=== PATIENT | female | born 1945 | race African-American/Black ===

== ENCOUNTER 2020-06-05 12:06 | Inpatient (IN) | payer MEDICARE, MEDICAID ==
[~2020-06-05] VITALS: Ht 167.6 cm; Wt 103.1 kg
--- NOTE | 2020-06-05 12:25 | NUR ---
ED Nurse Note: Pt brought by amb from SNF for low hemoglobin. Pt is alert and ox0, opens eyes to verbal stimuli. Pt arrived with vent AC setting, no respiratory distress. RT placed pt on AC levels PEEP 5, 40%, TV 400 upon arrival. Pt has g tube upper abdomen. Set on monitor. Pt has PICC IV upper R arm.
--- NOTE | 2020-06-05 12:26 | Emergency Room Report ---
History of Present Illness General Chief Complaint: Abnormal Labs Source: Medical Record, EMS Present Illness HPI Patient is a 74-year-old female past medical history of anemia vent dependent brought in by EMS from her extended care facility for anemia. Unable to obtain further history. Allergies: Coded Allergies: PROPOXYPHENE (Verified Allergy, Unknown, 06/05/20) COVID-19 Screening Contact w/high risk pt: No Experienced COVID-19 symptoms?: No COVID-19 Testing performed [employer]: Yes COVID-19 Screening: Negative COVID-19 COVID-19 Testing Source: unknown Patient History Reviewed Nursing Documentation: PMH: Agreed; PSxH: Agreed Review of Systems All Other Systems: limited Physical Exam Vital Signs Date Time Temp Pulse Resp B/P (MAP) Pulse Ox O2 Delivery O2 Flow Rate FiO2 06/05/20 12:01 97.2 59 18 139/52 (81) 99 Mechanical Ventilator 5.0 Sp02 EP Interpretation: reviewed, normal - On vent General Appearance: lethargic, Chronically Ill Head: normocephalic, atraumatic Neck: other - Trach in place Respiratory: rales Cardiovascular #1: regular rate, rhythm Gastrointestinal: non tender, soft, no guarding, no rebound Psychiatric: other - Unable to assess Skin: no rash Lymphatic: no adenopathy Procedures Critical Care Time Critical Care Time Total critical care time: Approximately 35 minutes. Due to a high probability of clinically significant, life threatening deterioration, the patient required my highest level of preparedness to intervene emergently and I personally spent this critical care time directly and personally managing the patient. This critical care time included obtaining a history; examining the patient; pulse oximetry; ordering and review of studies; arranging urgent treatment with development of a management plan; evaluation of patient's response to treatment ; frequent reassessment; and, discussions with other providers.This critical care time was performed to assess and manage the high probability of imminent, life-threatening deterioration that could result in multi-organ failure. It was exclusive of separately billable procedures and treating other patients and teaching time. Please see MDM section and the rest of the note for further information on patient assessment and treatment. Medical Decision Making Diagnostic Impression: Primary Impression: Anemia Additional Impressions: CHF (congestive heart failure) Hyponatremia Acute renal failure ER Course Patient presents for anemia. 1 unit of packed red blood cells have been ordered. Patient patient hyponatremic. Patient also presents with bilateral pulmonary vascular congestion. Patient given Lasix. Patient will be admitted for further treatment and evaluation. Chest X-Ray Diagnostic Results Chest X-Ray Diagnostic Results : Chest X-Ray Ordered: Yes # of Views/Limited/Complete: 1 View Indication: Other - sob EP Interpretation: Yes Interpretation: no consolidation, no pneumothorax, other - Bilateral increased pulmonary vasculature Impression: Other - DHF Electronically Signed by: Didi Crowell MD Last Vital Signs Date Time Temp Pulse Resp B/P (MAP) Pulse Ox O2 Delivery O2 Flow Rate FiO2 06/05/20 12:01 97.2 59 18 139/52 (81) 99 Mechanical Ventilator 5.0 Disposition: ADMITTED INPATIENT - Step-Down Condition: Critical Physician Consult: Dr. Killian Additional Instructions: Please note that this report is being documented using [employer] technology. This can lead to erroneous entry secondary to incorrect interpretation by the dictating instrument. Didi Crowell M.D. Jun 05, 2020 12:26
[2020-06-05 12:53] LABS: HEMATOCRIT 27.7 % (37.0-47.0); HEMOGLOBIN 7.9 G/DL (12.0-16.0); MEAN CORPUSCULAR VOLUME 86 FL (80-99); PLATELET COUNT 199 K/UL (150-450); RED CELL DISTRIBUTION WIDTH 22.1 % (11.6-14.8); WHITE BLOOD COUNT 6.7 K/UL (4.8-10.8)
[2020-06-05 13:00] LABS: INR 1.2 (0.9-1.1)
[2020-06-05 13:08] LABS: ANION GAP 7 mmol/L (5-15); BLOOD UREA NITROGEN 62 mg/dL (7-18); CALCIUM 8.3 MG/DL (8.5-10.1); CARBON DIOXIDE 25 MMOL/L (21-32); CHLORIDE 101 MMOL/L (98-107); CREATININE 1.5 MG/DL (0.55-1.30); POTASSIUM 4.7 MMOL/L (3.5-5.1); SODIUM 133 MMOL/L (136-145)
[2020-06-05 13:12] LABS: ALANINE AMINOTRANSFERASE 47 U/L (12-78); ALBUMIN 1.1 G/DL (3.4-5.0); ALBUMIN/GLOBULIN RATIO 0.2 (1.0-2.7); ALKALINE PHOSPHATASE 219 U/L (46-116); ASPARTATE AMINO TRANSFERASE 46 U/L (15-37); BILIRUBIN,TOTAL 0.7 MG/DL (0.2-1.0)
[2020-06-05 13:20] VITALS: BP 142/67
--- NOTE | 2020-06-05 15:10 | NUR ---
ED Nurse Note: Blood picked up from blood bank at 1500. Verified with RN Sallie. At 1510, blood started at 80 mL/hr. Pt VSS.
[2020-06-05 15:21] VITALS: BP 135/62
--- NOTE | 2020-06-05 17:05 | History & Physical ---
History and Physical History & Physicial 74-year-old female past medical history of anemia vent dependent brought in by EMS from her extended care facility for anemia. Unable to obtain further history. Allergies: PROPOXYPHENE (Verified Allergy, Unknown, 06/05/20) Physical WDWN NAD clear breath sounds bilaterally without rhonchi or wheeze [id number] without MRG NABS nontender no HSM no CC edema reduced LOC Labs Test 06/05/20 12:25 White Blood Count 6.7 K/UL (4.8-10.8) Red Blood Count 3.20 M/UL (4.20-5.40) Hemoglobin 7.9 G/DL (12.0-16.0) Hematocrit 27.7 % (37.0-47.0) Mean Corpuscular Volume 86 FL (80-99) Mean Corpuscular Hemoglobin 24.7 PG (27.0-31.0) Mean Corpuscular Hemoglobin Concent 28.6 G/DL (32.0-36.0) Red Cell Distribution Width 22.1 % (11.6-14.8) Platelet Count 199 K/UL (150-450) Mean Platelet Volume 8.1 FL (6.5-10.1) Neutrophils (%) (Auto) % (45.0-75.0) Lymphocytes (%) (Auto) % (20.0-45.0) Monocytes (%) (Auto) % (1.0-10.0) Eosinophils (%) (Auto) % (0.0-3.0) Basophils (%) (Auto) % (0.0-2.0) Differential Total Cells Counted 100 Neutrophils % (Manual) 74 % (45-75) Lymphocytes % (Manual) 6 % (20-45) Monocytes % (Manual) 12 % (1-10) Eosinophils % (Manual) 1 % (0-3) Basophils % (Manual) 3 % (0-2) Band Neutrophils 4 % (0-8) Platelet Estimate Adequate Platelet Morphology Normal Hypochromasia 1+ Anisocytosis 2+ Prothrombin Time 12.7 SEC (9.30-11.50) Prothromb Time International Ratio 1.2 (0.9-1.1) Activated Partial Thromboplast Time 32 SEC (23-33) Sodium Level 133 MMOL/L (136-145) Potassium Level 4.7 MMOL/L (3.5-5.1) Chloride Level 101 MMOL/L (98-107) Carbon Dioxide Level 25 MMOL/L (21-32) Anion Gap 7 mmol/L (5-15) Blood Urea Nitrogen 62 mg/dL (7-18) Creatinine 1.5 MG/DL (0.55-1.30) Estimat Glomerular Filtration Rate 34.1 mL/min (>60) Glucose Level 165 MG/DL (74-106) Calcium Level 8.3 MG/DL (8.5-10.1) Magnesium Level 2.4 MG/DL (1.8-2.4) Total Bilirubin 0.7 MG/DL (0.2-1.0) Aspartate Amino Transf (AST/SGOT) 46 U/L (15-37) Alanine Aminotransferase (ALT/SGPT) 47 U/L (12-78) Alkaline Phosphatase 219 U/L (46-116) Total Protein 7.3 G/DL (6.4-8.2) Albumin 1.1 G/DL (3.4-5.0) Globulin 6.2 g/dL Albumin/Globulin Ratio 0.2 (1.0-2.7) IMPRESSION respiratory failure CHF anemia possible GIB chronic encephalopathy CKD PLAN vent support diurese if able monitor HH transfuse echo follow up labs resume snf meds monitor as is impression, plan, and exam edited and reviewed in detail care discussed with Jonathon Henson MD Jun 05, 2020 17:05
--- NOTE | 2020-06-05 17:27 | Diagnostic Imaging Report ---
Indication: Dyspnea Technique: One view of the chest Comparison: none Findings: There is a tracheostomy. There is evidence of prior median sternotomy and valve repair. There are bilateral pleural effusions. There is extensive bilateral interstitial and airspace edema versus infiltrates. There is a right arm PICC. The heart is probably enlarged. Impression: Suspect cardiomegaly Bilateral pleural effusions Extensive bilateral interstitial and airspace disease, likely pulmonary edema, infiltrates possible
[2020-06-05] MEDS ORDERED: HUMALOG 75/255 UNIT1 SUBQ (17:38)
[2020-06-05] MEDS ORDERED: LEVEMIR100 UNIT/1 SUBQ (17:38)
[2020-06-05] MEDS ORDERED: CATAPRES0.1 MG GT (17:38)
[2020-06-05] MEDS ORDERED: POTASSIUM40 MEQ/11 GT (17:38)
[2020-06-05] MEDS ORDERED: NITRO0.4 SL (17:38)
[2020-06-05] MEDS ORDERED: LISINOPRIL10 MG GT (17:40)
[2020-06-05] MEDS ORDERED: ATORVASTATIN CA20 MG GT (17:40)
[2020-06-05] MEDS ORDERED: ASPIR 8181 MG GT (17:40)
[2020-06-05] MEDS ORDERED: NEXIUM40 MG GT (17:41)
[2020-06-05] MEDS ORDERED: METOPROLOL TART25 MG GT (17:41)
[2020-06-05] MEDS ORDERED: NORCO 5-325 TA1 EAC1 GT (17:44)
[2020-06-05] MEDS ORDERED: VITAMIN C500 M1 GT (17:44)
[2020-06-05] MEDS ORDERED: ZINC SULFATE220 M1 GT (17:44)
[2020-06-05] MEDS ORDERED: MULTI-DELYN237 ML GT (17:44)
[2020-06-05] MEDS ORDERED: COLACE100 MG GT (17:44)
[2020-06-05] MEDS ORDERED: IRON325 M1 GT (17:45)
[2020-06-05] MEDS ORDERED: VITAMIN A & D454 GM TOP (17:46)
[2020-06-05] MEDS ORDERED: santyl TOPIC (17:47)
[2020-06-05 18:15] VITALS: BP 124/83
--- NOTE | 2020-06-05 19:05 | NUR ---
ED Nurse Note: Report received for YUE VAZQUEZ
--- NOTE | 2020-06-05 19:45 | NUR ---
ED Nurse Note: Report given to ODALYS VAZQUEZ
--- NOTE | 2020-06-05 19:49 | NUR ---
ED Nurse Note: Patients own meds secured in ER med box. Bag #1 = [id number] Bag #2 = [id number]
--- NOTE | 2020-06-05 19:50 | NUR ---
TRANSFER TO FLOOR: Patient transferred SDU at rm 243-2 per indra with ambubagging, with assembler aircraft power plant, accompanied by RN, target aircraft technician and RT. Belongings and medications checked and stored in locker. Patient transferred to bed safely and endorsed to RN.
--- NOTE | 2020-06-05 20:05 | NUR ---
NURSE NOTES: Pt transferred to the unit via [facility]. Pt awake, obtunded, open eyes, non-verbal. SR on copy manager. Trach to vent, AC 24, TV 400, FIO2 40%, PEEP5, no sob noted. GT intact, patent. purewick in-placed. Sacral unstageable noted, wcp initiated, picture taken and uploaded. PICC on R UA noted, patent. Bed in the lowest position. Side rails up x3. will continue to monitor.
[2020-06-05 20:10] VITALS: BP 122/86
[2020-06-05] MEDS ORDERED: Nitroglycerin Subl 0.4mg tab SL PRN (21:30)
[2020-06-05] MEDS ORDERED: Lisinopril 2.5mg tab GT PRN ×2 (21:30→23:15)
[2020-06-05] MEDS ORDERED: HYDROcodone/Acetamin 5/325 tab GT PRN (21:30)
[2020-06-05] MEDS ORDERED: Acetaminophen 650mg/20.3ml GT PRN (21:30)
--- NOTE | 2020-06-05 22:00 | NUR ---
NURSE NOTES: was called and admitting orders received. Will follow the plan of care. Pt sleeping in the bed, no acute distress noted at this time.
[2020-06-06] VITALS: BP 101/82
--- NOTE | 2020-06-06 00:30 | NUR ---
NURSE NOTES: Transfusion initiated, no signs of adverse effect noted. pt sleeping in the bed. Will continue to monitor.
[2020-06-06] MEDS ORDERED: Acetaminophen 650mg/20.3ml GT PRN (01:30)
--- NOTE | 2020-06-06 03:00 | NUR ---
NURSE NOTES: Pt sleeping in the bed. Noted red, white sputum noted from suction. Bed bath given. Oral care given. Reposition done. Will continue to monitor.
[2020-06-06 04:00] VITALS: BP 104/50
[2020-06-06] MEDS: NovoLOG Insulin Flexpen SUBQ SCH ×5 (05:45→22:59)
--- NOTE | 2020-06-06 07:19 | NUR ---
NURSE HAND-OFF REPORT: Important Events on Shift:admission Patient Status: stable Diet: tube feeding, glucerna 1.2 at 20cc/hr (goal at 60cc/hr. Pending Orders: n/a Pending Results/Labs:n/a Pending MD notification:n/a Latest Vital Signs: Temperature 97.7 , Pulse 59 , B/P 104 /50 , Respiratory Rate 24 , O2 SAT 100 , Mechanical Ventilator, O2 Flow Rate 5.0 . Vital Sign Comment: [] EKG Rhythm: Sinus Bradycardia Rhythm change?: N MD Notified?: - MD Response: Latest Box Fall Score: 50 Fall Risk: High Risk Safety Measures: Call light Within Reach, Bed Alarm Zone 1, Side Rails Side Rails x3, Bed position Low and Locked. Fall Precautions: Yellow Socks Yellow Gown Door Sign Patient Fall Education Report given to GEORGE Magallon.
--- NOTE | 2020-06-06 07:20 | NUR ---
NURSE NOTES: Received report from GEORGE Castle. The patient is resting on the bed without acute distress or shortness of breath. The patient is obtunded, opening eyes but not tracking. SR with HR of 60s on the awake overnight monitor. The patient is trach'ed and on ventilator on following setting and oxygen saturation is 97%: Shiley 8, AC 24, TV 400, PEEP 5, and FiO2 40%. The patient's GT intact and patent and running Glucerna 1.2 @ 20mL/hr with goal of 60mL/hr. The patient has purewig for urinary incontinence. The patient has STEVE single lumen PICC line that is intact and patent and running NS @ 100mL/hr. Skin issue noted and dressing intact. The patient's bed in the lowest position, call light in reach, and fall and aspiration precaution reinforced. IV site intact and patent. Will follow up the lab and order. Will closely monitor the patient. Will continue plan of care.
[2020-06-06 08:00] VITALS: BP 105/50
--- NOTE | 2020-06-06 08:00 | NUR ---
NURSE NOTES: Initial nursing assessment done. Initial vital signs taken. The patient is stable at this time. Will continue plan of care.
--- NOTE | 2020-06-06 08:19 | NUR ---
RD ASSESSMENT & RECOMMENDATIONS SEE CARE ACTIVITY FOR COMPLETE ASSESSMENT DAILY ESTIMATED NEEDS: Needs based on Critical care, wound, 66kg abw 23-28 kcals/kg 6325-7670 total kcals 1.25-2 g protein/kg 83-132 g total protein 25-30 mL/kg 8797-1401 total fluid mLs NUTRITION DIAGNOSIS: Increased kcal and pro needs r/t wound healing as evidenced by sacral wound, unstageable, eval is pending, pt is bedbound/trach and peg dep. (CURRENT TF: Glucerna 1.2 @60ml/hr x20 hrs) ENTERAL NUTRITION RECOMMENDATIONS: Glucerna 1.2 @70ml/hr x20 hrs to provide 1400ml, 1680 kcal, 84g pro, 1127ml free H2o - Rec to increase TF goal to better meet est kcal and pro needs - Flush per MD. HOB over 30 degrees. ADDITIONAL RECOMMENDATIONS: 1) Maintain calibrated bed scale wts 2) Wound care: continue Vit C and Zinc. -> Add ARMANDO in 4oz H2O BID via Gtube 3) Monitor BG, need for increased insulin coverage 4) Monitor lytes closely on lasix
[2020-06-06] MEDS: Pantoprazole Inj IVP SCH (08:40)
[2020-06-06] MEDS: Ascorbic Acid 500mg tab GT SCH ×2 (08:40→17:52)
[2020-06-06] MEDS: Zinc Sulfate 220mg GT SCH (08:40)
[2020-06-06 09:20] LABS: BASOPHILS % (AUTO) 0.5 % (0.0-2.0); HEMATOCRIT 38.4 % (37.0-47.0); HEMOGLOBIN 11.8 G/DL (12.0-16.0); LYMPHOCYTES % (AUTO) 8.3 % (20.0-45.0); MEAN CORPUSCULAR VOLUME 87 FL (80-99); MONOCYTES % (AUTO) 8.8 % (1.0-10.0); NEUTROPHILS % (AUTO) 82.3 % (45.0-75.0); PLATELET COUNT 158 K/UL (150-450); RED BLOOD COUNT 4.43 M/UL (4.20-5.40); RED CELL DISTRIBUTION WIDTH 18.2 % (11.6-14.8); WHITE BLOOD COUNT 4.9 K/UL (4.8-10.8)
--- NOTE | 2020-06-06 09:21 | General Progress Note ---
Assessment/Plan Assessment/Plan: IMPRESSION respiratory failure CHF anemia possible GIB chronic encephalopathy CKD PLAN vent support diurese if able monitor HH transfusion and follow up results echo follow up labs resume snf meds monitor as is impression, plan, and exam edited and reviewed in detail care discussed with RN Subjective ROS Limited/Unobtainable: Yes Allergies: Coded Allergies: PROPOXYPHENE (Verified Allergy, Unknown, 06/05/20) Subjective care noted ordered transfusion Objective Last 24 Hour Vital Signs Date Time Temp Pulse Resp B/P (MAP) Pulse Ox O2 Delivery O2 Flow Rate FiO2 06/06/20 08:39 63 105/50 06/06/20 04:45 59 24 40 06/06/20 04:00 Mechanical Ventilator 06/06/20 04:00 97.7 58 24 104/50 (68) 100 06/06/20 04:00 40 06/06/20 04:00 58 06/06/20 02:45 65 24 40 06/06/20 00:53 62 26 40 06/06/20 00:00 97.5 65 24 101/82 (88) 100 06/06/20 00:00 40 06/06/20 00:00 60 06/06/20 00:00 Mechanical Ventilator 06/05/20 22:30 64 25 40 06/05/20 20:55 62 24 40 06/05/20 20:27 Mechanical Ventilator 5.0 06/05/20 20:18 75 06/05/20 20:10 97.5 80 16 122/86 (98) 95 06/05/20 20:05 98.0 88 20 113/67 99 Mechanical Ventilator 06/05/20 19:11 69 31 40 06/05/20 18:15 98.0 70 25 124/83 95 Mechanical Ventilator 5.0 40 06/05/20 17:08 69 28 40 06/05/20 16:45 98.0 76 18 06/05/20 15:35 98.7 61 18 06/05/20 15:21 97.2 54 26 135/62 98 Mechanical Ventilator 5.0 40 06/05/20 15:05 98.9 64 18 06/05/20 15:00 58 24 40 06/05/20 13:20 97.2 62 24 142/67 99 Mechanical Ventilator 5.0 40 06/05/20 12:15 68 25 40 06/05/20 12:01 97.2 59 18 139/52 (81) 99 Mechanical Ventilator 5.0 Intake and Output 06/05/20 06/06/20 19:00 07:00 Intake Total 250 ml 710 ml Output Total 250 ml Balance 250 ml 460 ml Intake Oral 0 ml Free Water 60 ml IV Total 300 ml Tube Feeding 100 ml Blood Product 250 ml 250 ml Output Urine Total 250 ml Laboratory Tests 06/05/20 12:25: White Blood Count 6.7, Red Blood Count 3.20L, Hemoglobin 7.9L, Hematocrit 27.7L , Mean Corpuscular Volume 86, Mean Corpuscular Hemoglobin 24.7L, Mean Corpuscular Hemoglobin Concent 28.6L, Red Cell Distribution Width 22.1H, Platelet Count 199, Mean Platelet Volume 8.1, Neutrophils (%) (Auto) , Lymphocytes (%) (Auto) , Monocytes (%) (Auto) , Eosinophils (%) (Auto) , Basophils (%) (Auto) , Differential Total Cells Counted 100, Neutrophils % ( Manual) 74, Lymphocytes % (Manual) 6L, Monocytes % (Manual) 12H, Eosinophils % ( Manual) 1, Basophils % (Manual) 3H, Band Neutrophils 4, Platelet Estimate Adequate, Platelet Morphology Normal, Hypochromasia 1+, Anisocytosis 2+, Prothrombin Time 12.7H, Prothromb Time International Ratio 1.2H, Activated Partial Thromboplast Time 32, Sodium Level 133L, Potassium Level 4.7, Chloride Level 101, Carbon Dioxide Level 25, Anion Gap 7, Blood Urea Nitrogen 62H, Creatinine 1.5H, Estimat Glomerular Filtration Rate 34.1, Glucose Level 165H, Calcium Level 8.3L, Magnesium Level 2.4, Total Bilirubin 0.7, Aspartate Amino Transf (AST/SGOT) 46H, Alanine Aminotransferase (ALT/SGPT) 47, Alkaline Phosphatase 219H, Total Protein 7.3, Albumin 1.1L, Globulin 6.2, Albumin/ Globulin Ratio 0.2L 06/06/20 00:05: POC Whole Blood Glucose 105 06/06/20 05:21: POC Whole Blood Glucose 94 06/06/20 08:05: White Blood Count [Pending], Red Blood Count [Pending], Hemoglobin [Pending], Hematocrit [Pending], Mean Corpuscular Volume [Pending], Mean Corpuscular Hemoglobin [Pending], Mean Corpuscular Hemoglobin Concent [Pending], Red Cell Distribution Width [Pending], Platelet Count [Pending], Mean Platelet Volume [ Pending], Neutrophils (%) (Auto) [Pending], Lymphocytes (%) (Auto) [Pending], Monocytes (%) (Auto) [Pending], Eosinophils (%) (Auto) [Pending], Basophils (%) (Auto) [Pending], Sodium Level [Pending], Potassium Level [Pending], Chloride Level [Pending], Carbon Dioxide Level [Pending], Blood Urea Nitrogen [Pending], Creatinine [Pending], Estimat Glomerular Filtration Rate [Pending], Glucose Level [Pending], Calcium Level [Pending] 06/06/20 08:37: POC Whole Blood Glucose [Pending] Height (Feet): 5 Height (Inches): 6.00 Weight (Pounds): 191 Objective WDWN NAD clear breath sounds bilaterally without rhonchi or wheeze [id number] without MRG NABS nontender GT no CCE reduced LOC GT Jonathon Payne MD Jun 06, 2020 09:21
[2020-06-06 09:33] LABS: ANION GAP 9 mmol/L (5-15); BLOOD UREA NITROGEN 54 mg/dL (7-18); CARBON DIOXIDE 25 MMOL/L (21-32); CHLORIDE 102 MMOL/L (98-107); CREATININE 1.2 MG/DL (0.55-1.30); POTASSIUM 4.2 MMOL/L (3.5-5.1); SODIUM 135 MMOL/L (136-145)
--- NOTE | 2020-06-06 10:00 | NUR ---
NURSE NOTES: Medications administered per order. Tolerated well. Held blood pressure medication due to hypotension. Will closely monitor the patient. Will continue plan of care.
--- NOTE | 2020-06-06 10:30 | NUR ---
NURSE NOTES: Dr. Payne at the bedside assessed the patient. Notified Dr. Payne that 3 unit pRBC transfusion completed during previous shifts and hemoglobin went upto 11.8. Clarification made with Dr. Payne regarding GT feeding since possible GI bleed. Per Dr. Payne, it is okay to resume feeding and discontinue IVF (NS @ 100mL/hr) for generalized edema and possible GI bleed. Dr. Payne ordered to repeat CBC tomorrow morning to see the trend of hemoglobin. Will closely monitor the patient. Will continue plan of care.
--- NOTE | 2020-06-06 11:00 | NUR ---
NURSE NOTES: Dr. Daniel at the bedside assessed the patient. Notified the patient's condition. Dr. Daniel ordered ob stool to be done. Will collect the same as soon as the patient makes bowel movement. Will continue plan of care.
[2020-06-06 12:00] VITALS: BP 111/46
--- NOTE | 2020-06-06 12:00 | NUR ---
NURSE NOTES: The patient is resting on the bed without acute distress or shortness of breath. Tolerating TF and vent setting well. Will closely monitor the patient. Will continue plan of care.
--- NOTE | 2020-06-06 13:00 | NUR ---
NURSE NOTES: BS of 130 noted. No coverage per protocol. Will closely monitor the patient. Will continue plan of care.
--- NOTE | 2020-06-06 13:16 | Consultation ---
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 Patient noted on admission to have a hemoglobin of 7 even lower in the facility. Upon admission noted to have abnormal labs and multiple skin concerns. Potential GI bleeding etiology of anemia. Surgery called to evaluate and assist with care. Patient seen, patient evaluated, chart reviewed. Currently no pain no nausea vomiting fever or chills. Allergies: Coded Allergies: PROPOXYPHENE (Verified Allergy, Unknown, 06/05/20) Medication History Scheduled Ascorbic Acid* (Vitamin C*), 500 MG GT TWICE A DAY, (Reported) Aspirin* (Aspir 81*), 81 MG GT DAILY, (Reported) Atorvastatin Calcium* (Atorvastatin Calcium*), 10 MG GT BEDTIME, (Reported) Esomeprazole Magnesium (Nexium), 40 MG GT DAILY, (Reported) Ferrous Sulfate (Iron), 325 MG GT DAILY, (Reported) Insulin Detemir (Levemir), 5 UNITS SUBQ BID, (Reported) Insulin Human Lispro (Humalog), 0 SUBQ TID, (Reported) Metoprolol Tartrate* (Metoprolol Tartrate*), 25 MG GT EVERY 12 HOURS, (Reported) Multivitamin Liquid* (Multi-Delyn*), 15 ML GT DAILY, (Reported) Potassium Chloride (Potassium Chloride), 50 MEQ PO DAILY, (Reported) Zinc Sulfate (Zinc Sulfate*), 220 MG GT DAILY, (Reported) [santyl ], 1 APPLIC TOPIC DAILY, (Reported) Scheduled PRN Clonidine Hcl* (Catapres*), 0.1 MG ORAL EVERY 4 HOURS PRN for For High Blood Pressure, (Reported) Docusate Sodium* (Colace*), 100 MG GT DAILY PRN for Constipation, (Reported) Hydrocodone Bit/Acetaminophen 5-325* ([place] 5-325 Tablet*), 1 TAB ORAL Q4H PRN for For Pain, (Reported) Lisinopril* (Lisinopril*), 5 MG GT DAILY PRN for For High Blood Pressure, ( Reported) Nitroglycerin 0.4MG table* (Nitroglycerin*), 0.4 MG SL .Q5MIN X 3 DOSES PRN for CHEST PAIN, (Reported) Miscellaneous Medications Vitamin A & D (Vitamin A & D Ointment), 454 GM TOP, (Reported) Patient History Limited by: medical condition History Provided By: Medical Record, PMD Healthcare decision maker Resuscitation status Advanced Directive on File No Past Medical/Surgical History Past Medical/Surgical History: (1) Acute renal failure (2) Hyponatremia (3) CHF (congestive heart failure) (4) Abnormal laboratory test result (5) Anemia Review of Systems Constitutional: Denies: no symptoms, see HPI, chills, sweats, fever, malaise, weakness, other Eye: Denies: no symptoms, see HPI, eye pain, blurred vision, tearing, double vision, nose pain, nose congestion, acuity changes, discharge, other ENT: Denies: no symptoms, see HPI, ear pain, ear discharge, nose pain, nose congestion, throat pain, throat swelling, mouth pain, hearing loss, nasal discharge, other Respiratory: Denies: no symptoms, see HPI, cough, orthopnea, shortness of breath, stridor, wheezing, MONIQUE, sputum, other Cardiovascular: Denies: no symptoms, see HPI, chest pain, edema, palpitations, syncope, PND, other Gastrointestinal: Denies: no symptoms, see HPI, abdominal pain, constipation, diarrhea, nausea, vomiting, melena, hematemesis, other Genitourinary: Denies: no symptoms, see HPI, discharge, dysuria, frequency, hematuria, pain, retention, incontinence, urgency, vag bleed/dc, other Musculoskeletal: Denies: no symptoms, see HPI, back pain, gout, joint pain, joint swelling, muscle pain, muscle stiffness, other Skin: Denies: no symptoms, see HPI, rash, change in color, change in hair/nails , dryness, lesions, other Psychiatric: Denies: no symptoms, see HPI, prior hx, anxiety, depressed feelings, emotional problems, SI, HI, hallucinations, other Neurological: Denies: no symptoms, see HPI, headache, numbness, paresthesia, seizure, tingling, tremors, focal weakness, syncope, dizziness, other Endocrine: Denies: no symptoms, see HPI, excessive sweating, flushing, intolerance to temperature, increased thirst, increased urine, unexplained weight loss, other Hematologic/Lymphatic: Denies: no symptoms, see HPI, anemia, blood clots, easy bleeding, easy bruising, swollen glands, diathesis, other All Other Systems: negative except mentioned in HPI Physical Exam General Appearance: no apparent distress, alert Lines, tubes and drains: peripheral HEENT: atraumatic, anicteric, mucous membranes moist, PERRL Neck: normal alignment, supple, normal inspection Respiratory/Chest: normal breath sounds, no respiratory distress, no accessory muscle use Cardiovascular/Chest: normal rate, regular rhythm Abdomen: soft, no organomegaly, no mass, other Genitourinary/Rectal: normal rectal exam Extremities: non-tender, normal inspection, no calf tenderness, slow capillary refill Skin Exam: warm/dry Neurologic: alert Last 24 Hour Vital Signs Date Time Temp Pulse Resp B/P (MAP) Pulse Ox O2 Delivery O2 Flow Rate FiO2 06/06/20 13:00 66 25 40 06/06/20 10:43 62 24 40 06/06/20 09:21 64 26 40 06/06/20 08:39 63 105/50 06/06/20 08:00 97.5 63 24 105/50 (68) 100 06/06/20 08:00 40 06/06/20 07:57 63 06/06/20 07:16 69 27 40 06/06/20 04:45 59 24 40 06/06/20 04:00 Mechanical Ventilator 06/06/20 04:00 97.7 58 24 104/50 (68) 100 06/06/20 04:00 40 06/06/20 04:00 58 06/06/20 02:45 65 24 40 06/06/20 00:53 62 26 40 06/06/20 00:00 97.5 65 24 101/82 (88) 100 06/06/20 00:00 40 06/06/20 00:00 60 06/06/20 00:00 Mechanical Ventilator 06/05/20 22:30 64 25 40 06/05/20 20:55 62 24 40 06/05/20 20:27 Mechanical Ventilator 5.0 06/05/20 20:18 75 06/05/20 20:10 97.5 80 16 122/86 (98) 95 06/05/20 20:05 98.0 88 20 113/67 99 Mechanical Ventilator 06/05/20 19:11 69 31 40 06/05/20 18:15 98.0 70 25 124/83 95 Mechanical Ventilator 5.0 40 06/05/20 17:08 69 28 40 06/05/20 16:45 98.0 76 18 06/05/20 15:35 98.7 61 18 06/05/20 15:21 97.2 54 26 135/62 98 Mechanical Ventilator 5.0 40 06/05/20 15:05 98.9 64 18 06/05/20 15:00 58 24 40 06/05/20 13:20 97.2 62 24 142/67 99 Mechanical Ventilator 5.0 40 Intake and Output 06/05/20 06/06/20 19:00 07:00 Intake Total 250 ml 710 ml Output Total 250 ml Balance 250 ml 460 ml Intake Oral 0 ml Free Water 60 ml IV Total 300 ml Tube Feeding 100 ml Blood Product 250 ml 250 ml Output Urine Total 250 ml Laboratory Tests Test 06/06/20 00:05 06/06/20 05:21 06/06/20 08:05 06/06/20 08:37 POC Whole Blood Glucose 105 MG/DL (74-106) 94 MG/DL (74-106) Pending White Blood Count 4.9 K/UL (4.8-10.8) Red Blood Count 4.43 M/UL (4.20-5.40) Hemoglobin 11.8 G/DL (12.0-16.0) #L Hematocrit 38.4 % (37.0-47.0) # Mean Corpuscular Volume 87 FL (80-99) Mean Corpuscular Hemoglobin 26.6 PG (27.0-31.0) L Mean Corpuscular Hemoglobin Concent 30.7 G/DL (32.0-36.0) L Red Cell Distribution Width 18.2 % (11.6-14.8) H Platelet Count 158 K/UL (150-450) Mean Platelet Volume 7.2 FL (6.5-10.1) Neutrophils (%) (Auto) 82.3 % (45.0-75.0) H Lymphocytes (%) (Auto) 8.3 % (20.0-45.0) L Monocytes (%) (Auto) 8.8 % (1.0-10.0) Eosinophils (%) (Auto) 0.0 % (0.0-3.0) Basophils (%) (Auto) 0.5 % (0.0-2.0) Sodium Level 135 MMOL/L (136-145) L Potassium Level 4.2 MMOL/L (3.5-5.1) Chloride Level 102 MMOL/L (98-107) Carbon Dioxide Level 25 MMOL/L (21-32) Anion Gap 9 mmol/L (5-15) Blood Urea Nitrogen 54 mg/dL (7-18) H Creatinine 1.2 MG/DL (0.55-1.30) Estimat Glomerular Filtration Rate 53.3 mL/min (>60) Glucose Level 99 MG/DL (74-106) Calcium Level 8.0 MG/DL (8.5-10.1) L Test 06/06/20 12:49 POC Whole Blood Glucose Pending Microbiology Date/Time Source Procedure Growth Status 06/05/20 15:51 Rectum Received Height (Feet): 5 Height (Inches): 6.00 Weight (Pounds): 191 Medications Current Medications Medications (Trade) Dose Ordered Sig/Mara Route PRN Reason Start Time Stop Time Status Last Admin Dose Admin Acetaminophen (Tylenol) 650 mg Q4H PRN GT Pain Scale (3-5) 06/06/20 01:30 07/05/20 21:29 Acetaminophen/ Hydrocodone Bitart ([place] 5/325) 1 tab Q4H PRN GT For Pain 06/05/20 21:30 06/12/20 21:29 Al Hydroxide/Mg Hydroxide (Mylanta) 30 ml Q4H PRN ORAL Abdominal cramps 06/05/20 21:30 07/05/20 21:29 Ascorbic Acid (Vitamin C) 500 mg TWICE A DAY GT 06/06/20 09:00 07/06/20 08:59 06/06/20 08:40 Atorvastatin Calcium (Lipitor) 10 mg BEDTIME GT 06/06/20 21:00 09/04/20 20:59 Clonidine HCl (Catapres Tab) 0.1 mg Q4H PRN GT SBP>160 06/06/20 01:30 09/03/20 21:29 Dextrose (Dextrose 50%) 25 ml Q30M PRN IV Hypoglycemia 06/05/20 21:30 09/03/20 21:29 Dextrose (Dextrose 50%) 50 ml Q30M PRN IV Hypoglycemia 06/05/20 21:30 09/03/20 21:29 Insulin Aspart (NovoLOG) Q6HR SUBQ 06/06/20 00:00 09/04/20 00:00 Lisinopril (ZestriL) 5 mg DAILY PRN GT SBP OVER 160 06/05/20 23:15 07/05/20 21:29 Metoprolol Tartrate (Lopressor) 25 mg EVERY 12 HOURS GT 06/06/20 09:00 09/04/20 08:59 Nitroglycerin (Ntg) 0.4 mg Q5M PRN SL CHEST PAIN 06/05/20 21:30 07/05/20 21:29 Pantoprazole (Protonix) 40 mg DAILY IVP 06/06/20 09:00 07/06/20 08:59 06/06/20 08:40 Zinc Sulfate (Zinc Sulfate) 220 mg DAILY GT 06/06/20 09:00 09/04/20 08:59 06/06/20 08:40 Assessment/Plan Problem List: (1) Acute renal failure ICD Codes: N17.9 - Acute kidney failure, unspecified SNOMED: 27743932 (2) Hyponatremia ICD Codes: E87.1 - Hypo-osmolality and hyponatremia SNOMED: 41066562 (3) CHF (congestive heart failure) ICD Codes: I50.9 - Heart failure, unspecified SNOMED: 14196538 (4) Abnormal laboratory test result ICD Codes: R89.9 - Unspecified abnormal finding in specimens from other organs , systems and tissues SNOMED: 849894219 (5) Anemia ICD Codes: D64.9 - Anemia, unspecified SNOMED: 153569977 (6) Decubitus ulcer of sacral region, unstageable Assessment & Plan: 74-year-old female multiple comorbidities BMI 30 albumin of 1 severe anemia presented with identifiable unstageable sacral decubitus ulcer on examination. Wound evaluated care plan initiated. Air mattress, nutritional optimization, turn every 2 hours, will follow with recommendations thank you ICD Codes: L89.150 - Pressure ulcer of sacral region, unstageable SNOMED: 504413549 (7) Malnutrition Assessment & Plan: DAILY ESTIMATED NEEDS: Needs based on Critical care, wound, 66kg abw 23-28 kcals/kg 8955-6245 total kcals 1.25-2 g protein/kg 83-132 g total protein 25-30 mL/kg 4455-9291 total fluid mLs NUTRITION DIAGNOSIS: Increased kcal and pro needs r/t wound healing as evidenced by sacral wound, unstageable, eval is pending, pt is bedbound/trach and peg dep. (CURRENT TF: Glucerna 1.2 @60ml/hr x20 hrs) ENTERAL NUTRITION RECOMMENDATIONS: Glucerna 1.2 @70ml/hr x20 hrs to provide 1400ml, 1680 kcal, 84g pro, 1127ml free H2o - Rec to increase TF goal to better meet est kcal and pro needs - Flush per MD. HOB over 30 degrees. ADDITIONAL RECOMMENDATIONS: 1) Maintain calibrated bed scale wts 2) Wound care: continue Vit C and Zinc. -> Add ARMANDO in 4oz H2O BID via Gtube 3) Monitor BG, need for increased insulin coverage 4) Monitor lytes closely on lasix ICD Codes: E46 - Unspecified protein-calorie malnutrition SNOMED: 01711487 Iraj Prado Jun 06, 2020 13:15
--- NOTE | 2020-06-06 15:00 | NUR ---
NURSE NOTES: Bed bath given to the patient. Tolerated well. Tolerating vent setting and TF well. Will closely monitor the patient. Will continue plan of care.
--- NOTE | 2020-06-06 15:21 | NUR ---
CASE MANAGEMENT: REVIEW 74 YEAR OLD FEMALE BIBA FROM [facility] CC: ABNORMAL LABS SI: ANEMIA . CHF . ACUTE RENAL FAILURE T 97.2 HR 59 RR 18 BP 139/52 SAT 99% MECH VENT FIO2 40 H/H 7.9/27.7 NA 135 BUN 54 CALCIUM 8.0 IS: LASIX IV X1 NS IVF BOLUS X1 TRANSFUSE PRBC PATIENT ADMITTED TO STEP DOWN UNIT 06/05/2020 DCP: PATIENT IS FROM [facility]
--- NOTE | 2020-06-06 15:44 | NUR ---
INSURANCE REVIEWS/CLINICALS FAXED TO [facility]: NIKKO FLORES # [phone] FAX# [phone]
[2020-06-06 16:00] VITALS: BP 117/51
--- NOTE | 2020-06-06 17:00 | NUR ---
NURSE NOTES: Small amount of light brown BM noted. Collected OB stool sample and sent down to the lab. Will follow up the result. Will continue plan of care.
--- NOTE | 2020-06-06 18:00 | NUR ---
NURSE NOTES: Medications administered per order. BS of 118 noted. No coverage at this time. Will closely monitor the patient. Will continue plan of care.
--- NOTE | 2020-06-06 18:13 | General Progress Note ---
Assessment/Plan Assessment/Plan: GI CONSULT Dictated d/w DTR Miya Mary DTR states patient was walking/taking up to recently Had a massive stroke, admitted to [facility] and PEG placed about a week ago No reports of melena per RN Will first check CT of abd / pelvis to r/o PEG related intra-abd bleed Stool OB ordered, but may be (+) due to recent PEG Thank you Andi Daniel MD Subjective Allergies: Coded Allergies: PROPOXYPHENE (Verified Allergy, Unknown, 06/05/20) Objective Last 24 Hour Vital Signs Date Time Temp Pulse Resp B/P (MAP) Pulse Ox O2 Delivery O2 Flow Rate FiO2 06/06/20 17:08 72 28 40 06/06/20 16:00 Mechanical Ventilator 06/06/20 16:00 67 06/06/20 16:00 40 06/06/20 16:00 98.2 69 24 117/51 (73) 96 06/06/20 14:30 71 36 40 06/06/20 13:00 66 25 40 06/06/20 12:00 97.9 66 24 111/46 (67) 100 06/06/20 12:00 Mechanical Ventilator 06/06/20 12:00 40 06/06/20 11:42 63 06/06/20 10:43 62 24 40 06/06/20 09:21 64 26 40 06/06/20 08:39 63 105/50 06/06/20 08:00 97.5 63 24 105/50 (68) 100 06/06/20 08:00 Mechanical Ventilator 06/06/20 08:00 40 06/06/20 07:57 63 06/06/20 07:16 69 27 40 06/06/20 04:45 59 24 40 06/06/20 04:00 Mechanical Ventilator 06/06/20 04:00 97.7 58 24 104/50 (68) 100 06/06/20 04:00 40 06/06/20 04:00 58 06/06/20 02:45 65 24 40 06/06/20 00:53 62 26 40 06/06/20 00:00 97.5 65 24 101/82 (88) 100 06/06/20 00:00 40 06/06/20 00:00 60 06/06/20 00:00 Mechanical Ventilator 06/05/20 22:30 64 25 40 06/05/20 20:55 62 24 40 06/05/20 20:27 Mechanical Ventilator 5.0 06/05/20 20:18 75 06/05/20 20:10 97.5 80 16 122/86 (98) 95 06/05/20 20:05 98.0 88 20 113/67 99 Mechanical Ventilator 06/05/20 19:11 69 31 40 06/05/20 18:15 98.0 70 25 124/83 95 Mechanical Ventilator 5.0 40 Intake and Output 06/05/20 06/06/20 19:00 07:00 Intake Total 250 ml 710 ml Output Total 250 ml Balance 250 ml 460 ml Intake Oral 0 ml Free Water 60 ml IV Total 300 ml Tube Feeding 100 ml Blood Product 250 ml 250 ml Output Urine Total 250 ml Laboratory Tests 06/06/20 00:05: POC Whole Blood Glucose 105 06/06/20 05:21: POC Whole Blood Glucose 94 06/06/20 08:05: White Blood Count 4.9, Red Blood Count 4.43, Hemoglobin 11.8#L, Hematocrit 38.4# , Mean Corpuscular Volume 87, Mean Corpuscular Hemoglobin 26.6L, Mean Corpuscular Hemoglobin Concent 30.7L, Red Cell Distribution Width 18.2H, Platelet Count 158, Mean Platelet Volume 7.2, Neutrophils (%) (Auto) 82.3H, Lymphocytes (%) (Auto) 8.3L, Monocytes (%) (Auto) 8.8, Eosinophils (%) (Auto) 0.0, Basophils (%) (Auto) 0.5, Sodium Level 135L, Potassium Level 4.2, Chloride Level 102, Carbon Dioxide Level 25, Anion Gap 9, Blood Urea Nitrogen 54H, Creatinine 1.2, Estimat Glomerular Filtration Rate 53.3, Glucose Level 99, Calcium Level 8.0L 06/06/20 08:37: POC Whole Blood Glucose [Pending] 06/06/20 12:49: POC Whole Blood Glucose [Pending] 06/06/20 17:50: POC Whole Blood Glucose [Pending] Height (Feet): 5 Height (Inches): 6.00 Weight (Pounds): 191 Andi Daniel MD Jun 06, 2020 18:12
[2020-06-06] MEDS ORDERED: Omnipaque-300 100ml vial INJ PRN (18:15)
--- NOTE | 2020-06-06 18:20 | NUR ---
NURSE NOTES: Dr. Daniel ordered CT abdomen and pelvis with contrast to rule out intra-abdominal bleeding. TF on hold from now prior to CT scan. Will closely monitor the patient. Will continue plan of care.
--- NOTE | 2020-06-06 19:20 | NUR ---
NURSE NOTES: Received patient and report from GEORGE Magallon. Patient is observed resting in bed and remains obtunded. No pain noted upon assessment. Pt is currently trach to vent and appears to be tolerating settings well. Vent settings as follows: AC 24 TV 400 FiO2 40% PEEP 5 with an O2 saturation of 100% noted at this time. Bilateral lower lobe breath sounds noted to be diminished upon auscultation, rhonchi noted in bilateral upper lobes. Pt noted to be SR on tele monitor with a HR of 67 and no s/sx of acute distress noted. R upper arm PICC lines noted which remains asymptomatic, intact and patent. Central line dressing remains clean, dry and intact. GTube noted which remains intact and patent. Bowel sounds noted in all four quadrants, abdomen remains large, round, soft and nontender. Feeding remains off for pending CT scan. Diagnostics reviewed at bedside. Skin alterations noted. Pt repositioned for comfort and safety. Fall, Aspiration and Skin precautions observed. Pt remains resting in bed; Bed remains in the lowest position with the safety wheels engaged, call light within reach, side rails up x3 and bed alarm activated. Will continue plan of care. Will continue to monitor.
--- NOTE | 2020-06-06 19:30 | NUR ---
NURSE HAND-OFF REPORT: Important Events on Shift: OB stool collection, uptrend of Hgb from 7.9 to 11.8 after 3 unit pRBC transfusion. Patient Status: Stable, Full code Diet: GTF Glucerna 1.2 Goal 60mL/hr, was on 40mL/hr, now on hold prior to CT. Pending Orders: CT of abdomen and pelvis with contrast Pending Results/Labs: OB stool result Pending MD notification: N Latest Vital Signs: Temperature 98.1 , Pulse 70 , B/P 120 /50 , Respiratory Rate 24 , O2 SAT 97 , Mechanical Ventilator, O2 Flow Rate 5.0 . Vital Sign Comment: Stable EKG Rhythm: Sinus Rhythm Rhythm change?: N MD Notified?: - MD Response: Latest Box Fall Score: 50 Fall Risk: High Risk Safety Measures: Call light Within Reach, Bed Alarm Zone 1, Side Rails Side Rails x3, Bed position Low and Locked. Fall Precautions: Yellow Socks Yellow Gown Door Sign Patient Fall Education Report given to GEORGE Lugo. The patient is stable at this time. Endorsed that the patient is kept in NPO prior to CT scan. Endorsed plan of care.
--- NOTE | 2020-06-06 19:42 | NUR ---
NURSE NOTES: Confirmed informed consent obtained and called radiology as order noted to be STAT. Will await a call back. Will continue to monitor.
[2020-06-06 20:00] VITALS: BP 120/50
--- NOTE | 2020-06-06 20:48 | NUR ---
NURSE NOTES: Bedside assessment performed. Pt noted to be sleeping at this time. Assessed pt for pain with a FLACC score of 0 noted. Pt noted to be SB with a HR of 48 on tele monitor. 12 lead EKG performed at bedside, results noted to be SB. PT HR now noted to be 55-71 Fall, Aspiration and Skin precautions observed. Pt remains resting in bed; Bed remains in the lowest position with the safety wheels engaged, call light within reach, side rails up x3 and bed alarm activated. Will continue plan of care. Will continue to monitor.
--- NOTE | 2020-06-06 21:15 | NUR ---
NURSE NOTES: Called pharmacy to confirm that radiology will be bringing contrast. Will await a call back. Will continue to monitor.
--- NOTE | 2020-06-06 21:37 | NUR ---
NURSE NOTES: Called radiology as order noted to be STAT. Will await a call back. Will continue to monitor.
--- NOTE | 2020-06-06 21:58 | NUR ---
NURSE NOTES: Confirmed informed consent obtained and called radiology as order noted to be STAT. Will await a call back. Will continue to monitor.
--- NOTE | 2020-06-06 22:05 | NUR ---
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 CT scan scheduled for 23:45 and contrast administered now. Will monitor pt for adverse effects. Will continue to monitor.
--- NOTE | 2020-06-06 22:44 | Consultation ---
DATE OF CONSULTATION: 06/06/2020 NEPHROLOGY CONSULTATION CONSULTING PHYSICIAN: Josh Pederson MD REFERRING PHYSICIAN: Jonathon Payne MD REASON FOR CONSULTATION: Elevated BUN and creatinine. HISTORY OF PRESENT ILLNESS: This is a 74-year-old female admitted to the hospital by the attending physician due to altered level of consciousness. I am asked to see the patient for elevation of BUN and creatinine. PAST MEDICAL HISTORY: 1. Ventilator-dependent respiratory failure. 2. Chronic kidney disease, etiology unclear. 3. Congestive heart failure. 4. Hyponatremia. 5. Anemia of chronic kidney disease. 6. Multiple decubitus ulcers. 7. Chronic encephalopathy. MEDICATIONS: IV fluids of normal saline, Tylenol p.r.n., ascorbic acid, atorvastatin, clonidine p.r.n., [place] 5/325 p.r.n., insulin sliding scale, lisinopril, metoprolol, Mylanta, nitroglycerin, and Protonix. ALLERGIES: Propoxyphene. FAMILY HISTORY: Unable to obtain due to mental status. SOCIAL HISTORY: Unable to obtain due to mental status. REVIEW OF SYSTEMS: Unable to obtain due to mental status. PHYSICAL EXAMINATION: GENERAL: This is an elderly female who is on a ventilator. VITAL SIGNS: Blood pressure 117/51, pulse 67 and regular, respirations 28, O2 saturation is 96% on current ventilator setting, temperature 98.2 axillary. HEENT: The head is normocephalic and atraumatic. Pupils are equal, round, and reactive to light. NECK: She has a midline tracheostomy. There was no jugular venous distention. There were no carotid bruits. LUNGS: Clear to auscultation and percussion. HEART: Regular rate and rhythm without rubs, murmurs, or gallops. ABDOMEN: Soft, nontender. She has a gastrostomy tube. There was no hepatosplenomegaly. EXTREMITIES: Notable for 3+ bilateral ankle edema. NEUROLOGIC: She is obtunded. There were no gross focal findings. LABORATORY AND ANCILLARY DATA: On admission, hematocrit 27.7 today, hematocrit 38.4 after transfusion, WBC is 4.9, and platelet count 158,000. Chemistry on admission, sodium 135, potassium 4.2, BUN 54, and creatinine 1.2. ASSESSMENT: 1. Volume depletion. 2. Chronic kidney disease, stage 3. 3. Ventilator-dependent respiratory failure. 4. Chronic kidney disease, etiology unclear. 5. Congestive heart failure. 6. Hyponatremia. 7. Anemia of chronic kidney disease. 8. Multiple decubitus ulcers. 9. Chronic encephalopathy. PLAN: 1. Continue IV fluid rehydration. 2. Follow serial chemistry. Thank you, Dr. Payne, for letting me to participate in the care of this patient. Josh Pederson M.D. DR: Primitivo JOB#: [id number] CC:
--- NOTE | 2020-06-06 23:44 | NUR ---
NURSE NOTES: Attempted to reach radiology. No answer on any available line. Will reattempt. Will continue to monitor.
--- NOTE | 2020-06-06 23:45 | Consultation ---
DATE OF CONSULTATION: 06/06/2020 GASTROENTEROLOGY CONSULTATION REFERRING PHYSICIAN: Jonathon Payne M.D. CHIEF COMPLAINT: I was asked to see this patient by Dr. Jonathon Payne for evaluation of anemia. HISTORY OF PRESENT ILLNESS: The patient is a debilitated unfortunate 74-year-old woman who was brought in due to severe anemia. The patient was recently admitted to a shelter and was brought to the hospital when her laboratory tests showed severe anemia. I called one of the daughters by the name of Miya Mary, who told me on the phone that the patient was living a regular health, walking and talking until March and then subsequently had a massive stroke and was admitted to [facility]. She told me that the patient had a tracheostomy and gastrostomy placed about a week ago; therefore, I advised her that a CT scan should be done to see if there is any internal bleeding since there are no reports of melena. Those tests were ordered, but subsequently I called the shelter, [facility], who stated that according to their records the patient was admitted there on May 25 and had her tracheostomy placed on May 11. The patient was unable to provide any history and most of the information is only available from the chart. PAST MEDICAL HISTORY: Remarkable for history of respiratory failure, stroke, anemia, congestive heart failure. FAMILY HISTORY: Noncontributory. SOCIAL HISTORY: The patient resides in a shelter at this time and had a recent stroke, which made her debilitated. REVIEW OF SYSTEMS: Unobtainable. PHYSICAL EXAMINATION: GENERAL: Debilitated woman, seen in her room. HEENT: Normocephalic and atraumatic. Sclerae are anicteric. NECK: Showed tracheostomy catheter. CHEST: Coarse breath sounds. CARDIAC: Revealed a regular rate. ABDOMEN: Soft. Gastrostomy tube. EXTREMITIES: Revealed no edema. SKIN: Reveals a transverse, long abdominal scar resembling a possible past abdominoplasty. LABORATORY DATA: Noted. ASSESSMENT: This patient has profound anemia, but without any reports of melena or hematochezia or hypotension. I will check the stools for occult blood to see if there is definite bleeding. I will also order a CT scan of the abdomen and pelvis to see if there is any intra-abdominal bleeding. The patient will then be worked up further based on the above findings. In the meantime, the patient has already received blood transfusions and blood test evaluation, which shows recovery of her blood count. I will give her a proton pump inhibitor in the meantime while workup is underway. RECOMMENDATIONS: Per above discussion and orders in the chart. Thank you for asking me to participate in the care of this patient. Andi Daniel M.D. DR: SHADY JOB#: [id number] CC:
--- NOTE | 2020-06-06 23:51 | NUR ---
NURSE NOTES: Attempted to reach radiology. No answer on any available line. Will reattempt. Will continue to monitor.
[2020-06-07] VITALS (43 sets, daily range): BP systolic 67–162; BP diastolic 39–68
--- NOTE | 2020-06-07 00:16 | NUR ---
NURSE NOTES: Pt transferred from SDU to CT for ordered CT scan via portable bed. 2 RNs and RT present with diesel automotive technician for diagnostics. Pt placed on portable tele monitor and VS monitored.
--- NOTE | 2020-06-07 00:42 | NUR ---
NURSE NOTES: Pt arrived back on unit from CT scan and transported via portable bed without incident. Pt placed back on tele monitor, ventilator and VS obtained. VS noted to be stable at this time. Unable to successfully complete diagnostic scan due to CT machine error. Reattempted to scan patient 6 times, error codes present for duration. Will reattempt when CT scanner is working. Informed special agent in charge of complications. Will continue to monitor.
--- NOTE | 2020-06-07 01:00 | NUR ---
NURSE NOTES: Pt provided with a bed bath, oral care and linen change. Pt tolerated care well. Bedside assessment performed, assessed pt with a FLACC scale of 0 noted. Pt repositioned for comfort and safety. VS obtained and noted to be stable at this time. Fall, Aspiration and Skin precautions observed. Pt remains resting in bed; Bed remains in the lowest position with the safety wheels engaged, call light within reach, side rails up x3 and bed alarm activated. Will continue plan of care. Will continue to monitor.
--- NOTE | 2020-06-07 04:00 | NUR ---
NURSE NOTES: Bedside assessment performed. Pt noted to be sleeping at this time. Assessed pt for pain with a FLACC score of 0 noted. Pt assisted with repositioning for comfort and safety. VS obtained and noted to be stable at this time. Fall, Aspiration and Skin precautions observed. Pt remains resting in bed; Bed remains in the lowest position with the safety wheels engaged, call light within reach, side rails up x3 and bed alarm activated. Will continue plan of care. Will continue to monitor.
[2020-06-07] MEDS: NovoLOG Insulin Flexpen SUBQ SCH ×4 (05:17→23:15)
[2020-06-07 05:21] LABS: BASOPHILS % (AUTO) 0.5 % (0.0-2.0); EOSINOPHILS % (AUTO) 0.1 % (0.0-3.0); HEMATOCRIT 36.5 % (37.0-47.0); HEMOGLOBIN 11.2 G/DL (12.0-16.0); LYMPHOCYTES % (AUTO) 7.9 % (20.0-45.0); MEAN CORPUSCULAR VOLUME 87 FL (80-99); MONOCYTES % (AUTO) 9.4 % (1.0-10.0); NEUTROPHILS % (AUTO) 82.1 % (45.0-75.0); PLATELET COUNT 160 K/UL (150-450); RED CELL DISTRIBUTION WIDTH 18.6 % (11.6-14.8); WHITE BLOOD COUNT 5.3 K/UL (4.8-10.8)
--- NOTE | 2020-06-07 06:57 | NUR ---
NURSE HAND-OFF REPORT: Important Events on Shift: Pt momentarily SB to 48, no other EKG changes noted and pt remains asymptomatic, CT scanner broken unable to complete order Patient Status: Fair Diet: Glucerna 1.2 Goal: 60mL/hr; held for CT Scan Pending Orders: CT Scan w/Contrast Pending Results/Labs: Pending MD notification: Latest Vital Signs: Temperature 97.9 , Pulse 55 , B/P 100 /51 , Respiratory Rate 24 , O2 SAT 99 , Mechanical Ventilator, O2 Flow Rate 5.0 . Vital Sign Comment: EKG Rhythm: Sinus Rhythm Rhythm change?: Y pt momentarily SB MD Notified?: to be notified during rounds as pt asymptomatic MD Response: Pending Latest Box Fall Score: 50 Fall Risk: High Risk Safety Measures: Call light Within Reach, Bed Alarm Zone 1, Side Rails Side Rails x3, Bed position Low and Locked. Fall Precautions: Yellow Socks Yellow Gown Door Sign Patient Fall Education Report given to GEORGE Weathers. Addendum: 06/07/20 at 0702 by AYSE ACOSTA RN EGORGE Green
--- NOTE | 2020-06-07 07:20 | NUR ---
NURSE NOTES: RECEIVED BED SIDE REPORT FROM [facility] [employer] EDUCATION DEPARTMENT CHAIR OF VIDEO GAME MAKER. REC,S PT WITH HOB ELEVATED 45 DEGREE OBTUNDED TRACH TO VENT . RENDERED TRACH CARE AND ORAL HYGIENE ,MOD AMT OF WHITE TICK SECRETIONS NOTED. PT TOLERATING WELL CURRENTS VENT SETTINGS.PT RECEIVING GLUCERNA 1.2 @ 40CC/HRS ,NO RESIDUALS TOLERATING WELL. FULL BODY ASSESSMENT DONE.PT REPOSITIONED Q 2HRS TO PROVIDE COMFORT AND TO PREVENT FURTHER SKIN BREAK DOWN. NO ACUTE DISTRESS NOTED AT THIS TIME . WILL CONT TO MONITOR.
--- NOTE | 2020-06-07 08:05 | General Progress Note ---
Assessment/Plan Assessment/Plan: IMPRESSION respiratory failure CHF anemia possible GIB chronic encephalopathy CKD massive CVA PLAN vent support diurese as needed CT abdomen monitor HH follow up labs snf meds monitor as is and dc once cleared impression, plan, and exam edited and reviewed in detail care discussed with RN Subjective ROS Limited/Unobtainable: Yes Allergies: Coded Allergies: PROPOXYPHENE (Verified Allergy, Unknown, 06/05/20) Subjective care noted improved HH CT ordered Objective Last 24 Hour Vital Signs Date Time Temp Pulse Resp B/P (MAP) Pulse Ox O2 Delivery O2 Flow Rate FiO2 06/07/20 06:50 60 24 40 06/07/20 05:30 58 24 40 06/07/20 04:00 Mechanical Ventilator Mechanical Ventilator 06/07/20 04:00 97.9 55 24 100/51 (67) 99 06/07/20 04:00 56 06/07/20 04:00 40 06/07/20 03:20 56 24 40 06/07/20 01:25 74 24 40 06/07/20 00:00 98.2 64 24 118/45 (69) 100 06/07/20 00:00 60 06/07/20 00:00 Mechanical Ventilator Mechanical Ventilator 06/07/20 00:00 40 06/06/20 23:27 62 29 40 06/06/20 21:02 78 124/54 06/06/20 20:44 65 24 40 06/06/20 20:00 Mechanical Ventilator Mechanical Ventilator 06/06/20 20:00 70 06/06/20 20:00 98.1 63 24 120/50 (73) 97 06/06/20 20:00 40 06/06/20 19:11 72 25 40 06/06/20 17:08 72 28 40 06/06/20 16:00 Mechanical Ventilator 06/06/20 16:00 67 06/06/20 16:00 40 06/06/20 16:00 98.2 69 24 117/51 (73) 96 06/06/20 14:30 71 36 40 06/06/20 13:00 66 25 40 06/06/20 12:00 97.9 66 24 111/46 (67) 100 06/06/20 12:00 Mechanical Ventilator 06/06/20 12:00 40 06/06/20 11:42 63 06/06/20 10:43 62 24 40 06/06/20 09:21 64 26 40 06/06/20 08:39 63 105/50 Intake and Output 06/06/20 06/07/20 19:00 07:00 Intake Total 320 ml 180 ml Output Total 500 ml 250 ml Balance -180 ml -70 ml Free Water 100 ml 30 ml Tube Feeding 220 ml Other 150 ml Output Urine Total 500 ml 250 ml # Voids 2 # Bowel Movements 2 1 Laboratory Tests 06/06/20 08:37: POC Whole Blood Glucose [Pending] 06/06/20 12:49: POC Whole Blood Glucose [Pending] 06/06/20 17:50: POC Whole Blood Glucose [Pending] 06/06/20 17:55: Stool Occult Blood [Pending] 06/06/20 22:51: POC Whole Blood Glucose 97 06/07/20 03:15: White Blood Count 5.3, Red Blood Count 4.20, Hemoglobin 11.2L, Hematocrit 36.5L , Mean Corpuscular Volume 87, Mean Corpuscular Hemoglobin 26.8L, Mean Corpuscular Hemoglobin Concent 30.8L, Red Cell Distribution Width 18.6H, Platelet Count 160, Mean Platelet Volume 7.1, Neutrophils (%) (Auto) 82.1H, Lymphocytes (%) (Auto) 7.9L, Monocytes (%) (Auto) 9.4, Eosinophils (%) (Auto) 0.1, Basophils (%) (Auto) 0.5 06/07/20 05:06: POC Whole Blood Glucose [Pending] Height (Feet): 5 Height (Inches): 6.00 Weight (Pounds): 192 Objective WDWN NAD clear breath sounds bilaterally without rhonchi or wheeze [id number] without MRG NABS nontender GT no CCE reduced LOC GT Jonathon Payne MD Jun 07, 2020 08:05
--- NOTE | 2020-06-07 09:37 | NUR ---
RESPIRATORY NOTE: Received pt on AC 24, 400, 40% +5. SpO2 99%, HR 60. Suctioned moderate amount of thick, pale yellow secretions. B/S bilateral rhonchi with equal chest rise. Spare trach and ambu bag at bedside. Vent alarms are on and audible. No respiratory distress noted at this time. Will continue to monitor
[2020-06-07] MEDS: Pantoprazole Inj IVP SCH (09:38)
[2020-06-07] MEDS: Ascorbic Acid 500mg tab GT SCH ×3 (09:38→18:11)
--- NOTE | 2020-06-07 09:44 | NUR ---
CASE MANAGEMENT: REVIEW 06/07/20 SI: ANEMIA . CHF . ACUTE RENAL FAILURE 98.2 65 24 122/53 96 % MECH VENT FIO2 40 IS:LOPRESSOR GT BID IV PROTONIX QD LIPITOR GT QHS CT ABD~PENDING RESULTS \: 2W STEP DOWN UNIT DCP: [facility] WHEN STABLE
[2020-06-07] MEDS: Zinc Sulfate 220mg GT SCH (09:45)
--- NOTE | 2020-06-07 10:16 | General Progress Note ---
Assessment/Plan Assessment/Plan: Assessment - s/p recent PEG / Trach on 05/11 - Anemia but w/u BM or melena - Resp failure, s/p Trach - dysphagia, s/p PEG - recent large stroke Recommendations - CT abd / pelvis - await stool OB - monitor CBC Subjective Allergies: Coded Allergies: PROPOXYPHENE (Verified Allergy, Unknown, 06/05/20) Subjective above noted no events overnight d/w RN stool OB still pending - no BM for CT today Objective Last 24 Hour Vital Signs Date Time Temp Pulse Resp B/P (MAP) Pulse Ox O2 Delivery O2 Flow Rate FiO2 06/07/20 09:44 67 122/53 06/07/20 09:08 67 24 40 06/07/20 09:00 40 06/07/20 08:00 Mechanical Ventilator Mechanical Ventilator 06/07/20 08:00 98.2 65 24 122/53 (76) 96 06/07/20 06:50 60 24 40 06/07/20 05:30 58 24 40 06/07/20 04:00 Mechanical Ventilator Mechanical Ventilator 06/07/20 04:00 97.9 55 24 100/51 (67) 99 06/07/20 04:00 56 06/07/20 04:00 40 06/07/20 03:20 56 24 40 06/07/20 01:25 74 24 40 06/07/20 00:00 98.2 64 24 118/45 (69) 100 06/07/20 00:00 60 06/07/20 00:00 Mechanical Ventilator Mechanical Ventilator 06/07/20 00:00 40 06/06/20 23:27 62 29 40 06/06/20 21:02 78 124/54 06/06/20 20:44 65 24 40 06/06/20 20:00 Mechanical Ventilator Mechanical Ventilator 06/06/20 20:00 70 06/06/20 20:00 98.1 63 24 120/50 (73) 97 06/06/20 20:00 40 06/06/20 19:11 72 25 40 06/06/20 17:08 72 28 40 06/06/20 16:00 Mechanical Ventilator 06/06/20 16:00 67 06/06/20 16:00 40 06/06/20 16:00 98.2 69 24 117/51 (73) 96 06/06/20 14:30 71 36 40 06/06/20 13:00 66 25 40 06/06/20 12:00 97.9 66 24 111/46 (67) 100 06/06/20 12:00 Mechanical Ventilator 06/06/20 12:00 40 06/06/20 11:42 63 06/06/20 10:43 62 24 40 Intake and Output 06/06/20 06/07/20 19:00 07:00 Intake Total 320 ml 180 ml Output Total 500 ml 250 ml Balance -180 ml -70 ml Free Water 100 ml 30 ml Tube Feeding 220 ml Other 150 ml Output Urine Total 500 ml 250 ml # Voids 2 # Bowel Movements 2 1 Laboratory Tests 06/06/20 12:49: POC Whole Blood Glucose [Pending] 06/06/20 17:50: POC Whole Blood Glucose [Pending] 06/06/20 17:55: Stool Occult Blood [Pending] 06/06/20 22:51: POC Whole Blood Glucose 97 06/07/20 03:15: White Blood Count 5.3, Red Blood Count 4.20, Hemoglobin 11.2L, Hematocrit 36.5L , Mean Corpuscular Volume 87, Mean Corpuscular Hemoglobin 26.8L, Mean Corpuscular Hemoglobin Concent 30.8L, Red Cell Distribution Width 18.6H, Platelet Count 160, Mean Platelet Volume 7.1, Neutrophils (%) (Auto) 82.1H, Lymphocytes (%) (Auto) 7.9L, Monocytes (%) (Auto) 9.4, Eosinophils (%) (Auto) 0.1, Basophils (%) (Auto) 0.5 06/07/20 05:06: POC Whole Blood Glucose [Pending] Height (Feet): 5 Height (Inches): 6.00 Weight (Pounds): 192 Objective Debilitated AA woman NCAT neck (+) trach coarse BS RR abd soft (+) contractures Andi Daniel MD Jun 07, 2020 10:16
--- NOTE | 2020-06-07 11:35 | NUR ---
NURSE NOTES: BROUGHT PT BACK FROM CT-DPT ESCORTED WITH RT AND TRANSPORTER STAFF. DEFECTED CARDIAC BOX NOTED, CHANGE SIZING SPONGER. PT LETHARGIC UNABLE TO FEEL PULSE AND B/P 80,S, .WE CALLED ERIK COURTNEY AND CORNELIUS VAZQUEZ IN CHARGE PLACED A TELEPHONE CALL TO DR GALO & MADE AWARE AND NOTIFIED REGARDING WE CALLED ERIK COURTNEY. Chelsea FINCH GIVE TELEPHONE ORDERS TO CORNELIUS VAZQUEZ TO TRANSFER THE PT TO ICU STAT. NEW ORDERS NOTED AND CARRIED OUT.
--- NOTE | 2020-06-07 11:44 | NUR ---
NURSE NOTES: Dr. Payne notified we called ERIK COURTNEY on this patient,came back from CT abdomen and pelvis,when attached to dynamometer repairer,no cardiac rhythm appreciated,patient on ventilator,transferred to ICU
--- NOTE | 2020-06-07 11:55 | NUR ---
NURSE NOTES:TRANSFER PT TO ICU BE " I " AND REPORT GIVEN TO GUCCI VAZQUEZ. GUCCI PLACED A TELEPHONE CALL TO DR FINCH AND REQUESTED ICU ORDERS.WILL CONT TO MONITOR.
--- NOTE | 2020-06-07 11:59 | NUR ---
*-* INSURANCE *-* UPDATED CLINICALS AND REVIEWS HAVE BEEN FAXED TO: [facility]: [place]KKO FLORES # [phone] FAX# [phone]
--- NOTE | 2020-06-07 12:00 | NUR ---
NURSE NOTES: Dr Payne contact for orders- aware of change in condition - states he will update family Pt received from GEORGE Green transferred from [facility] s/p code blue. VS: BP 67/57 Temp 96 F ax HR 94 RR 24 Spo2 100% - michelle hugger applied for warming measures Cardiac: 12 lead EKG results being relayed to Dr Payne (Afib w/ slow ventricular response) - pt has STEVE PICC line with dry and intact dressing running 1L NS bolus - labs currently being drawn and sent down to lab CBC- CMP- troponin) - radial and dorsalis pedis pulses 1+ cap refill 4 sec pt is cool to touch - order receied for cardio consult with Dr Vera Neuro: pt is comatose - bilat pupils 3 mm with no response to light - pt is unresponsive - gag reflex is absent Resp: Pt is trache to vent with the following settings: AC 24 TV 400 FiO2 40% Peep 5 - bilat upper lung lobes noted with rhonchi and lower lobes diminished upon auscultation - ABGs currently being drawn per Dr Payne GI: abd is round, soft, with active bowel sounds to all quadrants - no hematoma noted. GT noted clamped. : Pt voids in alexy-pad at this time Skin: unstageable wound noted to sacrum - pending OMAIRA mattress Pt has no belongings - meds brought from [facility] Bed in lowest position, alarm on, side rails up x 2, call light within reach. Will continue to monitor.
--- NOTE | 2020-06-07 12:09 | NUR ---
CODE BLUE: See Code sheet which remains on paper.
[2020-06-07] MEDS ORDERED: Norepinephrine 4mg/NS Premix 250 ML IV SCH ×2 (12:15→12:55)
--- NOTE | 2020-06-07 12:15 | NUR ---
NURSE NOTES: Pt received from GEORGE Green transferred from [facility] s/p code blue. VS: BP 67/57 Temp 96 F ax HR 94 RR 24 Spo2 100% - michelle pottser applied for warming measures Cardiac: 12 lead EKG results being relayed to Dr Payne (Afib w/ slow ventricular response) - pt has STEVE PICC line with dry and intact dressing running 1L NS bolus - labs currently being drawn and sent down to lab CBC- CMP- troponin) - radial and dorsalis pedis pulses 1+ cap refill 4 sec pt is cool to touch - order receied for cardio consult with Dr Vera Neuro: pt is comatose - bilat pupils 3 mm with no response to light - pt is unresponsive - gag reflex is absent Resp: Pt is trache to vent with the following settings: AC 24 TV 400 FiO2 40% Peep 5 - bilat upper lung lobes noted with rhonchi and lower lobes diminished upon auscultation - ABGs currently being drawn per Dr Payne GI: abd is round, soft, with active bowel sounds to all quadrants - no hematoma noted. GT noted clamped. : Pt voids in alexy-pad at this time Skin: unstageable wound noted to sacrum - pending OMAIRA mattress Pt has no belongings - meds brought from [facility] Bed in lowest position, alarm on, side rails up x 2, call light within reach. Will continue to monitor. Addendum: 06/07/20 at 1999 by Cecy Patel RN Late entry: Dr Payne also states he will call family to inform them of condition change. Addendum: 06/07/20 at 2000 by Cecy Patel RN Amendment: wrong time
--- NOTE | 2020-06-07 12:15 | NUR ---
NURSE NOTES: Dr Payne and Dr Vera contacted - made aware pt coded for second time and ROSC achieved. Pt placed on 2nd NS bolus per Dr Vera. Received order from Dr Payne to start pt on dopamine gtt if BP and HR remain below 90 mmHg and 60 bpm respectively. 12 lead EKG results relayed to both Dr Vera and Dr Payne (Afib w/ slow ventricular response) - Dr Vera states he will see pt today.
--- NOTE | 2020-06-07 12:30 | NUR ---
NURSE NOTES: troponin result relayed to Dr Payne and Jody - received order for repeat troponin Q8HR x 3. Addendum: 06/07/20 at 2013 by Cecy Patel RN Late entry: Dr Payne made aware of ABG results - order received to increase RR to 28 and TV to 550. RT made aware.
[2020-06-07] MEDS ORDERED: DOPamine 400mg/250ml 250 ML IV SCH ×3 (12:45)
--- NOTE | 2020-06-07 12:45 | NUR ---
NURSE NOTES: Pt started on dopamine gtt at 4 mcg/kg/min for HR fluctuating between 50-60 bpm. BP stable (see VS).
[2020-06-07] MEDS ORDERED: Nitroglycerin Subl 0.4mg tab SL PRN (12:50)
[2020-06-07] MEDS ORDERED: Lisinopril 2.5mg tab GT PRN (13:00)
--- NOTE | 2020-06-07 13:00 | NUR ---
NURSE NOTES: Received order for F/C insertion and consult with Dr Alston. Blood culture, UA, and urine culture order received - specimens collected and sent down to lab.
[2020-06-07 13:04] LABS: BASOPHILS % (AUTO) 1.4 % (0.0-2.0); EOSINOPHILS % (AUTO) 0.1 % (0.0-3.0); HEMOGLOBIN 11.2 G/DL (12.0-16.0); LYMPHOCYTES % (AUTO) 35.8 % (20.0-45.0); MEAN CORPUSCULAR VOLUME 90 FL (80-99); MONOCYTES % (AUTO) 4.7 % (1.0-10.0); PLATELET COUNT 122 K/UL (150-450); RED BLOOD COUNT 4.12 M/UL (4.20-5.40); RED CELL DISTRIBUTION WIDTH 19.1 % (11.6-14.8); WHITE BLOOD COUNT 5.8 K/UL (4.8-10.8)
--- NOTE | 2020-06-07 13:04 | Diagnostic Imaging Report ---
EXAM: CT CT Abdomen Pelvis w/Contrast INDICATION: Shortness of breath. Severe anemia. Abdominal pain. COMPARISON: None TECHNIQUE: Axial images were obtained through the abdomen pelvis with intravenous contrast. Sagittal and coronal reformats are generated. All CT scans at this facility are performed using dose modulation techniques as appropriate to a performed exam including the following: automated exposure control with adjustment of the mA and/or kV according to patient size. RADIATION DOSE: CTDIvol: 11.1 mGy DLP: 631.2 mGy-cm Dose information generated by the CT scanner is available in PACS. FINDINGS: There are bilateral large pleural effusions. Compressive atelectasis versus consolidation noted in both lung bases. There is also generalized groundglass edema in both lungs There is intense contrast opacification of the pulmonary arteries with some early contrast into the thoracic aorta. There is severe reflux of intravenous contrast into the hepatic veins opacifying the sinusoids of the posterior right lobe. The refluxed contrast also extends down the IVC opacifying the renal veins, down to the iliac veins as well. In speaking with the senior nuclear medicine technologist, normal injection protocol was utilized with 100 cc of contrast delivered at 2.5 cc/s and a 75 second delay via the indwelling PICC catheter. Except for the reflux contrast into the hepatic veins and right lobe sinusoids, the liver is essentially unenhanced as well as the rest of the abdominal visceral organs. Gallbladder is contracted or absent The pancreas is unremarkable. There is fusiform thickening of the left adrenal gland perhaps hyperplasia. Reflux of contrast noted into the renal veins bilaterally with no hydronephrosis noted. There is a G-tube in the stomach. Small bowel loops are nondistended. Scattered stool lucencies noted throughout the colon which is nondistended. The appendix is not visualized. Multiple calcified uterine fibroids noted. There is a small amount of free fluid in the pelvis. Also small amount of free fluid noted anterior to the hepatic edge. No free air identified. No pathologic adenopathy demonstrated. Urinary bladder is empty. There is extensive subcutaneous edema noted throughout the abdominal and pelvic rueda suggestive of severe anasarca. There also appears to be a fluid collection identified along the anterior abdominal wall at the mid abdomen with possible slight rim enhancement measuring approximately 7.2 x 2.2 x 4.1 cm. Etiology is undetermined. Per history, the gastrostomy tube is fairly recent. The collection is near by. Question possible postoperative hematoma or abscess. IMPRESSION: BILATERAL PLEURAL EFFUSIONS WITH DEPENDENT COMPRESSIVE ATELECTASIS OR CONSOLIDATIONS. ALSO GENERALIZED PULMONARY EDEMA. EXTENSIVE SEVERE ANASARCA. G-TUBE IN STOMACH. NO SIGN OF BOWEL OBSTRUCTION. CALCIFIED UTERINE FIBROIDS. SMALL FLUID COLLECTION NOTED ALONG THE ANTERIOR ABDOMINAL WALL AT THE MID ABDOMEN IN CLOSE PROXIMITY TO THE GASTROSTOMY SITE. WITH HISTORY OF RECENT G-TUBE PLACEMENT, THIS MAY REPRESENT A POSTOPERATIVE HEMATOMA OR ABSCESS. VERY UNUSUAL PATTERN OF SEVERE VENOUS REFLUX. CONTRAST WAS INJECTED VIA A RIGHT ARM PICC LINE, DELIVERED AT CONVENTIONAL PARAMETERS. HOWEVER THERE IS SEVERE REFLUX OF CONTRAST DOWN INTO THE ABDOMEN, OPACIFYING THE IVC, HEPATIC VEINS, RENAL VEINS AND PELVIC VEINS. ETIOLOGY IS UNCLEAR. QUESTION WHETHER THIS MAY BE RELATED TO SEVERE CARDIAC CONGESTION AND DYSFUNCTION.
[2020-06-07 13:14] LABS: ANION GAP 15 mmol/L (5-15); BLOOD UREA NITROGEN 48 mg/dL (7-18); CARBON DIOXIDE 17 MMOL/L (21-32); CHLORIDE 105 MMOL/L (98-107); CREATININE 1.7 MG/DL (0.55-1.30); POTASSIUM 4.5 MMOL/L (3.5-5.1); SODIUM 137 MMOL/L (136-145)
[2020-06-07] MEDS ORDERED: HYDROcodone/Acetamin 5/325 tab GT PRN (13:30)
[2020-06-07] MEDS ORDERED: Acetaminophen 650mg/20.3ml GT PRN (13:30)
[2020-06-07 13:48] LABS: BILIRUBIN, URINE NEGATIVE (NEGATIVE); GLUCOSE, URINE (UA) NEGATIVE (NEGATIVE); KETONES,URINE NEGATIVE (NEGATIVE); LEUKOCYTE ESTERASE ,URINE 1+ (NEGATIVE); NITRITE,URINE NEGATIVE (NEGATIVE); PH,URINE 6 (4.5-8.0); PROTEIN,URINE 3+ (NEGATIVE); UROBILINOGEN,URINE NORMAL MG/DL (0.0-1.0)
[2020-06-07 13:50] LABS: APPEARANCE,URINE CLOUDY; COLOR,URINE PALE YELLOW
--- NOTE | 2020-06-07 13:52 | Nephrology Progress Note ---
Assessment/Plan Plan Sepsis - IV Abx, IVF. KAREN - check Labs Subjective Subjective Confused Objective Objective Last 24 Hour Vital Signs Date Time Temp Pulse Resp B/P (MAP) Pulse Ox O2 Delivery O2 Flow Rate FiO2 06/07/20 13:47 87 28 100 06/07/20 12:57 124/49 06/07/20 12:00 94 24 67/57 (60) 100 06/07/20 11:17 64 24 40 06/07/20 09:44 67 122/53 06/07/20 09:08 67 24 40 06/07/20 09:00 40 06/07/20 08:00 65 06/07/20 08:00 Mechanical Ventilator Mechanical Ventilator 06/07/20 08:00 98.2 65 24 122/53 (76) 96 06/07/20 06:50 60 24 40 06/07/20 05:30 58 24 40 06/07/20 04:00 Mechanical Ventilator Mechanical Ventilator 06/07/20 04:00 97.9 55 24 100/51 (67) 99 06/07/20 04:00 56 06/07/20 04:00 40 06/07/20 03:20 56 24 40 06/07/20 01:25 74 24 40 06/07/20 00:00 98.2 64 24 118/45 (69) 100 06/07/20 00:00 60 06/07/20 00:00 Mechanical Ventilator Mechanical Ventilator 06/07/20 00:00 40 06/06/20 23:27 62 29 40 06/06/20 21:02 78 124/54 06/06/20 20:44 65 24 40 06/06/20 20:00 Mechanical Ventilator Mechanical Ventilator 06/06/20 20:00 70 06/06/20 20:00 98.1 63 24 120/50 (73) 97 06/06/20 20:00 40 06/06/20 19:11 72 25 40 06/06/20 17:08 72 28 40 06/06/20 16:00 Mechanical Ventilator 06/06/20 16:00 67 06/06/20 16:00 40 06/06/20 16:00 98.2 69 24 117/51 (73) 96 06/06/20 14:30 71 36 40 Intake and Output 06/06/20 06/07/20 19:00 07:00 Intake Total 320 ml 180 ml Output Total 500 ml 250 ml Balance -180 ml -70 ml Free Water 100 ml 30 ml Tube Feeding 220 ml Other 150 ml Output Urine Total 500 ml 250 ml # Voids 2 # Bowel Movements 2 1 Laboratory Tests 06/06/20 17:50: POC Whole Blood Glucose [Pending] 06/06/20 17:55: Stool Occult Blood Negative 06/06/20 22:51: POC Whole Blood Glucose 97 06/07/20 03:15: White Blood Count 5.3, Red Blood Count 4.20, Hemoglobin 11.2L, Hematocrit 36.5L , Mean Corpuscular Volume 87, Mean Corpuscular Hemoglobin 26.8L, Mean Corpuscular Hemoglobin Concent 30.8L, Red Cell Distribution Width 18.6H, Platelet Count 160, Mean Platelet Volume 7.1, Neutrophils (%) (Auto) 82.1H, Lymphocytes (%) (Auto) 7.9L, Monocytes (%) (Auto) 9.4, Eosinophils (%) (Auto) 0.1, Basophils (%) (Auto) 0.5 06/07/20 05:06: POC Whole Blood Glucose [Pending] 06/07/20 11:37: POC Whole Blood Glucose [Pending] 06/07/20 12:11: Arterial Blood pH 6.984*L, Arterial Blood Partial Pressure CO2 83.2*H, Arterial Blood Partial Pressure O2 32.1*L, Arterial Blood HCO3 19.3L, Arterial Blood Oxygen Saturation 38.2*L, Arterial Blood Base Excess -13.2*L, Rito Test Positive 06/07/20 12:30: White Blood Count 5.8, Red Blood Count 4.12L, Hemoglobin 11.2L, Hematocrit 37.0 , Mean Corpuscular Volume 90, Mean Corpuscular Hemoglobin 27.2, Mean Corpuscular Hemoglobin Concent 30.2L, Red Cell Distribution Width 19.1H, Platelet Count 122L, Mean Platelet Volume 7.0, Neutrophils (%) (Auto) 58.0, Lymphocytes (%) (Auto) 35.8, Monocytes (%) (Auto) 4.7, Eosinophils (%) (Auto) 0.1, Basophils (%) (Auto) 1.4, Sodium Level 137, Potassium Level 4.5, Chloride Level 105, Carbon Dioxide Level 17L, Anion Gap 15, Blood Urea Nitrogen 48H, Creatinine 1.7H, Estimat Glomerular Filtration Rate 35.8, Glucose Level 142H, Calcium Level 9.0, Troponin I 0.159H 06/07/20 13:20: Urine Color Pale yellow, Urine Appearance Cloudy, Urine pH 6, Urine Specific [place] 1.015, Urine Protein 3+H, Urine Glucose (UA) Negative, Urine Ketones Negative, Urine Blood 3+H, Urine Nitrite Negative, Urine Bilirubin Negative, Urine Urobilinogen Normal, Urine Leukocyte Esterase 1+H, Urine RBC [Pending], Urine WBC [Pending], Urine Squamous Epithelial Cells [Pending], Urine Bacteria [ Pending] Height (Feet): 5 Height (Inches): 6.00 Weight (Pounds): 192 Objective CV Negin alejandro Abd SNT. BS + E No CCE Josh Pederson MD Jun 07, 2020 13:52
--- NOTE | 2020-06-07 13:59 | Emergency Room Report ---
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 COVID-19 Screening: Negative COVID-19 COVID-19 Testing Source: unknown Patient History Limited by: medical condition - Obtunded Past Medical History: see triage record, old chart reviewed Reviewed Nursing Documentation: PMH: Agreed; PSxH: Agreed Nursing Documentation-PMH Past Medical History: No History, Except For Hx Cardiac Problems: Yes - AFIB, CABG, ANEMIA, Hx Hypertension: Yes Hx COPD: Yes Hx Diabetes: Yes Hx Cancer: Yes - R breast mastectomy Hx Gastrointestinal Problems: No Hx Dialysis: No Hx Neurological Problems: Yes Hx Cerebrovascular Accident: Yes Review of Systems All Other Systems: limited - Obtunded Physical Exam Vital Signs Date Time Temp Pulse Resp B/P (MAP) Pulse Ox O2 Delivery O2 Flow Rate FiO2 06/05/20 12:01 97.2 59 18 139/52 (81) 99 Mechanical Ventilator 5.0 06/05/20 12:15 40 Sp02 EP Interpretation: reviewed General Appearance: severe distress, other - Unresponsive Head: atraumatic Eyes: bilateral eye other Neck: tracheotomy Respiratory: chest symmetrical - To bagging Cardiovascular #1: other - No pulse Gastrointestinal: other - PEG tube noted Neuologic: Unresponsive Procedures Critical Care Time Critical Care Time Given the critical condition in which the patient arrived, the patient was immediately assessed by myself and the nurse, and cardiac monitoring initiated due to the potential for rapid decompensation of the patient's clinical condition. During the course of the patient's stay, I spent a considerable amount of time at the bedside performing serial re-evaluations of the patient's hemodynamic and clinical status because of the recognized potential threat to life or limb in this condition. I then had a chance to review not only all of the available current laboratory and radiographic studies obtained today, but I also reviewed old records available to me at the time. Additionally, any ancillary information available including associate medical director records were reviewed. Sequential vital signs were obtained. Critical Care time of 30 minutes was performed exclusive of billable procedures. CPR/Code Blue CPR/Code Blue Narrative 74-year-old female was coded per ACLS algorithm please refer to nursing sheet patient received multiple rounds of epinephrine as well as bicarb with Rosc achieved Additionally patient coded at 1209 1 round ROSC was achieved Medical Decision Making Diagnostic Impression: Primary Impression: Anemia Additional Impressions: Acute renal failure CHF (congestive heart failure) Hyponatremia Abnormal laboratory test result PEA (Pulseless electrical activity) Asystole ER Course 74-year-old female presented in asystole. Rosc was achieved initially then patient transferred to ICU where a subsequent code took place. ACLS performed with achievement in ROSC. Patient remains critical. Laboratory Tests Test 06/06/20 00:05 06/06/20 05:21 06/06/20 08:05 06/06/20 08:37 POC Whole Blood Glucose 105 MG/DL (74-106) 94 MG/DL (74-106) Pending White Blood Count 4.9 K/UL (4.8-10.8) Red Blood Count 4.43 M/UL (4.20-5.40) Hemoglobin 11.8 G/DL (12.0-16.0) #L Hematocrit 38.4 % (37.0-47.0) # Mean Corpuscular Volume 87 FL (80-99) Mean Corpuscular Hemoglobin 26.6 PG (27.0-31.0) L Mean Corpuscular Hemoglobin Concent 30.7 G/DL (32.0-36.0) L Red Cell Distribution Width 18.2 % (11.6-14.8) H Platelet Count 158 K/UL (150-450) Mean Platelet Volume 7.2 FL (6.5-10.1) Neutrophils (%) (Auto) 82.3 % (45.0-75.0) H Lymphocytes (%) (Auto) 8.3 % (20.0-45.0) L Monocytes (%) (Auto) 8.8 % (1.0-10.0) Eosinophils (%) (Auto) 0.0 % (0.0-3.0) Basophils (%) (Auto) 0.5 % (0.0-2.0) Sodium Level 135 MMOL/L (136-145) L Potassium Level 4.2 MMOL/L (3.5-5.1) Chloride Level 102 MMOL/L (98-107) Carbon Dioxide Level 25 MMOL/L (21-32) Anion Gap 9 mmol/L (5-15) Blood Urea Nitrogen 54 mg/dL (7-18) H Creatinine 1.2 MG/DL (0.55-1.30) Estimated Glomerular Filtration Rate 53.3 mL/min (>60) Glucose Level 99 MG/DL (74-106) Calcium Level 8.0 MG/DL (8.5-10.1) L Test 06/06/20 12:49 06/06/20 17:50 06/06/20 17:55 06/06/20 22:51 POC Whole Blood Glucose Pending Pending 97 MG/DL (74-106) Stool Occult Blood Negative (NEGATIVE) Test 06/07/20 03:15 06/07/20 05:06 06/07/20 11:37 06/07/20 12:11 White Blood Count 5.3 K/UL (4.8-10.8) Red Blood Count 4.20 M/UL (4.20-5.40) Hemoglobin 11.2 G/DL (12.0-16.0) L Hematocrit 36.5 % (37.0-47.0) L Mean Corpuscular Volume 87 FL (80-99) Mean Corpuscular Hemoglobin 26.8 PG (27.0-31.0) L Mean Corpuscular Hemoglobin Concent 30.8 G/DL (32.0-36.0) L Red Cell Distribution Width 18.6 % (11.6-14.8) H Platelet Count 160 K/UL (150-450) Mean Platelet Volume 7.1 FL (6.5-10.1) Neutrophils (%) (Auto) 82.1 % (45.0-75.0) H Lymphocytes (%) (Auto) 7.9 % (20.0-45.0) L Monocytes (%) (Auto) 9.4 % (1.0-10.0) Eosinophils (%) (Auto) 0.1 % (0.0-3.0) Basophils (%) (Auto) 0.5 % (0.0-2.0) POC Whole Blood Glucose Pending Pending Arterial Blood pH 6.984 (7.350-7.450) Arterial Blood Partial Pressure CO2 83.2 mmHg (35.0-45.0) *H Arterial Blood Partial Pressure O2 32.1 mmHg (75.0-100.0) Arterial Blood HCO3 19.3 mmol/L (22.0-26.0) L Arterial Blood Oxygen Saturation 38.2 % (95-100) *L Arterial Blood Base Excess -13.2 (-2-2) *L Rito Test Positive Test 06/07/20 12:30 06/07/20 13:20 White Blood Count 5.8 K/UL (4.8-10.8) Red Blood Count 4.12 M/UL (4.20-5.40) L Hemoglobin 11.2 G/DL (12.0-16.0) L Hematocrit 37.0 % (37.0-47.0) Mean Corpuscular Volume 90 FL (80-99) Mean Corpuscular Hemoglobin 27.2 PG (27.0-31.0) Mean Corpuscular Hemoglobin Concent 30.2 G/DL (32.0-36.0) L Red Cell Distribution Width 19.1 % (11.6-14.8) H Platelet Count 122 K/UL (150-450) L Mean Platelet Volume 7.0 FL (6.5-10.1) Neutrophils (%) (Auto) 58.0 % (45.0-75.0) Lymphocytes (%) (Auto) 35.8 % (20.0-45.0) Monocytes (%) (Auto) 4.7 % (1.0-10.0) Eosinophils (%) (Auto) 0.1 % (0.0-3.0) Basophils (%) (Auto) 1.4 % (0.0-2.0) Sodium Level 137 MMOL/L (136-145) Potassium Level 4.5 MMOL/L (3.5-5.1) Chloride Level 105 MMOL/L (98-107) Carbon Dioxide Level 17 MMOL/L (21-32) L Anion Gap 15 mmol/L (5-15) Blood Urea Nitrogen 48 mg/dL (7-18) H Creatinine 1.7 MG/DL (0.55-1.30) H Estimated Glomerular Filtration Rate 35.8 mL/min (>60) Glucose Level 142 MG/DL (74-106) H Calcium Level 9.0 MG/DL (8.5-10.1) Troponin I 0.159 ng/mL (0.000-0.056) Urine Color Pale yellow Urine Appearance Cloudy Urine pH 6 (4.5-8.0) Urine Specific [place] 1.015 (1.005-1.035) Urine Protein 3+ (NEGATIVE) H Urine Glucose (UA) Negative (NEGATIVE) Urine Ketones Negative (NEGATIVE) Urine Blood 3+ (NEGATIVE) H Urine Nitrite Negative (NEGATIVE) Urine Bilirubin Negative (NEGATIVE) Urine Urobilinogen Normal MG/DL (0.0-1.0) Urine Leukocyte Esterase 1+ (NEGATIVE) H Urine RBC Pending Urine WBC Pending Urine Squamous Epithelial Cells Pending Urine Bacteria Pending Microbiology Date/Time Source Procedure Growth Status 06/05/20 15:51 Nasal Nares MRSA Culture - Final NO METHICILLIN RESISTANT STAPH AUREUS... 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 Complete Last Vital Signs Date Time Temp Pulse Resp B/P (MAP) Pulse Ox O2 Delivery O2 Flow Rate FiO2 06/07/20 12:57 124/49 06/07/20 11:17 64 24 40 06/07/20 08:00 Mechanical Ventilator Mechanical Ventilator 06/07/20 08:00 98.2 96 06/05/20 20:27 5.0 Disposition: ADMITTED INPATIENT Condition: Critical Referrals: Jonathon Payne MD (PCP) Jorge Esposito MD Jun 07, 2020 13:59
--- NOTE | 2020-06-07 14:00 | NUR ---
NURSE NOTES: Salvador catheter inserted per Dr Payne's order.
--- NOTE | 2020-06-07 14:06 | NUR ---
NURSE NOTES: 2nd ABG draw results relayed to Dr Payne - FiO2 titrated down to 80% per Dr Payne.
[2020-06-07] MEDS ORDERED: Vancomycin 1.5gm/NS Premix IVPB ONE (15:30)
--- NOTE | 2020-06-07 16:00 | NUR ---
NURSE NOTES: Temp now noted 98.5 F roshni ragsdale turned off. pt placed on OMAIRA mattress at this time. Family present at bedside. Pt in no acute distress. Dopa gtt titrated down to 2 mcg/kg/min
--- NOTE | 2020-06-07 16:46 | Surgery Progress Note ---
Surgery Progress Note Subjective Additional Comments Patient went down for a CT scan today and had cardiovascular compromise requiring ACLS currently in intensive care unit on support. Family notified. CT reviewed. Labs noted. Objective Last 24 Hour Vital Signs Date Time Temp Pulse Resp B/P (MAP) Pulse Ox O2 Delivery O2 Flow Rate FiO2 06/07/20 16:30 73 28 123/51 (75) 100 06/07/20 16:15 72 28 128/50 (76) 100 06/07/20 16:00 98.5 74 28 130/47 (74) 100 06/07/20 16:00 78 06/07/20 15:45 73 28 139/56 (83) 100 06/07/20 15:39 74 28 80 06/07/20 15:30 74 28 119/51 (73) 100 06/07/20 15:15 78 28 140/44 (76) 100 06/07/20 15:00 79 28 156/67 (96) 100 06/07/20 14:47 80 06/07/20 14:45 78 28 155/63 (93) 100 06/07/20 14:30 77 28 141/60 (87) 100 06/07/20 14:15 78 28 133/56 (81) 100 06/07/20 14:00 77 28 133/59 (83) 100 06/07/20 13:47 87 28 100 06/07/20 13:45 82 28 132/52 (78) 100 06/07/20 13:30 64 24 134/49 (77) 100 06/07/20 13:30 100 06/07/20 13:15 63 28 115/48 (70) 100 06/07/20 13:00 62 24 102/51 (68) 100 06/07/20 12:57 124/49 06/07/20 12:55 98.0 06/07/20 12:45 60 24 124/49 (74) 100 06/07/20 12:30 56 24 96/48 (64) 100 06/07/20 12:15 63 24 162/68 (99) 100 06/07/20 12:00 59 06/07/20 12:00 100 06/07/20 12:00 94 24 67/57 (60) 100 06/07/20 11:55 96.0 06/07/20 11:17 64 24 40 06/07/20 09:44 67 122/53 06/07/20 09:08 67 24 40 06/07/20 09:00 40 06/07/20 08:00 65 06/07/20 08:00 Mechanical Ventilator Mechanical Ventilator 06/07/20 08:00 98.2 65 24 122/53 (76) 96 06/07/20 06:50 60 24 40 06/07/20 05:30 58 24 40 06/07/20 04:00 Mechanical Ventilator Mechanical Ventilator 06/07/20 04:00 97.9 55 24 100/51 (67) 99 06/07/20 04:00 56 06/07/20 04:00 40 06/07/20 03:20 56 24 40 06/07/20 01:25 74 24 40 06/07/20 00:00 98.2 64 24 118/45 (69) 100 06/07/20 00:00 60 06/07/20 00:00 Mechanical Ventilator Mechanical Ventilator 06/07/20 00:00 40 06/06/20 23:27 62 29 40 06/06/20 21:02 78 124/54 06/06/20 20:44 65 24 40 06/06/20 20:00 Mechanical Ventilator Mechanical Ventilator 06/06/20 20:00 70 06/06/20 20:00 98.1 63 24 120/50 (73) 97 06/06/20 20:00 40 06/06/20 19:11 72 25 40 06/06/20 17:08 72 28 40 I&O Intake and Output 06/06/20 06/07/20 19:00 07:00 Intake Total 320 ml 180 ml Output Total 500 ml 250 ml Balance -180 ml -70 ml Free Water 100 ml 30 ml Tube Feeding 220 ml Other 150 ml Output Urine Total 500 ml 250 ml # Voids 2 # Bowel Movements 2 1 Dressing: other Wound: other Cardiovascular: RSR Respiratory: decreased breath sounds Abdomen: soft, non-tender, present bowel sounds Extremities: no tenderness, no cyanosis Laboratory Tests Test 06/06/20 17:50 06/06/20 17:55 06/06/20 22:51 06/07/20 03:15 POC Whole Blood Glucose Pending 97 MG/DL (74-106) Stool Occult Blood Negative (NEGATIVE) White Blood Count 5.3 K/UL (4.8-10.8) Red Blood Count 4.20 M/UL (4.20-5.40) Hemoglobin 11.2 G/DL (12.0-16.0) L Hematocrit 36.5 % (37.0-47.0) L Mean Corpuscular Volume 87 FL (80-99) Mean Corpuscular Hemoglobin 26.8 PG (27.0-31.0) L Mean Corpuscular Hemoglobin Concent 30.8 G/DL (32.0-36.0) L Red Cell Distribution Width 18.6 % (11.6-14.8) H Platelet Count 160 K/UL (150-450) Mean Platelet Volume 7.1 FL (6.5-10.1) Neutrophils (%) (Auto) 82.1 % (45.0-75.0) H Lymphocytes (%) (Auto) 7.9 % (20.0-45.0) L Monocytes (%) (Auto) 9.4 % (1.0-10.0) Eosinophils (%) (Auto) 0.1 % (0.0-3.0) Basophils (%) (Auto) 0.5 % (0.0-2.0) Test 06/07/20 05:06 06/07/20 11:37 06/07/20 12:11 06/07/20 12:30 POC Whole Blood Glucose Pending Pending Arterial Blood pH 6.984 (7.350-7.450) Arterial Blood Partial Pressure CO2 83.2 mmHg (35.0-45.0) *H Arterial Blood Partial Pressure O2 32.1 mmHg (75.0-100.0) Arterial Blood HCO3 19.3 mmol/L (22.0-26.0) L Arterial Blood Oxygen Saturation 38.2 % (95-100) *L Arterial Blood Base Excess -13.2 (-2-2) *L Rito Test Positive White Blood Count 5.8 K/UL (4.8-10.8) Red Blood Count 4.12 M/UL (4.20-5.40) L Hemoglobin 11.2 G/DL (12.0-16.0) L Hematocrit 37.0 % (37.0-47.0) Mean Corpuscular Volume 90 FL (80-99) Mean Corpuscular Hemoglobin 27.2 PG (27.0-31.0) Mean Corpuscular Hemoglobin Concent 30.2 G/DL (32.0-36.0) L Red Cell Distribution Width 19.1 % (11.6-14.8) H Platelet Count 122 K/UL (150-450) L Mean Platelet Volume 7.0 FL (6.5-10.1) Neutrophils (%) (Auto) 58.0 % (45.0-75.0) Lymphocytes (%) (Auto) 35.8 % (20.0-45.0) Monocytes (%) (Auto) 4.7 % (1.0-10.0) Eosinophils (%) (Auto) 0.1 % (0.0-3.0) Basophils (%) (Auto) 1.4 % (0.0-2.0) Sodium Level 137 MMOL/L (136-145) Potassium Level 4.5 MMOL/L (3.5-5.1) Chloride Level 105 MMOL/L (98-107) Carbon Dioxide Level 17 MMOL/L (21-32) L Anion Gap 15 mmol/L (5-15) Blood Urea Nitrogen 48 mg/dL (7-18) H Creatinine 1.7 MG/DL (0.55-1.30) H Estimat Glomerular Filtration Rate 35.8 mL/min (>60) Glucose Level 142 MG/DL (74-106) H Calcium Level 9.0 MG/DL (8.5-10.1) Troponin I 0.159 ng/mL (0.000-0.056) Test 06/07/20 13:20 06/07/20 14:06 Urine Color Pale yellow Urine Appearance Cloudy Urine pH 6 (4.5-8.0) Urine Specific [place] 1.015 (1.005-1.035) Urine Protein 3+ (NEGATIVE) H Urine Glucose (UA) Negative (NEGATIVE) Urine Ketones Negative (NEGATIVE) Urine Blood 3+ (NEGATIVE) H Urine Nitrite Negative (NEGATIVE) Urine Bilirubin Negative (NEGATIVE) Urine Urobilinogen Normal MG/DL (0.0-1.0) Urine Leukocyte Esterase 1+ (NEGATIVE) H Urine RBC 0-2 /HPF (0 - 2) Urine WBC 0-2 /HPF (0 - 2) Urine Squamous Epithelial Cells Moderate /LPF (NONE/OCC) H Urine Amorphous Sediment Moderate /LPF (NONE) H Urine Bacteria Occasional /HPF (NONE) Arterial Blood pH 7.391 (7.350-7.450) Arterial Blood Partial Pressure CO2 29.9 mmHg (35.0-45.0) L Arterial Blood Partial Pressure O2 138.9 mmHg (75.0-100.0) H Arterial Blood HCO3 17.7 mmol/L (22.0-26.0) *L Arterial Blood Oxygen Saturation 98.7 % (95-100) Arterial Blood Base Excess -6.0 (-2-2) L Rito Test Positive Plan Problems: (1) Acute renal failure (2) Hyponatremia (3) CHF (congestive heart failure) (4) Abnormal laboratory test result (5) Anemia (6) Decubitus ulcer of sacral region, unstageable Assessment & Plan: 74-year-old female multiple comorbidities BMI 30 albumin of 1 severe anemia presented with identifiable unstageable sacral decubitus ulcer on examination. Wound evaluated care plan initiated. Air mattress, nutritional optimization, turn every 2 hours, will follow with recommendations thank you (7) Malnutrition Assessment & Plan: DAILY ESTIMATED NEEDS: Needs based on Critical care, wound, 66kg abw 23-28 kcals/kg [id number] total kcals 1.25-2 g protein/kg 83-132 g total protein 25-30 mL/kg [id number] total fluid mLs NUTRITION DIAGNOSIS: Increased kcal and pro needs r/t wound healing as evidenced by sacral wound, unstageable, eval is pending, pt is bedbound/trach and peg dep. (CURRENT TF: Glucerna 1.2 @60ml/hr x20 hrs) ENTERAL NUTRITION RECOMMENDATIONS: Glucerna 1.2 @70ml/hr x20 hrs to provide 1400ml, 1680 kcal, 84g pro, 1127ml free H2o - Rec to increase TF goal to better meet est kcal and pro needs - Flush per . HOB over 30 degrees. ADDITIONAL RECOMMENDATIONS: 1) Maintain calibrated bed scale wts 2) Wound care: continue Vit C and Zinc. -> Add ARMANDO in 4oz H2O BID via Gtube 3) Monitor BG, need for increased insulin coverage 4) Monitor lytes closely on lasix (8) Asystole (9) PEA (Pulseless electrical activity) Assessment & Plan: Patient went down for CT scan identified and reviewed unfortunately upon returning had cardiovascular compromise requiring ACLS pulses electrical activity was able to be resuscitated currently intensive care unit. Work-up underway. There are bilateral large pleural effusions. Compressive atelectasis versus consolidation noted in both lung bases. There is also generalized groundglass edema in both lungs There is intense contrast opacification of the pulmonary arteries with some early contrast into the thoracic aorta. There is severe reflux of intravenous contrast into the hepatic veins opacifying the sinusoids of the posterior right lobe. The refluxed contrast also extends down the IVC opacifying the renal veins, down to the iliac veins as well. In speaking with the nuclear medicine technologist, normal injection protocol was utilized with 100 cc of contrast delivered at 2.5 cc/s and a 75 second delay via the indwelling PICC catheter. Except for the reflux contrast into the hepatic veins and right lobe sinusoids, the liver is essentially unenhanced as well as the rest of the abdominal visceral organs. Gallbladder is contracted or absent The pancreas is unremarkable. There is fusiform thickening of the left adrenal gland perhaps hyperplasia. Reflux of contrast noted into the renal veins bilaterally with no hydronephrosis noted. There is a G-tube in the stomach. Small bowel loops are nondistended. Scattered stool lucencies noted throughout the colon which is nondistended. The appendix is not visualized. Multiple calcified uterine fibroids noted. There is a small amount of free fluid in the pelvis. Also small amount of free fluid noted anterior to the hepatic edge. No free air identified. No pathologic adenopathy demonstrated. Urinary bladder is empty. There is extensive subcutaneous edema noted throughout the abdominal and pelvic rueda suggestive of severe anasarca. There also appears to be a fluid collection identified along the anterior abdominal wall at the mid abdomen with possible slight rim enhancement measuring approximately 7.2 x 2.2 x 4.1 cm. Etiology is undetermined. Per history, the gastrostomy tube is fairly recent. The collection is near by. Question possible postoperative hematoma or abscess. IMPRESSION: BILATERAL PLEURAL EFFUSIONS WITH DEPENDENT COMPRESSIVE ATELECTASIS OR CONSOLIDATIONS. ALSO GENERALIZED PULMONARY EDEMA. EXTENSIVE SEVERE ANASARCA. G-TUBE IN STOMACH. NO SIGN OF BOWEL OBSTRUCTION. CALCIFIED UTERINE FIBROIDS. SMALL FLUID COLLECTION NOTED ALONG THE ANTERIOR ABDOMINAL WALL AT THE MID ABDOMEN IN CLOSE PROXIMITY TO THE GASTROSTOMY SITE. WITH HISTORY OF RECENT G-TUBE PLACEMENT , THIS MAY REPRESENT A POSTOPERATIVE HEMATOMA OR ABSCESS. VERY UNUSUAL PATTERN OF SEVERE VENOUS REFLUX. CONTRAST WAS INJECTED VIA A RIGHT ARM PICC LINE, DELIVERED AT CONVENTIONAL PARAMETERS. HOWEVER THERE IS SEVERE REFLUX OF CONTRAST DOWN INTO THE ABDOMEN, OPACIFYING THE IVC, HEPATIC VEINS, RENAL VEINS AND PELVIC VEINS. ETIOLOGY IS UNCLEAR. QUESTION WHETHER THIS MAY BE RELATED TO SEVERE CARDIAC CONGESTION AND DYSFUNCTION. Iraj Prado Jun 07, 2020 16:46
--- NOTE | 2020-06-07 17:00 | NUR ---
NURSE NOTES: Dr Payne made aware pt is oliguric (approx 10 cc/hr of urine output) - no new orders received.
--- NOTE | 2020-06-07 18:00 | NUR ---
NURSE NOTES: Pt had large loose stools - Dr Daniel made aware - Cdiff collected and sent down to lab - rectal tube inserted.
[2020-06-07] MEDS: Piperacillin/Tazobactam 3.375 GM in NS 110 ML IVPB SCH (18:11)
[2020-06-07] MEDS ORDERED: Omnipaque-300 100ml vial INJ PRN (18:15)
--- NOTE | 2020-06-07 18:30 | NUR ---
NURSE NOTES: Dr Vera assessing pt at bedside - tracie morrow pt currently in SR with BBB to tube room supervisor. He states he will place orders as needed. labs and EKG for today reviewed.
--- NOTE | 2020-06-07 19:20 | NUR ---
NURSE NOTES: Received patient and report from GEORGE Sam. Patient is observed resting in bed and remains obtunded. Pupils remsin round, equal and 3mm but nonresponsive to light at this time. No response to pain noted. FLACC scale used to assess pt no pain noted upon assessment. Pt is currently trach to vent and appears to be tolerating settings well. Vent settings as follows: AC 28 TV 550 [id number]% PEEP 5 with an O2 saturation of 98% noted at this time. Bilateral lower lobe breath sounds noted to be diminished upon auscultation, rhonchi noted in bilateral upper lobes. Pt noted to be SR w/BBB on tele monitor with a HR of 78 and no s/sx of acute distress noted. R upper arm single lumen PICC lines noted which remains asymptomatic, intact and patent. Central line dressing remains clean, dry and intact. GTube noted which remains intact and patent. Bowel sounds noted in all four quadrants, abdomen remains large, round, soft and nontender. Pt remains NPO per order and rectal tube noted which remains intact, patent and draining a moderate amount of brown, liquid stool to gravity. Salvador catheter noted which remains intact, patent and draining yellow urine to gravity. Diagnostics reviewed at bedside. Skin alterations noted. Pt repositioned for comfort and safety. Fall, Aspiration and Skin precautions observed. Pt remains resting in bed; Bed remains in the lowest position with the safety wheels engaged, call light within reach, side rails up x3 and bed alarm activated. Will continue plan of care. Will continue to monitor. Addendum: 06/07/20 at 2322 by AYSE ACOSTA RN Dopamine infusing at 2mcg/kg/min
--- NOTE | 2020-06-07 19:30 | NUR ---
HAND-OFF: NURSE HAND-OFF REPORT: Latest Vital Signs: Temperature 97.6 , Pulse 80 , B/P 94 /42 , Respiratory Rate 28 , O2 SAT 100 , Mechanical Ventilator, O2 Flow Rate 5.0 . Vital Sign Comment: Current VS on 2 mcg/kg/min of dopamine gtt Pt in no acute distress - no changes in mental status since transfer - pt remains unresponsive EKG Rhythm: SR w/BBB Rhythm change?: Y Notified?: Y -Dr Jody SCALES Response: MD to See Patient Latest Box Fall Score: 50 Fall Risk: High Risk Safety Measures: Call light Within Reach, Bed Alarm Zone 1, Side Rails Side Rails x3, Bed position Low and Locked. Fall Precautions: Yellow Socks Yellow Gown Door Sign Patient Fall Education Report given to GEORGE Lugo.
--- NOTE | 2020-06-07 21:00 | NUR ---
NURSE NOTES: Bedside assessment performed. Neuro assessment remains consistent with previous physical assessment findings. Assessed pt for pain with a FLACC score of 0 noted. Scheduled Lopressor held for pt safety due to decreased BP. Mylene-hex ordered per hospital policy r/t central line in place. R hand 22g IV catheter placed on first attempt without incident. IV catheter remains intact, patent and asymptomatic. Fall, Aspiration and Skin precautions observed. Pt remains resting in bed; Bed remains in the lowest position with the safety wheels engaged, call light within reach, side rails up x3 and bed alarm activated. Will continue plan of care. Will continue to monitor.
[2020-06-07] MEDS: Dyna-Hex 2% Top Sol 2oz TOPIC SCH (22:01)
--- NOTE | 2020-06-07 23:00 | NUR ---
NURSE NOTES: Pt provided with a CHG bed bath, oral care and linen change. ROM exercises performed per pt tolerance. Pt tolerated care well. Bedside assessment performed, assessed pt with a FLACC scale of 0 noted. Scheduled Novolog held for pt safety as bedside blood glucose result of 94 noted. Neuro assessment remains consistent with previous physical assessment findings. Dopamine continues to infuse at 2mcg/kg/min, no adverse effects noted. Pt repositioned for comfort and safety. VS obtained and noted to be stable at this time. Fall, Aspiration and Skin precautions observed. Pt remains resting in bed; Bed remains in the lowest position with the safety wheels engaged, call light within reach, side rails up x3 and bed alarm activated. Will continue plan of care. Will continue to monitor.
[2020-06-08] VITALS (58 sets, daily range): BP systolic 77–120; BP diastolic 32–61
--- NOTE | 2020-06-08 01:00 | NUR ---
NURSE NOTES: Bedside assessment performed. Neuro assessment remains consistent with previous physical assessment findings. Assessed pt for pain with a FLACC score of 0 noted. Troponin noted to be >9, 12 lead EKG performed, change in pt rhythm noted, Accelerated Junctional, Will notify MD and continue to monitor. Fall, Aspiration and Skin precautions observed. Pt remains resting in bed; Bed remains in the lowest position with the safety wheels engaged, call light within reach, side rails up x3 and bed alarm activated. Will continue plan of care. Will continue to monitor.
--- NOTE | 2020-06-08 01:10 | NUR ---
NURSE NOTES: Left message for Dr Vera regarding critical lab value and change in rhythm Will await a call back and continue to monitor.
--- NOTE | 2020-06-08 01:41 | NUR ---
NURSE NOTES: Left message for Dr Vera regarding critical lab value and change in rhythm Will await a call back and continue to monitor.
--- NOTE | 2020-06-08 02:10 | NUR ---
NURSE NOTES: Called and spoke with bunk house worker regarding current Troponin value and unsuccessful attempts to reach med care manager. sales department supervisor to escalate as appropriate.
--- NOTE | 2020-06-08 02:20 | NUR ---
NURSE NOTES: supervisor malt house successful in attempt to reach Dr Jody Vera to enter additional orders. Will await orders and carry them out Will continue to monitor.
--- NOTE | 2020-06-08 02:30 | NUR ---
NURSE NOTES: Dr Vera called and spoke with charge nurse. Dr Vera to enter order to wean pt off Dopamine gtt, 2D Echo and repeat 12 lead EKG Will carry out orders.
[2020-06-08] MEDS: DOPamine 400mg/250ml 250 ML IV SCH (03:00)
--- NOTE | 2020-06-08 03:00 | NUR ---
NURSE NOTES: Bedside assessment performed. Pt noted to be resting comfortably and remains clean and dry. Assessed pt for pain with a FLACC score of 0 noted. Reapeat 12 lead EKG performed, results noted to be both SR and Junctional. VS obtained and SBP >100 noted, attempting to hold Dopamine gtt as ordered (initiated at 03:20). Pt provided with oral care, partial bed bath and ROM exercises. Neuro assessment remains consistent with previous physical assessment findings. Fall, Aspiration and Skin precautions observed. Pt remains resting in bed; Bed remains in the lowest position with the safety wheels engaged, call light within reach, side rails up x3 and bed alarm activated. Will continue plan of care. Will continue to monitor.
--- NOTE | 2020-06-08 03:45 | Consultation ---
DATE OF CONSULTATION: 06/07/2020 CARDIOLOGY CONSULT REQUESTING PHYSICIAN: Jonathon Payne MD REASON FOR CONSULTATION: Cardiopulmonary arrest. HISTORY OF PRESENT ILLNESS: This is a 74-year-old female who was brought into the hospital 2 days ago for management of anemia. The patient was in good health up until about a month ago when she had a stroke. She was hospitalized at [facility]. Her condition was severe and she required gastrostomy tube and tracheostomy. She has been on ventilator therapy since. She was noted to have a low hemoglobin level and was transferred here for management 2 days ago. Today, the patient developed sudden bradycardia asystole and a Code Blue arrest. The patient was resuscitated and transferred to the intensive care unit. She is hypotensive. I have suggested initiation of pressors. PAST MEDICAL HISTORY: 1. History of cerebrovascular accident. 2. Ventilator-dependent respiratory failure. 3. Dysphagia with G-tube. 4. Anemia, etiology unclear. 5. History of congestive heart failure. SOCIAL HISTORY: No record of smoking, alcohol, or substance abuse. FAMILY HISTORY: Not remarkable. MEDICATIONS: Prior to admission, reviewed and reconciled. PHYSICAL EXAMINATION: GENERAL: Unresponsive, ill-appearing, ventilated via tracheostomy. Left-sided weakness. LUNGS: Coarse breath sounds. No wheezing. CARDIAC: Regular rhythm. Rapid rate. Normal S1, S2. ABDOMEN: Soft. No edema. Abdominal scar noted. Monitored rhythm, atrial fibrillation with slow ventricular response. Earlier now converted to sinus rhythm. EKG on admission, sinus rhythm with nonspecific ST changes. Presently atrial fibrillation with controlled ventricular response and no acute ST abnormalities. LABORATORY DATA: White count this morning 5.3, hemoglobin 11.2 and on admission hemoglobin was 7.9. Sodium 137, potassium 4.5, bicarb 17, BUN 48 creatinine 1.7. Troponin 0.159. Chest x-ray on admission revealed bilateral interstitial airspace disease, suggesting infiltrates versus edema. IMPRESSION: 1. Status post full arrest. 2. Acute myocardial infarction. 3. Paroxysmal atrial fibrillation. 4. Bradyarrhythmia and heart block, etiology unclear. 5. Anemia, etiology unclear. 6. Status post CVA. 7. Ventilator-dependent respiratory failure. 8. Shock, likely multifactorial. PLAN: 1. ICU monitoring. Ventilator support. Broad-spectrum antimicrobials. 2. Volume support. 3. Hold beta-yaritza until blood pressure stabilizes. 4. Avoid anti-platelet drugs in view of severe anemia, requiring transfusions. 5. Echocardiogram, serial troponin levels. 6. Condition critical. 7. Prognosis guarded. Cisco Vera M.D. DR: KARLA JOB#: [id number] CC:
--- NOTE | 2020-06-08 03:45 | NUR ---
NURSE NOTES: BP noted to be consistently decreasing without Dopamine infusing. SBP of 77 noted and Dopamine infusion reinitiated. Will continue to monitor and assess pt for readiness to wean from infusion.
--- NOTE | 2020-06-08 05:00 | NUR ---
NURSE NOTES: Bedside assessment performed. Pt noted to be resting comfortably and remains clean and dry. Assessed pt for pain with a FLACC score of 0 noted. Reapeat 12 lead EKG performed, results noted to be both SR and Junctional. VS obtained BP of 107/38 noted. Pt provided with oral care, partial bed bath and ROM exercises. Neuro assessment remains consistent with previous physical assessment findings. Dopamine continues infusing at 2mcg/kg/min Fall, Aspiration and Skin precautions observed. Pt remains resting in bed; Bed remains in the lowest position with the safety wheels engaged, call light within reach, side rails up x3 and bed alarm activated. Will continue plan of care. Will continue to monitor.
[2020-06-08] MEDS: NovoLOG Insulin Flexpen SUBQ SCH ×3 (05:22→17:14)
[2020-06-08] MEDS: Piperacillin/Tazobactam 3.375 GM in NS 110 ML IVPB SCH ×3 (05:22→21:08)
--- NOTE | 2020-06-08 07:00 | NUR ---
NURSE NOTES: Pt noted to be in A Fib, attempted to contact cardiology. Will await a call back. Will continue to monitor.
[2020-06-08 07:13] LABS: ANION GAP 12 mmol/L (5-15); BLOOD UREA NITROGEN 53 mg/dL (7-18); CARBON DIOXIDE 22 MMOL/L (21-32); CHLORIDE 102 MMOL/L (98-107); CREATININE 1.8 MG/DL (0.55-1.30); POTASSIUM 4.6 MMOL/L (3.5-5.1); SODIUM 136 MMOL/L (136-145)
--- NOTE | 2020-06-08 07:13 | NUR ---
NURSE HAND-OFF REPORT: Latest Vital Signs: Temperature 97.1 , Pulse 100 , B/P 112 /48 , Respiratory Rate 28 , O2 SAT 100 , Mechanical Ventilator, O2 Flow Rate 5.0 . Vital Sign Comment: Attempt to wean off of Dopamine infusion; SBP decreased to 77 during first attempt EKG Rhythm: Sinus Rhythm, SR w/BBB, Junctional, AFib Rhythm change?: Marcia SCALES Notified?: Y Emma Vera MD Response: Repeat 12 lead EKG, 2D Echo ordered; pending call back regarding AFib Latest Box Fall Score: 50 Fall Risk: High Risk Safety Measures: Call light Within Reach, Bed Alarm Zone 1, Side Rails Side Rails x3, Bed position Low and Locked. Fall Precautions: Yellow Socks Yellow Gown Door Sign Patient Fall Education Report given to GEORGE Sam.
--- NOTE | 2020-06-08 07:14 | NUR ---
NURSE NOTES: Pt received from GEORGE Lugo. pt is comatose - bilat pupils 3 mm with no response to light - pt is unresponsive - gag reflex is absent. Pt in Afib with BBB to radiographer cardiac catheterization with 1+ radial and dorsalis pedis pulses. Pt is trache to vent with the following settings: AC 28 TV 550 FiO2 40% Peep 5 - bilat upper lung lobes noted with rhonchi and lower lobes diminished upon auscultation. abd is round, soft, with hyperactive bowel sounds to all quadrants- rectal tube noted draining semi-liquid stool. Salvador noted draining yellow urine. Skin alterations noted. Pt has a STEVE PICC line with dry and intact dressing running dopamine gtt at 2 mcg/kg/min and a RH 22g IV saline locked. Per Brittney, pt failed attempt to wean off dopamine this evening- dopamine was restarted - rhythm changed to Aib with BBB and message was also left with Dr Vera. Will reattempt to wean pt off dopa today and f/u w/ Dr Vera. Bed in lowest position, alarm on, side rails up x 2, call light within reach. Will continue to monitor.
[2020-06-08 07:24] LABS: HEMATOCRIT 37.7 % (37.0-47.0); HEMOGLOBIN 11.8 G/DL (12.0-16.0); MEAN CORPUSCULAR VOLUME 86 FL (80-99); PLATELET COUNT 167 K/UL (150-450); RED BLOOD COUNT 4.41 M/UL (4.20-5.40); RED CELL DISTRIBUTION WIDTH 18.4 % (11.6-14.8); WHITE BLOOD COUNT 10.8 K/UL (4.8-10.8)
--- NOTE | 2020-06-08 07:59 | NUR ---
06/08 Per GEORGE Walker, pt is still unstable. Because the CT order was requested on 06/01 and the pt has been unstable the entire time, Radiology is cancelling the order and asking the MD to reorder the exam when the pt is actually stable enough to come down. GEORGE Walker stated she will inform the MD of the change. Any questions, please call Christophe or Carlos at [phone]. [email or web address] 7:54 Addendum: 06/08/20 at 0803 by RUBY BAUMANN 06/08 Sorry, please disregard above message, wrong patient.
--- NOTE | 2020-06-08 08:00 | NUR ---
NURSE NOTES: Dr Kerry carrasquillo pt at bedside - made aware of cardiac rhythm at this time (Afib with BBB) and troponin results 10.386. Pt repositioned, oral care provided, no distress noted at this time.
[2020-06-08] MEDS: Pantoprazole Inj IVP SCH (08:12)
[2020-06-08] MEDS: Ascorbic Acid 500mg tab GT SCH ×2 (08:13→17:14)
[2020-06-08] MEDS: Zinc Sulfate 220mg GT SCH (08:13)
--- NOTE | 2020-06-08 08:32 | General Progress Note ---
Assessment/Plan Assessment/Plan: IMPRESSION respiratory failure CHF anemia possible GIB chronic encephalopathy CKD massive CVA s/p CPA acidemia, improved hypoxemia diarrhea anasarca pleural effusion acute MT PAF hypotension PLAN vent support and monitor acid base taper dopa as able diurese if able ? albumin CT abdomen noted monitor HH follow up labs snf meds d/w family as to CPA and status medications/laboratory data/nursing notes/ICU care reviewed in detail note reviewed and edited care discussed with RN and RT ICU time spent >40 minutes Subjective ROS Limited/Unobtainable: Yes Allergies: Coded Allergies: PROPOXYPHENE (Verified Allergy, Unknown, 06/05/20) Subjective care noted s/p CPA on vent poor LOC on dopa Objective Last 24 Hour Vital Signs Date Time Temp Pulse Resp B/P (MAP) Pulse Ox O2 Delivery O2 Flow Rate FiO2 06/08/20 07:00 90 28 106/48 (67) 100 06/08/20 07:00 105/53 06/08/20 06:53 86 28 40 06/08/20 06:30 86 28 120/39 (66) 100 06/08/20 06:22 107/47 06/08/20 06:00 92 28 109/49 (69) 100 06/08/20 06:00 109/49 06/08/20 05:45 95 28 105/47 (66) 100 06/08/20 05:30 100 28 112/48 (69) 100 06/08/20 05:15 90 28 109/54 (72) 100 06/08/20 05:00 107/38 06/08/20 05:00 87 28 107/38 (61) 100 06/08/20 04:54 94 28 40 06/08/20 04:45 88 28 101/48 (65) 100 06/08/20 04:30 86 28 105/61 (76) 100 06/08/20 04:15 85 28 99/55 (70) 100 06/08/20 04:00 Mechanical Ventilator Mechanical Ventilator 06/08/20 04:00 40 06/08/20 04:00 91/38 06/08/20 04:00 97.1 67 28 91/35 (53) 100 06/08/20 03:47 71 28 77/42 (54) 100 06/08/20 03:45 77/42 06/08/20 03:30 77 28 94/47 (63) 100 06/08/20 03:15 88 28 107/44 (65) 100 06/08/20 03:05 85 06/08/20 03:00 89 28 109/52 (71) 100 06/08/20 03:00 107/44 06/08/20 03:00 107/44 06/08/20 03:00 109/52 06/08/20 03:00 40 06/08/20 02:57 88 28 40 06/08/20 02:30 90 28 101/45 (63) 100 06/08/20 02:00 107/47 06/08/20 02:00 89 28 107/47 (67) 100 06/08/20 01:30 88 28 106/43 (64) 100 06/08/20 01:07 91 06/08/20 01:00 100/52 06/08/20 01:00 85 28 100/42 (61) 100 06/08/20 00:33 84 28 40 06/08/20 00:30 85 28 104/46 (65) 100 06/08/20 00:00 Mechanical Ventilator Mechanical Ventilator 06/08/20 00:00 97.4 83 28 99/44 (62) 100 06/08/20 00:00 99/44 06/08/20 00:00 60 06/07/20 23:30 85 28 94/39 (57) 100 06/07/20 23:06 91 06/07/20 23:02 79 28 40 06/07/20 23:00 93 28 106/52 (70) 100 06/07/20 23:00 106/52 06/07/20 22:30 79 28 101/43 (62) 99 06/07/20 22:00 84 28 100/47 (64) 98 06/07/20 22:00 100/47 20 21:30 83 28 108/44 (65) 98 06/07/20 21:15 82 28 40 06/07/20 21:00 103/43 20 21:00 83 24 103/43 (63) 100 06/07/20 20:30 83 25 104/47 (66) 100 06/07/20 20:00 Mechanical Ventilator Mechanical Ventilator 06/07/20 20:00 60 06/07/20 20:00 97.1 82 28 99/45 (63) 100 8/20/20 20:00 99/45 8/20/20 19:45 83 28 102/46 (64) 99 8/20/20 19:30 82 28 105/46 (65) 99 8/20/20 19:27 80 28 50 8/20/20 19:22 80 8/20/20 19:15 80 5 94/42 (59) 100 8/20/20 19:00 102/42 8/20/20 19:00 80 28 102/42 (62) 100 8/20/20 18:45 80 28 98/47 (64) 100 8/20/20 18:30 79 27 98/46 (63) 100 8/20/20 18:15 78 28 103/50 (67) 100 8/20/20 18:00 60 8/20/20 18:00 106/46 8/20/20 18:00 97.6 76 28 106/46 (66) 100 820/20 18:00 Mechanical Ventilator Mechanical Ventilator 06/07/20 17:45 75 27 119/56 (77) 99 820 17:35 77 28 60 8/20/20 17:30 75 23 115/48 (70) 100 8/20/20 17:15 73 2 122/47 (72) 100 820 17:00 73 3 122/49 (73) 100 820 17:00 122/49 820 16:45 72 27 123/51 (75) 100 820/20 16:30 73 28 123/51 (75) 100 820 16:15 72 28 128/50 (76) 100 820 16:00 Mechanical Ventilator Mechanical Ventilator 06/07/20 16:00 98.5 74 28 130/47 (74) 100 8/20/20 16:00 80 8/20/20 16:00 139/56 820/20 16:00 78 820/20 15:45 73 28 139/56 (83) 100 820/20 15:39 74 28 80 8/20/20 15:30 74 28 119/51 (73) 100 820 15:15 78 28 140/44 (76) 100 82020 15:00 156/67 820/20 15:00 79 28 156/67 (96) 100 06/07/20 14:47 80 06/07/20 14:45 78 28 155/63 (93) 100 06/07/20 14:30 77 28 141/60 (87) 100 06/07/20 14:15 78 28 133/56 (81) 100 06/07/20 14:00 77 28 133/59 (83) 100 06/07/20 14:00 133/59 06/07/20 13:47 87 28 100 06/07/20 13:45 82 28 132/52 (78) 100 06/07/20 13:30 64 24 134/49 (77) 100 06/07/20 13:15 63 28 115/48 (70) 100 06/07/20 13:00 62 24 102/51 (68) 100 06/07/20 12:57 124/49 06/07/20 12:55 98.0 06/07/20 12:45 60 24 124/49 (74) 100 06/07/20 12:30 100 06/07/20 12:30 56 24 96/48 (64) 100 06/07/20 12:15 63 24 162/68 (99) 100 06/07/20 12:00 Mechanical Ventilator Mechanical Ventilator 06/07/20 12:00 59 06/07/20 12:00 100 06/07/20 12:00 94 24 67/57 (60) 100 06/07/20 11:55 96.0 06/07/20 11:17 64 24 40 06/07/20 09:44 67 122/53 06/07/20 09:08 67 24 40 06/07/20 09:00 40 Intake and Output 06/07/20 06/08/20 19:00 07:00 Intake Total 807.408 ml 243.379 ml Output Total 100 ml 425 ml Balance 707.408 ml -181.621 ml Intake Oral 450 ml Free Water 30 ml 30 ml IV Total 327.408 ml 213.379 ml Output Urine Total 60 ml 325 ml Stool Total 40 ml 100 ml # Voids 2 # Bowel Movements 4 Laboratory Tests 06/07/20 11:37: POC Whole Blood Glucose [Pending] 06/07/20 12:11: Arterial Blood pH 6.984*L, Arterial Blood Partial Pressure CO2 83.2*H, Arterial Blood Partial Pressure O2 32.1*L, Arterial Blood HCO3 19.3L, Arterial Blood Oxygen Saturation 38.2*L, Arterial Blood Base Excess -13.2*L, Rito Test Positive 06/07/20 12:30: White Blood Count 5.8, Red Blood Count 4.12L, Hemoglobin 11.2L, Hematocrit 37.0 , Mean Corpuscular Volume 90, Mean Corpuscular Hemoglobin 27.2, Mean Corpuscular Hemoglobin Concent 30.2L, Red Cell Distribution Width 19.1H, Platelet Count 122L, Mean Platelet Volume 7.0, Neutrophils (%) (Auto) 58.0, Lymphocytes (%) (Auto) 35.8, Monocytes (%) (Auto) 4.7, Eosinophils (%) (Auto) 0.1, Basophils (%) (Auto) 1.4, Sodium Level 137, Potassium Level 4.5, Chloride Level 105, Carbon Dioxide Level 17L, Anion Gap 15, Blood Urea Nitrogen 48H, Creatinine 1.7H, Estimat Glomerular Filtration Rate 35.8, Glucose Level 142H, Calcium Level 9.0, Troponin I 0.159H 06/07/20 13:20: Urine Color Pale yellow, Urine Appearance Cloudy, Urine pH 6, Urine Specific [place] 1.015, Urine Protein 3+H, Urine Glucose (UA) Negative, Urine Ketones Negative, Urine Blood 3+H, Urine Nitrite Negative, Urine Bilirubin Negative, Urine Urobilinogen Normal, Urine Leukocyte Esterase 1+H, Urine RBC 0-2, Urine WBC 0-2, Urine Squamous Epithelial Cells ModerateH, Urine Amorphous Sediment ModerateH, Urine Bacteria Occasional 06/07/20 14:06: Arterial Blood pH 7.391, Arterial Blood Partial Pressure CO2 29.9L, Arterial Blood Partial Pressure O2 138.9H, Arterial Blood HCO3 17.7*L, Arterial Blood Oxygen Saturation 98.7, Arterial Blood Base Excess -6.0L, Rito Test Positive 06/08/20 00:25: Troponin I 10.937H 06/08/20 06:36: White Blood Count 10.8#, Red Blood Count 4.41, Hemoglobin 11.8L, Hematocrit 37.7 , Mean Corpuscular Volume 86, Mean Corpuscular Hemoglobin 26.8L, Mean Corpuscular Hemoglobin Concent 31.3L, Red Cell Distribution Width 18.4H, Platelet Count 167, Mean Platelet Volume 6.6, Neutrophils (%) (Auto) , Lymphocytes (%) (Auto) , Monocytes (%) (Auto) , Eosinophils (%) (Auto) , Basophils (%) (Auto) , Neutrophils % (Manual) [Pending], Lymphocytes % (Manual) [Pending], Platelet Estimate [Pending], Platelet Morphology [Pending], Sodium Level 136, Potassium Level 4.6, Chloride Level 102, Carbon Dioxide Level 22, Anion Gap 12, Blood Urea Nitrogen 53H, Creatinine 1.8H, Estimat Glomerular Filtration Rate 33.5, Glucose Level 90, Calcium Level 8.0L, Magnesium Level 2.3 06/08/20 07:55: Troponin I [Pending] Height (Feet): 5 Height (Inches): 6.00 Weight (Pounds): 192 Objective WDWN NAD clear breath sounds bilaterally without rhonchi or wheeze [id number] without MRG NABS nontender GT no CCE reduced LOC GT on vent comatose Jonathon Payne MD Jun 08, 2020 08:32
--- NOTE | 2020-06-08 09:30 | NUR ---
NURSE NOTES: Daughter called ( Miya) wanted her mother to be DNR status- advised her to talk to Dr. Payne to let him know
--- NOTE | 2020-06-08 10:00 | NUR ---
NURSE NOTES: Left message for Dr Payne - relayed message from cheko Banerjee RN that family spoke with her over the phone at 0930 requesting pt's code be changed to DNR. Awaiting call back. Pt repositioned at this time. No distress noted. Dopa drip off. Will monitor BP.
[2020-06-08] MEDS ORDERED: NS 275ml ONE ×2 (10:08→11:36)
--- NOTE | 2020-06-08 10:42 | NUR ---
NURSE NOTES: Received call back from Dr Payne- [facility] to change code status to DNR per family's wishes.
--- NOTE | 2020-06-08 10:45 | NUR ---
NURSE NOTES: SBP noted in 80s - dopa gtt back on.
--- NOTE | 2020-06-08 11:00 | NUR ---
NURSE NOTES: Sputum culture collected and sent down.
[2020-06-08] MEDS ORDERED: Tubing Blood Filter IV ONE (11:36)
[2020-06-08] MEDS ORDERED: Tubing IV Blood Pump IV ONE (11:36)
[2020-06-08] MEDS ORDERED: Tubing IV Secondary IV ONE (11:36)
[2020-06-08] MEDS ORDERED: Sterile Water Irrig 1000ml IRRIG ONE (11:36)
--- NOTE | 2020-06-08 11:43 | NUR ---
NURSE NOTES: Left message for Dr Chema Kenyon with positive blood culture results for negative rods (first bottle). Shelly Gibson from [employer] also contacted Dr Kenyon.
--- NOTE | 2020-06-08 12:00 | NUR ---
NURSE NOTES: Pt remains in Afib with BBB since this morning- rate noted 130-140s at this time however. Spoke with Dr Vera with update on condition: -Afib with BBB (rate 130-140s) -2D Echo results 45% -Troponin trending down - most recent 10. Dr Vera states he will place orders. Pt repositioned, oral care provided. Axillary temp noted 99.5 - blankets removed. No acute distress noted. Will continue to monitor.
--- NOTE | 2020-06-08 12:56 | NUR ---
GERIATRIC NURSE PRACTITIONER NOTE Pt is vent dependent. Per chart review, pt is A&O 0x. Pt is from [facility]. SW spoke w/ pt's daughter, Miya Mary [phone] and confirmed she is the primary contact center representative and two daughters, Amalia and she will be the decision makers for pt. SW also confirmed that the family expresses DNR. No other concern/needs shared by the daughter. Other emergency contact: Amalia Hogan (daughter) [phone]
--- NOTE | 2020-06-08 12:57 | NUR ---
NURSE NOTES: Received call from Dr Vera with order to continue attempts to taper pt off dopamine - if SBP drops below 90 mmHG - OK to give 5% albumin IV x 1 and monitor response. Dopamine stopped at this time.
--- NOTE | 2020-06-08 13:04 | Surgery Progress Note ---
Surgery Progress Note Subjective Additional Comments worsening code status changed family seen patient Objective Last 24 Hour Vital Signs Date Time Temp Pulse Resp B/P (MAP) Pulse Ox O2 Delivery O2 Flow Rate FiO2 06/08/20 13:00 96/45 06/08/20 12:15 140 28 111/59 (76) 100 06/08/20 12:00 144 06/08/20 12:00 Mechanical Ventilator Mechanical Ventilator 06/08/20 12:00 40 06/08/20 12:00 109/47 06/08/20 12:00 99.5 139 28 109/47 (67) 100 06/08/20 11:45 139 28 112/59 (76) 100 06/08/20 11:30 136 28 106/54 (71) 100 06/08/20 11:15 129 28 103/48 (66) 100 06/08/20 11:01 118 28 40 06/08/20 11:00 116 28 91/46 (61) 06/08/20 11:00 91/46 06/08/20 10:45 88/47 06/08/20 10:45 120 28 88/47 (61) 100 06/08/20 10:30 110 28 99/51 (67) 100 06/08/20 10:00 102/32 06/08/20 10:00 77 28 102/32 (55) 100 06/08/20 09:30 93 28 108/45 (66) 100 06/08/20 09:00 108/49 06/08/20 09:00 86 28 108/49 (68) 100 06/08/20 08:30 69 27 87/36 (53) 100 06/08/20 08:00 Mechanical Ventilator Mechanical Ventilator 06/08/20 08:00 99.0 72 28 103/39 (60) 100 06/08/20 08:00 103/39 06/08/20 08:00 40 06/08/20 08:00 101 06/08/20 07:30 85 28 105/43 (63) 100 06/08/20 07:00 90 28 106/48 (67) 100 06/08/20 07:00 105/53 06/08/20 06:53 86 28 40 06/08/20 06:30 86 28 120/39 (66) 100 06/08/20 06:22 107/47 06/08/20 06:00 92 28 109/49 (69) 100 06/08/20 06:00 109/49 06/08/20 05:45 95 28 105/47 (66) 100 06/08/20 05:30 100 28 112/48 (69) 100 06/08/20 05:15 90 28 109/54 (72) 100 06/08/20 05:00 107/38 06/08/20 05:00 87 28 107/38 (61) 100 06/08/20 04:54 94 28 40 06/08/20 04:45 88 28 101/48 (65) 100 06/08/20 04:30 86 28 105/61 (76) 100 06/08/20 04:15 85 28 99/55 (70) 100 06/08/20 04:00 Mechanical Ventilator Mechanical Ventilator 06/08/20 04:00 40 06/08/20 04:00 91/38 06/08/20 04:00 97.1 67 28 91/35 (53) 100 06/08/20 03:47 71 28 77/42 (54) 100 06/08/20 03:45 77/42 06/08/20 03:30 77 28 94/47 (63) 100 06/08/20 03:15 88 28 107/44 (65) 100 06/08/20 03:05 85 06/08/20 03:00 89 28 109/52 (71) 100 06/08/20 03:00 107/44 06/08/20 03:00 107/44 06/08/20 03:00 109/52 06/08/20 03:00 40 06/08/20 02:57 88 28 40 06/08/20 02:30 90 28 101/45 (63) 100 06/08/20 02:00 107/47 06/08/20 02:00 89 28 107/47 (67) 100 06/08/20 01:30 88 28 106/43 (64) 100 06/08/20 01:07 91 06/08/20 01:00 100/52 06/08/20 01:00 85 28 100/42 (61) 100 06/08/20 00:33 84 28 40 06/08/20 00:30 85 28 104/46 (65) 100 06/08/20 00:00 Mechanical Ventilator Mechanical Ventilator 8/21/20 00:00 97.4 83 28 99/44 (62) 100 8/21/20 00:00 99/44 8/21/20 00:00 60 8/20/20 23:30 85 28 94/39 (57) 100 8/20/20 23:06 91 8/20/20 23:02 79 28 40 8/20/20 23:00 93 28 106/52 (70) 100 8/20/20 23:00 106/52 8/20/20 22:30 79 28 101/43 (62) 99 8/20/20 22:00 84 28 100/47 (64) 98 8/20/20 22:00 100/47 8/20/20 21:30 83 28 108/44 (65) 98 8/20/20 21:15 82 28 40 8/20/20 21:00 103/43 8/20/20 21:00 83 24 103/43 (63) 100 8/20/20 20:30 83 25 104/47 (66) 100 8/20/20 20:00 Mechanical Ventilator Mechanical Ventilator [id number] 20:00 60 8/20/20 20:00 97.1 82 28 99/45 (63) 100 8/20/20 20:00 99/45 8/20/20 19:45 83 28 102/46 (64) 99 8/20/20 19:30 82 28 105/46 (65) 99 8/20/20 19:27 80 28 50 8/20/20 19:22 80 8/20/20 19:15 80 5 94/42 (59) 100 8/20/20 19:00 102/42 8/20/20 19:00 80 28 102/42 (62) 100 8/20/20 18:45 80 28 98/47 (64) 100 8/20/20 18:30 79 27 98/46 (63) 100 8/20/20 18:15 78 28 103/50 (67) 100 8/20/20 18:00 60 8/20/20 18:00 106/46 8/20/20 18:00 97.6 76 28 106/46 (66) 100 8/20/20 18:00 Mechanical Ventilator Mechanical Ventilator 2020 17:45 75 27 119/56 (77) 99 8/20/20 17:35 77 28 60 8/20/20 17:30 75 23 115/48 (70) 100 06/07/20 17:15 73 2 122/47 (72) 100 06/07/20 17:00 73 3 122/49 (73) 100 06/07/20 17:00 122/49 06/07/20 16:45 72 27 123/51 (75) 100 06/07/20 16:30 73 28 123/51 (75) 100 06/07/20 16:15 72 28 128/50 (76) 100 06/07/20 16:00 Mechanical Ventilator Mechanical Ventilator 06/07/20 16:00 98.5 74 28 130/47 (74) 100 06/07/20 16:00 80 06/07/20 16:00 139/56 06/07/20 16:00 78 06/07/20 15:45 73 28 139/56 (83) 100 06/07/20 15:39 74 28 80 06/07/20 15:30 74 28 119/51 (73) 100 06/07/20 15:15 78 28 140/44 (76) 100 06/07/20 15:00 156/67 06/07/20 15:00 79 28 156/67 (96) 100 06/07/20 14:47 80 06/07/20 14:45 78 28 155/63 (93) 100 06/07/20 14:30 77 28 141/60 (87) 100 06/07/20 14:15 78 28 133/56 (81) 100 06/07/20 14:00 77 28 133/59 (83) 100 06/07/20 14:00 133/59 06/07/20 13:47 87 28 100 06/07/20 13:45 82 28 132/52 (78) 100 06/07/20 13:30 64 24 134/49 (77) 100 06/07/20 13:15 63 28 115/48 (70) 100 I&O Intake and Output 06/07/20 06/08/20 19:00 07:00 Intake Total 807.408 ml 243.379 ml Output Total 100 ml 425 ml Balance 707.408 ml -181.621 ml Intake Oral 450 ml Free Water 30 ml 30 ml IV Total 327.408 ml 213.379 ml Output Urine Total 60 ml 325 ml Stool Total 40 ml 100 ml # Voids 2 # Bowel Movements 4 Dressing: saturated Cardiovascular: RSR Respiratory: decreased breath sounds Abdomen: soft, non-tender, present bowel sounds Extremities: edema, no cyanosis Laboratory Tests Test 06/07/20 13:20 06/07/20 14:06 06/08/20 00:25 06/08/20 06:36 Urine Color Pale yellow Urine Appearance Cloudy Urine pH 6 (4.5-8.0) Urine Specific [place] 1.015 (1.005-1.035) Urine Protein 3+ (NEGATIVE) H Urine Glucose (UA) Negative (NEGATIVE) Urine Ketones Negative (NEGATIVE) Urine Blood 3+ (NEGATIVE) H Urine Nitrite Negative (NEGATIVE) Urine Bilirubin Negative (NEGATIVE) Urine Urobilinogen Normal MG/DL (0.0-1.0) Urine Leukocyte Esterase 1+ (NEGATIVE) H Urine RBC 0-2 /HPF (0 - 2) Urine WBC 0-2 /HPF (0 - 2) Urine Squamous Epithelial Cells Moderate /LPF (NONE/OCC) H Urine Amorphous Sediment Moderate /LPF (NONE) H Urine Bacteria Occasional /HPF (NONE) Arterial Blood pH 7.391 (7.350-7.450) Arterial Blood Partial Pressure CO2 29.9 mmHg (35.0-45.0) L Arterial Blood Partial Pressure O2 138.9 mmHg (75.0-100.0) H Arterial Blood HCO3 17.7 mmol/L (22.0-26.0) *L Arterial Blood Oxygen Saturation 98.7 % (95-100) Arterial Blood Base Excess -6.0 (-2-2) L Rito Test Positive Troponin I 10.937 ng/mL (0.000-0.056) White Blood Count 10.8 K/UL (4.8-10.8) # Red Blood Count 4.41 M/UL (4.20-5.40) Hemoglobin 11.8 G/DL (12.0-16.0) L Hematocrit 37.7 % (37.0-47.0) Mean Corpuscular Volume 86 FL (80-99) Mean Corpuscular Hemoglobin 26.8 PG (27.0-31.0) L Mean Corpuscular Hemoglobin Concent 31.3 G/DL (32.0-36.0) L Red Cell Distribution Width 18.4 % (11.6-14.8) H Platelet Count 167 K/UL (150-450) Mean Platelet Volume 6.6 FL (6.5-10.1) Neutrophils (%) (Auto) % (45.0-75.0) Lymphocytes (%) (Auto) % (20.0-45.0) Monocytes (%) (Auto) % (1.0-10.0) Eosinophils (%) (Auto) % (0.0-3.0) Basophils (%) (Auto) % (0.0-2.0) Differential Total Cells Counted 100 Neutrophils % (Manual) 60 % (45-75) Lymphocytes % (Manual) 6 % (20-45) L Monocytes % (Manual) 5 % (1-10) Eosinophils % (Manual) 0 % (0-3) Basophils % (Manual) 0 % (0-2) Band Neutrophils 29 % (0-8) H Platelet Estimate Adequate Platelet Morphology Normal Anisocytosis Occasional Sodium Level 136 MMOL/L (136-145) Potassium Level 4.6 MMOL/L (3.5-5.1) Chloride Level 102 MMOL/L (98-107) Carbon Dioxide Level 22 MMOL/L (21-32) Anion Gap 12 mmol/L (5-15) Blood Urea Nitrogen 53 mg/dL (7-18) H Creatinine 1.8 MG/DL (0.55-1.30) H Estimat Glomerular Filtration Rate 33.5 mL/min (>60) Glucose Level 90 MG/DL (74-106) Calcium Level 8.0 MG/DL (8.5-10.1) L Magnesium Level 2.3 MG/DL (1.8-2.4) Test 06/08/20 07:55 Troponin I 10.386 ng/mL (0.000-0.056) Plan Problems: (1) Acute renal failure (2) Hyponatremia (3) CHF (congestive heart failure) (4) Abnormal laboratory test result (5) Anemia (6) Decubitus ulcer of sacral region, unstageable Assessment & Plan: 74-year-old female multiple comorbidities BMI 30 albumin of 1 severe anemia presented with identifiable unstageable sacral decubitus ulcer on examination. Wound evaluated care plan initiated. Air mattress, nutritional optimization, turn every 2 hours, will follow with recommendations thank you (7) Malnutrition Assessment & Plan: DAILY ESTIMATED NEEDS: Needs based on Critical care, wound, 66kg abw 23-28 kcals/kg 8872-1584 total kcals 1.25-2 g protein/kg 83-132 g total protein 25-30 mL/kg 4432-3539 total fluid mLs NUTRITION DIAGNOSIS: Increased kcal and pro needs r/t wound healing as evidenced by sacral wound, unstageable, eval is pending, pt is bedbound/trach and peg dep. (CURRENT TF: Glucerna 1.2 @60ml/hr x20 hrs) ENTERAL NUTRITION RECOMMENDATIONS: Glucerna 1.2 @70ml/hr x20 hrs to provide 1400ml, 1680 kcal, 84g pro, 1127ml free H2o - Rec to increase TF goal to better meet est kcal and pro needs - Flush per MD. HOB over 30 degrees. ADDITIONAL RECOMMENDATIONS: 1) Maintain calibrated bed scale wts 2) Wound care: continue Vit C and Zinc. -> Add ARMANDO in 4oz H2O BID via Gtube 3) Monitor BG, need for increased insulin coverage 4) Monitor lytes closely on lasix (8) Asystole (9) PEA (Pulseless electrical activity) Assessment & Plan: Patient went down for CT scan identified and reviewed unfortunately upon returning had cardiovascular compromise requiring ACLS pulses electrical activity was able to be resuscitated currently intensive care unit. Work-up underway. There are bilateral large pleural effusions. Compressive atelectasis versus consolidation noted in both lung bases. There is also generalized groundglass edema in both lungs There is intense contrast opacification of the pulmonary arteries with some early contrast into the thoracic aorta. There is severe reflux of intravenous contrast into the hepatic veins opacifying the sinusoids of the posterior right lobe. The refluxed contrast also extends down the IVC opacifying the renal veins, down to the iliac veins as well. In speaking with the certified hyperbaric technologist, normal injection protocol was utilized with 100 cc of contrast delivered at 2.5 cc/s and a 75 second delay via the indwelling PICC catheter. Except for the reflux contrast into the hepatic veins and right lobe sinusoids, the liver is essentially unenhanced as well as the rest of the abdominal visceral organs. Gallbladder is contracted or absent The pancreas is unremarkable. There is fusiform thickening of the left adrenal gland perhaps hyperplasia. Reflux of contrast noted into the renal veins bilaterally with no hydronephrosis noted. There is a G-tube in the stomach. Small bowel loops are nondistended. Scattered stool lucencies noted throughout the colon which is nondistended. The appendix is not visualized. Multiple calcified uterine fibroids noted. There is a small amount of free fluid in the pelvis. Also small amount of free fluid noted anterior to the hepatic edge. No free air identified. No pathologic adenopathy demonstrated. Urinary bladder is empty. There is extensive subcutaneous edema noted throughout the abdominal and pelvic rueda suggestive of severe anasarca. There also appears to be a fluid collection identified along the anterior abdominal wall at the mid abdomen with possible slight rim enhancement measuring approximately 7.2 x 2.2 x 4.1 cm. Etiology is undetermined. Per history, the gastrostomy tube is fairly recent. The collection is near by. Question possible postoperative hematoma or abscess. IMPRESSION: BILATERAL PLEURAL EFFUSIONS WITH DEPENDENT COMPRESSIVE ATELECTASIS OR CONSOLIDATIONS. ALSO GENERALIZED PULMONARY EDEMA. EXTENSIVE SEVERE ANASARCA. G-TUBE IN STOMACH. NO SIGN OF BOWEL OBSTRUCTION. CALCIFIED UTERINE FIBROIDS. SMALL FLUID COLLECTION NOTED ALONG THE ANTERIOR ABDOMINAL WALL AT THE MID ABDOMEN IN CLOSE PROXIMITY TO THE GASTROSTOMY SITE. WITH HISTORY OF RECENT G-TUBE PLACEMENT , THIS MAY REPRESENT A POSTOPERATIVE HEMATOMA OR ABSCESS. VERY UNUSUAL PATTERN OF SEVERE VENOUS REFLUX. CONTRAST WAS INJECTED VIA A RIGHT ARM PICC LINE, DELIVERED AT CONVENTIONAL PARAMETERS. HOWEVER THERE IS SEVERE REFLUX OF CONTRAST DOWN INTO THE ABDOMEN, OPACIFYING THE IVC, HEPATIC VEINS, RENAL VEINS AND PELVIC VEINS. ETIOLOGY IS UNCLEAR. QUESTION WHETHER THIS MAY BE RELATED TO SEVERE CARDIAC CONGESTION AND DYSFUNCTION. Iraj Prado Jun 08, 2020 13:04
--- NOTE | 2020-06-08 13:14 | Consultation ---
DATE OF CONSULTATION: 06/08/2020 INFECTIOUS DISEASE CONSULTATION CONSULTING PHYSICIAN: Abilio Kenyon MD. REFERRING PHYSICIAN: Jonathon Payne MD. This consult is for coverage of Dr. Alston. REASON FOR CONSULT: Sepsis, abdominal wall abscess hematoma, shock. HISTORY OF PRESENT ILLNESS: This is a 74-year-old female who is a assisted resident admitted on 06/05/2020 because of anemia. Yesterday, the patient developed cardiopulmonary arrest and transferred to ICU. CT scan of the abdomen and pelvis showed collection of fluid or hematoma in abdominal wall near G-tube. The patient was hypotensive and in shock, started on dopamine. The dose of dopamine coming down. PAST MEDICAL HISTORY: The patient has ventilatory dependent respiratory failure, chronic encephalopathy, chronic kidney disease, sacral pressure ulcer, history of breast cancer status post right mastectomy, CABG in 2014, history of CVA, history of cardiopulmonary arrest. ALLERGIES: Allergic to propoxyphene. MEDICATIONS: Getting dopamine, Protonix, atorvastatin, metoprolol, vitamin C, vancomycin and Zosyn. Also started last night Tylenol, clonidine, [place], magnesium hydroxide. SOCIAL HISTORY: jail resident. Single. No other history obtainable by the patient. PHYSICAL EXAMINATION: VITAL SIGNS: Blood pressure 106/48, temperature 97.1, respirations 19, pulse 90. HEAD AND NECK: Status post tracheostomy. HEART: Normal rate. Has right arm PICC line that was present at the time of admission. LUNGS: On mechanical ventilator. Has bilateral rhonchi. ABDOMEN: Soft. There is G-tube in place. There is no obvious leaking from G-tube. EXTREMITIES: She has generalized edema. LABORATORY AND DIAGNOSTIC DATA: WBC 10.8, hemoglobin 11.8, hematocrit 37.7, platelets 167,000. Sodium 136, potassium 4.6, chloride 102, bicarb 22, BUN 53, creatinine 1.8. Troponin elevated, peak level is 10.937. COVID-19 test was negative. VRE screen was positive. MRSA screen negative. C. diff test was negative. Chest x-ray showed bilateral pleural effusion, cardiomegaly, extensive interstitial and airspace disease pulmonary edema or infiltrates. Abdomen CT scan showed bilateral pleural effusion with compressive atelectasis or consolidation extends in anasarca. No bowel obstruction. Small fluid collection in the anterior abdominal wall at the mid abdomen is close proximity of G-tube site. This may represent postoperative hematoma or abscess. IMPRESSION: Cardiopulmonary arrest, shock, abdominal wall abscess/hematoma, pleural effusion, cannot rule out pneumonia, acute OH, sacral pressure ulcer, chronic kidney disease. RECOMMENDATION: Continue with vancomycin and Zosyn. We will send for sputum culture. We will discuss case with GI specialist. At the end of my exam, I thank Dr. Payne for involving me in the care of this patient. Abilio Kenyon M.D. DR: CR JOB#: [id number] CC: ALVARO
--- NOTE | 2020-06-08 13:46 | NUR ---
Received pt on AC 24, 400, 40% +5. SpO2 99%, HR 60. Suctioned moderate amount of red secretions. B/S bilateral rhonchi with equal chest rise. Spare trach and ambu bag at bedside. Vent alarms are on and audible. No respiratory distress noted at this time. Will continue to monitor Addendum: 06/08/20 at 1349 by RT Shravan Pt Vent settings AC 28, 550, 40% +5.
--- NOTE | 2020-06-08 14:00 | NUR ---
NURSE NOTES: Pt repositioned, no acute distress noted. SBP remains above 90 off dopa gtt at this time. Will continue to monitor.
--- NOTE | 2020-06-08 14:08 | Nephrology Progress Note ---
Assessment/Plan Plan Sepsis - IV Abx, IVF. KAREN - labs stable. Subjective Subjective Confused Objective Objective Last 24 Hour Vital Signs Date Time Temp Pulse Resp B/P (MAP) Pulse Ox O2 Delivery O2 Flow Rate FiO2 06/08/20 13:00 102/48 06/08/20 13:00 139 28 102/48 (66) 100 06/08/20 12:45 136 28 96/45 (62) 100 06/08/20 12:30 138 28 100/56 (71) 100 06/08/20 12:15 140 28 111/59 (76) 100 06/08/20 12:00 144 06/08/20 12:00 Mechanical Ventilator Mechanical Ventilator 06/08/20 12:00 40 06/08/20 12:00 109/47 06/08/20 12:00 99.5 139 28 109/47 (67) 100 06/08/20 11:45 139 28 112/59 (76) 100 06/08/20 11:30 136 28 106/54 (71) 100 06/08/20 11:15 129 28 103/48 (66) 100 06/08/20 11:01 118 28 40 06/08/20 11:00 116 28 91/46 (61) 06/08/20 11:00 91/46 06/08/20 10:45 88/47 06/08/20 10:45 120 28 88/47 (61) 100 06/08/20 10:30 110 28 99/51 (67) 100 06/08/20 10:00 102/32 06/08/20 10:00 77 28 102/32 (55) 100 06/08/20 09:30 93 28 108/45 (66) 100 06/08/20 09:00 108/49 06/08/20 09:00 86 28 108/49 (68) 100 06/08/20 08:30 69 27 87/36 (53) 100 06/08/20 08:00 Mechanical Ventilator Mechanical Ventilator 06/08/20 08:00 99.0 72 28 103/39 (60) 100 06/08/20 08:00 103/39 06/08/20 08:00 40 06/08/20 08:00 101 06/08/20 07:30 85 28 105/43 (63) 100 06/08/20 07:00 90 28 106/48 (67) 100 06/08/20 07:00 105/53 06/08/20 06:53 86 28 40 06/08/20 06:30 86 28 120/39 (66) 100 06/08/20 06:22 107/47 06/08/20 06:00 92 28 109/49 (69) 100 06/08/20 06:00 109/49 06/08/20 05:45 95 28 105/47 (66) 100 06/08/20 05:30 100 28 112/48 (69) 100 06/08/20 05:15 90 28 109/54 (72) 100 06/08/20 05:00 107/38 06/08/20 05:00 87 28 107/38 (61) 100 06/08/20 04:54 94 28 40 06/08/20 04:45 88 28 101/48 (65) 100 06/08/20 04:30 86 28 105/61 (76) 100 06/08/20 04:15 85 28 99/55 (70) 100 06/08/20 04:00 Mechanical Ventilator Mechanical Ventilator 06/08/20 04:00 40 06/08/20 04:00 91/38 06/08/20 04:00 97.1 67 28 91/35 (53) 100 06/08/20 03:47 71 28 77/42 (54) 100 06/08/20 03:45 77/42 06/08/20 03:30 77 28 94/47 (63) 100 06/08/20 03:15 88 28 107/44 (65) 100 06/08/20 03:05 85 06/08/20 03:00 89 28 109/52 (71) 100 06/08/20 03:00 107/44 06/08/20 03:00 107/44 06/08/20 03:00 109/52 06/08/20 03:00 40 06/08/20 02:57 88 28 40 06/08/20 02:30 90 28 101/45 (63) 100 06/08/20 02:00 107/47 06/08/20 02:00 89 28 107/47 (67) 100 06/08/20 01:30 88 28 106/43 (64) 100 06/08/20 01:07 91 06/08/20 01:00 100/52 8/21/20 01:00 85 28 100/42 (61) 100 820 00:33 84 28 40 820 00:30 85 28 104/46 (65) 100 820 00:00 Mechanical Ventilator Mechanical Ventilator 06/08/20 00:00 97.4 83 28 99/44 (62) 100 82120 00:00 99/44 820 00:00 60 8/20/20 23:30 85 28 94/39 (57) 100 82020 23:06 91 82020 23:02 79 28 40 820/20 23:00 93 28 106/52 (70) 100 82020 23:00 106/52 820/20 22:30 79 28 101/43 (62) 99 8/20/20 22:00 84 28 100/47 (64) 98 8/20/20 22:00 100/47 820/20 21:30 83 28 108/44 (65) 98 820/20 21:15 82 28 40 820 21:00 103/43 82020 21:00 83 24 103/43 (63) 100 8/20/20 20:30 83 25 104/47 (66) 100 820/20 20:00 Mechanical Ventilator Mechanical Ventilator 06/07/20 20:00 60 8/20/20 20:00 97.1 82 28 99/45 (63) 100 8/20/20 20:00 99/45 8/20/20 19:45 83 28 102/46 (64) 99 8/20/20 19:30 82 28 105/46 (65) 99 8/20/20 19:27 80 28 50 8/20/20 19:22 80 8/20/20 19:15 80 5 94/42 (59) 100 8/20/20 19:00 102/42 8/20/20 19:00 80 28 102/42 (62) 100 8/20/20 18:45 80 28 98/47 (64) 100 8/20/20 18:30 79 27 98/46 (63) 100 8/20/20 18:15 78 28 103/50 (67) 100 8/20/20 18:00 60 8/20/20 18:00 106/46 8/20/20 18:00 97.6 76 28 106/46 (66) 100 06/07/20 18:00 Mechanical Ventilator Mechanical Ventilator 06/07/20 17:45 75 27 119/56 (77) 99 06/07/20 17:35 77 28 60 06/07/20 17:30 75 23 115/48 (70) 100 06/07/20 17:15 73 2 122/47 (72) 100 06/07/20 17:00 73 3 122/49 (73) 100 06/07/20 17:00 122/49 06/07/20 16:45 72 27 123/51 (75) 100 06/07/20 16:30 73 28 123/51 (75) 100 06/07/20 16:15 72 28 128/50 (76) 100 06/07/20 16:00 Mechanical Ventilator Mechanical Ventilator 06/07/20 16:00 98.5 74 28 130/47 (74) 100 06/07/20 16:00 80 06/07/20 16:00 139/56 06/07/20 16:00 78 06/07/20 15:45 73 28 139/56 (83) 100 06/07/20 15:39 74 28 80 06/07/20 15:30 74 28 119/51 (73) 100 06/07/20 15:15 78 28 140/44 (76) 100 06/07/20 15:00 156/67 06/07/20 15:00 79 28 156/67 (96) 100 06/07/20 14:47 80 06/07/20 14:45 78 28 155/63 (93) 100 06/07/20 14:30 77 28 141/60 (87) 100 06/07/20 14:15 78 28 133/56 (81) 100 Intake and Output 06/07/20 06/08/20 19:00 07:00 Intake Total 807.408 ml 243.379 ml Output Total 100 ml 425 ml Balance 707.408 ml -181.621 ml Intake Oral 450 ml Free Water 30 ml 30 ml IV Total 327.408 ml 213.379 ml Output Urine Total 60 ml 325 ml Stool Total 40 ml 100 ml # Voids 2 # Bowel Movements 4 Laboratory Tests 06/08/20 00:25: Troponin I 10.937H 06/08/20 06:36: White Blood Count 10.8#, Red Blood Count 4.41, Hemoglobin 11.8L, Hematocrit 37.7 , Mean Corpuscular Volume 86, Mean Corpuscular Hemoglobin 26.8L, Mean Corpuscular Hemoglobin Concent 31.3L, Red Cell Distribution Width 18.4H, Platelet Count 167, Mean Platelet Volume 6.6, Neutrophils (%) (Auto) , Lymphocytes (%) (Auto) , Monocytes (%) (Auto) , Eosinophils (%) (Auto) , Basophils (%) (Auto) , Differential Total Cells Counted 100, Neutrophils % ( Manual) 60, Lymphocytes % (Manual) 6L, Monocytes % (Manual) 5, Eosinophils % ( Manual) 0, Basophils % (Manual) 0, Band Neutrophils 29H, Platelet Estimate Adequate, Platelet Morphology Normal, Anisocytosis Occasional, Sodium Level 136 , Potassium Level 4.6, Chloride Level 102, Carbon Dioxide Level 22, Anion Gap 12 , Blood Urea Nitrogen 53H, Creatinine 1.8H, Estimat Glomerular Filtration Rate 33.5, Glucose Level 90, Calcium Level 8.0L, Magnesium Level 2.3 06/08/20 07:55: Troponin I 10.386H Height (Feet): 5 Height (Inches): 6.00 Weight (Pounds): 210 Objective CV RRLulina alejandro Abd SNT. BS + E No CCE Josh Pederson MD Jun 08, 2020 14:08
[2020-06-08] MEDS ORDERED: Magnesium Sulfate 2ml Inj ONE (14:27)
[2020-06-08] MEDS ORDERED: Atropine Sulfate 1mg Inj *FOR SURGERY CHARGING ONLY ONE (14:27)
[2020-06-08] MEDS ORDERED: Calcium Chloride 100mg/ml Vial ONE (14:28)
[2020-06-08] MEDS ORDERED: Sodium Bicarbonate 8.4% 50ml Inj ONE (14:28)
--- NOTE | 2020-06-08 15:08 | NUR ---
CASE MANAGEMENT:REVIEW 06/08/20 SI: CODE BLUE X2 99.5 144 28 109/47 100% ON VENT SUPPORT W/40% FIO2 BUN+53 CR+1.8 TROPONIN(+) 10.386 IS: DOPAMINE GTT IV ZOSYN Q8HRS IV PROTONIX QD ZINC GT QD LOPRESSOR GT Q12 : ICU STATUS
--- NOTE | 2020-06-08 15:17 | NUR ---
[facility] MARK PH# [phone] OPT#5 FAX# [phone] REF#[id number]
--- NOTE | 2020-06-08 15:42 | NUR ---
NURSE NOTES: Dr Vera at bedside assessing pt and reviewing labs and EKG for today - made aware pt has no DVT prophylaxis at this time. SBP 88 noted - hold off albumin at this time and continue to monitor BP per Dr Vera
--- NOTE | 2020-06-08 15:48 | NUR ---
NURSE NOTES: Alexa random drawn and sent down to lab.
--- NOTE | 2020-06-08 16:00 | NUR ---
NURSE NOTES: Pt assessed by Kulwinder wound care nurse - pt cleaned and dressings changed again. Pt repositioned. No acute distress noted.
--- NOTE | 2020-06-08 17:21 | NUR ---
NURSE NOTES: Venous duplex currently being performed at bedside.
[2020-06-08] MEDS ORDERED: Vancomycin 1gm/D5W 275ml IVPB ONE ×2 (18:00)
--- NOTE | 2020-06-08 18:00 | NUR ---
NURSE NOTES: Pt repositioned in bed, no acute distress noted. SBP remains above 90 with dopa gtt off.
--- NOTE | 2020-06-08 18:15 | Diagnostic Imaging Report ---
History: DVT Exam: US VENOUS BILATERAL LOWER EXTREMITIES Comparison: FINDINGS: Deep venous system of the right and left lower extremity appears patent and compressible with spontaneous and augmented flow without intraluminal echoes. Soft tissue edema noted. IMPRESSION: No evidence of DVT within the right or left lower extremity. Soft tissue edema noted.
--- NOTE | 2020-06-08 18:18 | NUR ---
NURSE NOTES:WOUND CARE NOTES:Pt deconditioned and presented on admission with an Unstageable Sacral Pressure Injury(L)7cm x (W06.2cm. Base of wound is 90% [place]char ,10% [place]. Borders are macerated with surrounding black skin without fluctuance or induration. NO odor or exudate noted. Both heels are soft but blanchable. Tx.Plan: Cleanse Sacral wound with Saline. Apply TheraHoney. Apply Moisture Barrier Paste periwound. Cover with Optifoam Drsg Daily and prn. Apply Cavilon Skin Barrier to both heels and Malleoli. Cover each heel and Malleoli with Optifoam drsg.Change every 7 days and prn. Reposition at least every 2 hours or as tolerated. Off-load heels with Pillow.
--- NOTE | 2020-06-08 19:10 | NUR ---
NURSE HAND-OFF REPORT: Latest Vital Signs: Temperature 99.4 , Pulse 70 , B/P 107 /46 , Respiratory Rate 27 , O2 SAT 100 , Mechanical Ventilator, O2 Flow Rate 5.0 . Vital Sign Comment: Pt off dopa gtt since 1300 - SBP remained aboev 90 mmHg. EKG Rhythm: Atrial Fibrillation w/BBB Rhythm change?: N MD Notified?: Dr Jody hill MD Response: n/a Latest Box Fall Score: 50 Fall Risk: High Risk Safety Measures: Call light Within Reach, Bed Alarm Zone 1, Side Rails Side Rails x3, Bed position Low and Locked. Fall Precautions: Yellow Socks Yellow Gown Door Sign Patient Fall Education Report given to GEORGE Lugo.
--- NOTE | 2020-06-08 19:10 | NUR ---
NURSE NOTES: Received patient and report from GEORGE Sam. Patient is observed resting in bed and remains obtunded. Pupils remain bilaterally round, equal and 3mm but nonresponsive to light at this time. No response elicited to deep pain. FLACC scale used to assess pt no pain noted upon assessment. Pt is currently trach to vent and appears to be tolerating settings well. Vent settings as follows: AC 28 TV 550 FiO2 40% PEEP 5 with an O2 saturation of 100% noted at this time. Bilateral lower lobe breath sounds noted to be diminished upon auscultation, rhonchi noted in bilateral upper lobes. Pt noted to be AFib w/BBB on tele monitor with a HR of 71 and no s/sx of acute distress noted. R upper arm single lumen PICC lines noted which remains asymptomatic, intact and patent. Central line dressing remains clean, dry and intact. R Hand 22g IV catheter noted which remains asymptomatic, intact and patent. Zosyn infusing as prescribed. GTube noted which remains intact and patent. Bowel sounds noted in all four quadrants, abdomen remains large, round, soft and nontender. Pt remains NPO per order and rectal tube noted which remains intact, patent and draining a small to moderate amount of brown, liquid stool to gravity. Salvador catheter noted which remains intact, patent and draining yellow urine to gravity. Diagnostics reviewed at bedside. Skin alterations noted, generalized pitting edema noted, left arm weeping noted. Pt repositioned for comfort and safety. Fall, Aspiration and Skin precautions observed. Pt remains resting in bed; Bed remains in the lowest position with the safety wheels engaged, call light within reach, side rails up x3 and bed alarm activated. Will continue plan of care. Will continue to monitor.
[2020-06-08] MEDS: Dyna-Hex 2% Top Sol 2oz TOPIC SCH (19:55)
[2020-06-08] MEDS ORDERED: ATORVASTATIN CA40 MG GT (20:26)
[2020-06-08] MEDS ORDERED: LISINOPRIL5 MG GT (20:26)
[2020-06-08] MEDS ORDERED: [UNRECOGNIZED DRUG - OTHER] GT (20:26)
[2020-06-08] MEDS ORDERED: ACETAMINOP160 MG/5 M GT (20:26)
--- NOTE | 2020-06-08 21:00 | NUR ---
NURSE NOTES: Pt provided with a CHG bed bath, oral care and linen change. ROM exercises performed per pt tolerance. Pt tolerated care well. Bedside assessment performed, assessed pt with a FLACC scale of 0 noted. Scheduled Lopressor held for pt safety r/t decreased BP. Neuro assessment remains consistent with previous physical assessment findings. Pt repositioned for comfort and safety. VS obtained and noted to be stable at this time. Fall, Aspiration and Skin precautions observed. Pt remains resting in bed; Bed remains in the lowest position with the safety wheels engaged, call light within reach, side rails up x3 and bed alarm activated. Will continue plan of care. Will continue to monitor.
--- NOTE | 2020-06-08 21:28 | General Progress Note ---
Assessment/Plan Assessment/Plan: Assessment - s/p cardiac arrest yesterday - s/p recent PEG / Trach on 05/11 - Anemia but w/u BM or melena - Resp failure, s/p Trach - dysphagia, s/p PEG - recent large stroke Recommendations - CT abd / pelvis --> noted, negative - await stool OB --> noted negative - monitor CBC --> stable - cardiology f/u and plans Subjective Allergies: Coded Allergies: PROPOXYPHENE (Verified Allergy, Unknown, 06/05/20) Subjective s/p cardiac arrest now in ICU (+) troponin, cardiology noted off of feeds non communicative Objective Last 24 Hour Vital Signs Date Time Temp Pulse Resp B/P (MAP) Pulse Ox O2 Delivery O2 Flow Rate FiO2 06/08/20 20:30 71 28 110/38 (62) 100 06/08/20 20:00 Mechanical Ventilator Mechanical Ventilator 06/08/20 20:00 40 06/08/20 20:00 98.2 72 28 110/40 (63) 100 06/08/20 19:49 72 06/08/20 19:30 73 28 107/43 (64) 100 06/08/20 19:13 68 28 40 06/08/20 19:00 70 27 107/46 (66) 100 06/08/20 18:00 107 28 108/46 (66) 100 06/08/20 17:30 107 28 102/48 (66) 100 06/08/20 17:00 110 28 101/45 (63) 100 06/08/20 16:57 110 28 40 06/08/20 16:30 113 27 100/47 (64) 100 06/08/20 16:00 99.4 114 28 88/49 (62) 100 06/08/20 16:00 40 06/08/20 16:00 121 06/08/20 16:00 Mechanical Ventilator Mechanical Ventilator 06/08/20 15:30 112 28 88/48 (61) 100 06/08/20 15:00 112 28 95/43 (60) 100 06/08/20 14:56 112 28 40 06/08/20 14:30 114 28 96/50 (65) 100 06/08/20 14:00 116 28 95/36 (55) 100 06/08/20 13:30 117 28 95/51 (66) 100 06/08/20 13:00 102/48 06/08/20 13:00 139 28 102/48 (66) 100 06/08/20 12:45 136 28 96/45 (62) 100 06/08/20 12:30 138 28 100/56 (71) 100 06/08/20 12:15 140 28 111/59 (76) 100 06/08/20 12:00 144 06/08/20 12:00 Mechanical Ventilator Mechanical Ventilator 06/08/20 12:00 40 06/08/20 12:00 109/47 06/08/20 12:00 99.5 139 28 109/47 (67) 100 06/08/20 11:45 139 28 112/59 (76) 100 06/08/20 11:30 136 28 106/54 (71) 100 06/08/20 11:15 129 28 103/48 (66) 100 06/08/20 11:01 118 28 40 06/08/20 11:00 116 28 91/46 (61) 06/08/20 11:00 91/46 06/08/20 10:45 88/47 06/08/20 10:45 120 28 88/47 (61) 100 06/08/20 10:30 110 28 99/51 (67) 100 06/08/20 10:00 102/32 06/08/20 10:00 77 28 102/32 (55) 100 06/08/20 09:30 93 28 108/45 (66) 100 06/08/20 09:00 108/49 06/08/20 09:00 86 28 108/49 (68) 100 06/08/20 08:30 69 27 87/36 (53) 100 06/08/20 08:00 Mechanical Ventilator Mechanical Ventilator 06/08/20 08:00 99.0 72 28 103/39 (60) 100 06/08/20 08:00 103/39 06/08/20 08:00 40 06/08/20 08:00 101 06/08/20 07:30 85 28 105/43 (63) 100 06/08/20 07:00 90 28 106/48 (67) 100 06/08/20 07:00 105/53 06/08/20 06:53 86 28 40 06/08/20 06:30 86 28 120/39 (66) 100 06/08/20 06:22 107/47 06/08/20 06:00 92 28 109/49 (69) 100 06/08/20 06:00 109/49 06/08/20 05:45 95 28 105/47 (66) 100 06/08/20 05:30 100 28 112/48 (69) 100 06/08/20 05:15 90 28 109/54 (72) 100 06/08/20 05:00 107/38 06/08/20 05:00 87 28 107/38 (61) 100 06/08/20 04:54 94 28 40 06/08/20 04:45 88 28 101/48 (65) 100 06/08/20 04:30 86 28 105/61 (76) 100 06/08/20 04:15 85 28 99/55 (70) 100 06/08/20 04:00 Mechanical Ventilator Mechanical Ventilator 06/08/20 04:00 40 06/08/20 04:00 91/38 06/08/20 04:00 97.1 67 28 91/35 (53) 100 06/08/20 03:47 71 28 77/42 (54) 100 06/08/20 03:45 77/42 06/08/20 03:30 77 28 94/47 (63) 100 06/08/20 03:15 88 28 107/44 (65) 100 06/08/20 03:05 85 06/08/20 03:00 89 28 109/52 (71) 100 06/08/20 03:00 107/44 06/08/20 03:00 107/44 06/08/20 03:00 109/52 06/08/20 03:00 40 06/08/20 02:57 88 28 40 06/08/20 02:30 90 28 101/45 (63) 100 06/08/20 02:00 107/47 06/08/20 02:00 89 28 107/47 (67) 100 06/08/20 01:30 88 28 106/43 (64) 100 06/08/20 01:07 91 06/08/20 01:00 100/52 06/08/20 01:00 85 28 100/42 (61) 100 06/08/20 00:33 84 28 40 06/08/20 00:30 85 28 104/46 (65) 100 06/08/20 00:00 Mechanical Ventilator Mechanical Ventilator 06/08/20 00:00 97.4 83 28 99/44 (62) 100 06/08/20 00:00 99/44 06/08/20 00:00 60 06/07/20 23:30 85 28 94/39 (57) 100 06/07/20 23:06 91 06/07/20 23:02 79 28 40 06/07/20 23:00 93 28 106/52 (70) 100 06/07/20 23:00 106/52 06/07/20 22:30 79 28 101/43 (62) 99 06/07/20 22:00 84 28 100/47 (64) 98 06/07/20 22:00 100/47 06/07/20 21:30 83 28 108/44 (65) 98 Intake and Output 06/07/20 06/08/20 19:00 07:00 Intake Total 807.408 ml 243.379 ml Output Total 100 ml 425 ml Balance 707.408 ml -181.621 ml Intake Oral 450 ml Free Water 30 ml 30 ml IV Total 327.408 ml 213.379 ml Output Urine Total 60 ml 325 ml Stool Total 40 ml 100 ml # Voids 2 # Bowel Movements 4 Laboratory Tests 06/08/20 00:25: Troponin I 10.937H 06/08/20 06:36: White Blood Count 10.8#, Red Blood Count 4.41, Hemoglobin 11.8L, Hematocrit 37.7 , Mean Corpuscular Volume 86, Mean Corpuscular Hemoglobin 26.8L, Mean Corpuscular Hemoglobin Concent 31.3L, Red Cell Distribution Width 18.4H, Platelet Count 167, Mean Platelet Volume 6.6, Neutrophils (%) (Auto) , Lymphocytes (%) (Auto) , Monocytes (%) (Auto) , Eosinophils (%) (Auto) , Basophils (%) (Auto) , Differential Total Cells Counted 100, Neutrophils % ( Manual) 60, Lymphocytes % (Manual) 6L, Monocytes % (Manual) 5, Eosinophils % ( Manual) 0, Basophils % (Manual) 0, Band Neutrophils 29H, Platelet Estimate Adequate, Platelet Morphology Normal, Anisocytosis Occasional, Sodium Level 136 , Potassium Level 4.6, Chloride Level 102, Carbon Dioxide Level 22, Anion Gap 12 , Blood Urea Nitrogen 53H, Creatinine 1.8H, Estimat Glomerular Filtration Rate 33.5, Glucose Level 90, Calcium Level 8.0L, Magnesium Level 2.3 06/08/20 07:55: Troponin I 10.386H 06/08/20 15:30: Random Vancomycin Level 16.4 Height (Feet): 5 Height (Inches): 6.00 Weight (Pounds): 210 Neck: normal inspection Objective Debilitated AA woman NCAT neck (+) trach coarse BS RR abd soft, (+) GT (+) contractures Andi Daniel MD Jun 08, 2020 21:28
--- NOTE | 2020-06-08 22:08 | Cardiology Progress Note ---
Subjective DATE OF SERVICE: Jun 08, 2020 Remains hypotensive and on pressors Monitor: rapid atrial fibrillation On vent support via trach Objective Last 24 Hour Vital Signs Date Time Temp Pulse Resp B/P (MAP) Pulse Ox O2 Delivery O2 Flow Rate FiO2 06/08/20 20:30 71 28 110/38 (62) 100 06/08/20 20:00 Mechanical Ventilator Mechanical Ventilator 06/08/20 20:00 40 06/08/20 20:00 98.2 72 28 110/40 (63) 100 06/08/20 19:49 72 06/08/20 19:30 73 28 107/43 (64) 100 06/08/20 19:13 68 28 40 06/08/20 19:00 70 27 107/46 (66) 100 06/08/20 18:00 107 28 108/46 (66) 100 06/08/20 17:30 107 28 102/48 (66) 100 06/08/20 17:00 110 28 101/45 (63) 100 06/08/20 16:57 110 28 40 06/08/20 16:30 113 27 100/47 (64) 100 06/08/20 16:00 99.4 114 28 88/49 (62) 100 06/08/20 16:00 40 06/08/20 16:00 121 06/08/20 16:00 Mechanical Ventilator Mechanical Ventilator 06/08/20 15:30 112 28 88/48 (61) 100 06/08/20 15:00 112 28 95/43 (60) 100 06/08/20 14:56 112 28 40 06/08/20 14:30 114 28 96/50 (65) 100 06/08/20 14:00 116 28 95/36 (55) 100 06/08/20 13:30 117 28 95/51 (66) 100 06/08/20 13:00 102/48 06/08/20 13:00 139 28 102/48 (66) 100 06/08/20 12:45 136 28 96/45 (62) 100 06/08/20 12:30 138 28 100/56 (71) 100 06/08/20 12:15 140 28 111/59 (76) 100 06/08/20 12:00 144 06/08/20 12:00 Mechanical Ventilator Mechanical Ventilator 06/08/20 12:00 40 06/08/20 12:00 109/47 8/21/20 12:00 99.5 139 28 109/47 (67) 100 06/08/20 11:45 139 28 112/59 (76) 100 06/08/20 11:30 136 28 106/54 (71) 100 06/08/20 11:15 129 28 103/48 (66) 100 06/08/20 11:01 118 28 40 06/08/20 11:00 116 28 91/46 (61) 06/08/20 11:00 91/46 06/08/20 10:45 88/47 06/08/20 10:45 120 28 88/47 (61) 100 06/08/20 10:30 110 28 99/51 (67) 100 06/08/20 10:00 102/32 06/08/20 10:00 77 28 102/32 (55) 100 06/08/20 09:30 93 28 108/45 (66) 100 06/08/20 09:00 108/49 06/08/20 09:00 86 28 108/49 (68) 100 06/08/20 08:30 69 27 87/36 (53) 100 06/08/20 08:00 Mechanical Ventilator Mechanical Ventilator 06/08/20 08:00 99.0 72 28 103/39 (60) 100 06/08/20 08:00 103/39 06/08/20 08:00 40 06/08/20 08:00 101 06/08/20 07:30 85 28 105/43 (63) 100 06/08/20 07:00 90 28 106/48 (67) 100 06/08/20 07:00 105/53 06/08/20 06:53 86 28 40 06/08/20 06:30 86 28 120/39 (66) 100 06/08/20 06:22 107/47 06/08/20 06:00 92 28 109/49 (69) 100 06/08/20 06:00 109/49 06/08/20 05:45 95 28 105/47 (66) 100 06/08/20 05:30 100 28 112/48 (69) 100 06/08/20 05:15 90 28 109/54 (72) 100 06/08/20 05:00 107/38 06/08/20 05:00 87 28 107/38 (61) 100 06/08/20 04:54 94 28 40 06/08/20 04:45 88 28 101/48 (65) 100 06/08/20 04:30 86 28 105/61 (76) 100 06/08/20 04:15 85 28 99/55 (70) 100 06/08/20 04:00 Mechanical Ventilator Mechanical Ventilator 06/08/20 04:00 40 06/08/20 04:00 91/38 06/08/20 04:00 97.1 67 28 91/35 (53) 100 06/08/20 03:47 71 28 77/42 (54) 100 06/08/20 03:45 77/42 06/08/20 03:30 77 28 94/47 (63) 100 06/08/20 03:15 88 28 107/44 (65) 100 06/08/20 03:05 85 06/08/20 03:00 89 28 109/52 (71) 100 06/08/20 03:00 107/44 06/08/20 03:00 107/44 06/08/20 03:00 109/52 06/08/20 03:00 40 06/08/20 02:57 88 28 40 06/08/20 02:30 90 28 101/45 (63) 100 06/08/20 02:00 107/47 06/08/20 02:00 89 28 107/47 (67) 100 06/08/20 01:30 88 28 106/43 (64) 100 06/08/20 01:07 91 06/08/20 01:00 100/52 06/08/20 01:00 85 28 100/42 (61) 100 06/08/20 00:33 84 28 40 06/08/20 00:30 85 28 104/46 (65) 100 06/08/20 00:00 Mechanical Ventilator Mechanical Ventilator 06/08/20 00:00 97.4 83 28 99/44 (62) 100 06/08/20 00:00 99/44 06/08/20 00:00 60 06/07/20 23:30 85 28 94/39 (57) 100 06/07/20 23:06 91 06/07/20 23:02 79 28 40 06/07/20 23:00 93 28 106/52 (70) 100 06/07/20 23:00 106/52 06/07/20 22:30 79 28 101/43 (62) 99 ROS: unchanged from my assessment of 06/07/20. HEENT: Mechanically Ventilated, Thin secretions ET Tube RHYTHM: Afib LUNGS: bilateral rhonchi CARDIAC: irregularly irregular ABDOMEN: normal bowel sounds, non tender, soft, no organomegaly EXTREMITIES: no calf tenderness, moderate edema, +2 edema Laboratory Tests Test 06/08/20 00:25 06/08/20 06:36 06/08/20 07:55 06/08/20 15:30 Troponin I 10.937 ng/mL (0.000-0.056) 10.386 ng/mL (0.000-0.056) White Blood Count 10.8 K/UL (4.8-10.8) # Red Blood Count 4.41 M/UL (4.20-5.40) Hemoglobin 11.8 G/DL (12.0-16.0) L Hematocrit 37.7 % (37.0-47.0) Mean Corpuscular Volume 86 FL (80-99) Mean Corpuscular Hemoglobin 26.8 PG (27.0-31.0) L Mean Corpuscular Hemoglobin Concent 31.3 G/DL (32.0-36.0) L Red Cell Distribution Width 18.4 % (11.6-14.8) H Platelet Count 167 K/UL (150-450) Mean Platelet Volume 6.6 FL (6.5-10.1) Neutrophils (%) (Auto) % (45.0-75.0) Lymphocytes (%) (Auto) % (20.0-45.0) Monocytes (%) (Auto) % (1.0-10.0) Eosinophils (%) (Auto) % (0.0-3.0) Basophils (%) (Auto) % (0.0-2.0) Differential Total Cells Counted 100 Neutrophils % (Manual) 60 % (45-75) Lymphocytes % (Manual) 6 % (20-45) L Monocytes % (Manual) 5 % (1-10) Eosinophils % (Manual) 0 % (0-3) Basophils % (Manual) 0 % (0-2) Band Neutrophils 29 % (0-8) H Platelet Estimate Adequate Platelet Morphology Normal Anisocytosis Occasional Sodium Level 136 MMOL/L (136-145) Potassium Level 4.6 MMOL/L (3.5-5.1) Chloride Level 102 MMOL/L (98-107) Carbon Dioxide Level 22 MMOL/L (21-32) Anion Gap 12 mmol/L (5-15) Blood Urea Nitrogen 53 mg/dL (7-18) H Creatinine 1.8 MG/DL (0.55-1.30) H Estimat Glomerular Filtration Rate 33.5 mL/min (>60) Glucose Level 90 MG/DL (74-106) Calcium Level 8.0 MG/DL (8.5-10.1) L Magnesium Level 2.3 MG/DL (1.8-2.4) Random Vancomycin Level 16.4 ug/mL Microbiology Date/Time Source Procedure Growth Status 06/07/20 13:20 Blood Blood Culture - Preliminary Resulted 06/07/20 18:00 Stool Clostridium difficile Toxin Assay - Final Complete Assessment/Plan Assessment/Plan Acute myocardial infarction s/p full arrest Respiratory failure with trach PAFib with RVR Pacemaker Shock due to sepsis CRITICAL & GUARDED Taper off pressors Beta blockers to follow once BP stable Digitalize if increased ventricular rates persist Antimicrobials Vent support Continue statin antiplatelet therapy Will consider full anti-coagulation if AFib persists. Cisco Vera MD Jun 08, 2020 22:08
--- NOTE | 2020-06-08 23:00 | NUR ---
NURSE NOTES: Bedside assessment performed. Neuro assessment remains consistent with previous physical assessment findings. Assessed pt for pain with a FLACC score of 0 noted. Temperature noted to be 100.1F and cooling measures initiated. Will administered PRN Tylenol if temperature >100.5 per order. Scheduled Novolog held for patient safety as bedside blood glucose noted to be 79mg/dL. VS obtained and noted to be stable at this time. Fall, Aspiration and Skin precautions observed. Pt remains resting in bed; Bed remains in the lowest position with the safety wheels engaged, call light within reach, side rails up x3 and bed alarm activated. Will continue plan of care. Will continue to monitor.
[2020-06-09] VITALS (31 sets, daily range): BP systolic 91–128; BP diastolic 40–71
--- NOTE | 2020-06-09 01:00 | NUR ---
NURSE NOTES: Bedside assessment performed. Neuro assessment remains consistent with previous physical assessment findings. Assessed pt for pain with a FLACC score of 0 noted. VS remains stable SBP noted to range between 99-111 no acute s/sx of cardiopulmonary distress noted. Oral care and ROM exercises performed per pt tolerance. Fall, Aspiration and Skin precautions observed. Pt remains resting in bed; Bed remains in the lowest position with the safety wheels engaged, call light within reach, side rails up x3 and bed alarm activated. Will continue plan of care. Will continue to monitor.
--- NOTE | 2020-06-09 03:00 | NUR ---
NURSE NOTES: Bedside assessment performed. Pt noted to be resting comfortably and remains clean and dry. Assessed pt for pain with a FLACC score of 0 noted. VS obtained and noted to be stable; Dopamine infusion remains on hold. SBP remains >90. Pt provided with oral care, partial bed bath and ROM exercises. Neuro assessment remains consistent with previous physical assessment findings. Excessive secretions noted and no gag reflex noted, will endorse to morning shift to consult with physician during rounds. Fall, Aspiration and Skin precautions observed. Pt remains resting in bed; Bed remains in the lowest position with the safety wheels engaged, call light within reach, side rails up x3 and bed alarm activated. Will continue plan of care. Will continue to monitor.
--- NOTE | 2020-06-09 05:00 | NUR ---
NURSE NOTES: Bedside assessment performed. Pt noted to be resting comfortably and remains clean and dry. Assessed pt for pain with a FLACC score of 2 noted, will administer PRN Tylenol as ordered for mild pain. VS obtained and noted to be stable; Dopamine infusion remains on hold. SBP remains >90. Pt provided with oral care, partial bed bath and ROM exercises. Neuro assessment remains consistent with previous physical assessment findings. Wound care photo taken, wound noted under trach dressing. Wound care provided. Fall, Aspiration and Skin precautions observed. Pt remains resting in bed; Bed remains in the lowest position with the safety wheels engaged, call light within reach, side rails up x3 and bed alarm activated. Will continue plan of care. Will continue to monitor.
[2020-06-09 05:36] LABS: HEMATOCRIT 44.1 % (37.0-47.0); HEMOGLOBIN 13.5 G/DL (12.0-16.0); LYMPHOCYTES % (AUTO) 10.9 % (20.0-45.0); MEAN CORPUSCULAR VOLUME 88 FL (80-99); MONOCYTES % (AUTO) 6.9 % (1.0-10.0); NEUTROPHILS % (AUTO) 81.1 % (45.0-75.0); PLATELET COUNT 123 K/UL (150-450); RED BLOOD COUNT 5.02 M/UL (4.20-5.40); RED CELL DISTRIBUTION WIDTH 18.6 % (11.6-14.8)
[2020-06-09] MEDS: Piperacillin/Tazobactam 3.375 GM in NS 110 ML IVPB SCH ×3 (05:36→21:24)
[2020-06-09] MEDS: NovoLOG Insulin Flexpen SUBQ SCH ×4 (06:00→17:20)
--- NOTE | 2020-06-09 06:29 | NUR ---
NURSE NOTES: Lab called with critical Troponin 3.945 Troponin trending down; cardiology to be notified during rounds Will continue to monitor.
--- NOTE | 2020-06-09 06:44 | NUR ---
NURSE NOTES: Discussed patient condition and plan of care with Dr Olivo. Per Dr Olivo continue NPO diet for now. Dr Olivo to come and assess patient. Will continue to monitor.
[2020-06-09 06:52] LABS: ALANINE AMINOTRANSFERASE 40 U/L (12-78); ALBUMIN/GLOBULIN RATIO 0.2 (1.0-2.7); ALKALINE PHOSPHATASE 195 U/L (46-116); ANION GAP 18 mmol/L (5-15); ASPARTATE AMINO TRANSFERASE 84 U/L (15-37); BILIRUBIN,TOTAL 1.5 MG/DL (0.2-1.0); BLOOD UREA NITROGEN 54 mg/dL (7-18); CALCIUM 8.2 MG/DL (8.5-10.1); CARBON DIOXIDE 14 MMOL/L (21-32); CHLORIDE 104 MMOL/L (98-107); CREATININE 2.1 MG/DL (0.55-1.30); SODIUM 136 MMOL/L (136-145)
--- NOTE | 2020-06-09 07:06 | Pulmonolgy Critical Care Note ---
Critical Care - Asmt/Plan Assessment/Plan: Pulmonary CCM Progress Note Assessment/Plan Assessment/Plan: IMPRESSION respiratory failure CHF anemia possible GIB chronic encephalopathy CKD massive CVA s/p CPA acidemia, improved hypoxemia diarrhea anasarca pleural effusion acute IL PAF hypotension PLAN vent support and monitor acid base pressors PRN diurese CT abdomen noted monitor HH follow up labs snf meds DNAR medications/laboratory data/nursing notes/ICU care reviewed in detail note reviewed and edited care discussed with RN and RT ICU time spent >40 minutes Subjective ROS Limited/Unobtainable: Yes Allergies: Coded Allergies: PROPOXYPHENE (Verified Allergy, Unknown, 06/05/20) Subjective care noted s/p CPA on vent poor LOC on dopa Objective Vital Signs Noted Laboratory Tests 06/07/20 11:37: POC Whole Blood Glucose [Pending] 06/07/20 12:11: Arterial Blood pH 6.984*L, Arterial Blood Partial Pressure CO2 83.2*H, Arterial Blood Partial Pressure O2 32.1*L, Arterial Blood HCO3 19.3L, Arterial Blood Oxygen Saturation 38.2*L, Arterial Blood Base Excess -13.2*L, Rito Test Positive 06/07/20 12:30: White Blood Count 5.8, Red Blood Count 4.12L, Hemoglobin 11.2L, Hematocrit 37.0 , Mean Corpuscular Volume 90, Mean Corpuscular Hemoglobin 27.2, Mean Corpuscular Hemoglobin Concent 30.2L, Red Cell Distribution Width 19.1H, Platelet Count 122L, Mean Platelet Volume 7.0, Neutrophils (%) (Auto) 58.0, Lymphocytes (%) (Auto) 35.8, Monocytes (%) (Auto) 4.7, Eosinophils (%) (Auto) 0.1, Basophils (%) (Auto) 1.4, Sodium Level 137, Potassium Level 4.5, Chloride Level 105, Carbon Dioxide Level 17L, Anion Gap 15, Blood Urea Nitrogen 48H, Creatinine 1.7H, Estimat Glomerular Filtration Rate 35.8, Glucose Level 142H, Calcium Level 9.0, Troponin I 0.159H 06/07/20 13:20: Urine Color Pale yellow, Urine Appearance Cloudy, Urine pH 6, Urine Specific [place] 1.015, Urine Protein 3+H, Urine Glucose (UA) Negative, Urine Ketones Negative, Urine Blood 3+H, Urine Nitrite Negative, Urine Bilirubin Negative, Urine Urobilinogen Normal, Urine Leukocyte Esterase 1+H, Urine RBC 0-2, Urine WBC 0-2, Urine Squamous Epithelial Cells ModerateH, Urine Amorphous Sediment ModerateH, Urine Bacteria Occasional 06/07/20 14:06: Arterial Blood pH 7.391, Arterial Blood Partial Pressure CO2 29.9L, Arterial Blood Partial Pressure O2 138.9H, Arterial Blood HCO3 17.7*L, Arterial Blood Oxygen Saturation 98.7, Arterial Blood Base Excess -6.0L, Rito Test Positive 06/08/20 00:25: Troponin I 10.937H 06/08/20 06:36: White Blood Count 10.8#, Red Blood Count 4.41, Hemoglobin 11.8L, Hematocrit 37.7 , Mean Corpuscular Volume 86, Mean Corpuscular Hemoglobin 26.8L, Mean Corpuscular Hemoglobin Concent 31.3L, Red Cell Distribution Width 18.4H, Platelet Count 167, Mean Platelet Volume 6.6, Neutrophils (%) (Auto) , Lymphocytes (%) (Auto) , Monocytes (%) (Auto) , Eosinophils (%) (Auto) , Basophils (%) (Auto) , Neutrophils % (Manual) [Pending], Lymphocytes % (Manual) [Pending], Platelet Estimate [Pending], Platelet Morphology [Pending], Sodium Level 136, Potassium Level 4.6, Chloride Level 102, Carbon Dioxide Level 22, Anion Gap 12, Blood Urea Nitrogen 53H, Creatinine 1.8H, Estimat Glomerular Filtration Rate 33.5, Glucose Level 90, Calcium Level 8.0L, Magnesium Level 2.3 06/08/20 07:55: Troponin I [Pending] Height (Feet): 5 Height (Inches): 6.00 Weight (Pounds): 192 Objective WDWN NAD clear breath sounds bilaterally without rhonchi or wheeze [id number] without MRG NABS nontender GT no CCE reduced LOC GT on vent comatose Critical Care - Objective Last 24 Hour Vital Signs Date Time Temp Pulse Resp B/P (MAP) Pulse Ox O2 Delivery O2 Flow Rate FiO2 06/09/20 06:50 106 28 40 06/09/20 06:30 117 28 100/48 (65) 100 06/09/20 06:00 103 28 117/57 (77) 100 06/09/20 05:30 98.8 88 28 121/43 (69) 100 06/09/20 05:00 88 29 104/64 (77) 100 06/09/20 04:30 88 28 111/71 (84) 100 06/09/20 04:00 99.0 86 28 116/50 (72) 100 06/09/20 04:00 40 06/09/20 04:00 Mechanical Ventilator Mechanical Ventilator 06/09/20 03:30 87 28 107/45 (65) 100 06/09/20 03:00 90 06/09/20 03:00 86 28 103/50 (67) 100 06/09/20 02:55 81 29 40 06/09/20 02:30 87 28 95/49 (64) 100 06/09/20 02:00 88 28 97/69 (78) 100 06/09/20 01:30 89 28 95/45 (62) 100 06/09/20 01:00 83 28 99/51 (67) 100 06/09/20 00:30 89 28 101/40 (60) 100 06/09/20 00:00 40 06/09/20 00:00 Mechanical Ventilator Mechanical Ventilator 06/09/20 00:00 99.1 88 28 95/49 (64) 100 06/08/20 23:30 88 28 102/39 (60) 100 06/08/20 23:10 88 28 40 06/08/20 23:00 100.1 87 28 97/44 (61) 100 06/08/20 23:00 100 06/08/20 22:30 85 28 94/39 (57) 100 06/08/20 22:00 100.4 129 28 96/55 (69) 100 06/08/20 21:30 79 28 98/41 (60) 100 06/08/20 21:00 72 27 112/44 (66) 100 06/08/20 20:30 71 28 110/38 (62) 100 06/08/20 20:00 Mechanical Ventilator Mechanical Ventilator 06/08/20 20:00 40 06/08/20 20:00 98.2 72 28 110/40 (63) 100 06/08/20 19:49 72 06/08/20 19:30 73 28 107/43 (64) 100 06/08/20 19:13 68 28 40 06/08/20 19:00 70 27 107/46 (66) 100 06/08/20 18:00 107 28 108/46 (66) 100 06/08/20 17:30 107 28 102/48 (66) 100 06/08/20 17:00 110 28 101/45 (63) 100 06/08/20 16:57 110 28 40 06/08/20 16:30 113 27 100/47 (64) 100 06/08/20 16:00 99.4 114 28 88/49 (62) 100 06/08/20 16:00 40 06/08/20 16:00 121 06/08/20 16:00 Mechanical Ventilator Mechanical Ventilator 06/08/20 15:30 112 28 88/48 (61) 100 06/08/20 15:00 112 28 95/43 (60) 100 06/08/20 14:56 112 28 40 06/08/20 14:30 114 28 96/50 (65) 100 06/08/20 14:00 116 28 95/36 (55) 100 06/08/20 13:30 117 28 95/51 (66) 100 06/08/20 13:00 102/48 06/08/20 13:00 139 28 102/48 (66) 100 06/08/20 12:45 136 28 96/45 (62) 100 06/08/20 12:30 138 28 100/56 (71) 100 06/08/20 12:15 140 28 111/59 (76) 100 06/08/20 12:00 144 06/08/20 12:00 Mechanical Ventilator Mechanical Ventilator 06/08/20 12:00 40 06/08/20 12:00 109/47 06/08/20 12:00 99.5 139 28 109/47 (67) 100 06/08/20 11:45 139 28 112/59 (76) 100 06/08/20 11:30 136 28 106/54 (71) 100 06/08/20 11:15 129 28 103/48 (66) 100 06/08/20 11:01 118 28 40 06/08/20 11:00 116 28 91/46 (61) 06/08/20 11:00 91/46 06/08/20 10:45 88/47 06/08/20 10:45 120 28 88/47 (61) 100 06/08/20 10:30 110 28 99/51 (67) 100 06/08/20 10:00 102/32 06/08/20 10:00 77 28 102/32 (55) 100 06/08/20 09:30 93 28 108/45 (66) 100 06/08/20 09:00 108/49 06/08/20 09:00 86 28 108/49 (68) 100 06/08/20 08:30 69 27 87/36 (53) 100 06/08/20 08:00 Mechanical Ventilator Mechanical Ventilator 06/08/20 08:00 99.0 72 28 103/39 (60) 100 06/08/20 08:00 103/39 06/08/20 08:00 40 06/08/20 08:00 101 06/08/20 07:30 85 28 105/43 (63) 100 Micro: Microbiology Date/Time Source Procedure Growth Status 06/07/20 13:20 Blood Blood Culture - Preliminary Gram Negative Magno Gram Positive Cocci Resulted 06/08/20 10:30 Sputum Gram Stain - Final Resulted 06/08/20 10:30 Sputum Sputum Culture Pending Resulted 06/07/20 18:00 Stool Clostridium difficile Toxin Assay - Final Complete Accucheck: 107 Critical Care - Subjective ROS Limited/Unobtainable: No FI02: 40 Vent Support Breath Rate: 28 Vent Support Mode: AC Vent Tidal Volume: 550 Sputum Amount: Moderate PEEP: 5.0 PIP: 31 Tube Feeding Amount: 40 I&O: Intake and Output 06/08/20 06/09/20 19:00 07:00 Intake Total 410.22374 ml 411.208 ml Output Total 325 ml 255 ml Balance 85.64141 ml 156.208 ml Free Water 90 ml IV Total 410.75074 ml 321.208 ml Output Urine Total 275 ml 205 ml Stool Total 50 ml 50 ml Cisco Carballo MD Jun 09, 2020 07:06
[2020-06-09 07:09] LABS: BILIRUBIN,DIRECT 0.4 MG/DL (0.0-0.3)
--- NOTE | 2020-06-09 07:14 | NUR ---
NURSE HAND-OFF REPORT: Latest Vital Signs: Temperature 98.8 , Pulse 108 , B/P 96 /44 , Respiratory Rate 28 , O2 SAT 100 , Mechanical Ventilator, O2 Flow Rate 5.0 . Vital Sign Comment: SPB remains > 90 for duration of shift EKG Rhythm: Atrial Fibrillation Rhythm change?: Y Afib and SR for duration of shift MD Notified?: N -Dr Vera aware of pt rhythm MD Response: N/A Latest Box Fall Score: 50 Fall Risk: High Risk Safety Measures: Call light Within Reach, Bed Alarm Zone 1, Side Rails Side Rails x3, Bed position Low and Locked. Fall Precautions: Yellow Socks Yellow Gown Door Sign Patient Fall Education Report given to GEORGE Lewis. Endorsed plan of care.
--- NOTE | 2020-06-09 07:16 | NUR ---
NURSE NOTES: Called laboratory and spoke with Nancie to request lab redraw CMP
--- NOTE | 2020-06-09 07:17 | NUR ---
NURSE NOTES: Received report from GEORGE Lugo. Patient is not responsive to painful stimuli and pupils are fixed not reacting to light. Shiley 8 with vent setting AC 28, VT 550, Peep 5 and FiO2 40%. Gtube intact, clean and clamped at this time/NPO. Rectal tube intact and patent. Right hand 22G IV intact and clean. Right upper arm PICC intact, clean and running zosyn at this time. Kept dry, clean, comfortable and HOB>30. Will continue plan of care.
--- NOTE | 2020-06-09 07:17 | General Progress Note ---
Assessment/Plan Assessment/Plan: Assessment - s/p cardiac arrest yesterday - s/p recent PEG / Trach on 05/11 - Anemia but w/u BM or melena - Resp failure, s/p Trach - dysphagia, s/p PEG - recent large stroke Recommendations - CT abd / pelvis --> noted, negative - await stool OB --> noted negative - monitor CBC --> stable - cardiology f/u and plans Subjective s/p cardiac arrest now in ICU (+) troponin, cardiology noted off of feeds non communicative hold feeding for today will fu poor prognosis Subjective ROS Limited/Unobtainable: No Allergies: Coded Allergies: PROPOXYPHENE (Verified Allergy, Unknown, 06/05/20) Objective Last 24 Hour Vital Signs Date Time Temp Pulse Resp B/P (MAP) Pulse Ox O2 Delivery O2 Flow Rate FiO2 06/09/20 07:00 110 28 91/59 (70) 100 06/09/20 06:50 106 28 40 06/09/20 06:30 117 28 100/48 (65) 100 06/09/20 06:00 103 28 117/57 (77) 100 06/09/20 05:30 98.8 88 28 121/43 (69) 100 06/09/20 05:00 88 29 104/64 (77) 100 06/09/20 04:30 88 28 111/71 (84) 100 06/09/20 04:00 99.0 86 28 116/50 (72) 100 06/09/20 04:00 40 06/09/20 04:00 Mechanical Ventilator Mechanical Ventilator 06/09/20 03:30 87 28 107/45 (65) 100 06/09/20 03:00 90 06/09/20 03:00 86 28 103/50 (67) 100 06/09/20 02:55 81 29 40 06/09/20 02:30 87 28 95/49 (64) 100 06/09/20 02:00 88 28 97/69 (78) 100 06/09/20 01:30 89 28 95/45 (62) 100 06/09/20 01:00 83 28 99/51 (67) 100 06/09/20 00:30 89 28 101/40 (60) 100 06/09/20 00:00 40 06/09/20 00:00 Mechanical Ventilator Mechanical Ventilator 06/09/20 00:00 99.1 88 28 95/49 (64) 100 06/08/20 23:30 88 28 102/39 (60) 100 06/08/20 23:10 88 28 40 06/08/20 23:00 100.1 87 28 97/44 (61) 100 06/08/20 23:00 100 06/08/20 22:30 85 28 94/39 (57) 100 06/08/20 22:00 100.4 129 28 96/55 (69) 100 06/08/20 21:30 79 28 98/41 (60) 100 06/08/20 21:00 72 27 112/44 (66) 100 06/08/20 20:30 71 28 110/38 (62) 100 06/08/20 20:00 Mechanical Ventilator Mechanical Ventilator 06/08/20 20:00 40 06/08/20 20:00 98.2 72 28 110/40 (63) 100 06/08/20 19:49 72 06/08/20 19:30 73 28 107/43 (64) 100 06/08/20 19:13 68 28 40 06/08/20 19:00 70 27 107/46 (66) 100 06/08/20 18:00 107 28 108/46 (66) 100 06/08/20 17:30 107 28 102/48 (66) 100 06/08/20 17:00 110 28 101/45 (63) 100 06/08/20 16:57 110 28 40 06/08/20 16:30 113 27 100/47 (64) 100 06/08/20 16:00 99.4 114 28 88/49 (62) 100 06/08/20 16:00 40 06/08/20 16:00 121 06/08/20 16:00 Mechanical Ventilator Mechanical Ventilator 06/08/20 15:30 112 28 88/48 (61) 100 06/08/20 15:00 112 28 95/43 (60) 100 06/08/20 14:56 112 28 40 06/08/20 14:30 114 28 96/50 (65) 100 06/08/20 14:00 116 28 95/36 (55) 100 06/08/20 13:30 117 28 95/51 (66) 100 06/08/20 13:00 102/48 06/08/20 13:00 139 28 102/48 (66) 100 06/08/20 12:45 136 28 96/45 (62) 100 06/08/20 12:30 138 28 100/56 (71) 100 06/08/20 12:15 140 28 111/59 (76) 100 06/08/20 12:00 144 06/08/20 12:00 Mechanical Ventilator Mechanical Ventilator 06/08/20 12:00 40 06/08/20 12:00 109/47 06/08/20 12:00 99.5 139 28 109/47 (67) 100 06/08/20 11:45 139 28 112/59 (76) 100 06/08/20 11:30 136 28 106/54 (71) 100 06/08/20 11:15 129 28 103/48 (66) 100 06/08/20 11:01 118 28 40 06/08/20 11:00 116 28 91/46 (61) 06/08/20 11:00 91/46 06/08/20 10:45 88/47 06/08/20 10:45 120 28 88/47 (61) 100 06/08/20 10:30 110 28 99/51 (67) 100 06/08/20 10:00 102/32 06/08/20 10:00 77 28 102/32 (55) 100 06/08/20 09:30 93 28 108/45 (66) 100 06/08/20 09:00 108/49 06/08/20 09:00 86 28 108/49 (68) 100 06/08/20 08:30 69 27 87/36 (53) 100 06/08/20 08:00 Mechanical Ventilator Mechanical Ventilator 06/08/20 08:00 99.0 72 28 103/39 (60) 100 06/08/20 08:00 103/39 06/08/20 08:00 40 06/08/20 08:00 101 06/08/20 07:30 85 28 105/43 (63) 100 Intake and Output 06/08/20 06/09/20 19:00 07:00 Intake Total 410.62331 ml 411.208 ml Output Total 325 ml 255 ml Balance 85.25313 ml 156.208 ml Free Water 90 ml IV Total 410.98773 ml 321.208 ml Output Urine Total 275 ml 205 ml Stool Total 50 ml 50 ml Laboratory Tests 06/08/20 07:55: Troponin I 10.386H 06/08/20 15:30: Random Vancomycin Level 16.4 06/09/20 04:50: Troponin I 3.945H, White Blood Count 8.0, Red Blood Count 5.02, Hemoglobin 13.5 , Hematocrit 44.1, Mean Corpuscular Volume 88, Mean Corpuscular Hemoglobin 27.0 , Mean Corpuscular Hemoglobin Concent 30.7L, Red Cell Distribution Width 18.6H, Platelet Count 123L, Mean Platelet Volume 6.0L, Neutrophils (%) (Auto) 81.1H, Lymphocytes (%) (Auto) 10.9L, Monocytes (%) (Auto) 6.9, Eosinophils (%) (Auto) 0.0, Basophils (%) (Auto) 1.0, Sodium Level 136, Potassium Level 6.0*H, Chloride Level 104, Carbon Dioxide Level 14L, Anion Gap 18H, Blood Urea Nitrogen 54H, Creatinine 2.1H, Estimat Glomerular Filtration Rate 28.0, Glucose Level 92, Calcium Level 8.2L, Total Bilirubin 1.5H, Direct Bilirubin 0.4H, Aspartate Amino Transf (AST/SGOT) 84H, Alanine Aminotransferase (ALT/SGPT) 40, Alkaline Phosphatase 195H, Total Protein 7.4, Albumin 1.0L, Globulin 6.4, Albumin/Globulin Ratio 0.2L Height (Feet): 5 Height (Inches): 6.00 Weight (Pounds): 210 General Appearance: lethargic EENT: normal ENT inspection Neck: supple Cardiovascular: normal rate Respiratory/Chest: decreased breath sounds Abdomen: hypoactive bowel sounds Extremities: non-tender Richard lOivo MD Jun 09, 2020 07:17
[2020-06-09] MEDS: Ascorbic Acid 500mg tab GT SCH ×2 (08:19→17:06)
[2020-06-09] MEDS: Pantoprazole Inj IVP SCH (08:19)
[2020-06-09] MEDS: Zinc Sulfate 220mg GT SCH (08:19)
[2020-06-09] MEDS: Aspirin Baby 81mg NG SCH (08:19)
--- NOTE | 2020-06-09 08:22 | NUR ---
NURSE NOTES: All due given and held metoprolol. Will continue plan of care.
[2020-06-09] MEDS ORDERED: Tubing IV Secondary IV ONE (08:27)
[2020-06-09] MEDS ORDERED: NS 275ml ONE (08:27)
--- NOTE | 2020-06-09 08:33 | NUR ---
RD ASSESSMENT & RECOMMENDATIONS SEE CARE ACTIVITY FOR COMPLETE ASSESSMENT DAILY ESTIMATED NEEDS: Needs based on Critical care, wound, 66kg abw 23-28 kcals/kg 1588-8470 total kcals 1.25-2 g protein/kg 83-132 g total protein 25-30 mL/kg 1943-8555 total fluid mLs NUTRITION DIAGNOSIS: Increased kcal and pro needs r/t wound healing as evidenced by sacral wound, unstageable, pt is bedbound/trach and peg dep, s/p code blue x 2 (06/07), NPO at this time. CURRENT TF:NPO ENTERAL NUTRITION RECOMMENDATIONS: Glucerna 1.2 @ 60ml/hr x 24 hrs to provide 1440ml, 1728kcal, 86g prot, 1159ml free water * Without HEMODYNAMIC STABILITY, resume TF -> Initiate Glucerna 1.2 @ 20ml/hr x 6 hrs, advance 10ml q 4-6 hrs as tolerated to goal -> Flush per MD. HOB over 30 degrees. ADDITIONAL RECOMMENDATIONS: 1) Maintain calibrated bed scale wts 2) Wound care: continue Vit C and Zinc. -> W/ TF order, add ARMANDO in 4oz H2O BID via Gtube 3) Monitor hemodynamic stability: s/p code blue x 2 on 06/07, off Dopamine 4) Monitor lytes and renal fxn: worsening, K elev -> Rec IVF while pt is NPO Addendum: 06/09/20 at [address] DISREGARD THIS NOTE
--- NOTE | 2020-06-09 08:37 | NUR ---
RD ASSESSMENT & RECOMMENDATIONS SEE CARE ACTIVITY FOR COMPLETE ASSESSMENT DAILY ESTIMATED NEEDS: Needs based on Critical care, wound, 66kg abw 23-28 kcals/kg 3490-7455 total kcals 1.25-2 g protein/kg 83-132 g total protein 25-30 mL/kg 2055-1177 total fluid mLs NUTRITION DIAGNOSIS: Increased kcal and pro needs r/t wound healing as evidenced by sacral wound, unstageable, pt is bedbound/trach and peg dep, s/p code blue x 2 (06/07), NPO at this time. CURRENT TF:NPO ENTERAL NUTRITION RECOMMENDATIONS: Glucerna 1.2 @ 60ml/hr x 24 hrs to provide 1440ml, 1728kcal, 86g prot, 1159ml free water * With HEMODYNAMIC STABILITY, resume TF -> Initiate Glucerna 1.2 @ 20ml/hr x 6 hrs, advance 10ml q 4-6 hrs as tolerated to goal -> Flush per MD. HOB over 30 degrees. WITHOUT HEMODYNAMIC STABILITY, rec trophic feeding of Glucerna 1.2 @ 10ml/hr to maintain gut integrity ADDITIONAL RECOMMENDATIONS: 1) Maintain calibrated bed scale wts 2) Wound care: continue Vit C and Zinc. -> W/ TF order, add ARMANDO in 4oz H2O BID via Gtube 3) Monitor hemodynamic stability: s/p code blue x 2 on 06/07, Dopamine held 4) Monitor lytes and renal fxn: worsening creat, K elev -> Rec IVF while pt is NPO
--- NOTE | 2020-06-09 09:33 | NUR ---
CASE MANAGEMENT:REVIEW 06/09/20 SI: S/P FULL ARREST AMI. PAFIB W/RVR. SEPTIC SHOCK 98.8 110 28 91/59 100% ON VENT SUPPORT w40% FIO2 VIA TRACH PLT-123 K+6.0 BUN+54 CR+2.1 TROPONIN(+)3.945 IS: DOPAMINE GTT LOPRESSOR GT Q12 IV ZOSYN Q8HRS : ICU STATUS DCP: FROM [facility]
--- NOTE | 2020-06-09 10:02 | NUR ---
NURSE NOTES: No change in condition. Patient is comatose. Repositioned patient. Oral and trach care given.
--- NOTE | 2020-06-09 10:39 | NUR ---
RESPIRATORY NOTE:Received pt on AC 28, 550, 40% +5. SpO2 100% on current settings. Sxn small amount of red/ yellow secretions. B/S bilateral rhonchi with equal chest rise. Spare trach and ambu bag at bedside. Vent plugged into res outlet. Alarms are on and audible. No respiratory distress noted at this time. Will continue to monitor. Addendum: 06/09/20 at 1046 by Diamond Ruiz RT Pt is trached with a shiley 8.
--- NOTE | 2020-06-09 11:42 | NUR ---
NURSE NOTES: BS 96. Held insulin. No s/sx of hypoglycemia. Will continue to monitor closely.
[2020-06-09 12:18] LABS: ALANINE AMINOTRANSFERASE 35 U/L (12-78); ALBUMIN 1.1 G/DL (3.4-5.0); ALBUMIN/GLOBULIN RATIO 0.2 (1.0-2.7); ALKALINE PHOSPHATASE 171 U/L (46-116); ANION GAP 14 mmol/L (5-15); ASPARTATE AMINO TRANSFERASE 58 U/L (15-37); BILIRUBIN,TOTAL 1.5 MG/DL (0.2-1.0); BLOOD UREA NITROGEN 56 mg/dL (7-18); CALCIUM 7.9 MG/DL (8.5-10.1); CARBON DIOXIDE 20 MMOL/L (21-32); CHLORIDE 105 MMOL/L (98-107); CREATININE 2.2 MG/DL (0.55-1.30); POTASSIUM 4.6 MMOL/L (3.5-5.1); SODIUM 138 MMOL/L (136-145)
[2020-06-09 12:19] LABS: BILIRUBIN,DIRECT 0.9 MG/DL (0.0-0.3)
[2020-06-09] MEDS: DOPamine 400mg/250ml 250 ML IV SCH (12:45)
--- NOTE | 2020-06-09 13:55 | NUR ---
NURSE NOTES: Repositioned patient. Oral and trach care given.
--- NOTE | 2020-06-09 15:55 | NUR ---
NURSE NOTES: Seen by Dr. Carballo and assessed patient. No new orders at this time.
--- NOTE | 2020-06-09 17:20 | NUR ---
NURSE NOTES: BS 73. No s/sx of hypoglycemia noted. [place] juice given via GT.
--- NOTE | 2020-06-09 18:02 | NUR ---
NURSE NOTES: Repositioned patient. Kept dry, clean and comfortable.
--- NOTE | 2020-06-09 18:45 | Cardiology Progress Note ---
Subjective DATE OF SERVICE: Jun 09, 2020 BP parameters improving; pressors being tapered Monitor: rapid atrial fibrillation, now better rate control On vent support via trach Objective Last 24 Hour Vital Signs Date Time Temp Pulse Resp B/P (MAP) Pulse Ox O2 Delivery O2 Flow Rate FiO2 06/09/20 18:00 88 21 119/52 (74) 100 06/09/20 17:10 88 29 40 06/09/20 17:00 87 29 117/52 (73) 100 06/09/20 16:00 Mechanical Ventilator Mechanical Ventilator 06/09/20 16:00 88 06/09/20 16:00 88 28 120/51 (74) 100 06/09/20 16:00 98.2 88 28 120/51 (74) 100 06/09/20 16:00 40 06/09/20 15:00 85 28 117/57 (77) 100 06/09/20 15:00 86 28 40 06/09/20 14:00 84 28 123/52 (75) 100 06/09/20 13:10 84 29 40 06/09/20 13:00 84 28 111/63 (79) 100 06/09/20 12:45 108/47 06/09/20 12:00 40 06/09/20 12:00 Mechanical Ventilator Mechanical Ventilator 06/09/20 12:00 98.4 83 29 114/50 (71) 100 06/09/20 12:00 82 06/09/20 11:20 82 31 40 06/09/20 11:00 80 29 111/49 (69) 100 06/09/20 10:00 78 28 108/47 (67) 100 06/09/20 09:20 77 28 40 06/09/20 09:00 110 91/59 06/09/20 09:00 78 29 108/46 (66) 100 06/09/20 08:00 Mechanical Ventilator Mechanical Ventilator 06/09/20 08:00 105 06/09/20 08:00 98.6 104 28 103/54 (70) 100 06/09/20 08:00 40 06/09/20 07:00 110 28 91/59 (70) 100 06/09/20 06:50 106 28 40 06/09/20 06:30 117 28 100/48 (65) 100 06/09/20 06:00 103 28 117/57 (77) 100 06/09/20 05:30 98.8 88 28 121/43 (69) 100 06/09/20 05:00 88 29 104/64 (77) 100 06/09/20 04:30 88 28 111/71 (84) 100 06/09/20 04:00 99.0 86 28 116/50 (72) 100 06/09/20 04:00 40 06/09/20 04:00 Mechanical Ventilator Mechanical Ventilator 06/09/20 03:30 87 28 107/45 (65) 100 06/09/20 03:00 90 06/09/20 03:00 86 28 103/50 (67) 100 06/09/20 02:55 81 29 40 06/09/20 02:30 87 28 95/49 (64) 100 06/09/20 02:00 88 28 97/69 (78) 100 06/09/20 01:30 89 28 95/45 (62) 100 06/09/20 01:00 83 28 99/51 (67) 100 06/09/20 00:30 89 28 101/40 (60) 100 06/09/20 00:00 40 06/09/20 00:00 Mechanical Ventilator Mechanical Ventilator 06/09/20 00:00 99.1 88 28 95/49 (64) 100 06/08/20 23:30 88 28 102/39 (60) 100 06/08/20 23:10 88 28 40 06/08/20 23:00 100.1 87 28 97/44 (61) 100 06/08/20 23:00 100 06/08/20 22:30 85 28 94/39 (57) 100 06/08/20 22:00 100.4 129 28 96/55 (69) 100 06/08/20 21:30 79 28 98/41 (60) 100 06/08/20 21:00 72 27 112/44 (66) 100 06/08/20 20:30 71 28 110/38 (62) 100 06/08/20 20:00 Mechanical Ventilator Mechanical Ventilator 06/08/20 20:00 40 06/08/20 20:00 98.2 72 28 110/40 (63) 100 06/08/20 19:49 72 06/08/20 19:30 73 28 107/43 (64) 100 06/08/20 19:13 68 28 40 06/08/20 19:00 70 27 107/46 (66 100 ROS: unchanged from my assessment of 06/07/20. HEENT: Mechanically Ventilated, Thin secretions ET Tube RHYTHM: Afib LUNGS: bilateral rhonchi CARDIAC: irregularly irregular ABDOMEN: normal bowel sounds, non tender, soft, no organomegaly EXTREMITIES: no calf tenderness, moderate edema, +2 edema Laboratory Tests Test 06/09/20 04:50 06/09/20 11:30 White Blood Count 8.0 K/UL (4.8-10.8) Red Blood Count 5.02 M/UL (4.20-5.40) Hemoglobin 13.5 G/DL (12.0-16.0) Hematocrit 44.1 % (37.0-47.0) Mean Corpuscular Volume 88 FL (80-99) Mean Corpuscular Hemoglobin 27.0 PG (27.0-31.0) Mean Corpuscular Hemoglobin Concent 30.7 G/DL (32.0-36.0) L Red Cell Distribution Width 18.6 % (11.6-14.8) H Platelet Count 123 K/UL (150-450) L Mean Platelet Volume 6.0 FL (6.5-10.1) L Neutrophils (%) (Auto) 81.1 % (45.0-75.0) H Lymphocytes (%) (Auto) 10.9 % (20.0-45.0) L Monocytes (%) (Auto) 6.9 % (1.0-10.0) Eosinophils (%) (Auto) 0.0 % (0.0-3.0) Basophils (%) (Auto) 1.0 % (0.0-2.0) Sodium Level 136 MMOL/L (136-145) 138 MMOL/L (136-145) Potassium Level 6.0 MMOL/L (3.5-5.1) *H 4.6 MMOL/L (3.5-5.1) Chloride Level 104 MMOL/L (98-107) 105 MMOL/L (98-107) Carbon Dioxide Level 14 MMOL/L (21-32) L 20 MMOL/L (21-32) L Anion Gap 18 mmol/L (5-15) H 14 mmol/L (5-15) Blood Urea Nitrogen 54 mg/dL (7-18) H 56 mg/dL (7-18) H Creatinine 2.1 MG/DL (0.55-1.30) H 2.2 MG/DL (0.55-1.30) H Estimat Glomerular Filtration Rate 28.0 mL/min (>60) 26.5 mL/min (>60) Glucose Level 92 MG/DL (74-106) 100 MG/DL (74-106) Calcium Level 8.2 MG/DL (8.5-10.1) L 7.9 MG/DL (8.5-10.1) L Total Bilirubin 1.5 MG/DL (0.2-1.0) H 1.5 MG/DL (0.2-1.0) H Direct Bilirubin 0.4 MG/DL (0.0-0.3) H 0.9 MG/DL (0.0-0.3) H Aspartate Amino Transf (AST/SGOT) 84 U/L (15-37) H 58 U/L (15-37) H Alanine Aminotransferase (ALT/SGPT) 40 U/L (12-78) 35 U/L (12-78) Alkaline Phosphatase 195 U/L (46-116) H 171 U/L (46-116) H Troponin I 3.945 ng/mL (0.000-0.056) Total Protein 7.4 G/DL (6.4-8.2) 6.8 G/DL (6.4-8.2) Albumin 1.0 G/DL (3.4-5.0) L 1.1 G/DL (3.4-5.0) L Globulin 6.4 g/dL 5.7 g/dL Albumin/Globulin Ratio 0.2 (1.0-2.7) L 0.2 (1.0-2.7) L Microbiology Date/Time Source Procedure Growth Status 06/07/20 13:20 Blood Blood Culture - Preliminary Gram Negative Magno Gram Positive Cocci Resulted 06/08/20 10:30 Sputum Gram Stain - Final Resulted 06/08/20 10:30 Sputum Sputum Culture Pending Resulted 06/07/20 18:00 Stool Clostridium difficile Toxin Assay - Final Complete Assessment/Plan Assessment/Plan Acute myocardial infarction s/p full arrest Respiratory failure with trach PAFib with RVR Pacemaker Shock due to sepsis CRITICAL & GUARDED Taper off pressors completely Beta blockers to be up-titrated once BP more stable Antimicrobials Vent support Continue statin antiplatelet therapy Will consider full anti-coagulation if AFib persists. Cisco Vera MD Jun 09, 2020 18:45
--- NOTE | 2020-06-09 19:29 | NUR ---
HAND-OFF: Report given to GEORGE Knowles. Endorsed plan of care.
--- NOTE | 2020-06-09 19:30 | NUR ---
NURSE NOTES: Received report from GEORGE Ken. Pt is resting on the bed and comatose. Pupil is fixed no responsive to light at this time. No gag reflex. On ekg monitor tech with SR. Trach to Vent dependent setting with AC: 28, T: 550, P:5, Sao2 40% and SaO2 100% noted. Given suction and oral care. Noted BT: 99.7F. Applied cooling measure. BP is stable. No sign of pain by FLACC scale. on NPO. IV site intact and no sign of infiltration noted. Dressing is clean and dry on wound area. On P-200 mattress for wound management. Pt has Foely cath and rectal tube. Patent and drainage well. Placed fall precaution. Will continue to monitor any change of condition.
[2020-06-09] MEDS: Dyna-Hex 2% Top Sol 2oz TOPIC SCH (19:53)
--- NOTE | 2020-06-09 20:58 | Nephrology Progress Note ---
Assessment/Plan Plan Sepsis - IV Abx, IVF. s/p Arrest. Rapid Afib, Shock, on pressors. KAREN - labs noted. Poor prognosis. Subjective Subjective Confused Objective Objective Last 24 Hour Vital Signs Date Time Temp Pulse Resp B/P (MAP) Pulse Ox O2 Delivery O2 Flow Rate FiO2 06/09/20 20:00 99.7 86 21 128/48 (74) 100 06/09/20 20:00 86 06/09/20 20:00 40 06/09/20 20:00 Mechanical Ventilator Mechanical Ventilator 06/09/20 19:15 86 29 40 06/09/20 19:00 85 27 115/54 (74) 06/09/20 18:00 88 21 119/52 (74) 100 06/09/20 17:10 88 29 40 06/09/20 17:00 87 29 117/52 (73) 100 06/09/20 16:00 Mechanical Ventilator Mechanical Ventilator 06/09/20 16:00 88 06/09/20 16:00 88 28 120/51 (74) 100 06/09/20 16:00 98.2 88 28 120/51 (74) 100 06/09/20 16:00 40 06/09/20 15:00 85 28 117/57 (77) 100 06/09/20 15:00 86 28 40 06/09/20 14:00 84 28 123/52 (75) 100 06/09/20 13:10 84 29 40 06/09/20 13:00 84 28 111/63 (79) 100 06/09/20 12:45 108/47 06/09/20 12:00 40 06/09/20 12:00 Mechanical Ventilator Mechanical Ventilator 06/09/20 12:00 98.4 83 29 114/50 (71) 100 06/09/20 12:00 82 06/09/20 11:20 82 31 40 06/09/20 11:00 80 29 111/49 (69) 100 06/09/20 10:00 78 28 108/47 (67) 100 06/09/20 09:20 77 28 40 06/09/20 09:00 110 91/59 06/09/20 09:00 78 29 108/46 (66) 100 06/09/20 08:00 Mechanical Ventilator Mechanical Ventilator 06/09/20 08:00 105 06/09/20 08:00 98.6 104 28 103/54 (70) 100 06/09/20 08:00 40 06/09/20 07:00 110 28 91/59 (70) 100 06/09/20 06:50 106 28 40 06/09/20 06:30 117 28 100/48 (65) 100 06/09/20 06:00 103 28 117/57 (77) 100 06/09/20 05:30 98.8 88 28 121/43 (69) 100 06/09/20 05:00 88 29 104/64 (77) 100 06/09/20 04:30 88 28 111/71 (84) 100 06/09/20 04:00 99.0 86 28 116/50 (72) 100 06/09/20 04:00 40 06/09/20 04:00 Mechanical Ventilator Mechanical Ventilator 06/09/20 03:30 87 28 107/45 (65) 100 06/09/20 03:00 90 06/09/20 03:00 86 28 103/50 (67) 100 06/09/20 02:55 81 29 40 06/09/20 02:30 87 28 95/49 (64) 100 06/09/20 02:00 88 28 97/69 (78) 100 06/09/20 01:30 89 28 95/45 (62) 100 06/09/20 01:00 83 28 99/51 (67) 100 06/09/20 00:30 89 28 101/40 (60) 100 06/09/20 00:00 40 06/09/20 00:00 Mechanical Ventilator Mechanical Ventilator 06/09/20 00:00 99.1 88 28 95/49 (64) 100 06/08/20 23:30 88 28 102/39 (60) 100 06/08/20 23:10 88 28 40 06/08/20 23:00 100.1 87 28 97/44 (61) 100 06/08/20 23:00 100 06/08/20 22:30 85 28 94/39 (57) 100 06/08/20 22:00 100.4 129 28 96/55 (69) 100 06/08/20 21:30 79 28 98/41 (60) 100 06/08/20 21:00 72 27 112/44 (66) 100 Intake and Output 06/08/20 06/09/20 19:00 07:00 Intake Total 410.55420 ml 411.208 ml Output Total 325 ml 255 ml Balance 85.17811 ml 156.208 ml Free Water 90 ml IV Total 410.08253 ml 321.208 ml Output Urine Total 275 ml 205 ml Stool Total 50 ml 50 ml Laboratory Tests 06/09/20 04:50: White Blood Count 8.0, Red Blood Count 5.02, Hemoglobin 13.5, Hematocrit 44.1, Mean Corpuscular Volume 88, Mean Corpuscular Hemoglobin 27.0, Mean Corpuscular Hemoglobin Concent 30.7L, Red Cell Distribution Width 18.6H, Platelet Count 123L , Mean Platelet Volume 6.0L, Neutrophils (%) (Auto) 81.1H, Lymphocytes (%) (Auto ) 10.9L, Monocytes (%) (Auto) 6.9, Eosinophils (%) (Auto) 0.0, Basophils (%) ( Auto) 1.0, Sodium Level 136, Potassium Level 6.0*H, Chloride Level 104, Carbon Dioxide Level 14L, Anion Gap 18H, Blood Urea Nitrogen 54H, Creatinine 2.1H, Estimat Glomerular Filtration Rate 28.0, Glucose Level 92, Calcium Level 8.2L, Total Bilirubin 1.5H, Direct Bilirubin 0.4H, Aspartate Amino Transf (AST/SGOT) 84H, Alanine Aminotransferase (ALT/SGPT) 40, Alkaline Phosphatase 195H, Troponin I 3.945H, Total Protein 7.4, Albumin 1.0L, Globulin 6.4, Albumin/ Globulin Ratio 0.2L 06/09/20 11:30: Sodium Level 138, Potassium Level 4.6, Chloride Level 105, Carbon Dioxide Level 20L, Anion Gap 14, Blood Urea Nitrogen 56H, Creatinine 2.2H, Estimat Glomerular Filtration Rate 26.5, Glucose Level 100, Calcium Level 7.9L, Total Bilirubin 1.5H, Direct Bilirubin 0.9H, Aspartate Amino Transf (AST/SGOT) 58H, Alanine Aminotransferase (ALT/SGPT) 35, Alkaline Phosphatase 171H, Total Protein 6.8, Albumin 1.1L, Globulin 5.7, Albumin/Globulin Ratio 0.2L Height (Feet): 5 Height (Inches): 6.00 Weight (Pounds): 198 Objective CV IRR/IRR +tach Lungs B ronchi Abd SNT. BS + E No CCE Josh Pederson MD Jun 09, 2020 20:58
--- NOTE | 2020-06-09 22:00 | NUR ---
NURSE NOTES: Pt is resting on the bed and no sign of acute distress noted. SaO2 100% with current Vent setting. Suction and oral care was done. BP is stable. on diagnostic cardiac sonographer with SR. Changed position. Will continue to monitor any change of condition.
[2020-06-10] VITALS (24 sets, daily range): BP systolic 94–131; BP diastolic 30–52
--- NOTE | 2020-06-10 | NUR ---
NURSE NOTES: Pt is resting on the bed. Pupil is fixed and no response to light. SaO2 100% with current Vent setting. Suction and oral care was done. Cleaned Pt and applied lotion and cream. Noted new wound on Lt ear with brown color. No open wound noted. Picture was taken. Updated care plan. Applied OptiForm as protocol. Get wound order. Informed charge nurse. Changed position. Will continue to monitor any change of condition.
--- NOTE | 2020-06-10 02:00 | NUR ---
NURSE NOTES: Pt is resting on the bed ad comatose. SaO2 100% with current Vent setting. Suction and oral care was done. On NPO. Patent Salvador cath and rectal tube. Bp stable. On head resident with SR. Changed position. Placed fall precaution. Will continue to monitor any change of condition.
--- NOTE | 2020-06-10 04:00 | NUR ---
NURSE NOTES: morning care was done. Cleaned Pt and applied lotion and cream. On. NPO. No fever. BP is stable. SaO2 100% with Current Vent setting. Suction and oral care was done. Changed position. Placed fall precaution. Will continue to care plan.
[2020-06-10 05:51] LABS: BASOPHILS % (AUTO) 0.8 % (0.0-2.0); EOSINOPHILS % (AUTO) 0.1 % (0.0-3.0); HEMATOCRIT 33.2 % (37.0-47.0); HEMOGLOBIN 10.2 G/DL (12.0-16.0); LYMPHOCYTES % (AUTO) 14.7 % (20.0-45.0); MEAN CORPUSCULAR VOLUME 87 FL (80-99); NEUTROPHILS % (AUTO) 81.3 % (45.0-75.0); PLATELET COUNT 120 K/UL (150-450); RED BLOOD COUNT 3.82 M/UL (4.20-5.40); WHITE BLOOD COUNT 6.8 K/UL (4.8-10.8)
[2020-06-10] MEDS: NovoLOG Insulin Flexpen SUBQ SCH ×4 (06:00→18:00)
[2020-06-10] MEDS: Piperacillin/Tazobactam 3.375 GM in NS 110 ML IVPB SCH ×3 (06:00→21:59)
--- NOTE | 2020-06-10 06:00 | NUR ---
NURSE NOTES: Suction and oral care was done. SaO2 100% with current Vent setting. Noted BS 82mg/dl. Still noted swelling on all extremities. Changed position. Will continue to monitor any change of condition.
[2020-06-10 06:39] LABS: ALANINE AMINOTRANSFERASE 25 U/L (12-78); ALBUMIN 1.1 G/DL (3.4-5.0); ALBUMIN/GLOBULIN RATIO 0.2 (1.0-2.7); ALKALINE PHOSPHATASE 165 U/L (46-116); ANION GAP 14 mmol/L (5-15); ASPARTATE AMINO TRANSFERASE 56 U/L (15-37); BILIRUBIN,TOTAL 1.6 MG/DL (0.2-1.0); BLOOD UREA NITROGEN 56 mg/dL (7-18); CALCIUM 8.3 MG/DL (8.5-10.1); CARBON DIOXIDE 21 MMOL/L (21-32); CHLORIDE 105 MMOL/L (98-107); CREATININE 2.4 MG/DL (0.55-1.30); SODIUM 140 MMOL/L (136-145)
[2020-06-10 06:58] LABS: BILIRUBIN,DIRECT 0.9 MG/DL (0.0-0.3)
--- NOTE | 2020-06-10 07:11 | NUR ---
NURSE HAND-OFF REPORT: Latest Vital Signs: Temperature 99.0 , Pulse 77 , B/P 116 /39 , Respiratory Rate 28 , O2 SAT 100 , Mechanical Ventilator, O2 Flow Rate 5.0 . EKG Rhythm: Sinus Rhythm Rhythm change?: N Latest Box Fall Score: 50 Fall Risk: High Risk Safety Measures: Call light Within Reach, Bed Alarm Zone 1, Side Rails Side Rails x3, Bed position Low and Locked. Fall Precautions: Yellow Socks Yellow Gown Door Sign Patient Fall Education Report given to GEORGE Magallon. Pt is resting on the bed no sign of acute distress noted. SaO2 100% with current Vent setting.
--- NOTE | 2020-06-10 07:20 | NUR ---
NURSE NOTES: Received report from GEORGE Knowles. The patient is obtunded and not responding to painful stimuli. The patient's pupil is fixed and no PERRLA noted. SR w/ BBB with HR of 70s on the monitoring specialist. The patient is trach'ed and on ventilator on following setting and oxygen saturation is 98%: Shiley 8, AC 28, TV 550, FiO2 40%, and PEEP 5. The patient is kept in NPO per order. The patient has Salvador and rectal tube that is draining by gravity. The patient has R hand 22G and STEVE single lumen PICC line that is intact and patent. The patient's skin issue noted and dressing intact. The patient's bed in the lowest position, call light in reach, and fall and aspiration precaution reinforced. Will follow up the order and lab. IV site intact and patent. Will closely monitor the patient. Will continue plan of care.
--- NOTE | 2020-06-10 07:30 | NUR ---
NURSE NOTES: BS of [address] Car[address]o. Dr[address] Carballo ordered D5 1/2NS @ 75mL/hr. Will carry out the order as soon as possible. Will continue plan of care.
--- NOTE | 2020-06-10 08:00 | NUR ---
NURSE NOTES: Dr. Carballo was notified regarding the patient's condition. Notified of following conditions: Fixed pupil and no PERRLA upon assessment, no response to painful stimuli, hypoglycemia, and significant drop in hemoglobin. Will closely monitor the patient. Will continue plan of care.
[2020-06-10] MEDS: D5 1/2NS 1,000 ML IV SCH ×2 (08:24→19:41)
[2020-06-10] MEDS: Pantoprazole Inj IVP SCH (08:25)
[2020-06-10] MEDS: Aspirin Baby 81mg NG SCH (08:25)
[2020-06-10] MEDS: Zinc Sulfate 220mg GT SCH (08:25)
[2020-06-10] MEDS: Ascorbic Acid 500mg tab GT SCH ×2 (08:25→20:41)
--- NOTE | 2020-06-10 08:30 | NUR ---
NURSE NOTES: Rechecked BS. BS of 101 noted. Will closely monitor the patient. Will continue plan of care.
--- NOTE | 2020-06-10 09:00 | NUR ---
NURSE NOTES: Morning medications administered per order. Tolerated well. ASA on hold due to possible bleeding. Will closely monitor the patient. Will continue plan of care.
--- NOTE | 2020-06-10 10:00 | NUR ---
NURSE NOTES: Dr. Olivo at the bedside assessed the patient. Notified of following conditions: Fixed pupil and no PERRLA upon assessment, no response to painful stimuli, hypoglycemia with NPO status, and significant drop in hemoglobin. Dr. Olivo ordered to resume feeding and repeat hgb at 1200. Will closely monitor the patient. Will continue plan of care.
--- NOTE | 2020-06-10 10:05 | NUR ---
CASE MANAGEMENT:REVIEW 06/10/20 SI: S/P FULL ARREST AMI. PAFIB W/RVR. SEPTIC SHOCK 99.0 78 29 108/41 100% ON VENT SUPPORT w40% FIO2 VIA TRACH H/H-10.2/33.2 PLT-120 BUN+56 CR+2.4 TROPONIN (+) 3.65 IS: IVF@75/HR IV ZOSYN Q8HRS ASA GT QD IV PROTONIX QD ZINC GT QD LIPITOR GT QHS LOPRESSOR GT Q12 : ICU STATUS DCP: FROM [facility]
--- NOTE | 2020-06-10 10:06 | General Progress Note ---
Assessment/Plan Assessment/Plan: Assessment - s/p cardiac arrest yesterday - s/p recent PEG / Trach on 05/11 - Anemia but w/u BM or melena - Resp failure, s/p Trach - dysphagia, s/p PEG - recent large stroke Recommendations - CT abd / pelvis --> noted, negative - await stool OB --> noted negative - monitor CBC --> stable - cardiology f/u and plans Subjective s/p cardiac arrest now in ICU (+) troponin, cardiology noted non communicative start TF repeat cbc at 12 noon today and in am will fu poor prognosis Subjective ROS Limited/Unobtainable: No Allergies: Coded Allergies: PROPOXYPHENE (Verified Allergy, Unknown, 06/05/20) Objective Last 24 Hour Vital Signs Date Time Temp Pulse Resp B/P (MAP) Pulse Ox O2 Delivery O2 Flow Rate FiO2 06/10/20 09:20 76 28 40 06/10/20 08:24 83 134/42 06/10/20 07:00 78 29 40 06/10/20 07:00 77 28 116/39 (64) 100 06/10/20 06:00 80 27 108/41 (63) 100 06/10/20 05:11 77 28 40 06/10/20 05:00 77 28 106/42 (63) 100 06/10/20 04:00 99.0 76 28 110/37 (61) 100 06/10/20 04:00 Mechanical Ventilator Mechanical Ventilator 06/10/20 04:00 40 06/10/20 04:00 74 06/10/20 03:20 75 28 40 06/10/20 03:00 76 29 111/41 (64) 100 06/10/20 02:00 74 28 94/41 (58) 100 06/10/20 01:00 76 26 98/39 (58) 100 06/10/20 00:49 83 28 40 06/10/20 00:00 84 06/10/20 00:00 Mechanical Ventilator Mechanical Ventilator 06/10/20 00:00 99.3 83 28 116/52 (73) 100 06/10/20 00:00 40 06/09/20 23:00 85 28 122/54 (76) 100 06/09/20 23:00 84 28 40 06/09/20 22:00 87 27 127/61 (83) 100 06/09/20 21:23 87 120/73 06/09/20 21:05 87 28 40 06/09/20 21:00 87 23 125/57 (79) 100 06/09/20 20:00 99.7 86 21 128/48 (74) 100 06/09/20 20:00 86 06/09/20 20:00 40 06/09/20 20:00 Mechanical Ventilator Mechanical Ventilator 06/09/20 19:15 86 29 40 06/09/20 19:00 85 27 115/54 (74) 06/09/20 18:00 88 21 119/52 (74) 100 06/09/20 17:10 88 29 40 06/09/20 17:00 87 29 117/52 (73) 100 06/09/20 16:00 Mechanical Ventilator Mechanical Ventilator 06/09/20 16:00 88 06/09/20 16:00 88 28 120/51 (74) 100 06/09/20 16:00 98.2 88 28 120/51 (74) 100 06/09/20 16:00 40 06/09/20 15:00 85 28 117/57 (77) 100 06/09/20 15:00 86 28 40 06/09/20 14:00 84 28 123/52 (75) 100 06/09/20 13:10 84 29 40 06/09/20 13:00 84 28 111/63 (79) 100 06/09/20 12:45 108/47 06/09/20 12:00 40 06/09/20 12:00 Mechanical Ventilator Mechanical Ventilator 06/09/20 12:00 98.4 83 29 114/50 (71) 100 06/09/20 12:00 82 06/09/20 11:20 82 31 40 06/09/20 11:00 80 29 111/49 (69) 100 Intake and Output 06/09/20 06/10/20 19:00 07:00 Intake Total 255.0 ml 110.0 ml Output Total 360 ml 440 ml Balance -105.0 ml -330.0 ml Free Water 90 ml IV Total 165.0 ml 110.0 ml Output Urine Total 260 ml 390 ml Stool Total 100 ml 50 ml Laboratory Tests 06/09/20 11:30: Sodium Level 138, Potassium Level 4.6, Chloride Level 105, Carbon Dioxide Level 20L, Anion Gap 14, Blood Urea Nitrogen 56H, Creatinine 2.2H, Estimat Glomerular Filtration Rate 26.5, Glucose Level 100, Calcium Level 7.9L, Total Bilirubin 1.5H, Direct Bilirubin 0.9H, Aspartate Amino Transf (AST/SGOT) 58H, Alanine Aminotransferase (ALT/SGPT) 35, Alkaline Phosphatase 171H, Total Protein 6.8, Albumin 1.1L, Globulin 5.7, Albumin/Globulin Ratio 0.2L 06/10/20 05:30: Sodium Level 140, Potassium Level 4.0, Chloride Level 105, Carbon Dioxide Level 21, Anion Gap 14, Blood Urea Nitrogen 56H, Creatinine 2.4H, Estimat Glomerular Filtration Rate 24.0, Glucose Level 85, Calcium Level 8.3L, Total Bilirubin 1.6H , Direct Bilirubin 0.9H, Aspartate Amino Transf (AST/SGOT) 56H, Alanine Aminotransferase (ALT/SGPT) 25, Alkaline Phosphatase 165H, Total Protein 6.9, Albumin 1.1L, Globulin 5.8, Albumin/Globulin Ratio 0.2L, White Blood Count 6.8, Red Blood Count 3.82L, Hemoglobin 10.2L, Hematocrit 33.2L, Mean Corpuscular Volume 87, Mean Corpuscular Hemoglobin 26.6L, Mean Corpuscular Hemoglobin Concent 30.7L, Red Cell Distribution Width 18.0H, Platelet Count 120L, Mean Platelet Volume 6.5, Neutrophils (%) (Auto) 81.3H, Lymphocytes (%) (Auto) 14.7L , Monocytes (%) (Auto) 3.0, Eosinophils (%) (Auto) 0.1, Basophils (%) (Auto) 0.8 , Magnesium Level 2.2, Troponin I 3.650H, Pro-B-Type Natriuretic Peptide > 26732Z, Random Vancomycin Level 21.4 Height (Feet): 5 Height (Inches): 6.00 Weight (Pounds): 198 General Appearance: lethargic EENT: normal ENT inspection Neck: supple Cardiovascular: normal rate Respiratory/Chest: decreased breath sounds Abdomen: hypoactive bowel sounds Extremities: non-tender Richard Olivo MD Jun 10, 2020 10:06
--- NOTE | 2020-06-10 10:08 | Surgery Progress Note ---
Surgery Progress Note Subjective Symptoms: worse, other Objective Last 24 Hour Vital Signs Date Time Temp Pulse Resp B/P (MAP) Pulse Ox O2 Delivery O2 Flow Rate FiO2 06/10/20 09:20 76 28 40 06/10/20 08:24 83 134/42 06/10/20 07:00 78 29 40 06/10/20 07:00 77 28 116/39 (64) 100 06/10/20 06:00 80 27 108/41 (63) 100 06/10/20 05:11 77 28 40 06/10/20 05:00 77 28 106/42 (63) 100 06/10/20 04:00 99.0 76 28 110/37 (61) 100 06/10/20 04:00 Mechanical Ventilator Mechanical Ventilator 06/10/20 04:00 40 06/10/20 04:00 74 06/10/20 03:20 75 28 40 06/10/20 03:00 76 29 111/41 (64) 100 06/10/20 02:00 74 28 94/41 (58) 100 06/10/20 01:00 76 26 98/39 (58) 100 06/10/20 00:49 83 28 40 06/10/20 00:00 84 06/10/20 00:00 Mechanical Ventilator Mechanical Ventilator 06/10/20 00:00 99.3 83 28 116/52 (73) 100 06/10/20 00:00 40 06/09/20 23:00 85 28 122/54 (76) 100 06/09/20 23:00 84 28 40 06/09/20 22:00 87 27 127/61 (83) 100 06/09/20 21:23 87 120/73 06/09/20 21:05 87 28 40 06/09/20 21:00 87 23 125/57 (79) 100 06/09/20 20:00 99.7 86 21 128/48 (74) 100 06/09/20 20:00 86 06/09/20 20:00 40 06/09/20 20:00 Mechanical Ventilator Mechanical Ventilator 06/09/20 19:15 86 29 40 06/09/20 19:00 85 27 115/54 (74) 06/09/20 18:00 88 21 119/52 (74) 100 06/09/20 17:10 88 29 40 06/09/20 17:00 87 29 117/52 (73) 100 06/09/20 16:00 Mechanical Ventilator Mechanical Ventilator 06/09/20 16:00 88 06/09/20 16:00 88 28 120/51 (74) 100 06/09/20 16:00 98.2 88 28 120/51 (74) 100 06/09/20 16:00 40 06/09/20 15:00 85 28 117/57 (77) 100 06/09/20 15:00 86 28 40 06/09/20 14:00 84 28 123/52 (75) 100 06/09/20 13:10 84 29 40 06/09/20 13:00 84 28 111/63 (79) 100 06/09/20 12:45 108/47 06/09/20 12:00 40 06/09/20 12:00 Mechanical Ventilator Mechanical Ventilator 06/09/20 12:00 98.4 83 29 114/50 (71) 100 06/09/20 12:00 82 06/09/20 11:20 82 31 40 06/09/20 11:00 80 29 111/49 (69) 100 I&O Intake and Output 06/09/20 06/10/20 19:00 07:00 Intake Total 255.0 ml 110.0 ml Output Total 360 ml 440 ml Balance -105.0 ml -330.0 ml Free Water 90 ml IV Total 165.0 ml 110.0 ml Output Urine Total 260 ml 390 ml Stool Total 100 ml 50 ml Dressing: saturated Cardiovascular: RSR Respiratory: decreased breath sounds Abdomen: soft, non-tender, present bowel sounds Extremities: edema, no tenderness, no cyanosis Laboratory Tests Test 06/09/20 11:30 06/10/20 05:30 Sodium Level 138 MMOL/L (136-145) 140 MMOL/L (136-145) Potassium Level 4.6 MMOL/L (3.5-5.1) 4.0 MMOL/L (3.5-5.1) Chloride Level 105 MMOL/L (98-107) 105 MMOL/L (98-107) Carbon Dioxide Level 20 MMOL/L (21-32) L 21 MMOL/L (21-32) Anion Gap 14 mmol/L (5-15) 14 mmol/L (5-15) Blood Urea Nitrogen 56 mg/dL (7-18) H 56 mg/dL (7-18) H Creatinine 2.2 MG/DL (0.55-1.30) H 2.4 MG/DL (0.55-1.30) H Estimat Glomerular Filtration Rate 26.5 mL/min (>60) 24.0 mL/min (>60) Glucose Level 100 MG/DL (74-106) 85 MG/DL (74-106) Calcium Level 7.9 MG/DL (8.5-10.1) L 8.3 MG/DL (8.5-10.1) L Total Bilirubin 1.5 MG/DL (0.2-1.0) H 1.6 MG/DL (0.2-1.0) H Direct Bilirubin 0.9 MG/DL (0.0-0.3) H 0.9 MG/DL (0.0-0.3) H Aspartate Amino Transf (AST/SGOT) 58 U/L (15-37) H 56 U/L (15-37) H Alanine Aminotransferase (ALT/SGPT) 35 U/L (12-78) 25 U/L (12-78) Alkaline Phosphatase 171 U/L (46-116) H 165 U/L (46-116) H Total Protein 6.8 G/DL (6.4-8.2) 6.9 G/DL (6.4-8.2) Albumin 1.1 G/DL (3.4-5.0) L 1.1 G/DL (3.4-5.0) L Globulin 5.7 g/dL 5.8 g/dL Albumin/Globulin Ratio 0.2 (1.0-2.7) L 0.2 (1.0-2.7) L White Blood Count 6.8 K/UL (4.8-10.8) Red Blood Count 3.82 M/UL (4.20-5.40) L Hemoglobin 10.2 G/DL (12.0-16.0) L Hematocrit 33.2 % (37.0-47.0) L Mean Corpuscular Volume 87 FL (80-99) Mean Corpuscular Hemoglobin 26.6 PG (27.0-31.0) L Mean Corpuscular Hemoglobin Concent 30.7 G/DL (32.0-36.0) L Red Cell Distribution Width 18.0 % (11.6-14.8) H Platelet Count 120 K/UL (150-450) L Mean Platelet Volume 6.5 FL (6.5-10.1) Neutrophils (%) (Auto) 81.3 % (45.0-75.0) H Lymphocytes (%) (Auto) 14.7 % (20.0-45.0) L Monocytes (%) (Auto) 3.0 % (1.0-10.0) Eosinophils (%) (Auto) 0.1 % (0.0-3.0) Basophils (%) (Auto) 0.8 % (0.0-2.0) Magnesium Level 2.2 MG/DL (1.8-2.4) Troponin I 3.650 ng/mL (0.000-0.056) Pro-B-Type Natriuretic Peptide > 73235 pg/mL (0-125) H Random Vancomycin Level 21.4 ug/mL Plan Problems: (1) Acute renal failure (2) Hyponatremia (3) CHF (congestive heart failure) (4) Abnormal laboratory test result (5) Anemia (6) Decubitus ulcer of sacral region, unstageable Assessment & Plan: 74-year-old female multiple comorbidities BMI 30 albumin of 1 severe anemia presented with identifiable unstageable sacral decubitus ulcer on examination. Wound evaluated care plan initiated. Air mattress, nutritional optimization, turn every 2 hours, will follow with recommendations thank you (7) Malnutrition Assessment & Plan: DAILY ESTIMATED NEEDS: Needs based on Critical care, wound, 66kg abw 23-28 kcals/kg 9244-7874 total kcals 1.25-2 g protein/kg 83-132 g total protein 25-30 mL/kg 9924-9819 total fluid mLs NUTRITION DIAGNOSIS: Increased kcal and pro needs r/t wound healing as evidenced by sacral wound, unstageable, eval is pending, pt is bedbound/trach and peg dep. (CURRENT TF: Glucerna 1.2 @60ml/hr x20 hrs) ENTERAL NUTRITION RECOMMENDATIONS: Glucerna 1.2 @70ml/hr x20 hrs to provide 1400ml, 1680 kcal, 84g pro, 1127ml free H2o - Rec to increase TF goal to better meet est kcal and pro needs - Flush per MD. HOB over 30 degrees. ADDITIONAL RECOMMENDATIONS: 1) Maintain calibrated bed scale wts 2) Wound care: continue Vit C and Zinc. -> Add ARMANDO in 4oz H2O BID via Gtube 3) Monitor BG, need for increased insulin coverage 4) Monitor lytes closely on lasix (8) Asystole (9) PEA (Pulseless electrical activity) Assessment & Plan: Patient went down for CT scan identified and reviewed unfortunately upon returning had cardiovascular compromise requiring ACLS pulses electrical activity was able to be resuscitated currently intensive care unit. Work-up underway. There are bilateral large pleural effusions. Compressive atelectasis versus consolidation noted in both lung bases. There is also generalized groundglass edema in both lungs There is intense contrast opacification of the pulmonary arteries with some early contrast into the thoracic aorta. There is severe reflux of intravenous contrast into the hepatic veins opacifying the sinusoids of the posterior right lobe. The refluxed contrast also extends down the IVC opacifying the renal veins, down to the iliac veins as well. In speaking with the cardiac cath lab radiology technologist, normal injection protocol was utilized with 100 cc of contrast delivered at 2.5 cc/s and a 75 second delay via the indwelling PICC catheter. Except for the reflux contrast into the hepatic veins and right lobe sinusoids, the liver is essentially unenhanced as well as the rest of the abdominal visceral organs. Gallbladder is contracted or absent The pancreas is unremarkable. There is fusiform thickening of the left adrenal gland perhaps hyperplasia. Reflux of contrast noted into the renal veins bilaterally with no hydronephrosis noted. There is a G-tube in the stomach. Small bowel loops are nondistended. Scattered stool lucencies noted throughout the colon which is nondistended. The appendix is not visualized. Multiple calcified uterine fibroids noted. There is a small amount of free fluid in the pelvis. Also small amount of free fluid noted anterior to the hepatic edge. No free air identified. No pathologic adenopathy demonstrated. Urinary bladder is empty. There is extensive subcutaneous edema noted throughout the abdominal and pelvic rueda suggestive of severe anasarca. There also appears to be a fluid collection identified along the anterior abdominal wall at the mid abdomen with possible slight rim enhancement measuring approximately 7.2 x 2.2 x 4.1 cm. Etiology is undetermined. Per history, the gastrostomy tube is fairly recent. The collection is near by. Question possible postoperative hematoma or abscess. IMPRESSION: BILATERAL PLEURAL EFFUSIONS WITH DEPENDENT COMPRESSIVE ATELECTASIS OR CONSOLIDATIONS. ALSO GENERALIZED PULMONARY EDEMA. EXTENSIVE SEVERE ANASARCA. G-TUBE IN STOMACH. NO SIGN OF BOWEL OBSTRUCTION. CALCIFIED UTERINE FIBROIDS. SMALL FLUID COLLECTION NOTED ALONG THE ANTERIOR ABDOMINAL WALL AT THE MID ABDOMEN IN CLOSE PROXIMITY TO THE GASTROSTOMY SITE. WITH HISTORY OF RECENT G-TUBE PLACEMENT , THIS MAY REPRESENT A POSTOPERATIVE HEMATOMA OR ABSCESS. VERY UNUSUAL PATTERN OF SEVERE VENOUS REFLUX. CONTRAST WAS INJECTED VIA A RIGHT ARM PICC LINE, DELIVERED AT CONVENTIONAL PARAMETERS. HOWEVER THERE IS SEVERE REFLUX OF CONTRAST DOWN INTO THE ABDOMEN, OPACIFYING THE IVC, HEPATIC VEINS, RENAL VEINS AND PELVIC VEINS. ETIOLOGY IS UNCLEAR. QUESTION WHETHER THIS MAY BE RELATED TO SEVERE CARDIAC CONGESTION AND DYSFUNCTION. Iraj Prado Jun 10, 2020 10:08
--- NOTE | 2020-06-10 10:12 | NUR ---
INSURANCE CLINICALS AND REVIEWS FAXED FOR 06/09 AND 06/10 [facility] MORIAH FLORES PH# [phone] [employer]#[id number] FAX# [phone] REF#[id number]
--- NOTE | 2020-06-10 11:28 | Pulmonolgy Critical Care Note ---
Critical Care - Asmt/Plan Assessment/Plan: Pulmonary CCM Progress Note Assessment/Plan Assessment/Plan: IMPRESSION respiratory failure on ventilator CHF anemia possible GIB chronic encephalopathy CKD massive CVA s/p CPA Elevated Troponins, Cardiology following acidemia, improvehypoxemia diarrhea anasarca pleural effusion acute MD PAF hypotension On IVF - feeds being held PLAN vent support and monitor acid base IVF ISS pressors PRN diurese CT abdomen noted monitor HH follow up labs snf meds DNAR medications/laboratory data/nursing notes/ICU care reviewed in detail note reviewed and edited care discussed with RN and RT ICU time spent >40 minutes Subjective ROS Limited/Unobtainable: Yes Allergies: Coded Allergies: PROPOXYPHENE (Verified Allergy, Unknown, 06/05/20) Subjective care noted s/p CPA on vent poor LOC on dopa Objective Vital Signs Noted Laboratory Tests Noted Height (Feet): 5 Height (Inches): 6.00 Weight (Pounds): 192 Objective WDWN NAD clear breath sounds bilaterally without rhonchi or wheeze [id number] without MRG NABS nontender GT no CCE reduced LOC GT on vent comatose Critical Care - Objective Last 24 Hour Vital Signs Date Time Temp Pulse Resp B/P (MAP) Pulse Ox O2 Delivery O2 Flow Rate FiO2 06/10/20 11:10 81 28 40 06/10/20 10:00 77 28 118/37 (64) 100 06/10/20 09:20 76 28 40 06/10/20 09:00 79 28 118/38 (64) 100 06/10/20 08:24 83 134/42 06/10/20 08:00 99.2 78 27 112/39 (63) 100 06/10/20 08:00 40 06/10/20 08:00 Mechanical Ventilator Mechanical Ventilator 06/10/20 07:00 78 29 40 06/10/20 07:00 77 28 116/39 (64) 100 06/10/20 06:00 80 27 108/41 (63) 100 06/10/20 05:11 77 28 40 06/10/20 05:00 77 28 106/42 (63) 100 06/10/20 04:00 99.0 76 28 110/37 (61) 100 06/10/20 04:00 Mechanical Ventilator Mechanical Ventilator 06/10/20 04:00 40 06/10/20 04:00 74 06/10/20 03:20 75 28 40 06/10/20 03:00 76 29 111/41 (64) 100 06/10/20 02:00 74 28 94/41 (58) 100 06/10/20 01:00 76 26 98/39 (58) 100 06/10/20 00:49 83 28 40 06/10/20 00:00 84 06/10/20 00:00 Mechanical Ventilator Mechanical Ventilator 06/10/20 00:00 99.3 83 28 116/52 (73) 100 06/10/20 00:00 40 06/09/20 23:00 85 28 122/54 (76) 100 06/09/20 23:00 84 28 40 06/09/20 22:00 87 27 127/61 (83) 100 06/09/20 21:23 87 120/73 06/09/20 21:05 87 28 40 06/09/20 21:00 87 23 125/57 (79) 100 06/09/20 20:00 99.7 86 21 128/48 (74) 100 06/09/20 20:00 86 06/09/20 20:00 40 06/09/20 20:00 Mechanical Ventilator Mechanical Ventilator 06/09/20 19:15 86 29 40 06/09/20 19:00 85 27 115/54 (74) 06/09/20 18:00 88 21 119/52 (74) 100 06/09/20 17:10 88 29 40 06/09/20 17:00 87 29 117/52 (73) 100 06/09/20 16:00 Mechanical Ventilator Mechanical Ventilator 06/09/20 16:00 88 06/09/20 16:00 88 28 120/51 (74) 100 06/09/20 16:00 98.2 88 28 120/51 (74) 100 06/09/20 16:00 40 06/09/20 15:00 85 28 117/57 (77) 100 06/09/20 15:00 86 28 40 06/09/20 14:00 84 28 123/52 (75) 100 06/09/20 13:10 84 29 40 06/09/20 13:00 84 28 111/63 (79) 100 06/09/20 12:45 108/47 06/09/20 12:00 40 06/09/20 12:00 Mechanical Ventilator Mechanical Ventilator 06/09/20 12:00 98.4 83 29 114/50 (71) 100 06/09/20 12:00 82 Micro: Microbiology Date/Time Source Procedure Growth Status 06/07/20 13:20 Blood Blood Culture - Preliminary Proteus Mirabilis Gram Positive Cocci Resulted 06/08/20 10:30 Sputum Gram Stain - Final Resulted 06/08/20 10:30 Sputum Culture - Preliminary Gram Negative Bacillus 1 Gram Negative Bacillus 2 Resulted 06/07/20 18:00 Stool Clostridium difficile Toxin Assay - Final Complete Accucheck: 82 Critical Care - Subjective ROS Limited/Unobtainable: Yes Condition: critical FI02: 40 Vent Support Breath Rate: 28 Vent Support Mode: AC Vent Tidal Volume: 550 Sputum Amount: Moderate PEEP: 5.0 PIP: 37 Tube Feeding Amount: 40 I&O: Intake and Output 06/09/20 06/10/20 19:00 07:00 Intake Total 255.0 ml 110.0 ml Output Total 360 ml 440 ml Balance -105.0 ml -330.0 ml Free Water 90 ml IV Total 165.0 ml 110.0 ml Output Urine Total 260 ml 390 ml Stool Total 100 ml 50 ml Cisco Carballo MD Jun 10, 2020 11:28
--- NOTE | 2020-06-10 11:30 | NUR ---
NURSE NOTES: The patient is resting on the bed without acute distress or shortness of breath. Tolerating vent setting well. Started TF with Vital AF 1.2 @20mL/hr with goal of 60mL/hr with 20 hours of limited hours per Dr. Olivo's order. Will closely monitor the patient. Will continue plan of care.
--- NOTE | 2020-06-10 12:08 | NUR ---
NURSE NOTES: Called Dr. Carballo regarding request to downgrade patient. Per MD ok to transfer to SDU.
[2020-06-10] MEDS ORDERED: Acetaminophen 650mg/20.3ml GT PRN (12:15)
[2020-06-10 12:23] LABS: BASOPHILS % (AUTO) 1.9 % (0.0-2.0); EOSINOPHILS % (AUTO) 0.3 % (0.0-3.0); HEMATOCRIT 33.6 % (37.0-47.0); HEMOGLOBIN 10.3 G/DL (12.0-16.0); MEAN CORPUSCULAR VOLUME 87 FL (80-99); MONOCYTES % (AUTO) 3.6 % (1.0-10.0); NEUTROPHILS % (AUTO) 82.2 % (45.0-75.0); PLATELET COUNT 119 K/UL (150-450); RED BLOOD COUNT 3.88 M/UL (4.20-5.40); WHITE BLOOD COUNT 6.1 K/UL (4.8-10.8)
--- NOTE | 2020-06-10 12:25 | NUR ---
NURSE NOTES: Fever of 100.6F noted. Cooling measure applied and Tylenol administered per order. Will recheck temperature in 30 minutes. Will closely monitor the patient. Will continue plan of care.
[2020-06-10] MEDS ORDERED: Lidocaine 1% Plain 30 ml INJ PRN (12:30)
[2020-06-10] MEDS ORDERED: Heparin1,000 units/500ml Premix(Conc:2 units/ml) IV PRN (12:30)
--- NOTE | 2020-06-10 12:30 | Infectious Diseases Prog Note ---
Assessment/Plan Assessment/Plan IMPRESSION: Cardiopulmonary arrest, Septic shock, Line infection Proteus & gram positive sepsis Abdominal wall abscess/hematoma, pleural effusion, ? pneumonia, acute [place], sacral pressure ulcer, chronic kidney disease. RECOMMENDATION: Continue with vancomycin and Zosyn. We will f/u cultures Change PICC line Subjective ROS Limited/Unobtainable: Yes Constitutional: Reports: fever, other - T=100.6 Cardiovascular: Reports: other - off of Dopamine Allergies: Coded Allergies: PROPOXYPHENE (Verified Allergy, Unknown, 06/05/20) Objective Last 24 Hour Vital Signs Date Time Temp Pulse Resp B/P (MAP) Pulse Ox O2 Delivery O2 Flow Rate FiO2 06/10/20 12:00 40 06/10/20 12:00 Mechanical Ventilator Mechanical Ventilator 06/10/20 12:00 100.6 83 28 131/43 (72) 100 06/10/20 11:10 81 28 40 06/10/20 11:00 80 27 128/44 (72) 100 06/10/20 10:00 77 28 118/37 (64) 100 06/10/20 09:20 76 28 40 06/10/20 09:00 79 28 118/38 (64) 100 06/10/20 08:24 83 134/42 06/10/20 08:00 99.2 78 27 112/39 (63) 100 06/10/20 08:00 40 06/10/20 08:00 Mechanical Ventilator Mechanical Ventilator 06/10/20 07:00 78 29 40 06/10/20 07:00 77 28 116/39 (64) 100 06/10/20 06:00 80 27 108/41 (63) 100 06/10/20 05:11 77 28 40 06/10/20 05:00 77 28 106/42 (63) 100 06/10/20 04:00 99.0 76 28 110/37 (61) 100 06/10/20 04:00 Mechanical Ventilator Mechanical Ventilator 06/10/20 04:00 40 06/10/20 04:00 74 06/10/20 03:20 75 28 40 06/10/20 03:00 76 29 111/41 (64) 100 06/10/20 02:00 74 28 94/41 (58) 100 06/10/20 01:00 76 26 98/39 (58) 100 06/10/20 00:49 83 28 40 06/10/20 00:00 84 06/10/20 00:00 Mechanical Ventilator Mechanical Ventilator 06/10/20 00:00 99.3 83 28 116/52 (73) 100 06/10/20 00:00 40 06/09/20 23:00 85 28 122/54 (76) 100 06/09/20 23:00 84 28 40 06/09/20 22:00 87 27 127/61 (83) 100 06/09/20 21:23 87 120/73 06/09/20 21:05 87 28 40 06/09/20 21:00 87 23 125/57 (79) 100 06/09/20 20:00 99.7 86 21 128/48 (74) 100 06/09/20 20:00 86 06/09/20 20:00 40 06/09/20 20:00 Mechanical Ventilator Mechanical Ventilator 06/09/20 19:15 86 29 40 06/09/20 19:00 85 27 115/54 (74) 06/09/20 18:00 88 21 119/52 (74) 100 06/09/20 17:10 88 29 40 06/09/20 17:00 87 29 117/52 (73) 100 06/09/20 16:00 Mechanical Ventilator Mechanical Ventilator 06/09/20 16:00 88 06/09/20 16:00 88 28 120/51 (74) 100 06/09/20 16:00 98.2 88 28 120/51 (74) 100 06/09/20 16:00 40 06/09/20 15:00 85 28 117/57 (77) 100 06/09/20 15:00 86 28 40 06/09/20 14:00 84 28 123/52 (75) 100 06/09/20 13:10 84 29 40 06/09/20 13:00 84 28 111/63 (79) 100 06/09/20 12:45 108/47 Height (Feet): 5 Height (Inches): 6.00 Weight (Pounds): 205 HEENT: status post trach Respiratory/Chest: rhonchi - bilaterally, other - on ventilator Cardiovascular: normal rate, other - R arm PICC line Abdomen: soft, non tender, other - GT feeding Extremities: other - generalized edema Neurologic/Psychiatric: unresponsiveness Microbiology Date/Time Source Procedure Growth Status 06/07/20 13:20 Blood Blood Culture - Preliminary Proteus Mirabilis Gram Positive Cocci Resulted 06/08/20 10:30 Sputum Gram Stain - Final Resulted 06/08/20 10:30 Sputum Culture - Preliminary Gram Negative Bacillus 1 Gram Negative Bacillus 2 Resulted 06/07/20 18:00 Stool Clostridium difficile Toxin Assay - Final Complete Laboratory Tests Test 06/10/20 05:30 06/10/20 12:00 White Blood Count 6.8 K/UL (4.8-10.8) 6.1 K/UL (4.8-10.8) Red Blood Count 3.82 M/UL (4.20-5.40) L 3.88 M/UL (4.20-5.40) L Hemoglobin 10.2 G/DL (12.0-16.0) L 10.3 G/DL (12.0-16.0) L Hematocrit 33.2 % (37.0-47.0) L 33.6 % (37.0-47.0) L Mean Corpuscular Volume 87 FL (80-99) 87 FL (80-99) Mean Corpuscular Hemoglobin 26.6 PG (27.0-31.0) L 26.5 PG (27.0-31.0) L Mean Corpuscular Hemoglobin Concent 30.7 G/DL (32.0-36.0) L 30.6 G/DL (32.0-36.0) L Red Cell Distribution Width 18.0 % (11.6-14.8) H 18.0 % (11.6-14.8) H Platelet Count 120 K/UL (150-450) L 119 K/UL (150-450) L Mean Platelet Volume 6.5 FL (6.5-10.1) 6.0 FL (6.5-10.1) L Neutrophils (%) (Auto) 81.3 % (45.0-75.0) H 82.2 % (45.0-75.0) H Lymphocytes (%) (Auto) 14.7 % (20.0-45.0) L 12.0 % (20.0-45.0) L Monocytes (%) (Auto) 3.0 % (1.0-10.0) 3.6 % (1.0-10.0) Eosinophils (%) (Auto) 0.1 % (0.0-3.0) 0.3 % (0.0-3.0) Basophils (%) (Auto) 0.8 % (0.0-2.0) 1.9 % (0.0-2.0) Sodium Level 140 MMOL/L (136-145) Potassium Level 4.0 MMOL/L (3.5-5.1) Chloride Level 105 MMOL/L (98-107) Carbon Dioxide Level 21 MMOL/L (21-32) Anion Gap 14 mmol/L (5-15) Blood Urea Nitrogen 56 mg/dL (7-18) H Creatinine 2.4 MG/DL (0.55-1.30) H Estimat Glomerular Filtration Rate 24.0 mL/min (>60) Glucose Level 85 MG/DL (74-106) Calcium Level 8.3 MG/DL (8.5-10.1) L Magnesium Level 2.2 MG/DL (1.8-2.4) Total Bilirubin 1.6 MG/DL (0.2-1.0) H Direct Bilirubin 0.9 MG/DL (0.0-0.3) H Aspartate Amino Transf (AST/SGOT) 56 U/L (15-37) H Alanine Aminotransferase (ALT/SGPT) 25 U/L (12-78) Alkaline Phosphatase 165 U/L (46-116) H Troponin I 3.650 ng/mL (0.000-0.056) Pro-B-Type Natriuretic Peptide > 24960 pg/mL (0-125) H Total Protein 6.9 G/DL (6.4-8.2) Albumin 1.1 G/DL (3.4-5.0) L Globulin 5.8 g/dL Albumin/Globulin Ratio 0.2 (1.0-2.7) L Random Vancomycin Level 21.4 ug/mL Current Medications Medications (Trade) Dose Ordered Sig/Mara Route PRN Reason Start Time Stop Time Status Last Admin Dose Admin Acetaminophen (Tylenol) 650 mg Q4H PRN GT Temp >100.5 06/10/20 12:15 07/05/20 12:14 Acetaminophen/ Hydrocodone Bitart (Eagle 5/325) 1 tab Q4H PRN GT PAIN 4-10 06/07/20 13:30 06/12/20 21:29 Al Hydroxide/Mg Hydroxide (Mylanta) 30 ml Q4H PRN ORAL Abdominal cramps 06/07/20 13:30 07/05/20 21:29 Albumin Human 250 ml @ 0 mls/hr Q0M PRN IV SBP<90 06/08/20 19:00 09/06/20 18:59 Ascorbic Acid (Vitamin C) 500 mg TWICE A DAY GT 06/07/20 18:00 07/06/20 08:59 06/10/20 08:25 Aspirin (ASA) 81 mg DAILY NG 06/09/20 09:00 07/24/20 08:59 06/09/20 08:19 Atorvastatin Calcium (Lipitor) 10 mg BEDTIME GT 06/07/20 21:00 09/04/20 20:59 06/09/20 20:34 Chlorhexidine Gluconate (Mylene-Hex 2%) 1 applic DAILY@2000 TOPIC 06/07/20 22:00 09/05/20 21:59 06/09/20 19:53 Clonidine HCl (Catapres Tab) 0.1 mg Q4H PRN GT SBP>160mmHg 06/07/20 13:30 09/03/20 21:29 Dextrose (Dextrose 50%) 25 ml Q30M PRN IV Hypoglycemia 06/07/20 13:00 09/03/20 21:29 Dextrose (Dextrose 50%) 50 ml Q30M PRN IV Hypoglycemia 06/07/20 13:00 09/03/20 21:29 Dextrose/Sodium Chloride 1,000 ml @ 75 mls/hr [id number] IV 06/10/20 07:30 07/10/20 07:29 06/10/20 08:24 Insulin Aspart (NovoLOG) Q6HR SUBQ 06/07/20 18:00 09/04/20 00:00 Metoprolol Tartrate (Lopressor) 25 mg EVERY 12 HOURS GT 06/07/20 21:00 09/04/20 08:59 06/10/20 08:24 Nitroglycerin (Ntg) 0.4 mg Q5M PRN SL CHEST PAIN 06/07/20 12:50 07/05/20 21:29 Pantoprazole (Protonix) 40 mg DAILY IVP 06/08/20 09:00 07/06/20 08:59 06/10/20 08:25 Piperacillin Sod/ Tazobactam Sod 3.375 gm/Sodium Chloride 110 ml @ 27.5 mls/hr EVERY 8 HOURS IVPB 06/07/20 18:00 06/12/20 17:59 06/10/20 06:00 Vancomycin HCl (Vanco pharmacy to dose) 1 ea DAILY PRN MISC Per rx protocol 06/07/20 18:00 07/07/20 17:59 Zinc Sulfate (Zinc Sulfate) 220 mg DAILY GT 06/08/20 09:00 09/04/20 08:59 06/10/20 08:25 Abilio Kenyon MD Jun 10, 2020 12:30
--- NOTE | 2020-06-10 12:55 | NUR ---
NURSE NOTES: Fever dropped to 99.5F. Will closely monitor the patient. Will continue plan of care.
--- NOTE | 2020-06-10 13:00 | NUR ---
NURSE NOTES: Dr. Kenyon at the bedside assessed the patient. Notified episode of fever, diarrhea, altered mental status. Dr. Kenyon ordered to remove current PICC line and insert new PICC line. Notified CRN. Will carry out the order as soon as possible. Will continue plan of care.
--- NOTE | 2020-06-10 14:00 | NUR ---
NURSE NOTES: Dr. Carballo at the bedside assessed the patient. Notified changes in condition including fixed pupil with no PERRLA, no response to painful stimuli, severe generalized edema, 3.2g/dL hemoglobin drop, fever, and diarrhea. Dr. Carballo ordered to hold transfer to SDU until result of CT head. Will closely monitor the patient. Will continue plan of care.
[2020-06-10] MEDS ORDERED: NS 275ml ONE (14:18)
--- NOTE | 2020-06-10 14:30 | NUR ---
NURSE HAND-OFF REPORT: Important Events on Shift: Fever, New PICC line placement order Patient Status: Stable Diet: GTF Vital AF 1.2 Goal @ 60mL/hr, now running 20mL/hr. Pending Orders: New PICC line insertion Pending Results/Labs: N Pending notification: N Latest Vital Signs: Temperature 98.8 , Pulse 73 , B/P 113 /39 , Respiratory Rate 28 , O2 SAT 100 , Mechanical Ventilator, O2 Flow Rate 5.0 . Vital Sign Comment: Stable EKG Rhythm: SR w/BBB Rhythm change?: N MD Notified?: N -Dr Jody SCALES Response: MD will put orders Latest Box Fall Score: 50 Fall Risk: High Risk Safety Measures: Call light Within Reach, Bed Alarm Zone 1, Side Rails Side Rails x3, Bed position Low and Locked. Fall Precautions: Yellow Socks Yellow Gown Door Sign Patient Fall Education Report given to GEORGE Walker. The patient is stable at this time. Endorsed plan of care.
--- NOTE | 2020-06-10 15:46 | NUR ---
RESPIRATORY NOTE:Received pt on AC 28, 550, +5, 40% FiO2. SpO2 100% on current settings. Pt is trached with a Shiley 8 tracheostomy tube. Sxn moderate amount of thin, red/ yellow/ cisse secretions. B/S bilateral rhonchi with equal chest rise. Spare trach and ambu bag at bedside. Vent plugged into red outlet. Alarms are on and audible. No respiratory distress noted at this time. Will continue to monitor.
--- NOTE | 2020-06-10 19:10 | NUR ---
RESPIRATORY NOTE: Received pt on AC 28, 550VT, 40%, PEEP +5. Pt is trach-dependent w/ a cuffed, Shiley 8 tube. Pt obtunded. B/S emmanuelle. rhonchi, sxn small amounts of thick, cisse-brown secretions w/ occasional red specks. Vent plugged into red outlet, ambubag at bedside. Pt in no apparent distress at this time. Will continue to monitor pt.
--- NOTE | 2020-06-10 19:20 | NUR ---
NURSE HAND-OFF REPORT: Latest Vital Signs: Temperature 100.4 , Pulse 74 , B/P 113 /39 , Respiratory Rate 28 , O2 SAT 100 , Mechanical Ventilator, O2 Flow Rate 5.0 . Vital Sign Comment: On continuous D5 1/2 NS at 75ml/hour. EKG Rhythm: SR w/BBB Rhythm change?: N MD Notified?: MD Response: Latest Box Fall Score: 50 Fall Risk: High Risk Safety Measures: Call light Within Reach, Bed Alarm Zone 1, Side Rails Side Rails x3, Bed position Low and Locked. Fall Precautions: Yellow Socks Yellow Gown Door Sign Patient Fall Education Report given to Benson Beebe RN
--- NOTE | 2020-06-10 19:30 | NUR ---
NURSE NOTES: Received report from GEORGE Walker. Pt is resting on the bed and comatose. Pupil is fixed no responsive to light at this time. No gag reflex. On sustainability purchasing agent with SR. Trach to Vent dependent setting with AC: 28, T: 550, P:5, Sao2 40% and SaO2 100% noted. Given suction and oral care. BP is stable. No sign of pain by FLACC scale. on running with G-tube feeding with vital AF @ 40cc/hr and no residual noted. Keep HOB position. IV site intact and no sign of infiltration noted. Dressing is clean and dry on wound area. Still noted swelling in all extremities. Elevated both legs with pillow. On P-200 mattress for wound management. Pt has Salvador cath and rectal tube. Patent and drainage well. According to previous nurse hold transfer ARAMIS by Dr. Carballo today. Placed fall precaution. Will continue to monitor any change of condition.
[2020-06-10] MEDS ORDERED: Dyna-Hex 2% Top Sol 2oz TOPIC SCH (20:00)
--- NOTE | 2020-06-10 20:00 | NUR ---
NURSE NOTES: Left message to Family; Miya Mary; daughter for consent fro PICC line insertion and awaiting call back.
[2020-06-10] MEDS: Dyna-Hex 2% Top Sol 2oz TOPIC SCH (20:03)
--- NOTE | 2020-06-10 21:09 | Nephrology Progress Note ---
Assessment/Plan Plan Sepsis - IV Abx, IVF. s/p Arrest. Rapid Afib, Shock, on pressors. KAREN - labs noted. Poor prognosis. Subjective Subjective Confused Objective Objective Last 24 Hour Vital Signs Date Time Temp Pulse Resp B/P (MAP) Pulse Ox O2 Delivery O2 Flow Rate FiO2 06/10/20 20:00 Mechanical Ventilator Mechanical Ventilator 06/10/20 20:00 40 06/10/20 20:00 98.8 73 28 113/39 (63) 100 06/10/20 19:06 74 28 40 06/10/20 19:00 73 28 113/39 (63) 100 06/10/20 19:00 73 28 113/39 (63) 100 06/10/20 18:00 71 28 112/39 (63) 100 06/10/20 17:29 74 28 40 06/10/20 17:00 73 27 115/45 (68) 100 06/10/20 16:07 74 06/10/20 16:00 40 06/10/20 16:00 Mechanical Ventilator Mechanical Ventilator 06/10/20 16:00 100.4 74 27 118/39 (65) 100 06/10/20 15:10 73 28 40 06/10/20 15:00 72 28 109/40 (63) 99 06/10/20 14:00 72 27 105/30 (55) 99 06/10/20 13:00 89 28 121/41 (67) 100 06/10/20 13:00 73 28 40 06/10/20 12:55 99.5 06/10/20 12:00 40 06/10/20 12:00 Mechanical Ventilator Mechanical Ventilator 06/10/20 12:00 100.6 83 28 131/43 (72) 100 06/10/20 11:20 82 06/10/20 11:10 81 28 40 06/10/20 11:00 80 27 128/44 (72) 100 06/10/20 10:00 77 28 118/37 (64) 100 06/10/20 09:20 76 28 40 06/10/20 09:00 79 28 118/38 (64) 100 06/10/20 08:24 83 134/42 06/10/20 08:00 99.2 78 27 112/39 (63) 100 06/10/20 08:00 40 06/10/20 08:00 Mechanical Ventilator Mechanical Ventilator 06/10/20 07:07 80 06/10/20 07:00 78 29 40 06/10/20 07:00 77 28 116/39 (64) 100 06/10/20 06:00 80 27 108/41 (63) 100 06/10/20 05:11 77 28 40 06/10/20 05:00 77 28 106/42 (63) 100 06/10/20 04:00 99.0 76 28 110/37 (61) 100 06/10/20 04:00 Mechanical Ventilator Mechanical Ventilator 06/10/20 04:00 40 06/10/20 04:00 74 06/10/20 03:20 75 28 40 06/10/20 03:00 76 29 111/41 (64) 100 06/10/20 02:00 74 28 94/41 (58) 100 06/10/20 01:00 76 26 98/39 (58) 100 06/10/20 00:49 83 28 40 06/10/20 00:00 84 06/10/20 00:00 Mechanical Ventilator Mechanical Ventilator 06/10/20 00:00 99.3 83 28 116/52 (73) 100 06/10/20 00:00 40 06/09/20 23:00 85 28 122/54 (76) 100 06/09/20 23:00 84 28 40 06/09/20 22:00 87 27 127/61 (83) 100 06/09/20 21:23 87 120/73 Intake and Output 06/09/20 06/10/20 19:00 07:00 Intake Total 255.0 ml 110.0 ml Output Total 360 ml 440 ml Balance -105.0 ml -330.0 ml Free Water 90 ml IV Total 165.0 ml 110.0 ml Output Urine Total 260 ml 390 ml Stool Total 100 ml 50 ml Laboratory Tests 06/10/20 05:30: White Blood Count 6.8, Red Blood Count 3.82L, Hemoglobin 10.2L, Hematocrit 33.2L , Mean Corpuscular Volume 87, Mean Corpuscular Hemoglobin 26.6L, Mean Corpuscular Hemoglobin Concent 30.7L, Red Cell Distribution Width 18.0H, Platelet Count 120L, Mean Platelet Volume 6.5, Neutrophils (%) (Auto) 81.3H, Lymphocytes (%) (Auto) 14.7L, Monocytes (%) (Auto) 3.0, Eosinophils (%) (Auto) 0.1, Basophils (%) (Auto) 0.8, Sodium Level 140, Potassium Level 4.0, Chloride Level 105, Carbon Dioxide Level 21, Anion Gap 14, Blood Urea Nitrogen 56H, Creatinine 2.4H, Estimat Glomerular Filtration Rate 24.0, Glucose Level 85, Calcium Level 8.3L, Magnesium Level 2.2, Total Bilirubin 1.6H, Direct Bilirubin 0.9H, Aspartate Amino Transf (AST/SGOT) 56H, Alanine Aminotransferase (ALT/SGPT ) 25, Alkaline Phosphatase 165H, Troponin I 3.650H, Pro-B-Type Natriuretic Peptide > 26478Y, Total Protein 6.9, Albumin 1.1L, Globulin 5.8, Albumin/ Globulin Ratio 0.2L, Random Vancomycin Level 21.4 06/10/20 12:00: White Blood Count 6.1, Red Blood Count 3.88L, Hemoglobin 10.3L, Hematocrit 33.6L , Mean Corpuscular Volume 87, Mean Corpuscular Hemoglobin 26.5L, Mean Corpuscular Hemoglobin Concent 30.6L, Red Cell Distribution Width 18.0H, Platelet Count 119L, Mean Platelet Volume 6.0L, Neutrophils (%) (Auto) 82.2H, Lymphocytes (%) (Auto) 12.0L, Monocytes (%) (Auto) 3.6, Eosinophils (%) (Auto) 0.3, Basophils (%) (Auto) 1.9 Height (Feet): 5 Height (Inches): 6.00 Weight (Pounds): 205 Objective CV IRR/IRR +tach Lungs B flavia Duke SNT. BS + E No CCE Josh Pederson MD Jun 10, 2020 21:09
--- NOTE | 2020-06-10 22:00 | NUR ---
NURSE NOTES: Pt is resting on the bed and no sign of acute distress noted. SaO2 100% with current Vent setting. Tolerated well with G-tube feeding. Suction and oral care was done. Turn and reposition. Will continue to monitor any change of condition.
--- NOTE | 2020-06-10 23:29 | Cardiology Progress Note ---
Subjective DATE OF SERVICE: Jun 10, 2020 BP parameters improving; pressors discontinued Monitor: Sinus with paroxysms of AFib - rate controlled On vent support via trach Troponin peaked above 10, now decreased to 3.6 Objective Last 24 Hour Vital Signs Date Time Temp Pulse Resp B/P (MAP) Pulse Ox O2 Delivery O2 Flow Rate FiO2 06/10/20 22:57 73 28 40 06/10/20 22:00 74 28 118/44 (68) 100 06/10/20 21:15 75 120/38 06/10/20 21:00 76 28 120/38 (65) 100 06/10/20 20:00 Mechanical Ventilator Mechanical Ventilator 06/10/20 20:00 40 06/10/20 20:00 98.8 73 28 113/39 (63) 100 06/10/20 20:00 74 06/10/20 19:06 74 28 40 06/10/20 19:00 73 28 113/39 (63) 100 06/10/20 19:00 73 28 113/39 (63) 100 06/10/20 18:00 71 28 112/39 (63) 100 06/10/20 17:29 74 28 40 06/10/20 17:00 73 27 115/45 (68) 100 06/10/20 16:07 74 06/10/20 16:00 40 06/10/20 16:00 Mechanical Ventilator Mechanical Ventilator 06/10/20 16:00 100.4 74 27 118/39 (65) 100 06/10/20 15:10 73 28 40 06/10/20 15:00 72 28 109/40 (63) 99 06/10/20 14:00 72 27 105/30 (55) 99 06/10/20 13:00 89 28 121/41 (67) 100 06/10/20 13:00 73 28 40 06/10/20 12:55 99.5 06/10/20 12:00 40 06/10/20 12:00 Mechanical Ventilator Mechanical Ventilator 06/10/20 12:00 100.6 83 28 131/43 (72) 100 06/10/20 11:20 82 06/10/20 11:10 81 28 40 06/10/20 11:00 80 27 128/44 (72) 100 06/10/20 10:00 77 28 118/37 (64) 100 8/23/20 09:20 76 28 40 06/10/20 09:00 79 28 118/38 (64) 100 06/10/20 08:24 83 134/42 06/10/20 08:00 99.2 78 27 112/39 (63) 100 06/10/20 08:00 40 06/10/20 08:00 Mechanical Ventilator Mechanical Ventilator 06/10/20 07:07 80 06/10/20 07:00 78 29 40 06/10/20 07:00 77 28 116/39 (64) 100 06/10/20 06:00 80 27 108/41 (63) 100 06/10/20 05:11 77 28 40 06/10/20 05:00 77 28 106/42 (63) 100 06/10/20 04:00 99.0 76 28 110/37 (61) 100 06/10/20 04:00 Mechanical Ventilator Mechanical Ventilator 06/10/20 04:00 40 06/10/20 04:00 74 06/10/20 03:20 75 28 40 06/10/20 03:00 76 29 111/41 (64) 100 06/10/20 02:00 74 28 94/41 (58) 100 06/10/20 01:00 76 26 98/39 (58) 100 06/10/20 00:49 83 28 40 06/10/20 00:00 84 06/10/20 00:00 Mechanical Ventilator Mechanical Ventilator 06/10/20 00:00 99.3 83 28 116/52 (73) 100 06/10/20 00:00 40 ROS: unchanged from my assessment of 06/07/20. HEENT: Mechanically Ventilated, Thin secretions ET Tube RHYTHM: Afib LUNGS: bilateral rhonchi CARDIAC: irregularly irregular ABDOMEN: normal bowel sounds, non tender, soft, no organomegaly EXTREMITIES: no calf tenderness, moderate edema, +2 edema Laboratory Tests Test 06/10/20 05:30 06/10/20 12:00 White Blood Count 6.8 K/UL (4.8-10.8) 6.1 K/UL (4.8-10.8) Red Blood Count 3.82 M/UL (4.20-5.40) L 3.88 M/UL (4.20-5.40) L Hemoglobin 10.2 G/DL (12.0-16.0) L 10.3 G/DL (12.0-16.0) L Hematocrit 33.2 % (37.0-47.0) L 33.6 % (37.0-47.0) L Mean Corpuscular Volume 87 FL (80-99) 87 FL (80-99) Mean Corpuscular Hemoglobin 26.6 PG (27.0-31.0) L 26.5 PG (27.0-31.0) L Mean Corpuscular Hemoglobin Concent 30.7 G/DL (32.0-36.0) L 30.6 G/DL (32.0-36.0) L Red Cell Distribution Width 18.0 % (11.6-14.8) H 18.0 % (11.6-14.8) H Platelet Count 120 K/UL (150-450) L 119 K/UL (150-450) L Mean Platelet Volume 6.5 FL (6.5-10.1) 6.0 FL (6.5-10.1) L Neutrophils (%) (Auto) 81.3 % (45.0-75.0) H 82.2 % (45.0-75.0) H Lymphocytes (%) (Auto) 14.7 % (20.0-45.0) L 12.0 % (20.0-45.0) L Monocytes (%) (Auto) 3.0 % (1.0-10.0) 3.6 % (1.0-10.0) Eosinophils (%) (Auto) 0.1 % (0.0-3.0) 0.3 % (0.0-3.0) Basophils (%) (Auto) 0.8 % (0.0-2.0) 1.9 % (0.0-2.0) Sodium Level 140 MMOL/L (136-145) Potassium Level 4.0 MMOL/L (3.5-5.1) Chloride Level 105 MMOL/L (98-107) Carbon Dioxide Level 21 MMOL/L (21-32) Anion Gap 14 mmol/L (5-15) Blood Urea Nitrogen 56 mg/dL (7-18) H Creatinine 2.4 MG/DL (0.55-1.30) H Estimat Glomerular Filtration Rate 24.0 mL/min (>60) Glucose Level 85 MG/DL (74-106) Calcium Level 8.3 MG/DL (8.5-10.1) L Magnesium Level 2.2 MG/DL (1.8-2.4) Total Bilirubin 1.6 MG/DL (0.2-1.0) H Direct Bilirubin 0.9 MG/DL (0.0-0.3) H Aspartate Amino Transf (AST/SGOT) 56 U/L (15-37) H Alanine Aminotransferase (ALT/SGPT) 25 U/L (12-78) Alkaline Phosphatase 165 U/L (46-116) H Troponin I 3.650 ng/mL (0.000-0.056) Pro-B-Type Natriuretic Peptide > 66501 pg/mL (0-125) H Total Protein 6.9 G/DL (6.4-8.2) Albumin 1.1 G/DL (3.4-5.0) L Globulin 5.8 g/dL Albumin/Globulin Ratio 0.2 (1.0-2.7) L Random Vancomycin Level 21.4 ug/mL Microbiology Date/Time Source Procedure Growth Status 06/08/20 10:30 Sputum Gram Stain - Final Resulted 06/08/20 10:30 Sputum Culture - Preliminary Gram Negative Bacillus 1 Gram Negative Bacillus 2 Resulted EKG INTERPRETATION: 2D Echo revealed EF 45% with wall motion abn CHEST XRAY: Venous Duplex: negative for DVT Assessment/Plan Assessment/Plan Acute myocardial infarction Ischemic cardiomyopathy Acute/chronic diastolic and systolic CHF s/p full arrest Respiratory failure with trach PAFib now with controlled ventricular rate Pacemaker Shock due to sepsis - recovering CRITICAL & GUARDED Avoid resumption of pressors Beta blockers to be up-titrated; anti-anginal regimen to be maximized. Antimicrobials Vent support Continue statin antiplatelet therapy Increased risk for assisted anticoagulation in this setting. Cisco Vera MD Jun 10, 2020 23:29
[2020-06-11] VITALS (24 sets, daily range): BP systolic 95–148; BP diastolic 37–78
--- NOTE | 2020-06-11 | NUR ---
NURSE NOTES: Pt is resting on the bed and pupil is fixed and no response to light. No response to pain stimuli. SaO2 100% with current Vent setting. No residual noted. increase tube feeding @ 50cc/hr. No sign of pain. on desk monitor with A-fib and Dr. Vera aware. Changed position. Placed fall precaution. Will continue to monitor any change of condition.
[2020-06-11] MEDS: NovoLOG Insulin Flexpen SUBQ SCH ×4 (00:23→17:54)
--- NOTE | 2020-06-11 02:00 | NUR ---
NURSE NOTES: Turn and reposition. Provided suction and oral care. Placed fall precaution. Pt still no response to pain stimuli and not opened her eye and pupil is fixed and no response to light. Still noted all extremities swelling. Will continue to care plan.
--- NOTE | 2020-06-11 04:00 | NUR ---
NURSE NOTES: Morning care was done. given bed bath. Cleaned Pt and applied lotion and cream. Changed wound dressing. On running with G-tube feeding with Vital AF @ 50cc/hr and no residual noted. SaO2 100% with Vent. Placed fall precaution. Will continue to monitor any change of condition.
[2020-06-11] MEDS: Piperacillin/Tazobactam 3.375 GM in NS 110 ML IVPB SCH (05:53)
--- NOTE | 2020-06-11 06:00 | NUR ---
NURSE NOTES: Pt is resting on the bed and still no response. Noted residual 80cc from G-tube. Hold G-tube feeding. Will continue to monitor. Suction and oral care was done. Will continue to monitor any change of condition.
[2020-06-11] MEDS: Nitroglycerin 2% oint pkt TOPIC SCH ×3 (06:04→17:44)
[2020-06-11 06:52] LABS: HEMATOCRIT 33.4 % (37.0-47.0); HEMOGLOBIN 10.3 G/DL (12.0-16.0); MEAN CORPUSCULAR VOLUME 87 FL (80-99); PLATELET COUNT 112 K/UL (150-450); RED BLOOD COUNT 3.85 M/UL (4.20-5.40); RED CELL DISTRIBUTION WIDTH 17.9 % (11.6-14.8); WHITE BLOOD COUNT 5.9 K/UL (4.8-10.8)
--- NOTE | 2020-06-11 07:24 | NUR ---
NURSE HAND-OFF REPORT: Latest Vital Signs: Temperature 98.7 , Pulse 75 , B/P 113 /40 , Respiratory Rate 27 , O2 SAT 97 , Mechanical Ventilator, O2 Flow Rate 5.0 . EKG Rhythm: Atrial Fibrillation Rhythm change?: N Latest Box Fall Score: 50 Fall Risk: High Risk Safety Measures: Call light Within Reach, Bed Alarm Zone 1, Side Rails Side Rails x3, Bed position Low and Locked. Fall Precautions: Yellow Socks Yellow Gown Door Sign Patient Fall Education Report given to Saima Swartz. Pt is resting on the bed and Sarah 97% with current Vent setting. Held G-tubed feeding.
--- NOTE | 2020-06-11 07:25 | NUR ---
NURSE NOTES: Get call from Isaura regarding blood culture result with ESBL in Blood. Endorsed incoming nurse.
--- NOTE | 2020-06-11 07:26 | NUR ---
NURSE NOTES: Received patient from Benson VAZQUEZ. Patient is comatose. Sinus Rhythm on the heart monitor, HR 75. Receiving oxygen via Shiley 8, vent settings: AC 28, TV 550, FiO2 40%, PEEP 5. IV site is Right Upper Arm PICC intact and receiving D5 1/2 NS at 75cc/hr, Right hand 22g is patent. G-tube is intact and receiving Vital AF at 10cc/hr. Salvador catheter is intact and draining. Rectal tube is intact and draining. Bed is locked, placed in lowest position, side rails up x3, bed alarm on, head of bed elevated. Will continue to monitor.
--- NOTE | 2020-06-11 07:30 | NUR ---
NURSE NOTES: Patient stable AOx0 with no s/sx of pain or distress. Cardiac sounds WNL. Currently NSR on monitor with VSS. Breath sounds rhoncus. Trach Shiley 8.0 AC 28 550mL 40% P5. Vital AF at 60mL held at this time due to residual of 80mL. Now residual of <5mL and resumed. Salvador draining well to gravity. RT UA PICC line dressing dry and intact with dressing change due tomorrow. Fluids infusing through PICC. RT hand 22 patent and intact. Spoke with Dr. Payne and continue order to hold transfer until CT of head is completed. Side rails upx2, call light within reach, bed low and locked. Will continue to monitor.
[2020-06-11 07:53] LABS: ALANINE AMINOTRANSFERASE 21 U/L (12-78); ALBUMIN/GLOBULIN RATIO 0.2 (1.0-2.7); ALKALINE PHOSPHATASE 164 U/L (46-116); ANION GAP 15 mmol/L (5-15); ASPARTATE AMINO TRANSFERASE 44 U/L (15-37); BILIRUBIN,TOTAL 1.5 MG/DL (0.2-1.0); BLOOD UREA NITROGEN 50 mg/dL (7-18); CALCIUM 7.3 MG/DL (8.5-10.1); CARBON DIOXIDE 20 MMOL/L (21-32); CHLORIDE 104 MMOL/L (98-107); CREATININE 2.3 MG/DL (0.55-1.30); POTASSIUM 3.6 MMOL/L (3.5-5.1); SODIUM 139 MMOL/L (136-145)
[2020-06-11 08:00] LABS: BILIRUBIN,DIRECT 0.7 MG/DL (0.0-0.3)
--- NOTE | 2020-06-11 08:07 | NUR ---
NURSE HAND-OFF REPORT: Latest Vital Signs: Temperature 98.7 , Pulse 75 , B/P 113 /40 , Respiratory Rate 27 , O2 SAT 97 , Mechanical Ventilator, O2 Flow Rate 5.0 . Vital Sign Comment: EKG Rhythm: Atrial Fibrillation Rhythm change?: N MD Notified?: Marcia hill MD Response: MD will put orders Latest Box Fall Score: 50 Fall Risk: High Risk Safety Measures: Call light Within Reach, Bed Alarm Zone 1, Side Rails Side Rails x3, Bed position Low and Locked. Fall Precautions: Yellow Socks Yellow Gown Door Sign Patient Fall Education Report given to Corie Barraza RN and Mesha VAZQUEZ.
--- NOTE | 2020-06-11 08:11 | General Progress Note ---
Assessment/Plan Assessment/Plan: IMPRESSION respiratory failure CHF anemia possible GIB chronic encephalopathy CKD massive CVA s/p CPA acidemia, improved hypoxemia diarrhea anasarca pleural effusion acute [place] PAF hypotension PLAN vent support and monitor acid base monitor albumin levels nutrition follow up labs snf meds d/w family - message left medications/laboratory data/nursing notes/ICU care reviewed in detail note reviewed and edited care discussed with RN and RT ICU time spent >40 minutes Subjective ROS Limited/Unobtainable: Yes Allergies: Coded Allergies: PROPOXYPHENE (Verified Allergy, Unknown, 06/05/20) Subjective care noted s/p CPA on vent poor LOC off pressors in afib Objective Last 24 Hour Vital Signs Date Time Temp Pulse Resp B/P (MAP) Pulse Ox O2 Delivery O2 Flow Rate FiO2 06/11/20 07:00 75 27 113/40 (64) 97 06/11/20 06:04 122/40 06/11/20 06:00 78 28 122/40 (67) 99 06/11/20 05:00 75 28 117/38 (64) 100 06/11/20 04:00 98.7 76 28 121/44 (69) 100 06/11/20 04:00 73 06/11/20 04:00 40 06/11/20 04:00 Mechanical Ventilator Mechanical Ventilator 06/11/20 03:02 72 28 40 06/11/20 03:00 73 28 119/39 (65) 100 06/11/20 02:00 72 28 125/38 (67) 100 06/11/20 01:00 70 27 119/43 (68) 100 06/11/20 00:00 73 06/11/20 00:00 98.5 76 28 106/37 (60) 100 06/11/20 00:00 Mechanical Ventilator Mechanical Ventilator 06/11/20 00:00 40 06/10/20 23:00 71 28 112/51 (71) 100 06/10/20 22:57 73 28 40 06/10/20 22:00 74 28 118/44 (68) 100 06/10/20 21:15 75 120/38 06/10/20 21:00 76 28 120/38 (65) 100 06/10/20 20:00 Mechanical Ventilator Mechanical Ventilator 06/10/20 20:00 40 06/10/20 20:00 98.8 73 28 113/39 (63) 100 06/10/20 20:00 74 06/10/20 19:06 74 28 40 06/10/20 19:00 73 28 113/39 (63) 100 06/10/20 19:00 73 28 113/39 (63) 100 06/10/20 18:00 71 28 112/39 (63) 100 06/10/20 17:29 74 28 40 06/10/20 17:00 73 27 115/45 (68) 100 06/10/20 16:07 74 06/10/20 16:00 40 06/10/20 16:00 Mechanical Ventilator Mechanical Ventilator 06/10/20 16:00 100.4 74 27 118/39 (65) 100 06/10/20 15:10 73 28 40 06/10/20 15:00 72 28 109/40 (63) 99 06/10/20 14:00 72 27 105/30 (55) 99 06/10/20 13:00 89 28 121/41 (67) 100 06/10/20 13:00 73 28 40 06/10/20 12:55 99.5 06/10/20 12:00 40 06/10/20 12:00 Mechanical Ventilator Mechanical Ventilator 06/10/20 12:00 100.6 83 28 131/43 (72) 100 06/10/20 11:20 82 06/10/20 11:10 81 28 40 06/10/20 11:00 80 27 128/44 (72) 100 06/10/20 10:00 77 28 118/37 (64) 100 06/10/20 09:20 76 28 40 06/10/20 09:00 79 28 118/38 (64) 100 06/10/20 08:24 83 134/42 Intake and Output 06/10/20 06/11/20 19:00 07:00 Intake Total 1102.5 ml 1561.25 ml Output Total 450 ml 355 ml Balance 652.5 ml 1206.25 ml IV Total 832.5 ml 1061.25 ml Tube Feeding 270 ml 500 ml Output Urine Total 400 ml 355 ml Stool Total 50 ml Laboratory Tests 06/10/20 12:00: White Blood Count 6.1, Red Blood Count 3.88L, Hemoglobin 10.3L, Hematocrit 33.6L , Mean Corpuscular Volume 87, Mean Corpuscular Hemoglobin 26.5L, Mean Corpuscular Hemoglobin Concent 30.6L, Red Cell Distribution Width 18.0H, Platelet Count 119L, Mean Platelet Volume 6.0L, Neutrophils (%) (Auto) 82.2H, Lymphocytes (%) (Auto) 12.0L, Monocytes (%) (Auto) 3.6, Eosinophils (%) (Auto) 0.3, Basophils (%) (Auto) 1.9 06/11/20 05:00: White Blood Count 5.9, Red Blood Count 3.85L, Hemoglobin 10.3L, Hematocrit 33.4L , Mean Corpuscular Volume 87, Mean Corpuscular Hemoglobin 26.8L, Mean Corpuscular Hemoglobin Concent 30.9L, Red Cell Distribution Width 17.9H, Platelet Count 112L, Mean Platelet Volume 6.7, Neutrophils (%) (Auto) , Lymphocytes (%) (Auto) , Monocytes (%) (Auto) , Eosinophils (%) (Auto) , Basophils (%) (Auto) , Neutrophils % (Manual) [Pending], Lymphocytes % (Manual) [Pending], Platelet Estimate [Pending], Platelet Morphology [Pending], Sodium Level 139, Potassium Level 3.6, Chloride Level 104, Carbon Dioxide Level 20L, Anion Gap 15, Blood Urea Nitrogen 50H, Creatinine 2.3H, Estimat Glomerular Filtration Rate 25.2, Glucose Level 178H, Calcium Level 7.3L, Total Bilirubin 1.5H, Direct Bilirubin 0.7H, Aspartate Amino Transf (AST/SGOT) 44H, Alanine Aminotransferase (ALT/SGPT) 21, Alkaline Phosphatase 164H, Total Protein 6.7, Albumin 1.0L, Globulin 5.7, Albumin/Globulin Ratio 0.2L, Random Vancomycin Level 15.7 Height (Feet): 5 Height (Inches): 6.00 Weight (Pounds): 205 Objective WDWN NAD clear breath sounds bilaterally without rhonchi or wheeze S1S2 iRRR without MRG NABS nontender GT no CCE reduced LOC GT on vent comatose Jonathon Payne MD Jun 11, 2020 08:11
--- NOTE | 2020-06-11 08:45 | NUR ---
NURSE NOTES: Daughter Miya Mary called and PICC line consent obtained with Corie Barraza as witness.
[2020-06-11] MEDS: Aspirin Baby 81mg NG SCH (08:56)
[2020-06-11] MEDS: Ascorbic Acid 500mg tab GT SCH ×2 (08:56→20:30)
[2020-06-11] MEDS: Pantoprazole Inj IVP SCH (08:56)
[2020-06-11] MEDS: Zinc Sulfate 220mg GT SCH (08:56)
[2020-06-11] MEDS: D5 1/2NS 1,000 ML IV SCH ×2 (09:14→22:00)
--- NOTE | 2020-06-11 09:20 | NUR ---
NURSE HAND-OFF REPORT: Latest Vital Signs: Temperature 98.4 , Pulse 74 , B/P 110 /43 , Respiratory Rate 28 , O2 SAT 98 , Mechanical Ventilator, O2 Flow Rate 5.0 . Vital Sign Comment: STABLE EKG Rhythm: NSR Rhythm change?: N MD Notified?: N -Dr. Jody hill MD Response: N/A Latest Box Fall Score: 50 Fall Risk: High Risk Safety Measures: Call light Within Reach, Bed Alarm Zone 1, Side Rails Side Rails x3, Bed position Low and Locked. Fall Precautions: Yellow Socks Yellow Gown Door Sign Patient Fall Education Report given to Min RN. Plan of care endorsed.
--- NOTE | 2020-06-11 09:20 | NUR ---
NURSE NOTES: Received report from GEORGE Ferris. Pt in bed closed eyes and no responsive to pain stimuli but responsive to trach suctioning. IV site in right hand 22G SL patent and asymptomatic. PICC in right upper arm with 1 lumen patent and intact. HOB elevated with 30 degree. Call light within easy reach. F/C patent and intact and noted yellow color urine in draining bag. On rectal tube and noted small amount of brown color liquid bowel movement noted in draining bag. Trach shiley 8 connected to vent setting with AC 28, 550, 40% and peep of 5. G-tube patent and intact. Will continue plan of care. Addendum: 06/11/20 at 1018 by Lesley Leger RN correction: Pt comatose and no responsive to any forms of stimuli and not even trach suctioning. Noted pupil size with 2mm and fixed and no response to the light.
[2020-06-11] MEDS ORDERED: Vancomycin 1gm/D5W 275ml IVPB ONE ×2 (10:00)
--- NOTE | 2020-06-11 10:11 | NUR ---
NURSE NOTES: Noted 35cc of residual from tube feeding with Vital AF 50ml/hr. Will continue monitor for tube feeding tolerance
--- NOTE | 2020-06-11 11:50 | NUR ---
NURSE NOTES: Report received from Africa Sutton RN. No response to verbal or tactile stimuli. Minimal gag reflex to trach suctioning noted. No reaction to bilateral pupils with both eyes closed. A-fib to SR with BB on bell staff. Trach to vent. S 8, AC 28, TV 550, FiO2 40%, P 5. O2 sat 96-98%. Slightly labored breathing noted. GT in place receiving Vital AF 1.2 at 50cc/hr. No residual noted. Will increased rate to goal rate 60cc/hr. Salvador and rectal tube in place draining to gravity. ESTEPHANIA PICC with single lumen patient and asymptomatic. IV to right hand G22 patent and asymptomatic. Pitting edema +4 on bilateral arms and hands pitting +3 on bilateral lower legs and pitting +2 on bilateral feet noted. Elevated with multiple pillows. D5 1/2NS is running at 75cc/hr. Bed in lowest position. Side rails up x3. Will resume plan of care. Addendum: 06/11/20 at 1424 by MARICHUY EASON RN RN Report received from Africa Sutton RN. No response to verbal or tactile stimuli. Minimal gag reflex to trach suctioning noted. No reaction to bilateral pupils with both eyes closed. A-fib to SR with BBB on bell staff. Trach to vent. S 8, AC 28, TV 550, FiO2 40%, P 5. O2 sat 96-98%. Slightly labored breathing noted. GT in place receiving Vital AF 1.2 at 50cc/hr. No residual noted. Will increased rate to goal rate 60cc/hr. Salvador and rectal tube in place draining to gravity. ESTEPHANIA PICC with single lumen patient and asymptomatic. IV to right hand G22 patent and asymptomatic. Pitting edema +4 on bilateral arms and hands pitting +3 on bilateral lower legs and pitting +2 on bilateral feet noted. Elevated with multiple pillows. D5 1/2NS is running at 75cc/hr. Bed in lowest position. Side rails up x3. Will resume plan of care.
--- NOTE | 2020-06-11 12:14 | Infectious Diseases Prog Note ---
"Assessment/Plan Assessment/Plan antibiotics : vancomycin iv, zosyn A 1. proteus | coag neg staph sepsis 2. pseudomonas | gram negative pneumonia 3. respiratory failure 4. SC 5. renal failure P 1. continue iv vancomycin 2. d/c zosyn 3. start meropenem 4. will follow up cultures Subjective ROS Limited/Unobtainable: Yes Allergies: Coded Allergies: PROPOXYPHENE (Verified Allergy, Unknown, 06/05/20) Objective Last 24 Hour Vital Signs Date Time Temp Pulse Resp B/P (MAP) Pulse Ox O2 Delivery O2 Flow Rate FiO2 06/11/20 11:21 116/52 06/11/20 10:55 71 28 116/52 (73) 99 06/11/20 10:00 71 28 116/44 (68) 98 06/11/20 09:34 74 28 110/43 (65) 98 06/11/20 09:20 71 28 40 06/11/20 09:00 74 28 95/48 (64) 98 06/11/20 08:57 72 106/40 06/11/20 08:00 98.4 75 28 111/39 (63) 97 06/11/20 08:00 40 06/11/20 08:00 Mechanical Ventilator Mechanical Ventilator 06/11/20 07:30 Mechanical Ventilator Mechanical Ventilator 06/11/20 07:15 75 06/11/20 07:15 74 28 40 06/11/20 07:00 75 27 113/40 (64) 97 06/11/20 06:04 122/40 06/11/20 06:00 78 28 122/40 (67) 99 06/11/20 05:00 75 28 117/38 (64) 100 06/11/20 04:00 98.7 76 28 121/44 (69) 100 06/11/20 04:00 73 06/11/20 04:00 40 06/11/20 04:00 Mechanical Ventilator Mechanical Ventilator 06/11/20 03:02 72 28 40 06/11/20 03:00 73 28 119/39 (65) 100 06/11/20 02:00 72 28 125/38 (67) 100 06/11/20 01:00 70 27 119/43 (68) 100 06/11/20 00:00 73 06/11/20 00:00 98.5 76 28 106/37 (60) 100 06/11/20 00:00 Mechanical Ventilator Mechanical Ventilator 06/11/20 00:00 40 06/10/20 23:00 71 28 112/51 (71) 100 06/10/20 22:57 73 28 40 06/10/20 22:00 74 28 118/44 (68) 100 06/10/20 21:15 75 120/38 06/10/20 21:00 76 28 120/38 (65) 100 06/10/20 20:00 Mechanical Ventilator Mechanical Ventilator 06/10/20 20:00 40 06/10/20 20:00 98.8 73 28 113/39 (63) 100 06/10/20 20:00 74 06/10/20 19:06 74 28 40 06/10/20 19:00 73 28 113/39 (63) 100 06/10/20 19:00 73 28 113/39 (63) 100 06/10/20 18:00 71 28 112/39 (63) 100 06/10/20 17:29 74 28 40 06/10/20 17:00 73 27 115/45 (68) 100 06/10/20 16:07 74 06/10/20 16:00 40 06/10/20 16:00 Mechanical Ventilator Mechanical Ventilator 06/10/20 16:00 100.4 74 27 118/39 (65) 100 06/10/20 15:10 73 28 40 06/10/20 15:00 72 28 109/40 (63) 99 06/10/20 14:00 72 27 105/30 (55) 99 06/10/20 13:00 89 28 121/41 (67) 100 06/10/20 13:00 73 28 40 06/10/20 12:55 99.5 Height (Feet): 5 Height (Inches): 6.00 Weight (Pounds): 212 HEENT: status post trach Cardiovascular: normal rate, regular rhythm, no gallop/murmur Abdomen: soft, non tender, other - GT Extremities: other - + edema, right arm PICC Laboratory Tests Test 06/11/20 05:00 White Blood Count 5.9 K/UL (4.8-10.8) Red Blood Count 3.85 M/UL (4.20-5.40) L Hemoglobin 10.3 G/DL (12.0-16.0) L Hematocrit 33.4 % (37.0-47.0) L Mean Corpuscular Volume 87 FL (80-99) Mean Corpuscular Hemoglobin 26.8 PG (27.0-31.0) L Mean Corpuscular Hemoglobin Concent 30.9 G/DL (32.0-36.0) L Red Cell Distribution Width 17.9 % (11.6-14.8) H Platelet Count 112 K/UL (150-450) L Mean Platelet Volume 6.7 FL (6.5-10.1) Neutrophils (%) (Auto) % (45.0-75.0) Lymphocytes (%) (Auto) % (20.0-45.0) Monocytes (%) (Auto) % (1.0-10.0) Eosinophils (%) (Auto) % (0.0-3.0) Basophils (%) (Auto) % (0.0-2.0) Differential Total Cells Counted 100 Neutrophils % (Manual) 85 % (45-75) H Lymphocytes % (Manual) 9 % (20-45) L Monocytes % (Manual) 5 % (1-10) Eosinophils % (Manual) 1 % (0-3) Basophils % (Manual) 0 % (0-2) Band Neutrophils 0 % (0-8) Platelet Estimate Decreased L Platelet Morphology Normal Hypochromasia 1+ Anisocytosis 1+ Sodium Level 139 MMOL/L (136-145) Potassium Level 3.6 MMOL/L (3.5-5.1) Chloride Level 104 MMOL/L (98-107) Carbon Dioxide Level 20 MMOL/L (21-32) L Anion Gap 15 mmol/L (5-15) Blood Urea Nitrogen 50 mg/dL (7-18) H Creatinine 2.3 MG/DL (0.55-1.30) H Estimat Glomerular Filtration Rate 25.2 mL/min (>60) Glucose Level 178 MG/DL (74-106) H Calcium Level 7.3 MG/DL (8.5-10.1) L Total Bilirubin 1.5 MG/DL (0.2-1.0) H Direct Bilirubin 0.7 MG/DL (0.0-0.3) H Aspartate Amino Transf (AST/SGOT) 44 U/L (15-37) H Alanine Aminotransferase (ALT/SGPT) 21 U/L (12-78) Alkaline Phosphatase 164 U/L (46-116) H Total Protein 6.7 G/DL (6.4-8.2) Albumin 1.0 G/DL (3.4-5.0) L Globulin 5.7 g/dL Albumin/Globulin Ratio 0.2 (1.0-2.7) L Random Vancomycin Level 15.7 ug/mL Current Medications Medications (Trade) Dose Ordered Sig/Mara Route PRN Reason Start Time Stop Time Status Last Admin Dose Admin Acetaminophen (Tylenol) 650 mg Q4H PRN GT Temp >100.5 06/10/20 12:15 07/05/20 12:14 06/10/20 12:25 Acetaminophen/ Hydrocodone Bitart ([place] 5/325) 1 tab Q4H PRN GT PAIN 4-10 06/07/20 13:30 06/12/20 21:29 Al Hydroxide/Mg Hydroxide (Mylanta) 30 ml Q4H PRN ORAL Abdominal cramps 06/07/20 13:30 07/05/20 21:29 Albumin Human 250 ml @ 0 mls/hr Q0M PRN IV SBP<90 06/08/20 19:00 09/06/20 18:59 Ascorbic Acid (Vitamin C) 500 mg EVERY 12 HOURS GT 06/10/20 21:00 07/06/20 08:59 06/11/20 08:56 Aspirin (ASA) 81 mg DAILY NG 06/09/20 09:00 07/24/20 08:59 06/09/20 08:19 Atorvastatin Calcium (Lipitor) 10 mg BEDTIME GT 06/07/20 21:00 09/04/20 20:59 06/10/20 20:41 Chlorhexidine Gluconate (Mylene-Hex 2%) 1 applic DAILY@2000 TOPIC 06/07/20 22:00 09/05/20 21:59 06/10/20 20:03 Clonidine HCl (Catapres Tab) 0.1 mg Q4H PRN GT SBP>160mmHg 06/07/20 13:30 09/03/20 21:29 Dextrose (Dextrose 50%) 25 ml Q30M PRN IV Hypoglycemia 06/07/20 13:00 09/03/20 21:29 Dextrose (Dextrose 50%) 50 ml Q30M PRN IV Hypoglycemia 06/07/20 13:00 09/03/20 21:29 Dextrose/Sodium Chloride 1,000 ml @ 75 mls/hr [id number] IV 06/10/20 07:30 07/10/20 07:29 06/11/20 09:14 Heparin Sodium/ Sodium Chloride (Heparin 1000 units/500ml Premix) 1,000 unit ONCE PRN IV PICC LINE INSERTION 06/10/20 12:30 06/12/20 12:29 Insulin Aspart (NovoLOG) Q6HR SUBQ 06/07/20 18:00 09/04/20 00:00 06/11/20 11:22 Lidocaine HCl (Xylocaine 1% 30ml) 30 ml ONCE PRN INJ PICC LINE 06/10/20 12:30 06/12/20 12:29 Metoprolol Tartrate (Lopressor) 25 mg EVERY 12 HOURS GT 06/07/20 21:00 09/04/20 08:59 06/10/20 21:15 Nitroglycerin (Nitro-Bid) 1 inch TID@0600,1200,1800 TOPIC 06/11/20 06:00 07/11/20 05:59 06/11/20 11:21 Nitroglycerin (Ntg) 0.4 mg Q5M PRN SL CHEST PAIN 06/07/20 12:50 07/05/20 21:29 Pantoprazole (Protonix) 40 mg DAILY IVP 06/08/20 09:00 07/06/20 08:59 06/11/20 08:56 Piperacillin Sod/ Tazobactam Sod 3.375 gm/Sodium Chloride 110 ml @ 27.5 mls/hr EVERY 8 HOURS IVPB 06/07/20 18:00 06/16/20 17:59 06/11/20 05:53 Potassium Chloride (K-Dur) 20 meq ONCE NG 06/11/20 12:15 06/11/20 13:30 Vancomycin HCl ([facility] pharmacy to dose) 1 ea DAILY PRN MISC Per rx protocol 06/07/20 18:00 07/07/20 17:59 Zinc Sulfate (Zinc Sulfate) 220 mg DAILY GT 06/08/20 09:00 09/04/20 08:59 06/11/20 08:56 Abiodun Alston MD Jun 11, 2020 12:14"
--- NOTE | 2020-06-11 12:28 | Nephrology Progress Note ---
Assessment/Plan Plan Sepsis - IV Abx, IVF. s/p Arrest. Rapid Afib, Shock, on pressors. KAREN - labs noted. Poor prognosis. Subjective Subjective Confused Objective Objective Last 24 Hour Vital Signs Date Time Temp Pulse Resp B/P (MAP) Pulse Ox O2 Delivery O2 Flow Rate FiO2 06/11/20 11:21 116/52 06/11/20 10:55 71 28 116/52 (73) 99 06/11/20 10:00 71 28 116/44 (68) 98 06/11/20 09:34 74 28 110/43 (65) 98 06/11/20 09:20 71 28 40 06/11/20 09:00 74 28 95/48 (64) 98 06/11/20 08:57 72 106/40 06/11/20 08:00 98.4 75 28 111/39 (63) 97 06/11/20 08:00 40 06/11/20 08:00 Mechanical Ventilator Mechanical Ventilator 06/11/20 07:30 Mechanical Ventilator Mechanical Ventilator 06/11/20 07:15 75 06/11/20 07:15 74 28 40 06/11/20 07:00 75 27 113/40 (64) 97 06/11/20 06:04 122/40 06/11/20 06:00 78 28 122/40 (67) 99 06/11/20 05:00 75 28 117/38 (64) 100 06/11/20 04:00 98.7 76 28 121/44 (69) 100 06/11/20 04:00 73 06/11/20 04:00 40 06/11/20 04:00 Mechanical Ventilator Mechanical Ventilator 06/11/20 03:02 72 28 40 06/11/20 03:00 73 28 119/39 (65) 100 06/11/20 02:00 72 28 125/38 (67) 100 06/11/20 01:00 70 27 119/43 (68) 100 06/11/20 00:00 73 06/11/20 00:00 98.5 76 28 106/37 (60) 100 06/11/20 00:00 Mechanical Ventilator Mechanical Ventilator 06/11/20 00:00 40 06/10/20 23:00 71 28 112/51 (71) 100 06/10/20 22:57 73 28 40 06/10/20 22:00 74 28 118/44 (68) 100 8/23/20 21:15 75 120/38 06/10/20 21:00 76 28 120/38 (65) 100 06/10/20 20:00 Mechanical Ventilator Mechanical Ventilator 06/10/20 20:00 40 06/10/20 20:00 98.8 73 28 113/39 (63) 100 06/10/20 20:00 74 06/10/20 19:06 74 28 40 06/10/20 19:00 73 28 113/39 (63) 100 06/10/20 19:00 73 28 113/39 (63) 100 06/10/20 18:00 71 28 112/39 (63) 100 06/10/20 17:29 74 28 40 06/10/20 17:00 73 27 115/45 (68) 100 06/10/20 16:07 74 06/10/20 16:00 40 06/10/20 16:00 Mechanical Ventilator Mechanical Ventilator 06/10/20 16:00 100.4 74 27 118/39 (65) 100 06/10/20 15:10 73 28 40 06/10/20 15:00 72 28 109/40 (63) 99 06/10/20 14:00 72 27 105/30 (55) 99 06/10/20 13:00 89 28 121/41 (67) 100 06/10/20 13:00 73 28 40 06/10/20 12:55 99.5 Intake and Output 06/10/20 06/11/20 19:00 07:00 Intake Total 1102.5 ml 1561.25 ml Output Total 450 ml 355 ml Balance 652.5 ml 1206.25 ml IV Total 832.5 ml 1061.25 ml Tube Feeding 270 ml 500 ml Output Urine Total 400 ml 355 ml Stool Total 50 ml Laboratory Tests 06/11/20 05:00: White Blood Count 5.9, Red Blood Count 3.85L, Hemoglobin 10.3L, Hematocrit 33.4L , Mean Corpuscular Volume 87, Mean Corpuscular Hemoglobin 26.8L, Mean Corpuscular Hemoglobin Concent 30.9L, Red Cell Distribution Width 17.9H, Platelet Count 112L, Mean Platelet Volume 6.7, Neutrophils (%) (Auto) , Lymphocytes (%) (Auto) , Monocytes (%) (Auto) , Eosinophils (%) (Auto) , Basophils (%) (Auto) , Differential Total Cells Counted 100, Neutrophils % ( Manual) 85H, Lymphocytes % (Manual) 9L, Monocytes % (Manual) 5, Eosinophils % ( Manual) 1, Basophils % (Manual) 0, Band Neutrophils 0, Platelet Estimate DecreasedL, Platelet Morphology Normal, Hypochromasia 1+, Anisocytosis 1+, Sodium Level 139, Potassium Level 3.6, Chloride Level 104, Carbon Dioxide Level 20L, Anion Gap 15, Blood Urea Nitrogen 50H, Creatinine 2.3H, Estimat Glomerular Filtration Rate 25.2, Glucose Level 178H, Calcium Level 7.3L, Total Bilirubin 1.5H, Direct Bilirubin 0.7H, Aspartate Amino Transf (AST/SGOT) 44H, Alanine Aminotransferase (ALT/SGPT) 21, Alkaline Phosphatase 164H, Total Protein 6.7, Albumin 1.0L, Globulin 5.7, Albumin/Globulin Ratio 0.2L, Random Vancomycin Level 15.7 Height (Feet): 5 Height (Inches): 6.00 Weight (Pounds): 212 Objective CV IRR/IRR +tach Lungs B ronchi Abd SNT. BS + E No CCE Josh Pederson MD Jun 11, 2020 12:28
--- NOTE | 2020-06-11 12:40 | NUR ---
NURSE NOTES: Patient is off the unit for CT head with no contrast.
--- NOTE | 2020-06-11 12:41 | Surgery Progress Note ---
Surgery Progress Note Subjective Additional Comments no acute events labs noted exam stable ill appearing Objective Last 24 Hour Vital Signs Date Time Temp Pulse Resp B/P (MAP) Pulse Ox O2 Delivery O2 Flow Rate FiO2 06/11/20 11:21 116/52 06/11/20 10:55 71 28 116/52 (73) 99 06/11/20 10:00 71 28 116/44 (68) 98 06/11/20 09:34 74 28 110/43 (65) 98 06/11/20 09:20 71 28 40 06/11/20 09:00 74 28 95/48 (64) 98 06/11/20 08:57 72 106/40 06/11/20 08:00 98.4 75 28 111/39 (63) 97 06/11/20 08:00 40 06/11/20 08:00 Mechanical Ventilator Mechanical Ventilator 06/11/20 07:30 Mechanical Ventilator Mechanical Ventilator 06/11/20 07:15 75 06/11/20 07:15 74 28 40 06/11/20 07:00 75 27 113/40 (64) 97 06/11/20 06:04 122/40 06/11/20 06:00 78 28 122/40 (67) 99 06/11/20 05:00 75 28 117/38 (64) 100 06/11/20 04:00 98.7 76 28 121/44 (69) 100 06/11/20 04:00 73 06/11/20 04:00 40 06/11/20 04:00 Mechanical Ventilator Mechanical Ventilator 06/11/20 03:02 72 28 40 06/11/20 03:00 73 28 119/39 (65) 100 06/11/20 02:00 72 28 125/38 (67) 100 06/11/20 01:00 70 27 119/43 (68) 100 06/11/20 00:00 73 06/11/20 00:00 98.5 76 28 106/37 (60) 100 06/11/20 00:00 Mechanical Ventilator Mechanical Ventilator 06/11/20 00:00 40 06/10/20 23:00 71 28 112/51 (71) 100 06/10/20 22:57 73 28 40 06/10/20 22:00 74 28 118/44 (68) 100 06/10/20 21:15 75 120/38 06/10/20 21:00 76 28 120/38 (65) 100 06/10/20 20:00 Mechanical Ventilator Mechanical Ventilator 06/10/20 20:00 40 06/10/20 20:00 98.8 73 28 113/39 (63) 100 06/10/20 20:00 74 06/10/20 19:06 74 28 40 06/10/20 19:00 73 28 113/39 (63) 100 06/10/20 19:00 73 28 113/39 (63) 100 06/10/20 18:00 71 28 112/39 (63) 100 06/10/20 17:29 74 28 40 06/10/20 17:00 73 27 115/45 (68) 100 06/10/20 16:07 74 06/10/20 16:00 40 06/10/20 16:00 Mechanical Ventilator Mechanical Ventilator 06/10/20 16:00 100.4 74 27 118/39 (65) 100 06/10/20 15:10 73 28 40 06/10/20 15:00 72 28 109/40 (63) 99 06/10/20 14:00 72 27 105/30 (55) 99 06/10/20 13:00 89 28 121/41 (67) 100 06/10/20 13:00 73 28 40 06/10/20 12:55 99.5 I&O Intake and Output 06/10/20 06/11/20 19:00 07:00 Intake Total 1102.5 ml 1561.25 ml Output Total 450 ml 355 ml Balance 652.5 ml 1206.25 ml IV Total 832.5 ml 1061.25 ml Tube Feeding 270 ml 500 ml Output Urine Total 400 ml 355 ml Stool Total 50 ml Dressing: other Wound: other Cardiovascular: RSR Respiratory: decreased breath sounds Abdomen: soft, non-tender, present bowel sounds Extremities: no tenderness, no cyanosis Laboratory Tests Test 06/11/20 05:00 White Blood Count 5.9 K/UL (4.8-10.8) Red Blood Count 3.85 M/UL (4.20-5.40) L Hemoglobin 10.3 G/DL (12.0-16.0) L Hematocrit 33.4 % (37.0-47.0) L Mean Corpuscular Volume 87 FL (80-99) Mean Corpuscular Hemoglobin 26.8 PG (27.0-31.0) L Mean Corpuscular Hemoglobin Concent 30.9 G/DL (32.0-36.0) L Red Cell Distribution Width 17.9 % (11.6-14.8) H Platelet Count 112 K/UL (150-450) L Mean Platelet Volume 6.7 FL (6.5-10.1) Neutrophils (%) (Auto) % (45.0-75.0) Lymphocytes (%) (Auto) % (20.0-45.0) Monocytes (%) (Auto) % (1.0-10.0) Eosinophils (%) (Auto) % (0.0-3.0) Basophils (%) (Auto) % (0.0-2.0) Differential Total Cells Counted 100 Neutrophils % (Manual) 85 % (45-75) H Lymphocytes % (Manual) 9 % (20-45) L Monocytes % (Manual) 5 % (1-10) Eosinophils % (Manual) 1 % (0-3) Basophils % (Manual) 0 % (0-2) Band Neutrophils 0 % (0-8) Platelet Estimate Decreased L Platelet Morphology Normal Hypochromasia 1+ Anisocytosis 1+ Sodium Level 139 MMOL/L (136-145) Potassium Level 3.6 MMOL/L (3.5-5.1) Chloride Level 104 MMOL/L (98-107) Carbon Dioxide Level 20 MMOL/L (21-32) L Anion Gap 15 mmol/L (5-15) Blood Urea Nitrogen 50 mg/dL (7-18) H Creatinine 2.3 MG/DL (0.55-1.30) H Estimat Glomerular Filtration Rate 25.2 mL/min (>60) Glucose Level 178 MG/DL (74-106) H Calcium Level 7.3 MG/DL (8.5-10.1) L Total Bilirubin 1.5 MG/DL (0.2-1.0) H Direct Bilirubin 0.7 MG/DL (0.0-0.3) H Aspartate Amino Transf (AST/SGOT) 44 U/L (15-37) H Alanine Aminotransferase (ALT/SGPT) 21 U/L (12-78) Alkaline Phosphatase 164 U/L (46-116) H Total Protein 6.7 G/DL (6.4-8.2) Albumin 1.0 G/DL (3.4-5.0) L Globulin 5.7 g/dL Albumin/Globulin Ratio 0.2 (1.0-2.7) L Random Vancomycin Level 15.7 ug/mL Plan Problems: (1) Acute renal failure (2) Hyponatremia (3) CHF (congestive heart failure) (4) Abnormal laboratory test result (5) Anemia (6) Decubitus ulcer of sacral region, unstageable Assessment & Plan: 74-year-old female multiple comorbidities BMI 30 albumin of 1 severe anemia presented with identifiable unstageable sacral decubitus ulcer on examination. Wound evaluated care plan initiated. Air mattress, nutritional optimization, turn every 2 hours, will follow with recommendations thank you (7) Malnutrition Assessment & Plan: DAILY ESTIMATED NEEDS: Needs based on Critical care, wound, 66kg abw 23-28 kcals/kg 5984-5681 total kcals 1.25-2 g protein/kg 83-132 g total protein 25-30 mL/kg 6356-0798 total fluid mLs NUTRITION DIAGNOSIS: Increased kcal and pro needs r/t wound healing as evidenced by sacral wound, unstageable, eval is pending, pt is bedbound/trach and peg dep. (CURRENT TF: Glucerna 1.2 @60ml/hr x20 hrs) ENTERAL NUTRITION RECOMMENDATIONS: Glucerna 1.2 @70ml/hr x20 hrs to provide 1400ml, 1680 kcal, 84g pro, 1127ml free H2o - Rec to increase TF goal to better meet est kcal and pro needs - Flush per MD. HOB over 30 degrees. ADDITIONAL RECOMMENDATIONS: 1) Maintain calibrated bed scale wts 2) Wound care: continue Vit C and Zinc. -> Add ARMANDO in 4oz H2O BID via Gtube 3) Monitor BG, need for increased insulin coverage 4) Monitor lytes closely on lasix (8) Asystole (9) PEA (Pulseless electrical activity) Assessment & Plan: Patient went down for CT scan identified and reviewed unfortunately upon returning had cardiovascular compromise requiring ACLS pulses electrical activity was able to be resuscitated currently intensive care unit. Work-up underway. There are bilateral large pleural effusions. Compressive atelectasis versus consolidation noted in both lung bases. There is also generalized groundglass edema in both lungs There is intense contrast opacification of the pulmonary arteries with some early contrast into the thoracic aorta. There is severe reflux of intravenous contrast into the hepatic veins opacifying the sinusoids of the posterior right lobe. The refluxed contrast also extends down the IVC opacifying the renal veins, down to the iliac veins as well. In speaking with the space technologist, normal injection protocol was utilized with 100 cc of contrast delivered at 2.5 cc/s and a 75 second delay via the indwelling PICC catheter. Except for the reflux contrast into the hepatic veins and right lobe sinusoids, the liver is essentially unenhanced as well as the rest of the abdominal visceral organs. Gallbladder is contracted or absent The pancreas is unremarkable. There is fusiform thickening of the left adrenal gland perhaps hyperplasia. Reflux of contrast noted into the renal veins bilaterally with no hydronephrosis noted. There is a G-tube in the stomach. Small bowel loops are nondistended. Scattered stool lucencies noted throughout the colon which is nondistended. The appendix is not visualized. Multiple calcified uterine fibroids noted. There is a small amount of free fluid in the pelvis. Also small amount of free fluid noted anterior to the hepatic edge. No free air identified. No pathologic adenopathy demonstrated. Urinary bladder is empty. There is extensive subcutaneous edema noted throughout the abdominal and pelvic rueda suggestive of severe anasarca. There also appears to be a fluid collection identified along the anterior abdominal wall at the mid abdomen with possible slight rim enhancement measuring approximately 7.2 x 2.2 x 4.1 cm. Etiology is undetermined. Per history, the gastrostomy tube is fairly recent. The collection is near by. Question possible postoperative hematoma or abscess. IMPRESSION: BILATERAL PLEURAL EFFUSIONS WITH DEPENDENT COMPRESSIVE ATELECTASIS OR CONSOLIDATIONS. ALSO GENERALIZED PULMONARY EDEMA. EXTENSIVE SEVERE ANASARCA. G-TUBE IN STOMACH. NO SIGN OF BOWEL OBSTRUCTION. CALCIFIED UTERINE FIBROIDS. SMALL FLUID COLLECTION NOTED ALONG THE ANTERIOR ABDOMINAL WALL AT THE MID ABDOMEN IN CLOSE PROXIMITY TO THE GASTROSTOMY SITE. WITH HISTORY OF RECENT G-TUBE PLACEMENT , THIS MAY REPRESENT A POSTOPERATIVE HEMATOMA OR ABSCESS. VERY UNUSUAL PATTERN OF SEVERE VENOUS REFLUX. CONTRAST WAS INJECTED VIA A RIGHT ARM PICC LINE, DELIVERED AT CONVENTIONAL PARAMETERS. HOWEVER THERE IS SEVERE REFLUX OF CONTRAST DOWN INTO THE ABDOMEN, OPACIFYING THE IVC, HEPATIC VEINS, RENAL VEINS AND PELVIC VEINS. ETIOLOGY IS UNCLEAR. QUESTION WHETHER THIS MAY BE RELATED TO SEVERE CARDIAC CONGESTION AND DYSFUNCTION. Iraj Prado Jun 11, 2020 12:41
[2020-06-11] MEDS: Meropenem 1 GM in NS 55 ML IVPB SCH ×2 (13:31→20:30)
--- NOTE | 2020-06-11 15:09 | NUR ---
NURSE NOTES: Radiologist Dr Govea at bedside, is inserting PICC line.
--- NOTE | 2020-06-11 15:21 | NUR ---
NURSE NOTES: Old STEVE upper PICC line removed and new PICC line inserted in the same spot on STEVE by Dr Govea, radiology.
--- NOTE | 2020-06-11 15:41 | NUR ---
CASE MANAGEMENT:REVIEW SI;S/P FULL ARREST AMI. PAFIB W/RVR. SEPTIC SHOCK 100.4 120 28 148/58 96% TRACH/VENT FIO2 @ 40% BUN 50 CR 2.3 BG 178 T-BILI 1.5 D-BILI 0.7 AST 44 ALK PHOS 164 ALB 1.0 IS;MEROPENEM IV Q12 NITRO-BID TOP TID ALBUMIN HUMAN IV ASA GT QD PROTONIX IV QD LOPRESSOR GT Q12 ZOSYN IV Q8 ICU STATUS DCP;FROM [facility]
--- NOTE | 2020-06-11 15:58 | NUR ---
INSURANCE CLINICALS AND REVIEWS FAXED TO [facility] [employer]OR[facility] PH# [phone] OPT#5 FAX# [phone] REF#[id number]
--- NOTE | 2020-06-11 16:06 | Brief Operative Note ---
Immediate Post Operative Note Operative Note Procedure: PICC replacement Post-op Diagnosis: same as pre-op Surgeon: Mallika Quintero Specimen: none Complications: none Fluids: none Implant(s) used?: No Tashi Quintero MD Jun 11, 2020 16:06
--- NOTE | 2020-06-11 16:06 | NUR ---
NURSE NOTES: Placement for the new STEVE PICC line confirmed with Xray by Dr Govea. Head CT result came back. Dr Govea spoke with Dr Carballo on the phone regarding the result as per Dr Govea.
--- NOTE | 2020-06-11 16:07 | Diagnostic Imaging Report ---
Indications: Altered level of consciousness Technique: Spiral acquisitions obtained through the brain. Angled axial and coronal 5 x 5 mm slices were reconstructed. Total dose length product 965 mGycm. CTDI vol(s) 53 mGy. Dose reduction achieved using automated exposure control Comparison: None. Findings: Large area of low-attenuation is seen involving the left parietal, posterior frontal, and superior temporal lobes. There is diffuse hyperattenuation of the cortical surface. There is slight effacement of the peripheral sulci in this region. A smaller area of cortical and white matter low density is seen in the anterior right parietal lobe. No definite associated high attenuation demonstrated. In the cerebellum, there is loss of normal hall-white differentiation and effacement of the extra-axial CSF spaces. There is subtle apparent loss of hall-white differentiation in the bilateral cerebral hemispheres and questionably in the basal ganglia. There is generalized cardiomegaly, somewhat less striking enlargement of the extra-axial CSF spaces. Patent cavum septum lucidum. There is bilateral sphenoid and ethmoid sinus disease incidentally noted. The left mastoids are essentially completely opacified and the left middle ear cavity is probably opacified. Impression: Large area of low-attenuation in the left parietal middle cerebral artery distribution with a slight degree of local mass effect, consistent with a subacute or late subacute infarct. Cortical hyperattenuation may reflect either cortical petechial hemorrhage or cortical laminar necrosis. Small area of low-attenuation in the right parietal lobe, consistent with a middle cerebral artery branch distribution infarct, likewise also appearing subacute or late subacute. Subtle loss of hall-white differentiation within the cerebellum, cerebrum, and more questionably the basal ganglia, could indicate diffuse cerebral and cerebellar edema in patient with history of recent CODE BLUE Central and cortical volume loss Sinus disease Findings discussed by phone with Dr. Carballo at the time of interpretation The CT scanner at [facility] is accredited by the [employer] and the scans are performed using protocols designed to limit radiation exposure to as low as reasonably achievable to attain images of sufficient resolution adequate for diagnostic evaluation.
--- NOTE | 2020-06-11 16:12 | Diagnostic Imaging Report ---
Indications: Needs long-term IV access Technique: Procedure performed at bedside. Procedural timeout performed. Total sterile technique, including sterile probe cover and sterile gel, sterile gloves, hand hygiene, hat, mask,, sterile gown, large sterile drape, and preparation with 2% chlorhexidine utilized. A guidewire was inserted through the previous single lumen right arm PICC. The PICC was removed, and the length was noted. A peel-away sheath was inserted. 4 Nepali Bard dual-lumen power PICC cut to 37 cm. It was inserted through the peel-away sheath. Peel-away sheath and guidewire removed. Catheter fixed to the skin. Both catheter ports aspirated and flushed. Patient tolerated procedure well, without immediate complication. Followup chest x-ray obtained, documents catheter tip position at the cavoatrial junction Other findings: Chest radiograph demonstrates extensive bilateral infiltrates versus edema. The heart is borderline enlarged. 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 Impression: Successful bedside replacement over a guidewire of right arm PICC under sonographic guidance, as described above.
--- NOTE | 2020-06-11 17:00 | NUR ---
NURSE NOTES: Small amount of red bloody thin secretion noted from mouth and trach. Will continue to monitor.
--- NOTE | 2020-06-11 18:52 | NUR ---
NURSE NOTES: Notified Dr Payne that Dr Govea spoke with Dr Carballo regarding head CT result -No acute large blood was noted on CT as per Dr Carballo. Order to transfer patient to [facility] received, noted, and carried out.
--- NOTE | 2020-06-11 19:25 | NUR ---
NURSE HAND-OFF REPORT: Latest Vital Signs: Temperature 97.9 , Pulse 82 , B/P 130 /43 , Respiratory Rate 28 , O2 SAT 99 , Mechanical Ventilator, O2 Flow Rate 5.0 . Vital Sign Comment: Stable EKG Rhythm: Atrial Fibrillation Rhythm change?: Miky SCALES Notified?: Response: Latest Box Fall Score: 50 Fall Risk: High Risk Safety Measures: Call light Within Reach, Bed Alarm Zone 1, Side Rails Side Rails x3, Bed position Low and Locked. Fall Precautions: Yellow Socks Yellow Gown Door Sign Patient Fall Education Report given to . Addendum: 06/11/20 at 1929 by MARICHUY EASON RN RN NURSE HAND-OFF REPORT: Latest Vital Signs: Temperature 97.9 , Pulse 82 , B/P 130 /43 , Respiratory Rate 28 , O2 SAT 99 , Mechanical Ventilator, O2 Flow Rate 5.0 . Vital Sign Comment: Stable EKG Rhythm: Atrial Fibrillation Rhythm change?: N Notified?: Response: Latest Box Fall Score: 50 Fall Risk: High Risk Safety Measures: Call light Within Reach, Bed Alarm Zone 1, Side Rails Side Rails x3, Bed position Low and Locked. Fall Precautions: Yellow Socks Yellow Gown Door Sign Patient Fall Education Report given to GEORGE Knowles.
--- NOTE | 2020-06-11 19:30 | NUR ---
NURSE NOTES: Received report from GEORGE Ortega. Pt is resting on the bed and comatose. Pupil is fixed no responsive to light at this time. On threat monitoring analyst with A-fib and HR is controlled. Trach to Vent dependent setting with AC: 28, T: 550, P:5, Sao2 40% and SaO2 99-100% noted. Given suction and oral care. BP is stable. No sign of pain by FLACC scale. on running with G-tube feeding with vital AF @ 60cc/hr and no residual noted. Keep HOB position. Dressing is clean and dry on wound area. Still noted swelling in all extremities. Elevated both legs with pillow. On P-200 mattress for wound management. Pt has Salvador cath and rectal tube. Patent and drainage well. Pt changed new PICC line on Rt. upper arm and dressing is clean and dry and patent. Pt will transfer to [facility] and awaiting the room. Placed fall precaution. Will continue to care plan.
[2020-06-11] MEDS: Dyna-Hex 2% Top Sol 2oz TOPIC SCH (19:58)
--- NOTE | 2020-06-11 21:35 | NUR ---
TRANSFER TO FLOOR: Patient transferred to [facility] room 242-2. Pt is resting on the bed and unresponsive. Applied monitor tech. continue to same Vent setting and SaO2 99% noted. Suction and oral care was done. No belongings noted. Proper contact isolation. On running with GT feeding and tolerated well. Placed fall precaution. Will continue to care plan.
--- NOTE | 2020-06-11 21:43 | General Progress Note ---
Assessment/Plan Assessment/Plan: Assessment - s/p cardiac arrest yesterday - s/p recent PEG / Trach on 05/11 - Anemia but w/u BM or melena - Resp failure, s/p Trach - dysphagia, s/p PEG - recent large stroke Recommendations - CT abd / pelvis --> noted, negative - await stool OB --> noted negative - monitor CBC --> stable - cardiology f/u and plans Subjective Allergies: Coded Allergies: PROPOXYPHENE (Verified Allergy, Unknown, 06/05/20) Subjective Seen in ICU non verbal d/w RN Objective Last 24 Hour Vital Signs Date Time Temp Pulse Resp B/P (MAP) Pulse Ox O2 Delivery O2 Flow Rate FiO2 06/11/20 21:22 88 28 40 06/11/20 21:00 86 28 127/57 (80) 99 06/11/20 20:30 89 128/59 06/11/20 20:00 40 06/11/20 20:00 Mechanical Ventilator Mechanical Ventilator 06/11/20 20:00 98.3 90 28 128/59 (82) 100 06/11/20 20:00 93 06/11/20 19:02 90 28 40 06/11/20 19:00 82 28 130/43 (72) 99 06/11/20 18:00 93 28 128/48 (74) 99 06/11/20 17:44 141/43 06/11/20 17:15 69 28 40 06/11/20 17:00 97.9 106 28 143/78 (99) 99 06/11/20 17:00 Mechanical Ventilator Mechanical Ventilator 06/11/20 16:00 Mechanical Ventilator Mechanical Ventilator 06/11/20 16:00 40 06/11/20 16:00 99 28 130/58 (82) 99 06/11/20 15:47 105 06/11/20 15:10 106 28 40 06/11/20 15:00 105 26 125/52 (76) 96 06/11/20 14:00 104 28 111/50 (70) 96 06/11/20 13:15 114 28 40 06/11/20 13:00 120 28 148/58 (88) 96 06/11/20 12:00 40 06/11/20 12:00 98.2 70 28 114/47 (69) 99 06/11/20 12:00 Mechanical Ventilator Mechanical Ventilator 06/11/20 11:53 72 06/11/20 11:45 Mechanical Ventilator Mechanical Ventilator 06/11/20 11:21 116/52 06/11/20 11:20 71 28 40 06/11/20 11:00 71 28 114/43 (66) 99 06/11/20 10:55 71 28 116/52 (73) 99 06/11/20 10:00 71 28 116/44 (68) 98 06/11/20 09:34 74 28 110/43 (65) 98 06/11/20 09:20 71 28 40 06/11/20 09:00 74 28 95/48 (64) 98 06/11/20 08:57 72 106/40 06/11/20 08:00 98.4 75 28 111/39 (63) 97 06/11/20 08:00 40 06/11/20 08:00 Mechanical Ventilator Mechanical Ventilator 06/11/20 07:30 Mechanical Ventilator Mechanical Ventilator 06/11/20 07:15 75 06/11/20 07:15 74 28 40 06/11/20 07:00 75 27 113/40 (64) 97 06/11/20 06:04 122/40 06/11/20 06:00 78 28 122/40 (67) 99 06/11/20 05:00 75 28 117/38 (64) 100 06/11/20 04:00 98.7 76 28 121/44 (69) 100 06/11/20 04:00 73 06/11/20 04:00 40 06/11/20 04:00 Mechanical Ventilator Mechanical Ventilator 06/11/20 03:02 72 28 40 06/11/20 03:00 73 28 119/39 (65) 100 06/11/20 02:00 72 28 125/38 (67) 100 06/11/20 01:00 70 27 119/43 (68) 100 06/11/20 00:00 73 06/11/20 00:00 98.5 76 28 106/37 (60) 100 06/11/20 00:00 Mechanical Ventilator Mechanical Ventilator 06/11/20 00:00 40 06/10/20 23:00 71 28 112/51 (71) 100 06/10/20 22:57 73 28 40 06/10/20 22:00 74 28 118/44 (68) 100 Intake and Output 06/10/20 06/11/20 19:00 07:00 Intake Total 1102.5 ml 1561.25 ml Output Total 450 ml 405 ml Balance 652.5 ml 1156.25 ml IV Total 832.5 ml 1061.25 ml Tube Feeding 270 ml 500 ml Output Urine Total 400 ml 355 ml Stool Total 50 ml 50 ml Laboratory Tests 06/11/20 05:00: White Blood Count 5.9, Red Blood Count 3.85L, Hemoglobin 10.3L, Hematocrit 33.4L , Mean Corpuscular Volume 87, Mean Corpuscular Hemoglobin 26.8L, Mean Corpuscular Hemoglobin Concent 30.9L, Red Cell Distribution Width 17.9H, Platelet Count 112L, Mean Platelet Volume 6.7, Neutrophils (%) (Auto) , Lymphocytes (%) (Auto) , Monocytes (%) (Auto) , Eosinophils (%) (Auto) , Basophils (%) (Auto) , Differential Total Cells Counted 100, Neutrophils % ( Manual) 85H, Lymphocytes % (Manual) 9L, Monocytes % (Manual) 5, Eosinophils % ( Manual) 1, Basophils % (Manual) 0, Band Neutrophils 0, Platelet Estimate DecreasedL, Platelet Morphology Normal, Hypochromasia 1+, Anisocytosis 1+, Sodium Level 139, Potassium Level 3.6, Chloride Level 104, Carbon Dioxide Level 20L, Anion Gap 15, Blood Urea Nitrogen 50H, Creatinine 2.3H, Estimat Glomerular Filtration Rate 25.2, Glucose Level 178H, Calcium Level 7.3L, Total Bilirubin 1.5H, Direct Bilirubin 0.7H, Aspartate Amino Transf (AST/SGOT) 44H, Alanine Aminotransferase (ALT/SGPT) 21, Alkaline Phosphatase 164H, Total Protein 6.7, Albumin 1.0L, Globulin 5.7, Albumin/Globulin Ratio 0.2L, Random Vancomycin Level 15.7 Height (Feet): 5 Height (Inches): 6.00 Weight (Pounds): 212 Objective Debilitated AA woman NCAT neck (+) trach coarse BS RR abd soft, (+) GT (+) contractures Andi Daniel MD Jun 11, 2020 21:43
[2020-06-11] MEDS ORDERED: Nitroglycerin Subl 0.4mg tab SL PRN (21:50)
[2020-06-11] MEDS ORDERED: HYDROcodone/Acetamin 5/325 tab GT PRN (21:50)
[2020-06-11] MEDS ORDERED: Acetaminophen 650mg/20.3ml GT PRN (21:50)
[2020-06-12] VITALS: BP 136/76
--- NOTE | 2020-06-12 | NUR ---
NURSE NOTES: Pt is sleeping on the bed and no sign of acute distress noted. SaO2 99-100% with current Vent setting. Suction and oral care was done. No fever. On cardiac catheterization technologist with A-fib. Turn and reposition. Placed fall precaution. Will continue to monitor any change of condition.
[2020-06-12] MEDS: NovoLOG Insulin Flexpen SUBQ SCH ×5 (00:01→23:30)
--- NOTE | 2020-06-12 00:30 | Cardiology Progress Note ---
Subjective DATE OF SERVICE: Jun 11, 2020 BP parameters stable off pressors. Monitor: Sinus with paroxysms of AFib - rate controlled On vent support via trach Troponin peaked above 10, decreased to 3.6 yesterday Objective Last 24 Hour Vital Signs Date Time Temp Pulse Resp B/P (MAP) Pulse Ox O2 Delivery O2 Flow Rate FiO2 06/12/20 00:00 Mechanical Ventilator Mechanical Ventilator 06/12/20 00:00 98.0 77 28 136/76 (96) 99 06/11/20 23:02 78 28 40 06/11/20 21:22 88 28 40 06/11/20 21:00 86 28 127/57 (80) 99 06/11/20 20:30 89 128/59 06/11/20 20:00 40 06/11/20 20:00 Mechanical Ventilator Mechanical Ventilator 06/11/20 20:00 98.3 90 28 128/59 (82) 100 06/11/20 20:00 93 06/11/20 19:02 90 28 40 06/11/20 19:00 82 28 130/43 (72) 99 06/11/20 18:00 93 28 128/48 (74) 99 06/11/20 17:44 141/43 06/11/20 17:15 69 28 40 06/11/20 17:00 97.9 106 28 143/78 (99) 99 06/11/20 17:00 Mechanical Ventilator Mechanical Ventilator 06/11/20 16:00 Mechanical Ventilator Mechanical Ventilator 06/11/20 16:00 40 06/11/20 16:00 99 28 130/58 (82) 99 06/11/20 15:47 105 06/11/20 15:10 106 28 40 06/11/20 15:00 105 26 125/52 (76) 96 06/11/20 14:00 104 28 111/50 (70) 96 06/11/20 13:15 114 28 40 06/11/20 13:00 120 28 148/58 (88) 96 06/11/20 12:00 40 06/11/20 12:00 98.2 70 28 114/47 (69) 99 06/11/20 12:00 Mechanical Ventilator Mechanical Ventilator 06/11/20 11:53 72 06/11/20 11:45 Mechanical Ventilator Mechanical Ventilator 06/11/20 11:21 116/52 06/11/20 11:20 71 28 40 06/11/20 11:00 71 28 114/43 (66) 99 06/11/20 10:55 71 28 116/52 (73) 99 06/11/20 10:00 71 28 116/44 (68) 98 06/11/20 09:34 74 28 110/43 (65) 98 06/11/20 09:20 71 28 40 06/11/20 09:00 74 28 95/48 (64) 98 06/11/20 08:57 72 106/40 06/11/20 08:00 98.4 75 28 111/39 (63) 97 06/11/20 08:00 40 06/11/20 08:00 Mechanical Ventilator Mechanical Ventilator 06/11/20 07:30 Mechanical Ventilator Mechanical Ventilator 06/11/20 07:15 75 06/11/20 07:15 74 28 40 06/11/20 07:00 75 27 113/40 (64) 97 06/11/20 06:04 122/40 06/11/20 06:00 78 28 122/40 (67) 99 06/11/20 05:00 75 28 117/38 (64) 100 06/11/20 04:00 98.7 76 28 121/44 (69) 100 06/11/20 04:00 73 06/11/20 04:00 40 06/11/20 04:00 Mechanical Ventilator Mechanical Ventilator 06/11/20 03:02 72 28 40 06/11/20 03:00 73 28 119/39 (65) 100 06/11/20 02:00 72 28 125/38 (67) 100 06/11/20 01:00 70 27 119/43 (68) 100 ROS: unchanged from my assessment of 06/07/20. HEENT: Mechanically Ventilated, Thin secretions ET Tube RHYTHM: Afib LUNGS: bilateral rhonchi CARDIAC: irregularly irregular ABDOMEN: normal bowel sounds, non tender, soft, no organomegaly EXTREMITIES: no calf tenderness, moderate edema, +2 edema Laboratory Tests Test 06/11/20 05:00 06/11/20 23:43 White Blood Count 5.9 K/UL (4.8-10.8) Red Blood Count 3.85 M/UL (4.20-5.40) L Hemoglobin 10.3 G/DL (12.0-16.0) L Hematocrit 33.4 % (37.0-47.0) L Mean Corpuscular Volume 87 FL (80-99) Mean Corpuscular Hemoglobin 26.8 PG (27.0-31.0) L Mean Corpuscular Hemoglobin Concent 30.9 G/DL (32.0-36.0) L Red Cell Distribution Width 17.9 % (11.6-14.8) H Platelet Count 112 K/UL (150-450) L Mean Platelet Volume 6.7 FL (6.5-10.1) Neutrophils (%) (Auto) % (45.0-75.0) Lymphocytes (%) (Auto) % (20.0-45.0) Monocytes (%) (Auto) % (1.0-10.0) Eosinophils (%) (Auto) % (0.0-3.0) Basophils (%) (Auto) % (0.0-2.0) Differential Total Cells Counted 100 Neutrophils % (Manual) 85 % (45-75) H Lymphocytes % (Manual) 9 % (20-45) L Monocytes % (Manual) 5 % (1-10) Eosinophils % (Manual) 1 % (0-3) Basophils % (Manual) 0 % (0-2) Band Neutrophils 0 % (0-8) Platelet Estimate Decreased L Platelet Morphology Normal Hypochromasia 1+ Anisocytosis 1+ Sodium Level 139 MMOL/L (136-145) Potassium Level 3.6 MMOL/L (3.5-5.1) Chloride Level 104 MMOL/L (98-107) Carbon Dioxide Level 20 MMOL/L (21-32) L Anion Gap 15 mmol/L (5-15) Blood Urea Nitrogen 50 mg/dL (7-18) H Creatinine 2.3 MG/DL (0.55-1.30) H Estimat Glomerular Filtration Rate 25.2 mL/min (>60) Glucose Level 178 MG/DL (74-106) H Calcium Level 7.3 MG/DL (8.5-10.1) L Total Bilirubin 1.5 MG/DL (0.2-1.0) H Direct Bilirubin 0.7 MG/DL (0.0-0.3) H Aspartate Amino Transf (AST/SGOT) 44 U/L (15-37) H Alanine Aminotransferase (ALT/SGPT) 21 U/L (12-78) Alkaline Phosphatase 164 U/L (46-116) H Total Protein 6.7 G/DL (6.4-8.2) Albumin 1.0 G/DL (3.4-5.0) L Globulin 5.7 g/dL Albumin/Globulin Ratio 0.2 (1.0-2.7) L Random Vancomycin Level 15.7 ug/mL POC Whole Blood Glucose 211 MG/DL (74-106) H Assessment/Plan Assessment/Plan Acute myocardial infarction s/p full arrest Respiratory failure with trach PAFib with RVR Pacemaker Shock due to sepsis s/p recent CVA CRITICAL & GUARDED Avoid resumption of pressors. Beta blockers to be up-titrated once BP more stable Antimicrobials Vent support Continue statin antiplatelet therapy Will consider full anti-coagulation if AFib persists. Replete electrolytes as needed. Cisco Vera MD Jun 12, 2020 00:30
[2020-06-12 04:00] VITALS: BP 140/59
[2020-06-12 05:53] LABS: HEMATOCRIT 31.1 % (37.0-47.0); HEMOGLOBIN 9.7 G/DL (12.0-16.0); MEAN CORPUSCULAR VOLUME 85 FL (80-99); PLATELET COUNT 99 K/UL (150-450); RED BLOOD COUNT 3.65 M/UL (4.20-5.40); WHITE BLOOD COUNT 5.8 K/UL (4.8-10.8)
[2020-06-12] MEDS: Nitroglycerin 2% oint pkt TOPIC SCH ×3 (06:05→18:11)
[2020-06-12 06:26] LABS: ALANINE AMINOTRANSFERASE 23 U/L (12-78); ALBUMIN 0.9 G/DL (3.4-5.0); ALBUMIN/GLOBULIN RATIO 0.2 (1.0-2.7); ALKALINE PHOSPHATASE 147 U/L (46-116); ANION GAP 13 mmol/L (5-15); ASPARTATE AMINO TRANSFERASE 36 U/L (15-37); BLOOD UREA NITROGEN 48 mg/dL (7-18); CALCIUM 7.3 MG/DL (8.5-10.1); CARBON DIOXIDE 21 MMOL/L (21-32); CHLORIDE 106 MMOL/L (98-107); CREATININE 2.4 MG/DL (0.55-1.30); POTASSIUM 3.2 MMOL/L (3.5-5.1); SODIUM 140 MMOL/L (136-145)
--- NOTE | 2020-06-12 07:25 | NUR ---
NURSE HAND-OFF REPORT: Patient Status: comatose Diet: Vital AF @ 60cc/hr x20hr Latest Vital Signs: Temperature 97.8 , Pulse 75 , B/P 141 /68 , Respiratory Rate 28 , O2 SAT 100 , Mechanical Ventilator, O2 Flow Rate 5.0 . EKG Rhythm: Atrial Fibrillation Rhythm change?: N Latest Box Fall Score: 50 Fall Risk: High Risk Safety Measures: Call light Within Reach, Bed Alarm Zone 1, Side Rails Side Rails x3, Bed position Low and Locked. Fall Precautions: Yellow Socks Yellow Gown Door Sign Patient Fall Education Report given to GEORGE Schwarz. Pt is resting on the bed and no sing of acute distress noted. Pt has DNR order. Noted K: 3.2. Endorsed incoming nurse to f/u.
--- NOTE | 2020-06-12 07:30 | NUR ---
NURSE NOTES: Report received from Benson Alves RN.Pt nonresponsive to verbal command,noted no resp distress with trach tube to vent,ordered vent settings tolerated,no signs of pain or discomfort,Afib on the monitor,GTF Vital AF1.2 atr 60 ml/hr x20 hrs, off at this time due to high residual 90 ml,pt with cerrato cath draining yellow urine with sediments,Rectal tube in placed draining liquid brown stools,skin warm but edmatous with water seeping from the skin,IV site to STEVE PICC line intact,and RH intact,SR up x2 HOB elevated,bed lock in lowest position will continue with plans of care.
[2020-06-12 08:00] VITALS: BP 151/57
--- NOTE | 2020-06-12 08:32 | General Progress Note ---
Assessment/Plan Assessment/Plan: IMPRESSION respiratory failure CHF anemia possible GIB chronic encephalopathy CKD massive CVA s/p CPA acidemia, improved hypoxemia diarrhea anasarca pleural effusion acute VT PAF hypotension bacteremia respiratory infection PLAN vent support monitor albumin levels nutrition follow up labs snf meds d/w family - message left ID follow up impression, plan, and exam edited and reviewed in detail care discussed with RN Subjective Allergies: Coded Allergies: PROPOXYPHENE (Verified Allergy, Unknown, 06/05/20) Subjective care noted s/p CPA on vent +cultures Objective Last 24 Hour Vital Signs Date Time Temp Pulse Resp B/P (MAP) Pulse Ox O2 Delivery O2 Flow Rate FiO2 06/12/20 07:05 79 28 40 06/12/20 06:05 141/68 06/12/20 05:08 75 28 40 06/12/20 04:00 97.8 80 28 140/59 (86) 100 06/12/20 04:00 40 06/12/20 04:00 Mechanical Ventilator Mechanical Ventilator 06/12/20 04:00 81 06/12/20 02:44 78 28 40 06/12/20 01:29 71 28 40 06/12/20 00:00 40 06/12/20 00:00 82 06/12/20 00:00 Mechanical Ventilator Mechanical Ventilator 06/12/20 00:00 98.0 77 28 136/76 (96) 99 06/11/20 23:02 78 28 40 06/11/20 21:22 88 28 40 06/11/20 21:00 86 28 127/57 (80) 99 06/11/20 20:30 89 128/59 06/11/20 20:00 40 06/11/20 20:00 Mechanical Ventilator Mechanical Ventilator 06/11/20 20:00 98.3 90 28 128/59 (82) 100 06/11/20 20:00 93 06/11/20 19:02 90 28 40 06/11/20 19:00 82 28 130/43 (72) 99 06/11/20 18:00 93 28 128/48 (74) 99 06/11/20 17:44 141/43 06/11/20 17:15 69 28 40 06/11/20 17:00 97.9 106 28 143/78 (99) 99 06/11/20 17:00 Mechanical Ventilator Mechanical Ventilator 06/11/20 16:00 Mechanical Ventilator Mechanical Ventilator 06/11/20 16:00 40 06/11/20 16:00 99 28 130/58 (82) 99 06/11/20 15:47 105 06/11/20 15:10 106 28 40 06/11/20 15:00 105 26 125/52 (76) 96 06/11/20 14:00 104 28 111/50 (70) 96 06/11/20 13:15 114 28 40 06/11/20 13:00 120 28 148/58 (88) 96 06/11/20 12:00 40 06/11/20 12:00 98.2 70 28 114/47 (69) 99 06/11/20 12:00 Mechanical Ventilator Mechanical Ventilator 06/11/20 11:53 72 06/11/20 11:45 Mechanical Ventilator Mechanical Ventilator 06/11/20 11:21 116/52 06/11/20 11:20 71 28 40 06/11/20 11:00 71 28 114/43 (66) 99 06/11/20 10:55 71 28 116/52 (73) 99 06/11/20 10:00 71 28 116/44 (68) 98 06/11/20 09:34 74 28 110/43 (65) 98 06/11/20 09:20 71 28 40 06/11/20 09:00 74 28 95/48 (64) 98 06/11/20 08:57 72 106/40 Intake and Output 06/11/20 06/12/20 19:00 07:00 Intake Total 1955.000 ml 1600 ml Output Total 1070 ml 810 ml Balance 885.000 ml 790 ml Free Water 90 ml IV Total 1255.000 ml 880 ml Tube Feeding 610 ml 720 ml Output Urine Total 890 ml 760 ml Stool Total 180 ml 50 ml Laboratory Tests 06/11/20 23:43: POC Whole Blood Glucose 211H 06/12/20 04:35: White Blood Count 5.8, Red Blood Count 3.65L, Hemoglobin 9.7L, Hematocrit 31.1L , Mean Corpuscular Volume 85, Mean Corpuscular Hemoglobin 26.5L, Mean Corpuscular Hemoglobin Concent 31.1L, Red Cell Distribution Width 18.0H, Platelet Count 99L, Mean Platelet Volume 6.9, Neutrophils (%) (Auto) , Lymphocytes (%) (Auto) , Monocytes (%) (Auto) , Eosinophils (%) (Auto) , Basophils (%) (Auto) , Sodium Level 140, Potassium Level 3.2L, Chloride Level 106, Carbon Dioxide Level 21, Anion Gap 13, Blood Urea Nitrogen 48H, Creatinine 2.4H, Estimat Glomerular Filtration Rate 24.0, Glucose Level 193H, Calcium Level 7.3L, Magnesium Level 1.9, Total Bilirubin 1.0, Aspartate Amino Transf ( AST/SGOT) 36, Alanine Aminotransferase (ALT/SGPT) 23, Alkaline Phosphatase 147H , Troponin I 1.016H, Pro-B-Type Natriuretic Peptide > [id number], Total Protein 6.3L , Albumin 0.9L, Globulin 5.4, Albumin/Globulin Ratio 0.2L 06/12/20 06:02: POC Whole Blood Glucose [Pending] Height (Feet): 5 Height (Inches): 6.00 Weight (Pounds): 208 Objective WDWN NAD reduced breath sounds bilaterally without rhonchi or wheeze S1S2 iRRR without MRG NABS nontender GT no CCE reduced LOC GT on vent comatose Jonathon Payne MD Jun 12, 2020 08:32
[2020-06-12] MEDS ORDERED: D5 1/2NS 1000ml IV ONE (09:00)
[2020-06-12] MEDS ORDERED: NS 275ml ONE (09:00)
[2020-06-12] MEDS ORDERED: Tubing IV Secondary IV ONE (09:00)
[2020-06-12] MEDS: Ascorbic Acid 500mg tab GT SCH ×2 (09:21→20:17)
[2020-06-12] MEDS: Zinc Sulfate 220mg GT SCH (09:22)
[2020-06-12] MEDS: Meropenem 1 GM in NS 55 ML IVPB SCH ×2 (09:22→20:16)
[2020-06-12] MEDS: Aspirin Baby 81mg GT SCH (09:22)
[2020-06-12] MEDS: Pantoprazole Inj IVP SCH (09:23)
--- NOTE | 2020-06-12 10:21 | Infectious Diseases Prog Note ---
"Assessment/Plan Assessment/Plan antibiotics : meropenem 06.11.20 - A 1. proteus | coag neg staph sepsis 2. pseudomonas | gram negative pneumonia 3. respiratory failure 4. IN 5. renal failure P 1. continue meropenem 8 more days 2. will follow up cultures 3. d/c picc line Subjective ROS Limited/Unobtainable: Yes Allergies: Coded Allergies: PROPOXYPHENE (Verified Allergy, Unknown, 06/05/20) Objective Last 24 Hour Vital Signs Date Time Temp Pulse Resp B/P (MAP) Pulse Ox O2 Delivery O2 Flow Rate FiO2 06/12/20 09:22 77 151/57 06/12/20 08:31 77 06/12/20 08:00 40 06/12/20 08:00 97.5 77 28 151/57 (88) 99 06/12/20 07:05 79 28 40 06/12/20 06:05 141/68 06/12/20 05:08 75 28 40 06/12/20 04:00 97.8 80 28 140/59 (86) 100 06/12/20 04:00 40 06/12/20 04:00 Mechanical Ventilator Mechanical Ventilator 06/12/20 04:00 81 06/12/20 02:44 78 28 40 06/12/20 01:29 71 28 40 06/12/20 00:00 40 06/12/20 00:00 82 06/12/20 00:00 Mechanical Ventilator Mechanical Ventilator 06/12/20 00:00 98.0 77 28 136/76 (96) 99 06/11/20 23:02 78 28 40 06/11/20 21:22 88 28 40 06/11/20 21:00 86 28 127/57 (80) 99 06/11/20 20:30 89 128/59 06/11/20 20:00 40 06/11/20 20:00 Mechanical Ventilator Mechanical Ventilator 06/11/20 20:00 98.3 90 28 128/59 (82) 100 06/11/20 20:00 93 06/11/20 19:02 90 28 40 06/11/20 19:00 82 28 130/43 (72) 99 06/11/20 18:00 93 28 128/48 (74) 99 06/11/20 17:44 141/43 06/11/20 17:15 69 28 40 06/11/20 17:00 97.9 106 28 143/78 (99) 99 06/11/20 17:00 Mechanical Ventilator Mechanical Ventilator 06/11/20 16:00 Mechanical Ventilator Mechanical Ventilator 06/11/20 16:00 40 06/11/20 16:00 99 28 130/58 (82) 99 06/11/20 15:47 105 06/11/20 15:10 106 28 40 06/11/20 15:00 105 26 125/52 (76) 96 06/11/20 14:00 104 28 111/50 (70) 96 06/11/20 13:15 114 28 40 06/11/20 13:00 120 28 148/58 (88) 96 06/11/20 12:00 40 06/11/20 12:00 98.2 70 28 114/47 (69) 99 06/11/20 12:00 Mechanical Ventilator Mechanical Ventilator 06/11/20 11:53 72 06/11/20 11:45 Mechanical Ventilator Mechanical Ventilator 06/11/20 11:21 116/52 06/11/20 11:20 71 28 40 06/11/20 11:00 71 28 114/43 (66) 99 06/11/20 10:55 71 28 116/52 (73) 99 Height (Feet): 5 Height (Inches): 6.00 Weight (Pounds): 208 HEENT: status post trach Respiratory/Chest: lungs clear Cardiovascular: normal rate, regular rhythm, no gallop/murmur Abdomen: soft, non tender, other - GT Extremities: other - + edema, right arm PICC Laboratory Tests Test 06/11/20 23:43 06/12/20 04:35 06/12/20 06:02 POC Whole Blood Glucose 211 MG/DL (74-106) H Pending White Blood Count 5.8 K/UL (4.8-10.8) Red Blood Count 3.65 M/UL (4.20-5.40) L Hemoglobin 9.7 G/DL (12.0-16.0) L Hematocrit 31.1 % (37.0-47.0) L Mean Corpuscular Volume 85 FL (80-99) Mean Corpuscular Hemoglobin 26.5 PG (27.0-31.0) L Mean Corpuscular Hemoglobin Concent 31.1 G/DL (32.0-36.0) L Red Cell Distribution Width 18.0 % (11.6-14.8) H Platelet Count 99 K/UL (150-450) L Mean Platelet Volume 6.9 FL (6.5-10.1) Neutrophils (%) (Auto) % (45.0-75.0) Lymphocytes (%) (Auto) % (20.0-45.0) Monocytes (%) (Auto) % (1.0-10.0) Eosinophils (%) (Auto) % (0.0-3.0) Basophils (%) (Auto) % (0.0-2.0) Sodium Level 140 MMOL/L (136-145) Potassium Level 3.2 MMOL/L (3.5-5.1) L Chloride Level 106 MMOL/L (98-107) Carbon Dioxide Level 21 MMOL/L (21-32) Anion Gap 13 mmol/L (5-15) Blood Urea Nitrogen 48 mg/dL (7-18) H Creatinine 2.4 MG/DL (0.55-1.30) H Estimat Glomerular Filtration Rate 24.0 mL/min (>60) Glucose Level 193 MG/DL (74-106) H Calcium Level 7.3 MG/DL (8.5-10.1) L Magnesium Level 1.9 MG/DL (1.8-2.4) Total Bilirubin 1.0 MG/DL (0.2-1.0) Aspartate Amino Transf (AST/SGOT) 36 U/L (15-37) Alanine Aminotransferase (ALT/SGPT) 23 U/L (12-78) Alkaline Phosphatase 147 U/L (46-116) H Troponin I 1.016 ng/mL (0.000-0.056) Pro-B-Type Natriuretic Peptide > 28548 pg/mL (0-125) H Total Protein 6.3 G/DL (6.4-8.2) L Albumin 0.9 G/DL (3.4-5.0) L Globulin 5.4 g/dL Albumin/Globulin Ratio 0.2 (1.0-2.7) L Current Medications Medications (Trade) Dose Ordered Sig/Mara Route PRN Reason Start Time Stop Time Status Last Admin Dose Admin Acetaminophen (Tylenol) 650 mg Q4H PRN GT Temp >100.5 06/11/20 21:50 07/11/20 21:49 Acetaminophen/ Hydrocodone Bitart ([place] 5/325) 1 tab Q4H PRN GT PAIN 4-10 06/11/20 21:50 06/18/20 21:49 Al Hydroxide/Mg Hydroxide (Mylanta) 30 ml Q4H PRN GT Abdominal cramps 06/11/20 21:50 07/11/20 21:49 Ascorbic Acid (Vitamin C) 500 mg EVERY 12 HOURS GT 06/12/20 09:00 07/06/20 08:59 06/12/20 09:21 Aspirin (ASA) 81 mg DAILY GT 06/12/20 09:00 07/24/20 08:59 06/12/20 09:22 Atorvastatin Calcium (Lipitor) 10 mg BEDTIME GT 06/12/20 21:00 09/04/20 20:59 Chlorhexidine Gluconate (Mylene-Hex 2%) 1 applic DAILY@2000 TOPIC 06/12/20 20:00 09/05/20 21:59 Clonidine HCl (Catapres Tab) 0.1 mg Q4H PRN GT SBP>160mmHg 06/11/20 21:50 09/09/20 21:49 Dextrose (Dextrose 50%) 25 ml Q30M PRN IV Hypoglycemia 06/11/20 22:00 09/03/20 21:29 Dextrose (Dextrose 50%) 50 ml Q30M PRN IV Hypoglycemia 06/11/20 22:00 09/03/20 21:29 Dextrose/Sodium Chloride 1,000 ml @ 75 mls/hr [id number] IV 06/11/20 21:50 07/10/20 21:49 06/11/20 22:00 Insulin Aspart (NovoLOG) Q6HR SUBQ 06/12/20 00:00 09/04/20 00:00 06/12/20 06:05 Meropenem 1 gm/ Sodium Chloride 55 ml @ 110 mls/hr Q12HR IVPB 06/12/20 09:00 06/16/20 13:29 06/12/20 09:22 Metoprolol Tartrate (Lopressor) 25 mg EVERY 12 HOURS GT 06/12/20 09:00 09/04/20 08:59 06/12/20 09:22 Nitroglycerin (Nitro-Bid) 1 inch TID@0600,1200,1800 TOPIC 8/25/20 06:00 07/11/20 05:59 06/12/20 06:05 Nitroglycerin (Ntg) 0.4 mg Q5M PRN SL CHEST PAIN 06/11/20 21:50 07/05/20 21:29 Pantoprazole (Protonix) 40 mg DAILY IVP 06/12/20 09:00 07/06/20 08:59 06/12/20 09:23 Vancomycin HCl ([facility] pharmacy to dose) 1 ea DAILY PRN MISC Per rx protocol 06/12/20 09:00 07/07/20 17:59 Zinc Sulfate (Zinc Sulfate) 220 mg DAILY GT 06/12/20 09:00 09/04/20 08:59 06/12/20 09:22 Abiodun Alston MD Jun 12, 2020 10:21"
--- NOTE | 2020-06-12 11:00 | NUR ---
NURSE NOTES: Dr Alston at bedside,with orders to remove PICC line,updated re pt's status.
[2020-06-12 12:00] VITALS: BP 143/62
--- NOTE | 2020-06-12 12:00 | Nephrology Progress Note ---
Assessment/Plan Plan Sepsis - IV Abx, IVF. s/p Arrest. Rapid Afib, Shock, on pressors. KAREN - labs noted. Poor prognosis. Subjective Subjective Confused Objective Objective Last 24 Hour Vital Signs Date Time Temp Pulse Resp B/P (MAP) Pulse Ox O2 Delivery O2 Flow Rate FiO2 06/12/20 09:22 77 151/57 06/12/20 08:31 77 06/12/20 08:00 40 06/12/20 08:00 97.5 77 28 151/57 (88) 99 06/12/20 07:05 79 28 40 06/12/20 06:05 141/68 06/12/20 05:08 75 28 40 06/12/20 04:00 97.8 80 28 140/59 (86) 100 06/12/20 04:00 40 06/12/20 04:00 Mechanical Ventilator Mechanical Ventilator 06/12/20 04:00 81 06/12/20 02:44 78 28 40 06/12/20 01:29 71 28 40 06/12/20 00:00 40 06/12/20 00:00 82 06/12/20 00:00 Mechanical Ventilator Mechanical Ventilator 06/12/20 00:00 98.0 77 28 136/76 (96) 99 06/11/20 23:02 78 28 40 06/11/20 21:22 88 28 40 06/11/20 21:00 86 28 127/57 (80) 99 06/11/20 20:30 89 128/59 06/11/20 20:00 40 06/11/20 20:00 Mechanical Ventilator Mechanical Ventilator 06/11/20 20:00 98.3 90 28 128/59 (82) 100 06/11/20 20:00 93 06/11/20 19:02 90 28 40 06/11/20 19:00 82 28 130/43 (72) 99 06/11/20 18:00 93 28 128/48 (74) 99 06/11/20 17:44 141/43 06/11/20 17:15 69 28 40 06/11/20 17:00 97.9 106 28 143/78 (99) 99 06/11/20 17:00 Mechanical Ventilator Mechanical Ventilator 06/11/20 16:00 Mechanical Ventilator Mechanical Ventilator 06/11/20 16:00 40 06/11/20 16:00 99 28 130/58 (82) 99 06/11/20 15:47 105 06/11/20 15:10 106 28 40 06/11/20 15:00 105 26 125/52 (76) 96 06/11/20 14:00 104 28 111/50 (70) 96 06/11/20 13:15 114 28 40 06/11/20 13:00 120 28 148/58 (88) 96 06/11/20 12:00 40 06/11/20 12:00 98.2 70 28 114/47 (69) 99 06/11/20 12:00 Mechanical Ventilator Mechanical Ventilator Intake and Output 06/11/20 06/12/20 19:00 07:00 Intake Total 1955.000 ml 1600 ml Output Total 1070 ml 810 ml Balance 885.000 ml 790 ml Free Water 90 ml IV Total 1255.000 ml 880 ml Tube Feeding 610 ml 720 ml Output Urine Total 890 ml 760 ml Stool Total 180 ml 50 ml Laboratory Tests 06/11/20 23:43: POC Whole Blood Glucose 211H 06/12/20 04:35: White Blood Count 5.8, Red Blood Count 3.65L, Hemoglobin 9.7L, Hematocrit 31.1L , Mean Corpuscular Volume 85, Mean Corpuscular Hemoglobin 26.5L, Mean Corpuscular Hemoglobin Concent 31.1L, Red Cell Distribution Width 18.0H, Platelet Count 99L, Mean Platelet Volume 6.9, Neutrophils (%) (Auto) , Lymphocytes (%) (Auto) , Monocytes (%) (Auto) , Eosinophils (%) (Auto) , Basophils (%) (Auto) , Sodium Level 140, Potassium Level 3.2L, Chloride Level 106, Carbon Dioxide Level 21, Anion Gap 13, Blood Urea Nitrogen 48H, Creatinine 2.4H, Estimat Glomerular Filtration Rate 24.0, Glucose Level 193H, Calcium Level 7.3L, Magnesium Level 1.9, Total Bilirubin 1.0, Aspartate Amino Transf ( AST/SGOT) 36, Alanine Aminotransferase (ALT/SGPT) 23, Alkaline Phosphatase 147H , Troponin I 1.016H, Pro-B-Type Natriuretic Peptide > 32188X, Total Protein 6.3L , Albumin 0.9L, Globulin 5.4, Albumin/Globulin Ratio 0.2L 06/12/20 06:02: POC Whole Blood Glucose [Pending] Height (Feet): 5 Height (Inches): 6.00 Weight (Pounds): 208 Objective CV IRR/IRR +tach Lungs B flavia Duke SNT. BS + E No CCE Josh Pederson MD Jun 12, 2020 12:00
[2020-06-12] MEDS: D5 1/2NS 1,000 ML IV SCH ×2 (12:54→20:17)
--- NOTE | 2020-06-12 13:35 | NUR ---
NURSE NOTES: No change in pt's status,remains stuporous,nonresponsive to any stimulus,turned and repositioned.
--- NOTE | 2020-06-12 13:58 | Surgery Progress Note ---
Surgery Progress Note Subjective Symptoms: worse, tolerating diet Objective Last 24 Hour Vital Signs Date Time Temp Pulse Resp B/P (MAP) Pulse Ox O2 Delivery O2 Flow Rate FiO2 06/12/20 12:53 143/62 06/12/20 12:00 40 06/12/20 12:00 97.7 71 28 143/62 (89) 99 06/12/20 12:00 Mechanical Ventilator 15.0 Mechanical Ventilator 15.0 06/12/20 11:00 75 28 40 06/12/20 09:22 77 151/57 06/12/20 08:31 77 06/12/20 08:00 40 06/12/20 08:00 97.5 77 28 151/57 (88) 99 06/12/20 08:00 Mechanical Ventilator 15.0 Mechanical Ventilator 15.0 06/12/20 07:05 79 28 40 06/12/20 06:05 141/68 06/12/20 05:08 75 28 40 06/12/20 04:00 97.8 80 28 140/59 (86) 100 06/12/20 04:00 40 06/12/20 04:00 Mechanical Ventilator Mechanical Ventilator 06/12/20 04:00 81 06/12/20 02:44 78 28 40 06/12/20 01:29 71 28 40 06/12/20 00:00 40 06/12/20 00:00 82 06/12/20 00:00 Mechanical Ventilator Mechanical Ventilator 06/12/20 00:00 98.0 77 28 136/76 (96) 99 06/11/20 23:02 78 28 40 06/11/20 21:22 88 28 40 06/11/20 21:00 86 28 127/57 (80) 99 06/11/20 20:30 89 128/59 06/11/20 20:00 40 06/11/20 20:00 Mechanical Ventilator Mechanical Ventilator 06/11/20 20:00 98.3 90 28 128/59 (82) 100 06/11/20 20:00 93 06/11/20 19:02 90 28 40 06/11/20 19:00 82 28 130/43 (72) 99 06/11/20 18:00 93 28 128/48 (74) 99 06/11/20 17:44 141/43 06/11/20 17:15 69 28 40 06/11/20 17:00 97.9 106 28 143/78 (99) 99 06/11/20 17:00 Mechanical Ventilator Mechanical Ventilator 06/11/20 16:00 Mechanical Ventilator Mechanical Ventilator 06/11/20 16:00 40 06/11/20 16:00 99 28 130/58 (82) 99 06/11/20 15:47 105 06/11/20 15:10 106 28 40 06/11/20 15:00 105 26 125/52 (76) 96 06/11/20 14:00 104 28 111/50 (70) 96 I&O Intake and Output 06/11/20 06/12/20 19:00 07:00 Intake Total 1955.000 ml 1600 ml Output Total 1070 ml 810 ml Balance 885.000 ml 790 ml Free Water 90 ml IV Total 1255.000 ml 880 ml Tube Feeding 610 ml 720 ml Output Urine Total 890 ml 760 ml Stool Total 180 ml 50 ml Dressing: saturated Cardiovascular: RSR Respiratory: decreased breath sounds Abdomen: soft, non-tender, present bowel sounds Extremities: no tenderness, no cyanosis Laboratory Tests Test 06/11/20 23:43 06/12/20 04:35 06/12/20 06:02 06/12/20 12:52 POC Whole Blood Glucose 211 MG/DL (74-106) H Pending Pending White Blood Count 5.8 K/UL (4.8-10.8) Red Blood Count 3.65 M/UL (4.20-5.40) L Hemoglobin 9.7 G/DL (12.0-16.0) L Hematocrit 31.1 % (37.0-47.0) L Mean Corpuscular Volume 85 FL (80-99) Mean Corpuscular Hemoglobin 26.5 PG (27.0-31.0) L Mean Corpuscular Hemoglobin Concent 31.1 G/DL (32.0-36.0) L Red Cell Distribution Width 18.0 % (11.6-14.8) H Platelet Count 99 K/UL (150-450) L Mean Platelet Volume 6.9 FL (6.5-10.1) Neutrophils (%) (Auto) % (45.0-75.0) Lymphocytes (%) (Auto) % (20.0-45.0) Monocytes (%) (Auto) % (1.0-10.0) Eosinophils (%) (Auto) % (0.0-3.0) Basophils (%) (Auto) % (0.0-2.0) Sodium Level 140 MMOL/L (136-145) Potassium Level 3.2 MMOL/L (3.5-5.1) L Chloride Level 106 MMOL/L (98-107) Carbon Dioxide Level 21 MMOL/L (21-32) Anion Gap 13 mmol/L (5-15) Blood Urea Nitrogen 48 mg/dL (7-18) H Creatinine 2.4 MG/DL (0.55-1.30) H Estimat Glomerular Filtration Rate 24.0 mL/min (>60) Glucose Level 193 MG/DL (74-106) H Calcium Level 7.3 MG/DL (8.5-10.1) L Magnesium Level 1.9 MG/DL (1.8-2.4) Total Bilirubin 1.0 MG/DL (0.2-1.0) Aspartate Amino Transf (AST/SGOT) 36 U/L (15-37) Alanine Aminotransferase (ALT/SGPT) 23 U/L (12-78) Alkaline Phosphatase 147 U/L (46-116) H Troponin I 1.016 ng/mL (0.000-0.056) Pro-B-Type Natriuretic Peptide > 91430 pg/mL (0-125) H Total Protein 6.3 G/DL (6.4-8.2) L Albumin 0.9 G/DL (3.4-5.0) L Globulin 5.4 g/dL Albumin/Globulin Ratio 0.2 (1.0-2.7) L Plan Problems: (1) Acute renal failure (2) Hyponatremia (3) CHF (congestive heart failure) (4) Abnormal laboratory test result (5) Anemia (6) Decubitus ulcer of sacral region, unstageable Assessment & Plan: 74-year-old female multiple comorbidities BMI 30 albumin of 1 severe anemia presented with identifiable unstageable sacral decubitus ulcer on examination. Wound evaluated care plan initiated. Air mattress, nutritional optimization, turn every 2 hours, will follow with recommendations thank you (7) Malnutrition Assessment & Plan: DAILY ESTIMATED NEEDS: Needs based on Critical care, wound, 66kg abw 23-28 kcals/kg 0416-9195 total kcals 1.25-2 g protein/kg 83-132 g total protein 25-30 mL/kg 4905-0220 total fluid mLs NUTRITION DIAGNOSIS: Increased kcal and pro needs r/t wound healing as evidenced by sacral wound, unstageable, eval is pending, pt is bedbound/trach and peg dep. (CURRENT TF: Glucerna 1.2 @60ml/hr x20 hrs) ENTERAL NUTRITION RECOMMENDATIONS: Glucerna 1.2 @70ml/hr x20 hrs to provide 1400ml, 1680 kcal, 84g pro, 1127ml free H2o - Rec to increase TF goal to better meet est kcal and pro needs - Flush per MD. HOB over 30 degrees. ADDITIONAL RECOMMENDATIONS: 1) Maintain calibrated bed scale wts 2) Wound care: continue Vit C and Zinc. -> Add ARMANDO in 4oz H2O BID via Gtube 3) Monitor BG, need for increased insulin coverage 4) Monitor lytes closely on lasix (8) Asystole (9) PEA (Pulseless electrical activity) Assessment & Plan: Patient went down for CT scan identified and reviewed unfortunately upon returning had cardiovascular compromise requiring ACLS pulses electrical activity was able to be resuscitated currently intensive care unit. Work-up underway. prognosis guarded dnr There are bilateral large pleural effusions. Compressive atelectasis versus consolidation noted in both lung bases. There is also generalized groundglass edema in both lungs There is intense contrast opacification of the pulmonary arteries with some early contrast into the thoracic aorta. There is severe reflux of intravenous contrast into the hepatic veins opacifying the sinusoids of the posterior right lobe. The refluxed contrast also extends down the IVC opacifying the renal veins, down to the iliac veins as well. In speaking with the electroneurodiagnostic technologist, normal injection protocol was utilized with 100 cc of contrast delivered at 2.5 cc/s and a 75 second delay via the indwelling PICC catheter. Except for the reflux contrast into the hepatic veins and right lobe sinusoids, the liver is essentially unenhanced as well as the rest of the abdominal visceral organs. Gallbladder is contracted or absent The pancreas is unremarkable. There is fusiform thickening of the left adrenal gland perhaps hyperplasia. Reflux of contrast noted into the renal veins bilaterally with no hydronephrosis noted. There is a G-tube in the stomach. Small bowel loops are nondistended. Scattered stool lucencies noted throughout the colon which is nondistended. The appendix is not visualized. Multiple calcified uterine fibroids noted. There is a small amount of free fluid in the pelvis. Also small amount of free fluid noted anterior to the hepatic edge. No free air identified. No pathologic adenopathy demonstrated. Urinary bladder is empty. There is extensive subcutaneous edema noted throughout the abdominal and pelvic rueda suggestive of severe anasarca. There also appears to be a fluid collection identified along the anterior abdominal wall at the mid abdomen with possible slight rim enhancement measuring approximately 7.2 x 2.2 x 4.1 cm. Etiology is undetermined. Per history, the gastrostomy tube is fairly recent. The collection is near by. Question possible postoperative hematoma or abscess. IMPRESSION: BILATERAL PLEURAL EFFUSIONS WITH DEPENDENT COMPRESSIVE ATELECTASIS OR CONSOLIDATIONS. ALSO GENERALIZED PULMONARY EDEMA. EXTENSIVE SEVERE ANASARCA. G-TUBE IN STOMACH. NO SIGN OF BOWEL OBSTRUCTION. CALCIFIED UTERINE FIBROIDS. SMALL FLUID COLLECTION NOTED ALONG THE ANTERIOR ABDOMINAL WALL AT THE MID ABDOMEN IN CLOSE PROXIMITY TO THE GASTROSTOMY SITE. WITH HISTORY OF RECENT G-TUBE PLACEMENT , THIS MAY REPRESENT A POSTOPERATIVE HEMATOMA OR ABSCESS. VERY UNUSUAL PATTERN OF SEVERE VENOUS REFLUX. CONTRAST WAS INJECTED VIA A RIGHT ARM PICC LINE, DELIVERED AT CONVENTIONAL PARAMETERS. HOWEVER THERE IS SEVERE REFLUX OF CONTRAST DOWN INTO THE ABDOMEN, OPACIFYING THE IVC, HEPATIC VEINS, RENAL VEINS AND PELVIC VEINS. ETIOLOGY IS UNCLEAR. QUESTION WHETHER THIS MAY BE RELATED TO SEVERE CARDIAC CONGESTION AND DYSFUNCTION. Iraj Prado Jun 12, 2020 13:58
[2020-06-12 16:00] VITALS: BP 140/54
--- NOTE | 2020-06-12 16:15 | NUR ---
NURSE NOTES: Pt's family member at bedside,updated re pt's status and plans of care.
--- NOTE | 2020-06-12 17:04 | NUR ---
CASE MANAGEMENT: REVIEW SI: ANEMIA . CHF . ACUTE RENAL FAILURE T 97.7 HR 71 RR 28 BP 143/62 SAT 99% MECH VENT FIO2 40 H/H 9.7/31.1 K 3.2 BUN 48 CR 2.4 TROP I 1.016 IS: MEROPENEM IV Q12HR LOPRESSOR GT Q12HR NITRO BID 1 INCH TOPICAL TID STEP DOWN UNIT STATUS DCP: PATIENT IS FROM [facility]
--- NOTE | 2020-06-12 17:09 | NUR ---
INSURANCE CLINICALS AND REVIEWS FAXED TO [facility] IRANIAN MORIAH FLORES PH# [phone] OPT#[id number] FAX# [phone] REF#[id number]
--- NOTE | 2020-06-12 19:15 | NUR ---
NURSE HAND-OFF REPORT: Important Events on Shift:Unable to remove PICC line,pt with no stable IV line,skin very edematous. will endorse to assistant shift supervisor Patient Status: guarded Diet: GT Vital AF1.2 at 60 ml/hr Pending Orders: Removal of PICC LIne Pending Results/Labs:N/A Pending MD notification:N/A Latest Vital Signs: Temperature 97.7 , Pulse 71 , B/P 140 /54 , Respiratory Rate 28 , O2 SAT 99 , Mechanical Ventilator, O2 Flow Rate 15.0 . Vital Sign Comment: stable EKG Rhythm: Atrial Fibrillation Rhythm change?: N MD Notified?: N -Dr. Jody hill MD Response: MD will put orders Latest Box Fall Score: 50 Fall Risk: High Risk Safety Measures: Call light Within Reach, Bed Alarm Zone 1, Side Rails Side Rails x3, Bed position Low and Locked. Fall Precautions: Yellow Socks Yellow Gown Door Sign Patient Fall Education Report given to Wily Nichole RN.
--- NOTE | 2020-06-12 19:31 | NUR ---
RESPIRATORY NOTES: Received pt on vent settings 28/ 550/ 40%/ +5. Pt is trach dependent with shiley 8 cuffed. pt b/s rhonchi with brown-cisse secretions with red specs on occasions. pt show no sign of respiratory distress at this time. vent plugged into red outlet, ambu bag at bedside, trach at bedside, will continue to monitor.
--- NOTE | 2020-06-12 19:38 | NUR ---
NURSE NOTES: Received report from Mery Schwarz, Rn, pt. in bed awake with eyes open- non-verbal, no signs or symptoms of acute cardiac or respiratory distress noted, bed alarm on, side rails up x's 3 and safety brakes engaged, call light within easy reach, pt. appears to be tolerating current vent settings well - AC 28, TV 500, Fio2 at 40% and peep 5- no distress noted, pt. has G tube running Vital AF 1.2 at 60cc/hr- no residual noted, Folley intact and draining to gravity, Rectal tube intact and draining to gravity, pt. appears to be clean and dry and resting comfortably, Rt. hand 22G IV Intact and patent- TKO, STEVE PICC running D5 1/2 NS running at 75cc/hr, RT. AC 20G IV intact and patent, safety measures continued, will continue with plan of care.
[2020-06-12 20:00] VITALS: BP 140/54
[2020-06-12] MEDS: Dyna-Hex 2% Top Sol 2oz TOPIC SCH (20:16)
--- NOTE | 2020-06-12 21:16 | General Progress Note ---
Assessment/Plan Assessment/Plan: Assessment - s/p cardiac arrest - s/p recent PEG / Trach on 05/11 - Anemia but w/u BM or melena - Resp failure, s/p Trach - dysphagia, s/p PEG - recent large stroke Recommendations - CT abd / pelvis --> noted, negative - await stool OB --> noted negative - monitor CBC --> stable - cardiology f/u and plans - Elevate HOB - Vent Subjective Allergies: Coded Allergies: PROPOXYPHENE (Verified Allergy, Unknown, 06/05/20) Subjective Out of ICU non verbal Tolerating TF Objective Last 24 Hour Vital Signs Date Time Temp Pulse Resp B/P (MAP) Pulse Ox O2 Delivery O2 Flow Rate FiO2 06/12/20 20:53 70 28 40 06/12/20 20:17 76 140/54 06/12/20 20:00 97.0 76 28 140/54 (82) 100 06/12/20 20:00 Mechanical Ventilator 15.0 Mechanical Ventilator 15.0 06/12/20 20:00 40 06/12/20 19:39 72 06/12/20 18:40 71 28 40 06/12/20 18:11 140/54 06/12/20 16:52 71 06/12/20 16:00 97.7 75 28 140/54 (82) 99 06/12/20 16:00 Mechanical Ventilator 15.0 Mechanical Ventilator 15.0 06/12/20 16:00 40 06/12/20 15:14 79 28 40 06/12/20 12:53 143/62 06/12/20 12:00 73 06/12/20 12:00 40 06/12/20 12:00 97.7 71 28 143/62 (89) 99 06/12/20 12:00 Mechanical Ventilator 15.0 Mechanical Ventilator 15.0 06/12/20 11:00 75 28 40 06/12/20 09:22 77 151/57 06/12/20 08:31 77 06/12/20 08:00 40 06/12/20 08:00 97.5 77 28 151/57 (88) 99 06/12/20 08:00 Mechanical Ventilator 15.0 Mechanical Ventilator 15.0 06/12/20 07:05 79 28 40 06/12/20 06:05 141/68 06/12/20 05:08 75 28 40 06/12/20 04:00 97.8 80 28 140/59 (86) 100 06/12/20 04:00 40 06/12/20 04:00 Mechanical Ventilator Mechanical Ventilator 06/12/20 04:00 81 06/12/20 02:44 78 28 40 06/12/20 01:29 71 28 40 06/12/20 00:00 40 06/12/20 00:00 82 06/12/20 00:00 Mechanical Ventilator Mechanical Ventilator 06/12/20 00:00 98.0 77 28 136/76 (96) 99 06/11/20 23:02 78 28 40 06/11/20 21:22 88 28 40 Intake and Output 06/11/20 06/12/20 19:00 07:00 Intake Total 1955.000 ml 1600 ml Output Total 1070 ml 810 ml Balance 885.000 ml 790 ml Free Water 90 ml IV Total 1255.000 ml 880 ml Tube Feeding 610 ml 720 ml Output Urine Total 890 ml 760 ml Stool Total 180 ml 50 ml Laboratory Tests 06/11/20 23:43: POC Whole Blood Glucose 211H 06/12/20 04:35: White Blood Count 5.8, Red Blood Count 3.65L, Hemoglobin 9.7L, Hematocrit 31.1L , Mean Corpuscular Volume 85, Mean Corpuscular Hemoglobin 26.5L, Mean Corpuscular Hemoglobin Concent 31.1L, Red Cell Distribution Width 18.0H, Platelet Count 99L, Mean Platelet Volume 6.9, Neutrophils (%) (Auto) , Lymphocytes (%) (Auto) , Monocytes (%) (Auto) , Eosinophils (%) (Auto) , Basophils (%) (Auto) , Sodium Level 140, Potassium Level 3.2L, Chloride Level 106, Carbon Dioxide Level 21, Anion Gap 13, Blood Urea Nitrogen 48H, Creatinine 2.4H, Estimat Glomerular Filtration Rate 24.0, Glucose Level 193H, Calcium Level 7.3L, Magnesium Level 1.9, Total Bilirubin 1.0, Aspartate Amino Transf ( AST/SGOT) 36, Alanine Aminotransferase (ALT/SGPT) 23, Alkaline Phosphatase 147H , Troponin I 1.016H, Pro-B-Type Natriuretic Peptide > 11036W, Total Protein 6.3L , Albumin 0.9L, Globulin 5.4, Albumin/Globulin Ratio 0.2L 06/12/20 06:02: POC Whole Blood Glucose [Pending] 06/12/20 12:52: POC Whole Blood Glucose [Pending] 06/12/20 17:22: POC Whole Blood Glucose [Pending] Height (Feet): 5 Height (Inches): 6.00 Weight (Pounds): 208 Objective Debilitated AA woman NCAT neck (+) trach coarse BS RR abd soft, (+) GT (+) contractures Andi Daniel MD Jun 12, 2020 21:16
[2020-06-13] VITALS (7 sets, daily range): BP systolic 103–153; BP diastolic 42–69
--- NOTE | 2020-06-13 03:16 | Cardiology Progress Note ---
Subjective DATE OF SERVICE: Jun 12, 2020 BP parameters stable off pressors. Monitor: Sinus with paroxysms of AFib - rate controlled On vent support via trach Troponin peaked above 10, now normalizing. Objective Last 24 Hour Vital Signs Date Time Temp Pulse Resp B/P (MAP) Pulse Ox O2 Delivery O2 Flow Rate FiO2 06/13/20 03:01 64 28 40 06/13/20 01:28 64 28 40 06/13/20 00:00 97.7 65 28 144/50 (81) 100 06/13/20 00:00 Mechanical Ventilator 15.0 Mechanical Ventilator 15.0 06/13/20 00:00 40 06/12/20 23:28 68 06/12/20 22:50 65 28 40 06/12/20 20:53 70 28 40 06/12/20 20:17 76 140/54 06/12/20 20:00 97.0 76 28 140/54 (82) 100 06/12/20 20:00 Mechanical Ventilator 15.0 Mechanical Ventilator 15.0 06/12/20 20:00 40 06/12/20 19:39 72 06/12/20 18:40 71 28 40 06/12/20 18:11 140/54 06/12/20 16:52 71 06/12/20 16:00 97.7 75 28 140/54 (82) 99 06/12/20 16:00 Mechanical Ventilator 15.0 Mechanical Ventilator 15.0 06/12/20 16:00 40 06/12/20 15:14 79 28 40 06/12/20 12:53 143/62 06/12/20 12:00 73 06/12/20 12:00 40 06/12/20 12:00 97.7 71 28 143/62 (89) 99 06/12/20 12:00 Mechanical Ventilator 15.0 Mechanical Ventilator 15.0 06/12/20 11:00 75 28 40 06/12/20 09:22 77 151/57 06/12/20 08:31 77 06/12/20 08:00 40 06/12/20 08:00 97.5 77 28 151/57 (88) 99 06/12/20 08:00 Mechanical Ventilator 15.0 Mechanical Ventilator 15.0 06/12/20 07:05 79 28 40 06/12/20 06:05 141/68 06/12/20 05:08 75 28 40 06/12/20 04:00 97.8 80 28 140/59 (86) 100 06/12/20 04:00 40 06/12/20 04:00 Mechanical Ventilator Mechanical Ventilator 06/12/20 04:00 81 ROS: unchanged from my assessment of 06/07/20. HEENT: Mechanically Ventilated, Thin secretions ET Tube RHYTHM: Afib LUNGS: bilateral rhonchi CARDIAC: irregularly irregular ABDOMEN: normal bowel sounds, non tender, soft, no organomegaly EXTREMITIES: no calf tenderness, moderate edema, +2 edema Laboratory Tests Test 06/12/20 04:35 06/12/20 06:02 06/12/20 12:52 06/12/20 17:22 White Blood Count 5.8 K/UL (4.8-10.8) Red Blood Count 3.65 M/UL (4.20-5.40) L Hemoglobin 9.7 G/DL (12.0-16.0) L Hematocrit 31.1 % (37.0-47.0) L Mean Corpuscular Volume 85 FL (80-99) Mean Corpuscular Hemoglobin 26.5 PG (27.0-31.0) L Mean Corpuscular Hemoglobin Concent 31.1 G/DL (32.0-36.0) L Red Cell Distribution Width 18.0 % (11.6-14.8) H Platelet Count 99 K/UL (150-450) L Mean Platelet Volume 6.9 FL (6.5-10.1) Neutrophils (%) (Auto) % (45.0-75.0) Lymphocytes (%) (Auto) % (20.0-45.0) Monocytes (%) (Auto) % (1.0-10.0) Eosinophils (%) (Auto) % (0.0-3.0) Basophils (%) (Auto) % (0.0-2.0) Sodium Level 140 MMOL/L (136-145) Potassium Level 3.2 MMOL/L (3.5-5.1) L Chloride Level 106 MMOL/L (98-107) Carbon Dioxide Level 21 MMOL/L (21-32) Anion Gap 13 mmol/L (5-15) Blood Urea Nitrogen 48 mg/dL (7-18) H Creatinine 2.4 MG/DL (0.55-1.30) H Estimat Glomerular Filtration Rate 24.0 mL/min (>60) Glucose Level 193 MG/DL (74-106) H Calcium Level 7.3 MG/DL (8.5-10.1) L Magnesium Level 1.9 MG/DL (1.8-2.4) Total Bilirubin 1.0 MG/DL (0.2-1.0) Aspartate Amino Transf (AST/SGOT) 36 U/L (15-37) Alanine Aminotransferase (ALT/SGPT) 23 U/L (12-78) Alkaline Phosphatase 147 U/L (46-116) H Troponin I 1.016 ng/mL (0.000-0.056) Pro-B-Type Natriuretic Peptide > 08899 pg/mL (0-125) H Total Protein 6.3 G/DL (6.4-8.2) L Albumin 0.9 G/DL (3.4-5.0) L Globulin 5.4 g/dL Albumin/Globulin Ratio 0.2 (1.0-2.7) L POC Whole Blood Glucose Pending Pending Pending Test 06/12/20 22:30 POC Whole Blood Glucose 241 MG/DL (74-106) H Assessment/Plan Assessment/Plan Acute myocardial infarction s/p full arrest Respiratory failure with trach PAFib with RVR Pacemaker Shock due to sepsis Acute/subacute CVA CRITICAL & GUARDED Avoid resumption of pressors. Beta blockers to be up-titrated once BP more stable Antimicrobials Vent support Continue statin antiplatelet therapy No anti-coagulation following massive CVA Replete electrolytes as needed. Cisco Vera MD Jun 13, 2020 03:16
[2020-06-13] MEDS: Nitroglycerin 2% oint pkt TOPIC SCH ×3 (05:10→18:04)
[2020-06-13] MEDS: NovoLOG Insulin Flexpen SUBQ SCH ×3 (05:13→18:13)
--- NOTE | 2020-06-13 07:01 | NUR ---
NURSE HAND-OFF REPORT: Important Events on Shift:none Patient Status: fair Diet: Vital AF 1.2 @60cc/hr Pending Orders: Pending Results/Labs: Pending MD notification: Latest Vital Signs: Temperature 97.2 , Pulse 63 , B/P 140 /69 , Respiratory Rate 28 , O2 SAT 100 , Mechanical Ventilator, O2 Flow Rate 15.0 . Vital Sign Comment: EKG Rhythm: Atrial Fibrillation Rhythm change?: N MD Notified?: N -Dr. Jody hill MD Response: MD will put orders Latest Box Fall Score: 50 Fall Risk: High Risk Safety Measures: Call light Within Reach, Bed Alarm Zone 1, Side Rails Side Rails x3, Bed position Low and Locked. Fall Precautions: Yellow Socks Yellow Gown Door Sign Patient Fall Education Report given to GEORGE Blake- aware to f/u on any abnormal am labs.
--- NOTE | 2020-06-13 07:10 | NUR ---
NURSE NOTES: RECEIVED BED SIDE REPORT FROM JES CLINICAL DOCUMENTATION NURSE OF TRIMMING MACHINE SET UP OPERATOR. RECEIVED PT WITH HOB ELEVATED 45 DEGREE ,TRACH TO VENT OBTUNDED ,RENDERED TRACH CARE AND ORAL HYGIENE,MOD AMT OF WHITE TICK SECRETIONS NOTED .PT WITH PICC-LINE ON RT UPPER ARM PATENT AND INTACT.PT WITH GT RECEIVING VITAL AF 1.2 @60CC/HRS,NO RESIDUAL NOTED AT THIS TIME.PT REPOSITIONED Q2 HRS TO PROVIDE COMFORT AND TO PREVENT FURTHER SKIN BREAK DOWN. FULL BODY ASSESSMENT DONE. NO ACUTE DISTRESS NOTED AT THIS TIME. WILL CONT TO MONITOR.
[2020-06-13] MEDS ORDERED: Vancomycin 1gm/D5W 275ml IVPB ONE ×2 (08:00)
[2020-06-13] MEDS: Aspirin Baby 81mg GT SCH (08:58)
[2020-06-13] MEDS: Ascorbic Acid 500mg tab GT SCH ×2 (08:58→20:52)
[2020-06-13] MEDS: Zinc Sulfate 220mg GT SCH (09:27)
[2020-06-13] MEDS: Pantoprazole Inj IVP SCH (09:27)
[2020-06-13] MEDS: Meropenem 1 GM in NS 55 ML IVPB SCH ×2 (09:27→20:52)
--- NOTE | 2020-06-13 09:31 | General Progress Note ---
Assessment/Plan Assessment/Plan: IMPRESSION respiratory failure CHF anemia possible GIB chronic encephalopathy CKD massive CVA s/p CPA acidemia, improved hypoxemia diarrhea anasarca pleural effusion acute CO PAF hypotension bacteremia respiratory infection PLAN vent support monitor albumin levels nutrition follow up labs snf meds d/w family - message left x2 ID follow up- complete cristo dc planning to snf impression, plan, and exam edited and reviewed in detail care discussed with RN Subjective ROS Limited/Unobtainable: Yes Allergies: Coded Allergies: PROPOXYPHENE (Verified Allergy, Unknown, 06/05/20) Subjective care noted s/p CPA on vent +cultures in afib Objective Last 24 Hour Vital Signs Date Time Temp Pulse Resp B/P (MAP) Pulse Ox O2 Delivery O2 Flow Rate FiO2 06/13/20 09:27 65 151/57 06/13/20 08:00 40 06/13/20 08:00 Mechanical Ventilator 15.0 Mechanical Ventilator 15.0 06/13/20 08:00 98.8 65 24 151/57 (88) 100 06/13/20 07:25 63 28 40 06/13/20 05:10 140/69 06/13/20 04:33 63 28 40 06/13/20 04:00 40 06/13/20 04:00 97.2 64 28 140/69 (92) 100 06/13/20 04:00 Mechanical Ventilator 15.0 Mechanical Ventilator 15.0 06/13/20 03:52 65 06/13/20 03:01 64 28 40 06/13/20 01:28 64 28 40 06/13/20 00:00 97.7 65 28 144/50 (81) 100 06/13/20 00:00 Mechanical Ventilator 15.0 Mechanical Ventilator 15.0 06/13/20 00:00 40 06/12/20 23:28 68 06/12/20 22:50 65 28 40 06/12/20 20:53 70 28 40 06/12/20 20:17 76 140/54 06/12/20 20:00 97.0 76 28 140/54 (82) 100 06/12/20 20:00 Mechanical Ventilator 15.0 Mechanical Ventilator 15.0 06/12/20 20:00 40 06/12/20 19:39 72 06/12/20 18:40 71 28 40 06/12/20 18:11 140/54 06/12/20 16:52 71 06/12/20 16:00 97.7 75 28 140/54 (82) 99 06/12/20 16:00 Mechanical Ventilator 15.0 Mechanical Ventilator 15.0 06/12/20 16:00 40 06/12/20 15:14 79 28 40 06/12/20 12:53 143/62 06/12/20 12:00 73 06/12/20 12:00 40 06/12/20 12:00 97.7 71 28 143/62 (89) 99 06/12/20 12:00 Mechanical Ventilator 15.0 Mechanical Ventilator 15.0 06/12/20 11:00 75 28 40 Intake and Output 06/12/20 06/13/20 19:00 07:00 Intake Total 1410 ml 1698 ml Output Total 750 ml 750 ml Balance 660 ml 948 ml Free Water 200 ml 45 ml IV Total 430 ml 933 ml Tube Feeding 540 ml 720 ml Other 240 ml Output Urine Total 700 ml 700 ml Stool Total 50 ml 50 ml # Bowel Movements 3 3 Laboratory Tests 06/12/20 12:52: POC Whole Blood Glucose [Pending] 06/12/20 17:22: POC Whole Blood Glucose [Pending] 06/12/20 22:30: POC Whole Blood Glucose 241H 06/13/20 04:00: Random Vancomycin Level 17.5 06/13/20 04:31: POC Whole Blood Glucose [Pending] Height (Feet): 5 Height (Inches): 6.00 Weight (Pounds): 227 Objective WDWN NAD reduced breath sounds bilaterally without rhonchi or wheeze S1S2 iRRR without MRG NABS nontender GT no CCE reduced LOC GT on vent comatose Jonathon Payne MD Jun 13, 2020 09:31
--- NOTE | 2020-06-13 11:01 | Infectious Diseases Prog Note ---
"Assessment/Plan Assessment/Plan antibiotics : meropenem 06.11.20 - vancomycin A 1. proteus | coag neg staph sepsis 2. pseudomonas | klebsiella pneumonia 3. respiratory failure 4. ND 5. renal failure 6. VRE stool colonization P 1. continue meropenem 7 more days 2. start linezolid, continue 3 more days 3. d/c iv vancomycin 4. start and inhaled gentamicin 7 more days 5. will follow up cultures Subjective ROS Limited/Unobtainable: Yes Allergies: Coded Allergies: PROPOXYPHENE (Verified Allergy, Unknown, 06/05/20) Objective Last 24 Hour Vital Signs Date Time Temp Pulse Resp B/P (MAP) Pulse Ox O2 Delivery O2 Flow Rate FiO2 06/13/20 09:30 63 28 40 06/13/20 09:27 65 151/57 06/13/20 08:00 40 06/13/20 08:00 Mechanical Ventilator 15.0 Mechanical Ventilator 15.0 06/13/20 08:00 98.8 65 24 151/57 (88) 100 06/13/20 08:00 63 06/13/20 07:25 63 28 40 06/13/20 05:10 140/69 06/13/20 04:33 63 28 40 06/13/20 04:00 40 06/13/20 04:00 97.2 64 28 140/69 (92) 100 06/13/20 04:00 Mechanical Ventilator 15.0 Mechanical Ventilator 15.0 06/13/20 03:52 65 06/13/20 03:01 64 28 40 06/13/20 01:28 64 28 40 06/13/20 00:00 97.7 65 28 144/50 (81) 100 06/13/20 00:00 Mechanical Ventilator 15.0 Mechanical Ventilator 15.0 06/13/20 00:00 40 06/12/20 23:28 68 06/12/20 22:50 65 28 40 06/12/20 20:53 70 28 40 06/12/20 20:17 76 140/54 06/12/20 20:00 97.0 76 28 140/54 (82) 100 06/12/20 20:00 Mechanical Ventilator 15.0 Mechanical Ventilator 15.0 06/12/20 20:00 40 06/12/20 19:39 72 06/12/20 18:40 71 28 40 06/12/20 18:11 140/54 06/12/20 16:52 71 06/12/20 16:00 97.7 75 28 140/54 (82) 99 06/12/20 16:00 Mechanical Ventilator 15.0 Mechanical Ventilator 15.0 06/12/20 16:00 40 06/12/20 15:14 79 28 40 06/12/20 12:53 143/62 06/12/20 12:00 73 06/12/20 12:00 40 06/12/20 12:00 97.7 71 28 143/62 (89) 99 06/12/20 12:00 Mechanical Ventilator 15.0 Mechanical Ventilator 15.0 06/12/20 11:00 75 28 40 Height (Feet): 5 Height (Inches): 6.00 Weight (Pounds): 227 HEENT: status post trach Respiratory/Chest: lungs clear Cardiovascular: normal rate, no gallop/murmur Abdomen: soft, non tender, other - GT Extremities: other - + edema, right arm PICC Laboratory Tests Test 06/12/20 12:52 06/12/20 17:22 06/12/20 22:30 06/13/20 04:00 POC Whole Blood Glucose Pending Pending 241 MG/DL (74-106) H Random Vancomycin Level 17.5 ug/mL Test 06/13/20 04:31 POC Whole Blood Glucose Pending Current Medications Medications (Trade) Dose Ordered Sig/Mara Route PRN Reason Start Time Stop Time Status Last Admin Dose Admin Acetaminophen (Tylenol) 650 mg Q4H PRN GT Temp >100.5 06/11/20 21:50 07/11/20 21:49 Acetaminophen/ Hydrocodone Bitart ([place] 5/325) 1 tab Q4H PRN GT PAIN 4-10 06/11/20 21:50 06/18/20 21:49 Al Hydroxide/Mg Hydroxide (Mylanta) 30 ml Q4H PRN GT Abdominal cramps 06/11/20 21:50 07/11/20 21:49 Ascorbic Acid (Vitamin C) 500 mg EVERY 12 HOURS GT 06/12/20 09:00 07/06/20 08:59 06/13/20 08:58 Aspirin (ASA) 81 mg DAILY GT 06/12/20 09:00 07/24/20 08:59 06/13/20 08:58 Atorvastatin Calcium (Lipitor) 10 mg BEDTIME GT 06/12/20 21:00 09/04/20 20:59 06/12/20 20:17 Chlorhexidine Gluconate (Mylene-Hex 2%) 1 applic DAILY@2000 TOPIC 06/12/20 20:00 09/05/20 21:59 06/12/20 20:16 Clonidine HCl (Catapres Tab) 0.1 mg Q4H PRN GT SBP>160mmHg 06/11/20 21:50 09/09/20 21:49 Dextrose (Dextrose 50%) 25 ml Q30M PRN IV Hypoglycemia 06/11/20 22:00 09/03/20 21:29 Dextrose (Dextrose 50%) 50 ml Q30M PRN IV Hypoglycemia 06/11/20 22:00 09/03/20 21:29 Dextrose/Sodium Chloride 1,000 ml @ 75 mls/hr [id number] IV 06/11/20 21:50 07/10/20 21:49 06/12/20 20:17 Insulin Aspart (NovoLOG) Q6HR SUBQ 06/12/20 00:00 09/04/20 00:00 06/13/20 05:13 Meropenem 1 gm/ Sodium Chloride 55 ml @ 110 mls/hr Q12HR IVPB 06/12/20 09:00 06/16/20 13:29 06/13/20 09:27 Metoprolol Tartrate (Lopressor) 25 mg EVERY 12 HOURS GT 06/12/20 09:00 09/04/20 08:59 06/13/20 09:27 Nitroglycerin (Nitro-Bid) 1 inch TID@0600,1200,1800 TOPIC 06/12/20 06:00 07/11/20 05:59 06/13/20 05:10 Nitroglycerin (Ntg) 0.4 mg Q5M PRN SL CHEST PAIN 06/11/20 21:50 07/05/20 21:29 Pantoprazole (Protonix) 40 mg DAILY IVP 06/12/20 09:00 07/06/20 08:59 06/13/20 09:27 Vancomycin HCl (Vanco pharmacy to dose) 1 ea DAILY PRN MISC Per rx protocol 06/12/20 09:00 07/07/20 17:59 Zinc Sulfate (Zinc Sulfate) 220 mg DAILY GT 06/12/20 09:00 09/04/20 08:59 06/13/20 09:27 Abiodun Alston MD Jun 13, 2020 11:01"
[2020-06-13] MEDS: D5 1/2NS 1,000 ML IV SCH (11:55)
--- NOTE | 2020-06-13 12:48 | Surgery Progress Note ---
Surgery Progress Note Subjective Additional Comments no acute event labs reviewed no n/v/f/c Objective Last 24 Hour Vital Signs Date Time Temp Pulse Resp B/P (MAP) Pulse Ox O2 Delivery O2 Flow Rate FiO2 06/13/20 12:00 40 06/13/20 12:00 Mechanical Ventilator 15.0 Mechanical Ventilator 15.0 06/13/20 11:50 151/57 06/13/20 11:15 59 28 40 06/13/20 09:30 63 28 40 06/13/20 09:27 65 151/57 06/13/20 08:00 40 06/13/20 08:00 Mechanical Ventilator 15.0 Mechanical Ventilator 15.0 06/13/20 08:00 98.8 65 24 151/57 (88) 100 06/13/20 08:00 63 06/13/20 07:25 63 28 40 06/13/20 05:10 140/69 06/13/20 04:33 63 28 40 06/13/20 04:00 40 06/13/20 04:00 97.2 64 28 140/69 (92) 100 06/13/20 04:00 Mechanical Ventilator 15.0 Mechanical Ventilator 15.0 06/13/20 03:52 65 06/13/20 03:01 64 28 40 06/13/20 01:28 64 28 40 06/13/20 00:00 97.7 65 28 144/50 (81) 100 06/13/20 00:00 Mechanical Ventilator 15.0 Mechanical Ventilator 15.0 06/13/20 00:00 40 06/12/20 23:28 68 06/12/20 22:50 65 28 40 06/12/20 20:53 70 28 40 06/12/20 20:17 76 140/54 06/12/20 20:00 97.0 76 28 140/54 (82) 100 06/12/20 20:00 Mechanical Ventilator 15.0 Mechanical Ventilator 15.0 06/12/20 20:00 40 06/12/20 19:39 72 06/12/20 18:40 71 28 40 06/12/20 18:11 140/54 06/12/20 16:52 71 06/12/20 16:00 97.7 75 28 140/54 (82) 99 06/12/20 16:00 Mechanical Ventilator 15.0 Mechanical Ventilator 15.0 06/12/20 16:00 40 06/12/20 15:14 79 28 40 06/12/20 12:53 143/62 I&O Intake and Output 06/12/20 06/13/20 19:00 07:00 Intake Total 1410 ml 1698 ml Output Total 750 ml 750 ml Balance 660 ml 948 ml Free Water 200 ml 45 ml IV Total 430 ml 933 ml Tube Feeding 540 ml 720 ml Other 240 ml Output Urine Total 700 ml 700 ml Stool Total 50 ml 50 ml # Bowel Movements 3 3 Dressing: saturated Cardiovascular: RSR Respiratory: decreased breath sounds Abdomen: soft, non-tender, present bowel sounds Extremities: no tenderness, no cyanosis Laboratory Tests Test 06/12/20 12:52 06/12/20 17:22 06/12/20 22:30 06/13/20 04:00 POC Whole Blood Glucose Pending Pending 241 MG/DL (74-106) H Random Vancomycin Level 17.5 ug/mL Test 06/13/20 04:31 06/13/20 11:47 POC Whole Blood Glucose Pending Pending Plan Problems: (1) Acute renal failure (2) Hyponatremia (3) CHF (congestive heart failure) (4) Abnormal laboratory test result (5) Anemia (6) Decubitus ulcer of sacral region, unstageable Assessment & Plan: 74-year-old female multiple comorbidities BMI 30 albumin of 1 severe anemia presented with identifiable unstageable sacral decubitus ulcer on examination. Wound evaluated care plan initiated. Air mattress, nutritional optimization, turn every 2 hours, will follow with recommendations thank you (7) Malnutrition Assessment & Plan: DAILY ESTIMATED NEEDS: Needs based on Critical care, wound, 66kg abw 23-28 kcals/kg 2759-3321 total kcals 1.25-2 g protein/kg 83-132 g total protein 25-30 mL/kg 7089-6288 total fluid mLs NUTRITION DIAGNOSIS: Increased kcal and pro needs r/t wound healing as evidenced by sacral wound, unstageable, eval is pending, pt is bedbound/trach and peg dep. (CURRENT TF: Glucerna 1.2 @60ml/hr x20 hrs) ENTERAL NUTRITION RECOMMENDATIONS: Glucerna 1.2 @70ml/hr x20 hrs to provide 1400ml, 1680 kcal, 84g pro, 1127ml free H2o - Rec to increase TF goal to better meet est kcal and pro needs - Flush per MD. HOB over 30 degrees. ADDITIONAL RECOMMENDATIONS: 1) Maintain calibrated bed scale wts 2) Wound care: continue Vit C and Zinc. -> Add ARMANDO in 4oz H2O BID via Gtube 3) Monitor BG, need for increased insulin coverage 4) Monitor lytes closely on lasix (8) Asystole (9) PEA (Pulseless electrical activity) Assessment & Plan: Patient went down for CT scan identified and reviewed unfortunately upon returning had cardiovascular compromise requiring ACLS pulses electrical activity was able to be resuscitated currently intensive care unit. Work-up underway. prognosis guarded dnr There are bilateral large pleural effusions. Compressive atelectasis versus consolidation noted in both lung bases. There is also generalized groundglass edema in both lungs There is intense contrast opacification of the pulmonary arteries with some early contrast into the thoracic aorta. There is severe reflux of intravenous contrast into the hepatic veins opacifying the sinusoids of the posterior right lobe. The refluxed contrast also extends down the IVC opacifying the renal veins, down to the iliac veins as well. In speaking with the pathology laboratory technologist, normal injection protocol was utilized with 100 cc of contrast delivered at 2.5 cc/s and a 75 second delay via the indwelling PICC catheter. Except for the reflux contrast into the hepatic veins and right lobe sinusoids, the liver is essentially unenhanced as well as the rest of the abdominal visceral organs. Gallbladder is contracted or absent The pancreas is unremarkable. There is fusiform thickening of the left adrenal gland perhaps hyperplasia. Reflux of contrast noted into the renal veins bilaterally with no hydronephrosis noted. There is a G-tube in the stomach. Small bowel loops are nondistended. Scattered stool lucencies noted throughout the colon which is nondistended. The appendix is not visualized. Multiple calcified uterine fibroids noted. There is a small amount of free fluid in the pelvis. Also small amount of free fluid noted anterior to the hepatic edge. No free air identified. No pathologic adenopathy demonstrated. Urinary bladder is empty. There is extensive subcutaneous edema noted throughout the abdominal and pelvic rueda suggestive of severe anasarca. There also appears to be a fluid collection identified along the anterior abdominal wall at the mid abdomen with possible slight rim enhancement measuring approximately 7.2 x 2.2 x 4.1 cm. Etiology is undetermined. Per history, the gastrostomy tube is fairly recent. The collection is near by. Question possible postoperative hematoma or abscess. IMPRESSION: BILATERAL PLEURAL EFFUSIONS WITH DEPENDENT COMPRESSIVE ATELECTASIS OR CONSOLIDATIONS. ALSO GENERALIZED PULMONARY EDEMA. EXTENSIVE SEVERE ANASARCA. G-TUBE IN STOMACH. NO SIGN OF BOWEL OBSTRUCTION. CALCIFIED UTERINE FIBROIDS. SMALL FLUID COLLECTION NOTED ALONG THE ANTERIOR ABDOMINAL WALL AT THE MID ABDOMEN IN CLOSE PROXIMITY TO THE GASTROSTOMY SITE. WITH HISTORY OF RECENT G-TUBE PLACEMENT , THIS MAY REPRESENT A POSTOPERATIVE HEMATOMA OR ABSCESS. VERY UNUSUAL PATTERN OF SEVERE VENOUS REFLUX. CONTRAST WAS INJECTED VIA A RIGHT ARM PICC LINE, DELIVERED AT CONVENTIONAL PARAMETERS. HOWEVER THERE IS SEVERE REFLUX OF CONTRAST DOWN INTO THE ABDOMEN, OPACIFYING THE IVC, HEPATIC VEINS, RENAL VEINS AND PELVIC VEINS. ETIOLOGY IS UNCLEAR. QUESTION WHETHER THIS MAY BE RELATED TO SEVERE CARDIAC CONGESTION AND DYSFUNCTION. Iraj Prado Jun 13, 2020 12:48
--- NOTE | 2020-06-13 13:01 | Nephrology Progress Note ---
Assessment/Plan Plan Sepsis - IV Abx, IVF. s/p Arrest. Rapid Afib, Shock, on pressors. KAREN - labs noted. Poor prognosis. Subjective Subjective Confused Objective Objective Last 24 Hour Vital Signs Date Time Temp Pulse Resp B/P (MAP) Pulse Ox O2 Delivery O2 Flow Rate FiO2 06/13/20 12:00 58 06/13/20 12:00 40 06/13/20 12:00 Mechanical Ventilator 15.0 Mechanical Ventilator 15.0 06/13/20 12:00 97.2 64 26 151/57 (88) 100 06/13/20 11:50 151/57 06/13/20 11:15 59 28 40 06/13/20 09:30 63 28 40 06/13/20 09:27 65 151/57 06/13/20 08:00 40 06/13/20 08:00 Mechanical Ventilator 15.0 Mechanical Ventilator 15.0 06/13/20 08:00 98.8 65 24 151/57 (88) 100 06/13/20 08:00 63 06/13/20 07:25 63 28 40 06/13/20 05:10 140/69 06/13/20 04:33 63 28 40 06/13/20 04:00 40 06/13/20 04:00 97.2 64 28 140/69 (92) 100 06/13/20 04:00 Mechanical Ventilator 15.0 Mechanical Ventilator 15.0 06/13/20 03:52 65 06/13/20 03:01 64 28 40 06/13/20 01:28 64 28 40 06/13/20 00:00 97.7 65 28 144/50 (81) 100 06/13/20 00:00 Mechanical Ventilator 15.0 Mechanical Ventilator 15.0 06/13/20 00:00 40 06/12/20 23:28 68 06/12/20 22:50 65 28 40 06/12/20 20:53 70 28 40 06/12/20 20:17 76 140/54 06/12/20 20:00 97.0 76 28 140/54 (82) 100 06/12/20 20:00 Mechanical Ventilator 15.0 Mechanical Ventilator 15.0 06/12/20 20:00 40 06/12/20 19:39 72 06/12/20 18:40 71 28 40 06/12/20 18:11 140/54 06/12/20 16:52 71 06/12/20 16:00 97.7 75 28 140/54 (82) 99 06/12/20 16:00 Mechanical Ventilator 15.0 Mechanical Ventilator 15.0 06/12/20 16:00 40 06/12/20 15:14 79 28 40 Intake and Output 06/12/20 06/13/20 19:00 07:00 Intake Total 1410 ml 1698 ml Output Total 750 ml 750 ml Balance 660 ml 948 ml Free Water 200 ml 45 ml IV Total 430 ml 933 ml Tube Feeding 540 ml 720 ml Other 240 ml Output Urine Total 700 ml 700 ml Stool Total 50 ml 50 ml # Bowel Movements 3 3 Laboratory Tests 06/12/20 17:22: POC Whole Blood Glucose [Pending] 06/12/20 22:30: POC Whole Blood Glucose 241H 06/13/20 04:00: Random Vancomycin Level 17.5 06/13/20 04:31: POC Whole Blood Glucose [Pending] 06/13/20 11:47: POC Whole Blood Glucose [Pending] Height (Feet): 5 Height (Inches): 6.00 Weight (Pounds): 227 Objective CV IRR/IRR +tach Lungs B ronchi Abd SNT. BS + E No CCE Josh Pederson MD Jun 13, 2020 13:01
--- NOTE | 2020-06-13 13:11 | NUR ---
CASE MANAGEMENT: REVIEW SI: ANEMIA . CHF . ACUTE RENAL FAILURE T 97.2 HR 58 RR 28 BP 151/57 SAT 100% ROOM AIR WBC 4.0 H/H 7.7/23.5 NA 134 BUN 34 CR 11.7 BNP 35978 IS: MEROPENEM IV Q12HR LOPRESSOR GT Q12HR GENTAMICIN INH Q12HR ZYVOX OP Q12HR PROTONIX IV QD NITRO BID 1 INCH TOPICAL TID STEP DOWN UNIT STATUS DCP: PATIENT IS FROM [facility]
--- NOTE | 2020-06-13 13:31 | NUR ---
INSURANCE CLINICALS AND REVIEWS FAXED TO [facility] FLORES PH# [phone] OPT#5 FAX# [phone] REF#[id number]
--- NOTE | 2020-06-13 15:00 | NUR ---
NURSE NOTES:RECEIVED A TELEPHONE CALL FROM ESHA VAZQUEZSALES ACCOUNT REPRESENTATIVE STATING THAT PT IS GOING BACK TO [facility] TODAY PER DR FINCH ORDERS AND PT DAUGHTER IS AWARE AND NOTIFIED. RENDERED WOUND CARE AND PICTURES TAKING. [facility] WILL PICK THE PT AT 1730 PM. WILL CONT TO MONITOR.
--- NOTE | 2020-06-13 15:07 | NUR ---
*-*DISCHARGE PLANNED*-* PATIENT HAS BEEN ACCEPTED AND WILL BE DISCHARGED BACK TO: [facility] P: [phone] FOR NURSE TO NURSE REPORT ROOM# 218 [facility]ORTATION SET FOR 5:30PM S/W TEJ [id number] PLACED A CALL TO PATIENTS DAUGHTER JUAN CARLOS DOVE, NO ANSWER, LEFT VOICE MESSAGE IN REGARDS TO DISCHARGE PLAN.
[2020-06-13] MEDS ORDERED: Tubing IV Secondary IV ONE ×3 (15:34→23:29)
[2020-06-13] MEDS ORDERED: D5NS 1000ml IV ONE ×2 (15:34)
[2020-06-13] MEDS ORDERED: NS 275ml ONE ×3 (15:34→23:29)
[2020-06-13] MEDS ORDERED: D5W 275ml ONE ×2 (15:34→23:29)
--- NOTE | 2020-06-13 18:50 | NUR ---
RESPIRATORY NOTE: Received pt on AC 28, 550VT, 40%, PEEP +5. Pt is trach-dependent w/ a cuffed, Shiley 8 tube. Pt obtunded. B/S emmanuelle. rhonchi, sxn small amounts of thick, cisse-yellow secretions. Vent plugged into red outlet, ambubag at bedside. Pt in no apparent distress at this time. Will continue plan of care.
--- NOTE | 2020-06-13 19:30 | NUR ---
NURSE NOTES: Received pt's report from GEORGE Green. Pt is on bed and sleeping. Pt is obtunded. Pt is on Vent. SpO2 100%, RR 28, HR 58. Pt is on Salvador, yellow urine noted. Pt is on G-tube running noted. Pt has Picc line on the right upper arm, intact and clean noted. Call-light within reach. Bed is low and locked. will continue to monitor with plan of care.
--- NOTE | 2020-06-13 20:47 | General Progress Note ---
Assessment/Plan Assessment/Plan: Assessment - s/p cardiac arrest - s/p recent PEG / Trach on 05/11 - Anemia but w/u BM or melena - Resp failure, s/p Trach - dysphagia, s/p PEG - recent large stroke Recommendations - CT abd / pelvis --> noted, negative - await stool OB --> noted negative - monitor CBC --> stable - cardiology f/u and plans - Elevate HOB - Vent Subjective Allergies: Coded Allergies: PROPOXYPHENE (Verified Allergy, Unknown, 06/05/20) Subjective seen in [facility] non verbal Tolerating TF Objective Last 24 Hour Vital Signs Date Time Temp Pulse Resp B/P (MAP) Pulse Ox O2 Delivery O2 Flow Rate FiO2 06/13/20 18:46 56 28 40 06/13/20 18:04 153/63 06/13/20 17:15 58 28 40 06/13/20 16:00 40 06/13/20 16:00 96.4 68 22 153/63 (93) 100 06/13/20 16:00 Mechanical Ventilator 15.0 Mechanical Ventilator 15.0 06/13/20 15:15 62 28 40 06/13/20 13:35 57 28 40 06/13/20 12:00 56 06/13/20 12:00 40 06/13/20 12:00 Mechanical Ventilator 15.0 Mechanical Ventilator 15.0 06/13/20 12:00 97.2 64 26 151/57 (88) 100 06/13/20 11:50 151/57 06/13/20 11:15 59 28 40 06/13/20 09:30 63 28 40 06/13/20 09:27 65 151/57 06/13/20 08:00 40 06/13/20 08:00 Mechanical Ventilator 15.0 Mechanical Ventilator 15.0 06/13/20 08:00 98.8 65 24 151/57 (88) 100 06/13/20 08:00 63 06/13/20 07:25 63 28 40 06/13/20 05:10 140/69 06/13/20 04:33 63 28 40 06/13/20 04:00 40 06/13/20 04:00 97.2 64 28 140/69 (92) 100 06/13/20 04:00 Mechanical Ventilator 15.0 Mechanical Ventilator 15.0 06/13/20 03:52 65 06/13/20 03:01 64 28 40 06/13/20 01:28 64 28 40 06/13/20 00:00 97.7 65 28 144/50 (81) 100 06/13/20 00:00 Mechanical Ventilator 15.0 Mechanical Ventilator 15.0 06/13/20 00:00 40 06/12/20 23:28 68 06/12/20 22:50 65 28 40 06/12/20 20:53 70 28 40 Intake and Output 06/12/20 06/13/20 19:00 07:00 Intake Total 1410 ml 1698 ml Output Total 750 ml 750 ml Balance 660 ml 948 ml Free Water 200 ml 45 ml IV Total 430 ml 933 ml Tube Feeding 540 ml 720 ml Other 240 ml Output Urine Total 700 ml 700 ml Stool Total 50 ml 50 ml # Bowel Movements 3 3 Laboratory Tests 06/12/20 22:30: POC Whole Blood Glucose 241H 06/13/20 04:00: Random Vancomycin Level 17.5 06/13/20 04:31: POC Whole Blood Glucose [Pending] 06/13/20 11:47: POC Whole Blood Glucose [Pending] 06/13/20 17:55: POC Whole Blood Glucose [Pending] Height (Feet): 5 Height (Inches): 6.00 Weight (Pounds): 227 Objective Debilitated AA woman NCAT neck (+) trach coarse BS RR abd soft, (+) GT (+) contractures Andi Daniel MD Jun 13, 2020 20:47
[2020-06-13] MEDS: Dyna-Hex 2% Top Sol 2oz TOPIC SCH (20:51)
--- NOTE | 2020-06-13 21:30 | NUR ---
NURSE NOTES: Called custodial, [facility]. Give pt's report to GEORGE Johnson at the custodial.
[2020-06-13] MEDS ORDERED: Gentamicin for inhalation INH SCH (22:00)
--- NOTE | 2020-06-13 23:00 | NUR ---
NURSE NOTES: Pt is transported by indra, report is given to [place] RN and PRIMITIVO Dominguez. Pt is stable at this moment. Right before pt is transferred, dressing is changed.
[2020-06-13] MEDS ORDERED: D5 1/2NS 1000ml IV ONE ×2 (23:29)
--- NOTE | 2020-06-14 00:24 | Cardiology Progress Note ---
Subjective DATE OF SERVICE: Jun 13, 2020 BP parameters stable off pressors. Monitor: Sinus with paroxysms of AFib - rate controlled On vent support via trach Troponin peaked above 10, now normalizing. Objective Last 24 Hour Vital Signs Date Time Temp Pulse Resp B/P (MAP) Pulse Ox O2 Delivery O2 Flow Rate FiO2 06/13/20 21:25 60 28 100 Mechanical Ventilator 40 59 28 40 06/13/20 20:54 59 103/42 06/13/20 20:00 97.3 58 28 109/47 (67) 100 06/13/20 20:00 40 06/13/20 20:00 Mechanical Ventilator Mechanical Ventilator 06/13/20 19:04 59 06/13/20 18:46 56 28 40 06/13/20 18:04 153/63 06/13/20 17:15 58 28 40 06/13/20 16:00 40 06/13/20 16:00 96.4 68 22 153/63 (93) 100 06/13/20 16:00 Mechanical Ventilator 15.0 Mechanical Ventilator 15.0 06/13/20 15:15 62 28 40 06/13/20 13:35 57 28 40 06/13/20 12:00 56 06/13/20 12:00 40 06/13/20 12:00 Mechanical Ventilator 15.0 Mechanical Ventilator 15.0 06/13/20 12:00 97.2 64 26 151/57 (88) 100 06/13/20 11:50 151/57 06/13/20 11:15 59 28 40 06/13/20 09:30 63 28 40 06/13/20 09:27 65 151/57 06/13/20 08:00 40 06/13/20 08:00 Mechanical Ventilator 15.0 Mechanical Ventilator 15.0 06/13/20 08:00 98.8 65 24 151/57 (88) 100 06/13/20 08:00 63 06/13/20 07:25 63 28 40 06/13/20 05:10 140/69 06/13/20 04:33 63 28 40 06/13/20 04:00 40 06/13/20 04:00 97.2 64 28 140/69 (92) 100 06/13/20 04:00 Mechanical Ventilator 15.0 Mechanical Ventilator 15.0 06/13/20 03:52 65 06/13/20 03:01 64 28 40 06/13/20 01:28 64 28 40 ROS: unchanged from my assessment of 06/07/20. HEENT: Mechanically Ventilated, Thin secretions ET Tube RHYTHM: Afib LUNGS: bilateral rhonchi CARDIAC: irregularly irregular ABDOMEN: normal bowel sounds, non tender, soft, no organomegaly EXTREMITIES: no calf tenderness, moderate edema, +2 edema Laboratory Tests Test 06/13/20 04:00 06/13/20 04:31 06/13/20 11:47 06/13/20 17:55 Random Vancomycin Level 17.5 ug/mL POC Whole Blood Glucose Pending Pending Pending Assessment/Plan Assessment/Plan Acute myocardial infarction s/p full arrest Respiratory failure with trach PAFib with RVR Pacemaker Shock due to sepsis recovered Acute/subacute CVA Beta blockers up-titrated Vent support Continue statin antiplatelet therapy No anti-coagulation following massive CVA Replete electrolytes as needed. Discharge medx regimen reviewed and reconciled for planned discharge to subacute facility. Cisco Vera MD Jun 14, 2020 00:24
--- NOTE | 2020-06-14 17:59 | Discharge Summary ---
Discharge Summary Discharge Summary _ DATE OF ADMISSION: 06/05/2020 DATE OF DISCHARGE: 06/13/2020 DISCHARGED BY: Dr. Payne REASON FOR ADMISSION: 74 years old female with past medical history of chronic respiratory failure , ventilator dependent, with tracheostomy status, CVA, atrial fibrillation, history of CABG, breast cancer , status post right breast mastectomy, COPD, hypertension, was sent for evaluation due to anemia. Upon evaluation vital signs were stable Chest x-ray revealed extensive bilateral interstitial and airspace disease , likely pulmonary edema , however infiltrates were possible. Laboratory work-up revealed hemoglobin 7.9 , hematocrit 27.7. Platelet count 199 . No leukocytosis Urinalysis revealed no pyuria , +3 protein . Chemistry demonstrated sodium 133. BUN 62, creatinine 1.5. Glucose 165. Stable LFT . Albumin 1.1. ABG initially revealed severe acidosis and hypercapnia, but with adjusting ventilator parameters (increasing AC rate and tidal volume ) acidosis and hypercapnia resolved. Rapid COVID-19 was negative. Troponin 0.159.EKG revealed sinus rhythm with nonspecific ST changes. Patient subsequently admitted to direct observational unit for further management CONSULTANTS: perl programmer ID specialist Dr. Alston GI specialist Dr. Daniel finnish rubber Dr. Pederson [facility] COURSE: Patient admitted to [facility]. Ventilator support and tracheostomy care provided along with pulmonary toilet . Hemoglobin and hematocrit were closely monitored with goal to keep hemoglobin above 7 . Echocardiogram revealed distal anteroseptal hypokinesis, distal inferoseptal and apical akinesis to the extent visualized. Left ventricular ejection fraction estimated to be 45%. Moderate aortic stenosis. Moderate to severe aortic regurgitation. Moderate mitral regurgitation. Patient received one dose of diuretic in ED. Volumes were closely monitored. SNF medication resumed Patient sustained a cardiopulmonary arrest secondary to asystole. ACLS protocol initiated with a subsequent return of spontaneous circulation. Post arrest patient initially required pressor for short-term for hemodynamic support. Pressors titrated to keep mean arterial blood pressure above 65 . Patient was able to be weaned from pressors shortly. Serial troponin trended with the highest being 10 , then started to trend down ; the last troponin 1.016. Antiplatelet therapy with aspirin continued. Beta-yaritza uptitrated. Antianginal regimen maximized. Blood culture revealed Proteus ESBL and staph epidermidis . Stool for C. difficile was negative. Sputum culture revealed Pseudomonas and Klebsiella ESBL. Patient had no leukocytosis , intermittent fevers resolved. ID specialist recommended continue antibiotic at the facility to complete the course of treatment for bacteremia and pneumonia. Renal parameters and electrolytes were closely monitored, nephrotoxic's were avoided. Electrolytes corrected as needed. Prior to discharge all electrolytes stable. Creatinine however trended up to 2.4. Aspiration precaution maintained. Tube feeding continued. Patient had evidence of anemia but without melena or without evidence of GI bleeding. Patient had recent PEG placement on 05/11 along with tracheostomy/ GI specialist followed. CT of the abdomen pelvis was negative for acute intraabdominal pathology. Stool for occult blood was negative. Hemoglobin and hematocrit were closely monitored with goal to keep hemoglobin above 7, remained stable. Wound care provided as per surgeon recommendation . Continue wound care at the facility. Dietary recommendation regarding tube feeding formula , goal rate and protein supplements implemented in plan of care. Supportive care provided. Patient clinically stabilized and was ready for transfer back to subacute facility for continuation of care. FINAL DIAGNOSES: Shock Status post cardiopulmonary arrest Proteus/Coagulase negative staph sepsis Pseudomonas/Klebsiella pneumonia Acute myocardial infarction Ischemic cardiomyopathy Acute on chronic diastolic and systolic congestive heart failure Acute on chronic hypoxemic hypercapnic respiratory failure Acute kidney injury Status post recent PEG and trach 05/11 Dysphagia, feeding by G-tube Anemia Chronic encephalopathy Paroxysmal atrial fibrillation Sacral decubitus ulcer , present on admission - un-stageable Malnutrition DISCHARGE MEDICATIONS: See Medication Reconciliation list. DISCHARGE INSTRUCTIONS: [facility]. Follow up with medical doctor at the facility. I have been assigned to dictate discharge summary for this account. I was not involved in the patient's management. Meredith Santos NP Jun 14, 2020 17:59
== END 2020-06-13 23:30 | DRG 811 ==
LOC: EDBD 12:06 → EMR 12:07 → 2W 16:02 → EDBEDREQ 19:34 → ICU 06-07 11:50 → 2W 06-11 21:41
DX: D64.9 Anemia, unspecified (principal); A41.9 Sepsis, unspecified organism; R65.21 Severe sepsis with septic shock; I46.9 Cardiac arrest, cause unspecified; I50.43 Acute on chronic combined systolic (congestive) and diastolic (congestive) heart failure; J96.22 Acute and chronic respiratory failure with hypercapnia; J96.21 Acute and chronic respiratory failure with hypoxia; I21.9 Acute myocardial infarction, unspecified; I13.0 Hypertensive heart and chronic kidney disease with heart failure and stage 1 through stage 4 chronic kidney disease, or unspecified chronic kidney disease; N17.9 Acute kidney failure, unspecified; G93.49 Other encephalopathy; Z99.11 Dependence on respirator [ventilator] status; E87.1 Hypo-osmolality and hyponatremia; E46 Unspecified protein-calorie malnutrition; L76.32 Postprocedural hematoma of skin and subcutaneous tissue following other procedure; J90 Pleural effusion, not elsewhere classified; L89.150 Pressure ulcer of sacral region, unstageable; N18.3 Chronic kidney disease, stage 3 (moderate); Z93.0 Tracheostomy status; Z93.1 Gastrostomy status; Z68.36 Body mass index [BMI] 36.0-36.9, adult; Z74.01 Bed confinement status; Z86.73 Personal history of transient ischemic attack (TIA), and cerebral infarction without residual deficits; R13.10 Dysphagia, unspecified; I48.0 Paroxysmal atrial fibrillation; R19.7 Diarrhea, unspecified; I25.10 Atherosclerotic heart disease of native coronary artery without angina pectoris; Z95.1 Presence of aortocoronary bypass graft; Z85.3 Personal history of malignant neoplasm of breast
CPT/HCPCS: 36415; 36430; 36569; 36600; 70450; 71045; 74177; 76937; 80048; 80053; 80202; 81001; 82248; 82270; 82803; 82962; 83735; 83880; 84484; 85007; 85025; 85610; 85730; 86850; 86900; 86901; 86920; 87040; 87070; 87081; 87181; 87205; 87324; 93005; 93306; 93970; 94002; 94003; 96361; 96374; 99291; J0171; J1815; J7030; J8499; U0002